=== PATIENT | female | born 1940 | race African-American/Black ===

== ENCOUNTER → 2016-06-17 | Outpatient (CLI) | payer MEDICARE ==
--- NOTE | 2016-06-17 13:09 | MM ---
Reason for exam: follow-up at short interval from prior study. Last mammogram was performed 2 months ago. History: Patient is postmenopausal, has history of breast cancer at age 56, and had previous chest radiation therapy at age 55. Malignant MG pre op needle loc LT of the left breast, May 10, 2016. Malignant MG stereo VAD BX LT of the left breast, April 20, 2016. Benign right mammotome panel of the right breast, August 20, 2008. Radiation therapy of the right breast, 1995. Excisional biopsy of the right breast. Lumpectomy of the right breast. Physical Findings: Nurse Summary: 3-4cm nodule in the left breast at 12 o'clock (nurse kp). MG 3D Diag Mammo W/Cad LT CC and MLO view(s) were taken of the left breast. Prior study comparison: April 04, 2016, left breast MG 3d work up w/cad LT. March 23, 2016, bilateral MG screening mammo w CAD. There are post surgical changes of lumpectomy in the left breast with surgical clips. Two tiny calcifications along the lateral superior anterior aspect of the resection site were present on older priors and do not seem to represent residual calcifications. These results were verbally communicated with the patient and result sheet given to the patient on 06/17/16. ASSESSMENT: Incomplete: need additional imaging evaluation, BI-RAD 0 RECOMMENDATION: Ultrasound of the left breast.
--- NOTE | 2016-06-17 13:14 | USB ---
Reason for exam: additional evaluation requested from abnormal screening. History: Patient is postmenopausal, has history of breast cancer at age 56, and had previous chest radiation therapy at age 55. Malignant MG pre op needle loc LT of the left breast, May 10, 2016. Malignant MG stereo VAD BX LT of the left breast, April 20, 2016. Benign right mammotome panel of the right breast, August 20, 2008. Radiation therapy of the right breast, 1995. Excisional biopsy of the right breast. Lumpectomy of the right breast. US Breast Limited LT Left breast ultrasound demonstrates a 4.3 x 3.9 x 3.8cm large, irregular, hypoechoic mass directly underlying the scar. This is presumed to be the recent resection site. Patient reports being told that her specimen was sent to [facility] and that "there is still something there." These results were verbally communicated with the patient and result sheet given to the patient on 06/17/16. Additional history provided after speaking with the surgeon over the phone later in the day. The posterior margin was positive. There is more than 5 cm between the most posterior surgical clip at the lumpectomy site and the patient's chest wall. ASSESSMENT: Known malignancy, BI-RAD 6 RECOMMENDATION: Surgical consultation. Manage patient on a clinical basis. (residual disease along the posterior resection margin). MTDD
== END | disposition home or self-care (01) ==
LOC: RADMAMWWP 10:10
PROVIDERS: ATTEND Surgery
DX: R92.8 Other abnormal and inconclusive findings on diagnostic imaging of breast (principal); Z85.3 Personal history of malignant neoplasm of breast
CPT/HCPCS: 76642; G0206; G0279

== ENCOUNTER 2016-06-21 11:24 | Day surgery (SDC) | payer MEDICARE ==
[2016-06-20 09:17] VITALS: BMI 35.4
[~2016-06-21 11:24] MED LIST: DEXAMETHASONE SOD PHOSPHATE 10 MG/ML 1 ML VIAL IV ONE; HYDROmorphone 1 MG/ML 1 ML SYRINGE IVP PRN; LACTATED RINGERS 1,000 ML IV SCH; ONDANSETRON 4 MG/2 ML VIAL IVP ONE
[2016-06-21] MEDS ORDERED: HEPARIN SODIUM,PORCINE 5,000 UNIT/ML 1 ML VIAL SQ ONE (12:15)
[2016-06-21] MEDS ORDERED: LIDOCAINE 1% 20 ML VIAL (10MG/ML) FOR IV START INTRADERMA ONE (12:22)
[2016-06-21 12:30] LABS: INR 1.4 (<1.1); Prothrombin Time 13.8 sec (9.0-12.0)
[2016-06-21] MEDS ORDERED: ETOMIDATE 2 MG/ML 10 ML VIAL ONE (12:40)
[2016-06-21] MEDS ORDERED: SUCCINYLCHOLINE CHLORIDE 100 MG/5 ML SYR IV ONE (12:40)
[2016-06-21] MEDS ORDERED: POTASSIUM CHLORIDE 20 MEQ in WATER FOR INJECTION 1 100ML.BAG IVPB STA (12:40)
[2016-06-21] MEDS ORDERED: POTASSIUM CHLORIDE 20 MEQ/100 ML BAG IVPB ONE (12:40)
[2016-06-21] MEDS ORDERED: LIDOCAINE 1% INJ 10MG/ML (20 ML MDV) ONE (12:40)
[2016-06-21] MEDS ORDERED: MIDAZOLAM 2 MG/2 ML VIAL ONE (12:40)
[2016-06-21] MEDS ORDERED: fentaNYL (PF) 50 MCG/ML 2 ML AMP ONE (12:40)
[2016-06-21] MEDS ORDERED: ePHEDrine 50 MG/ML 1 ML AMP ONE (12:40)
[2016-06-21] MEDS ORDERED: SODIUM CHLORIDE 0.9% 50 ML with ceFAZolin 2,000 MG IV ONE ×2 (13:09)
[2016-06-21] MEDS ORDERED: LIDOCAINE 1% INJ 10MG/ML (20 ML MDV) SQ ONE (13:15)
--- NOTE | 2016-06-21 14:11 | P.OP ---
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 Incision was made at the prior lumpectomy site and carried down to the prior biopsy cavity. Wide excision was performed of the area of the cavity. A BioSorb was present and this was removed and irrigated and then reinserted into the new biopsy cavity. Wide margins were obtained circumferentially around the biopsy cavity with particular attention to the posterior area. After assured that hemostasis was attained a BioSorb was replaced was secured using a 3-0 Vicryl suture. The breast tissue was closed over this using 3-0 Vicryl suture. The cavity was reapproximated using 3-0 Vicryl suture. The skin was then closed using 4-0 Monocryl. Prior to closure a TONY drain was placed in the tissues between the subcutaneous tissue and the area where the tissue had been closed over the BioSorb. Hemostasis was well obtained. Patient tolerated procedure in stable condition. All instrument and sponge counts were correct at the end of the case. Specimen was sent to pathology for evaluation. The specimen was painted for orientation prior to being sent.
--- NOTE | 2016-06-21 14:13 | P.DS ---
Providers Attending physician: Barbara Trotter Primary care physician: Jonathan Monreal Plan - Discharge Summary Discharge Medication List Aspirin [Adult Low Dose Aspirin EC] 81 mg PO DAILY 05/06/16 [History] Carvedilol [Coreg] 12.5 mg PO BID 05/06/16 [History] Furosemide [Lasix] 40 mg PO DAILY 05/06/16 [History] Losartan [Cozaar] 50 mg PO HS 05/06/16 [History] Potassium Chloride ER [K-Dur 10] 10 meq PO DAILY 05/06/16 [History] Spironolactone [Aldactone] 12.5 mg PO DAILY 05/06/16 [History] Warfarin [Coumadin] 2.5 mg PO MOFR 05/06/16 [History] Warfarin [Coumadin] 5 mg PO SUTUWETHSA 05/06/16 [History] amLODIPine [Norvasc] 5 mg PO QAM 05/06/16 [History] Acetaminophen Tab [Tylenol Tab] 500 mg PO Q6H PRN 06/16/16 [History] Follow up Appointment(s)/Referral(s): Barbara Trotter MD [STAFF PHYSICIAN] - 3 Days Activity/Diet/Wound Care/Special Instructions: teach patient drain care Patient is not to drive today Discharge Disposition: HOME SELF-CARE
[2016-06-21 14:35] VITALS: PULSE 60; TEMP 97.8
[2016-06-21] MEDS ORDERED: HYDROmorphone 1 MG/ML 1 ML SYRINGE IVP ONE ×2 (14:42→14:47)
[2016-06-21] MEDS ORDERED: METOCLOPRAMIDE 5 MG/ML 2 ML VIAL IVP ONE (14:59)
[2016-06-21 15:27] VITALS: RESP 18
[2016-06-21] MEDS ORDERED: ACETAMINOPHEN TAB 500 MG TAB PO ONE (15:40)
[2016-06-21 15:49] VITALS: BP 135/79
== END 2016-06-21 17:19 | disposition home or self-care (01) ==
LOC: OR 11:24
PROVIDERS: ATTEND Surgery
DX: D05.02 Lobular carcinoma in situ of left breast (principal); N62 Hypertrophy of breast; M10.9 Gout, unspecified; I10 Essential (primary) hypertension; E87.6 Hypokalemia; I50.9 Heart failure, unspecified; M19.90 Unspecified osteoarthritis, unspecified site; Z95.810 Presence of automatic (implantable) cardiac defibrillator; E55.9 Vitamin D deficiency, unspecified; Z88.5 Allergy status to narcotic agent; Z79.01 Long term (current) use of anticoagulants; Z79.82 Long term (current) use of aspirin; Z79.899 Other long term (current) drug therapy
CPT/HCPCS: 19301; 84132; 85610; 88307; J2250; J1644; J1100; J2765; J3480; J2405; J2001; J3010; J1170; J0690; J0330

== ENCOUNTER → 2017-03-27 | Outpatient (CLI) | payer MEDICARE ==
--- NOTE | 2017-03-27 11:58 | MM ---
Reason for exam: additional evaluation requested from prior study. Last mammogram was performed 9 months ago. History: Patient is postmenopausal, has history of breast cancer at age 56, and had previous chest radiation therapy at age 55. Malignant MG pre op needle loc LT of the left breast, May 10, 2016. Malignant MG stereo VAD BX LT of the left breast, April 20, 2016. Benign right mammotome panel of the right breast, August 20, 2008. Radiation therapy of the right breast, 1995. Excisional biopsy of the right breast. Lumpectomy of the right breast. Physical Findings: Nurse did not find any significant physical abnormalities on exam. MG 3D Diag Mammo W/Cad JARROD Bilateral CC and MLO view(s) were taken. XCCL view(s) were taken of the right breast. CV view(s) were taken of the left breast. Prior study comparison: June 17, 2016, left breast MG 3d diag mammo w/cad LT. April 04, 2016, left breast MG 3d work up w/cad LT. The breast tissue is extremely dense which could obscure a lesion on mammography. Stable benign calcifications. Bilateral lumpectomy changes however on the right anterior to the clips there is a new area of spiculation, ultrasound recommended. These results were verbally communicated with the patient and result sheet given to the patient on 03/27/17. ASSESSMENT: Incomplete: need additional imaging evaluation, BI-RAD 0 RECOMMENDATION: Ultrasound of the left breast.
--- NOTE | 2017-03-27 12:00 | USB ---
Reason for exam: additional evaluation requested from abnormal screening. History: Patient is postmenopausal, has history of breast cancer at age 56, and had previous chest radiation therapy at age 55. Malignant MG pre op needle loc LT of the left breast, May 10, 2016. Malignant MG stereo VAD BX LT of the left breast, April 20, 2016. Benign right mammotome panel of the right breast, August 20, 2008. Radiation therapy of the right breast, 1995. Excisional biopsy of the right breast. Lumpectomy of the right breast. US Breast Limited LT Left breast ultrasound demonstrates a 2.3 x 3.1 x 2.2cm irregular, solid, hypoechoic lesion at 12 o'clock. These results were verbally communicated with the patient and result sheet given to the patient on 03/27/17. ASSESSMENT: Suspicious, BI-RAD 4 RECOMMENDATION: Ultrasound core biopsy of the left breast. Called Dr. Forde with mammographic findings and has scheduled an appointment for the patient for 03/31/17 at 11:[address] Trotter. PRELIMINARY REPORT CALLED AND FAXED TO DR. TROTTER ON 03/27/17.
== END | disposition home or self-care (01) ==
LOC: RADMAMWWP 10:07
PROVIDERS: ATTEND Radiology Radiation Oncology
DX: D05.12 Intraductal carcinoma in situ of left breast (principal); R92.8 Other abnormal and inconclusive findings on diagnostic imaging of breast
CPT/HCPCS: 76642; G0204; G0279

== ENCOUNTER → 2017-11-29 | Outpatient (CLI) | payer MEDICARE ==
--- NOTE | 2017-11-29 13:36 | MM ---
Reason for exam: additional evaluation requested from prior study. Last mammogram was performed 8 months ago. History: Patient is postmenopausal, has history of breast cancer at age 56, and had previous chest radiation therapy at age 55. Malignant MG pre op needle loc LT of the left breast, May 10, 2016. Malignant MG stereo VAD BX LT of the left breast, April 20, 2016. Benign right mammotome panel of the right breast, August 20, 2008. Radiation therapy of the right breast, 1995. Excisional biopsy of the right breast. Lumpectomy of the right breast. Physical Findings: Nurse Summary: 3cm nodule in the left breast at 12 o'clock (nurse dw). MG 3D Diag Mammo W/Cad JARROD Bilateral CC and MLO view(s) were taken. Prior study comparison: March 27, 2017, bilateral MG 3d diag mammo w/cad JARROD. June 17, 2016, left breast MG 3d diag mammo w/cad LT. The breast tissue is heterogeneously dense. This may lower the sensitivity of mammography. Post surgical changes bilateral breasts. Benign secretory, oil cysts, and some dystrophic calcifications both sides. Biozorb clips posterior 12 o'clock left breast redemonstrated with persistent distortion just anteriorly, new as seen on 03/27/17 These results were verbally communicated with the patient and result sheet given to the patient on 11/29/17.. ASSESSMENT: Incomplete: need additional imaging evaluation, BI-RAD 0 RECOMMENDATION: Ultrasound of the left breast. (10-12 o'clock)
--- NOTE | 2017-11-29 13:40 | USB ---
Reason for exam: additional evaluation requested from abnormal screening. History: Patient is postmenopausal, has history of breast cancer at age 56, and had previous chest radiation therapy at age 55. Malignant MG pre op needle loc LT of the left breast, May 10, 2016. Malignant MG stereo VAD BX LT of the left breast, April 20, 2016. Benign right mammotome panel of the right breast, August 20, 2008. Radiation therapy of the right breast, 1995. Excisional biopsy of the right breast. Lumpectomy of the right breast. US Breast Limited LT Left limited breast ultrasound including focal area of concern, retroareolar and axilla demonstrates a 3.1 x 4.2 x 2.5cm irregular, solid, hypoechoic lesion at 12 o'clock versus 2.3 x 3.1 x 2.2cm previously. Biozorb markers are not seen and this distortion is anterior to the marker on mammogram. Biopsy recommended. It is possible that this is lumpectomy scar and the Biozorb has displaced. These results were verbally communicated with the patient and result sheet given to the patient on 11/29/17. ASSESSMENT: Suspicious, BI-RAD 4 RECOMMENDATION: Ultrasound core biopsy of the left breast. Called Dr. Forde with mammographic findings and has scheduled an appointment for the patient for 12/07/17 at 1:[address] Trotter. Patient has an appointment with Dr. Forde on 12/06/17. PRELIMINARY REPORT CALLED AND FAXED TO DR. TROTTER ON 11/29/17.
== END | disposition home or self-care (01) ==
LOC: RADMAMWWP 10:08
PROVIDERS: ATTEND Radiology Radiation Oncology
DX: R92.8 Other abnormal and inconclusive findings on diagnostic imaging of breast (principal); Z85.3 Personal history of malignant neoplasm of breast
CPT/HCPCS: 77066; 76642; G0279; 77062

== ENCOUNTER → 2018-01-05 | Outpatient (CLI) | payer MEDICARE, OTHER ==
[2018-01-05 16:22] LABS: HCT 35.7 % (34.0-46.0); HGB 11.4 gm/dL (11.4-16.0); MCH 26.9 pg (25.0-35.0); MCV 84.3 fL (80.0-100.0); Mean Platelet Volume 7.1; Platelet Count 258 k/uL (150-450); RBC 4.23 m/uL (3.80-5.40); RDW 15.4 % (11.5-15.5); WBC 5.3 k/uL (3.8-10.6)
[2018-01-05 16:32] LABS: Potassium 3.7 mmol/L (3.5-5.1)
== END | disposition home or self-care (01) ==
LOC: LABPAT 15:21
PROVIDERS: ATTEND Internal Medicine Cardiovascular Disease
DX: Z01.812 Encounter for preprocedural laboratory examination (principal); T82.111A Breakdown (mechanical) of cardiac pulse generator (battery), initial encounter
CPT/HCPCS: 36415; 80051; 82565; 84520; 85027

== ENCOUNTER 2018-01-15 11:40 | Day surgery (SDC) | payer MEDICARE, OTHER ==
[2018-01-10 09:11] VITALS: BMI 35.8
[2018-01-15] MEDS: SODIUM CHLORIDE 0.9% 1,000 ML IV SCH ×3 (12:21→17:44)
[2018-01-15 12:30] LABS: INR 1.6 (<1.2); Prothrombin Time 14.9 sec (9.0-12.0)
[2018-01-15] MEDS ORDERED: ceFAZolin IN SWFI 2 GM/20 ML SYRINGE IVP ONE (13:30)
[2018-01-15] MEDS ORDERED: SODIUM CHLORIDE 0.9% 1,000 ML IV SCH (13:30)
[2018-01-15] MEDS ORDERED: ceFAZolin 1,000 MG in SODIUM CHLORIDE 0.9% IRRIGATIO 250 ML IRRIGATION ONE (13:30)
[2018-01-15] MEDS ORDERED: LIDOCAINE 1% INJ 10MG/ML (20 ML MDV) SQ ONE ×2 (14:10→14:47)
[2018-01-15] MEDS: fentaNYL (PF) 50 MCG/ML 2 ML AMP IV ONE ×2 (14:35→14:48)
[2018-01-15] MEDS ORDERED: ACETAMINOPHEN TAB 325 MG TAB PO PRN (15:57)
[2018-01-15] MEDS ORDERED: ACETAMINOPHEN IV (For NPO) 1,000 MG in EMPTY BAG 1 BAG IVPB ONE (15:57)
[2018-01-15 17:37] VITALS: RESP 16
[2018-01-15 20:09] VITALS: BP 127/75; PULSE 60; TEMP 98
--- NOTE | 2018-01-16 15:37 | P.PCN ---
Date of Procedure: 01/15/18 Preoperative Diagnosis: Battery depletion, complete heart block and pacemaker dependency Postoperative Diagnosis: The same Procedure(s) Performed: Temporary pacemaker Description of Procedure: Temporary pacemaker insertion: : This patient is brought in for battery replacement for AICD. Patient also has history of complete AV block. She is advised to have temporary pacemaker for standby for change of battery. The right groin is infiltrated with lidocaine. The right femoral vein was entered using Seldinger technique and a sheath was left in place. A bone tapered temporary pacemaker was advanced and was placed in the right ventricle apical region. Satisfactory thresholds were obtained. The pacemaker is programmed to a rate of 40 and output of 3. No immediate complications. No Final impression: Successful implantation of temporary pacemaker.
--- NOTE | 2018-01-16 15:48 | P.PCN ---
Date of Procedure: 01/16/18 Preoperative Diagnosis: HISTORY: This is a 77-year-old female with history of cardiomyopathy and complete heart block status post dual-chamber AICD implantation. Patient has reached PHAM. Patient is brought in for battery change. Patient already had a temporary pacemaker for standby. CONSENT: I have discussed the risks and benefits as related to the above mentioned procedure and both sedation/analgesia as well as necessary blood product administration. The patient has indicated understanding and acceptance of the risks of the procedure discussed. PROCEDURE: Patient was brought to the lab in a fasting state. Patient was given IV Versed and fentanyl for sedation. The skin over the existing pulse generator was infiltrated with lidocaine. An incision was made in the skin and was deepened until the pectoral fascia was exposed. Hemostasis was obtained. The existing pulse generator was pulled out of the pocket. The leads were disconnected and were checked for thresholds. Conscious Sedation: Versed []mg Fentanyl 50 g Duration 46minutes THRESHOLDS: ATRIAL: 1 V at a pulse width of 0.5 ms area did the impedance is 437 ohms P-wave: To VENTRICULAR: The minimal patient threshold was 1 V at pulse width of 0.5 ms. The impedance is 437 ohms. R-wave : Paced. RV coil impedance is 71 and SVC is 70 THE LEADS: ATRIAL: This is manufactured by [employer]. Model number is 4473 and the serial number is [id number] VENTRICULAR:. This is manufactured by [employer]. Model number is 0185. Serial number is [id number]. THE EXPLANTED DEVICE: This is manufactured by [employer]. Model number is E110 and the serial number is [id number] THE NEW DEVICE:. This is manufactured by [employer]. Model number is [id number] and the serial number is [facility] [id number] The leads were then connected to a new pulse generator. Pacemaker seems to function normally. The pocket was irrigated with antibiotics. The pocket was closed in the usual fashion. Pectoral fascia was closed with 2-0 Prolene, the subcutaneous tissue was closed with 3-0 Prolene and the skin was closed with 4- 0 Prolene. Patient tolerated the procedure well . Patient will be monitored on the telemetry unit for 2-3 hours. If stable patient be discharged home later today. PLAN: Patient will be monitored for the next 3 hours. If stable patient will be discharged home FALLOW UP: One week in the office
== END 2018-01-15 21:05 | disposition home or self-care (01) ==
LOC: CATHEP 11:40 → 6SEL 16:14 → CATHEP 21:05
PROVIDERS: ATTEND Internal Medicine Cardiovascular Disease
DX: I25.5 Ischemic cardiomyopathy (principal); I44.2 Atrioventricular block, complete; Z45.02 Encounter for adjustment and management of automatic implantable cardiac defibrillator; I48.91 Unspecified atrial fibrillation; Z79.01 Long term (current) use of anticoagulants; I11.9 Hypertensive heart disease without heart failure; Z79.82 Long term (current) use of aspirin; Z79.899 Other long term (current) drug therapy
CPT/HCPCS: 33263; 85610; C1894; C1769; C1721; J0690 ×2; J2001; J3010

== ENCOUNTER 2019-05-08 13:47 | Emergency (ER) | payer MEDICARE, OTHER ==
[2019-05-08 14:12] VITALS: RESP 18
[2019-05-08] MEDS ORDERED: KETOROLAC 30 MG/ML 1 ML VIAL IM STA (14:25)
--- NOTE | 2019-05-08 14:36 | ED ---
General Adult HPI - General Chief complaint: Extremity Problem,Nontraumatic Stated complaint: Knee Injury Time Seen by Provider: 05/08/19 14:11 Source: patient, RN notes reviewed Mode of arrival: ambulatory Limitations: no limitations - History of Present Illness Initial comments: 79-year-old female presents for right knee pain. Patient states that when he gets cold that she gets achy ankles and knees. States that 2 days ago her knee started hurting. States she cannot bear weight on it yesterday but now 10. States it looked a little swollen yesterday. She denies any redness. Denies swelling today. Denies fevers or chills. Patient is unsure if she has a history of arthritis. Patient has no other complaints at this time including shortness of breath, chest pain, abdominal pain, nausea or vomiting, headache, or visual changes. - Related Data Home Medications Medication Instructions Recorded Confirmed Aspirin [Adult Low Dose Aspirin EC] 81 mg PO DAILY 05/06/16 01/15/18 Carvedilol [Coreg] 12.5 mg PO BID 05/06/16 01/15/18 Furosemide [Lasix] 40 mg PO DAILY 05/06/16 01/15/18 Losartan [Cozaar] 50 mg PO HS 05/06/16 01/15/18 Spironolactone [Aldactone] 25 mg PO DAILY 05/06/16 01/15/18 Warfarin [Coumadin] 2.5 mg PO MOWEFR 05/06/16 01/15/18 Warfarin [Coumadin] 5 mg PO SUTUTHSA 05/06/16 01/15/18 Allergies Allergy/AdvReac Type Severity Reaction Status Date / Time codeine AdvReac Nausea & Verified 01/10/18 08:59 [From Tylenol-Codeine #3] Vomiting Review of Systems ROS Statement: Those systems with pertinent positive or pertinent negative responses have been documented in the HPI. ROS Other: All systems not noted in ROS Statement are negative. Past Medical History Past Medical History: Atrial Fibrillation, Cancer, Heart Failure, Hypertension Additional Past Medical History / Comment(s): breast CA,hx Rt breast CA 21 yrs ago History of Any Multi-Drug Resistant Organisms: None Reported Past Surgical History: Pacemaker Additional Past Surgical History / Comment(s): right breast lumpectomy, left breast bx 04/20/16, [place] shoulder sx, [place] cataract, defibrilator placement Past Anesthesia/Blood Transfusion Reactions: No Reported Reaction Additional Past Anesthesia/Blood Transfusion Reaction / Comment(s): no hx blood transfusion Type of Cardiac Device: AICD Device Placement Date:: Dexin Interactive, last 2010 Past Psychological History: No Psychological Hx Reported Smoking Status: Never smoker - Past Family History Brother(s) Family Medical History: Cancer Additional Family Medical History / Comment(s): lung Mother Family Medical History: Congestive Heart Failure (CHF) Father History Unknown: Yes General Exam Limitations: no limitations General appearance: alert, in no apparent distress Head exam: Present: atraumatic, normocephalic, normal inspection Eye exam: Present: normal appearance, PERRL, EOMI. Absent: scleral icterus, conjunctival injection, periorbital swelling ENT exam: Present: normal exam, mucous membranes moist Neck exam: Present: normal inspection, full ROM. Absent: tenderness, meningismus, lymphadenopathy Respiratory exam: Present: normal lung sounds bilaterally. Absent: respiratory distress, wheezes, rales, rhonchi, stridor Cardiovascular Exam: Present: regular rate, normal rhythm, normal heart sounds. Absent: systolic murmur, diastolic murmur, rubs, gallop, clicks Extremities exam: Present: full ROM (full range of motion noted in the right lower extremity including the right knee.), tenderness (mild tenderness noted over the lateral aspect of the right knee.), normal capillary refill (capillary refill less than 2 seconds, DP pulse 2+.). Absent: joint swelling (no edema erythema or increased warmth noted of the right knee.), calf tenderness (no tenderness of the calf in the right lower extremity.) Neurological exam: Present: alert Psychiatric exam: Present: normal affect, normal mood Course Vital Signs 05/08/19 14:08 Temperature 97.9 F Pulse Rate 58 L Respiratory 18 Rate Blood Pressure 131/74 O2 Sat by Pulse 99 Oximetry Medical Decision Making - Medical Decision Making As ago exam is generally unremarkable. Patient is able to review. There is no edema or erythema. No evidence for septic arthritis. Full range of motion. Neurovascular status intact. X-ray shows no acute fracture or dislocation. There is mild to try compartment joint space loss with demineralization. P atient likely has arthritic pain. She was given Toradol which did help with her ankle but not her knee. She was then given [place]. However I did discuss I do not think he should write patient a [place] prescription as this can cause side effects. She will take Tylenol at home for pain. She is not supposed to take Motrin apparently according to her doctor so she was directed to listen to her doctor about this. She will follow-up with orthopedics in one to 2 days. Disposition Clinical Impression: Knee pain, right Disposition: HOME SELF-CARE Condition: Good Instructions (If sedation given, give patient instructions): Knee Pain (ED) Additional Instructions: please take Tylenol for pain. Follow-up with orthopedics in one to 2 days. Return to the emergency department if you have any worsening symptoms. Is patient prescribed a controlled substance at d/c from ED?: No Referrals: Jonathan Monreal DO [Primary Care Provider] - 1-2 days Ronnell Garnett MD [STAFF PHYSICIAN] - 1-2 days Time of Disposition: 15:47
--- NOTE | 2019-05-08 15:07 | XR ---
EXAMINATION TYPE: XR knee complete RT DATE OF EXAM: 05/08/2019 CLINICAL HISTORY: Right knee pain. TECHNIQUE: Three views of the right knee are obtained. COMPARISON: None. FINDINGS: There is no acute fracture/dislocation evident in the right knee. Mild tricompartment join t space loss without significant spurring. Demineralization is present. Overlying blanket or clothing material is present. IMPRESSION: As above.
[2019-05-08] MEDS ORDERED: HYDROcodone/APAP 5-325MG 1 EACH TAB PO STA (15:47)
[2019-05-08 16:48] VITALS: BP 136/72; PULSE 60; TEMP 98
== END 2019-05-08 16:48 | disposition home or self-care (01) ==
LOC: EC 13:47
DX: M25.561 Pain in right knee (principal); M81.0 Age-related osteoporosis without current pathological fracture; I48.91 Unspecified atrial fibrillation; I11.0 Hypertensive heart disease with heart failure; I50.9 Heart failure, unspecified; Z79.82 Long term (current) use of aspirin; Z79.01 Long term (current) use of anticoagulants; Z79.899 Other long term (current) drug therapy; Z88.5 Allergy status to narcotic agent; Z88.6 Allergy status to analgesic agent; Z85.3 Personal history of malignant neoplasm of breast; Z90.11 Acquired absence of right breast and nipple; Z95.810 Presence of automatic (implantable) cardiac defibrillator
CPT/HCPCS: 73562; 96372; 99283; J1885

== ENCOUNTER → 2019-07-01 | Outpatient (CLI) | payer MEDICARE, OTHER ==
--- NOTE | 2019-07-02 09:30 | MM ---
Reason for exam: additional evaluation requested from prior study. Last mammogram was performed 1 year and 7 months ago. History: Patient is postmenopausal, has history of breast cancer at age 56, and had previous chest radiation therapy at age 55. Radiation therapy of the left breast, 2017. Malignant MG pre op needle loc LT of the left breast, May 10, 2016. Malignant MG stereo VAD BX LT of the left breast, April 20, 2016. Benign right mammotome panel of the right breast, August 20, 2008. Radiation therapy of the right breast, 1995. Excisional biopsy of the right breast. Lumpectomy of the right breast. Physical Findings: Nurse did not find any significant physical abnormalities on exam. MG 3D Diag Mammo W/Cad JARROD Bilateral CC and MLO view(s) were taken. XCCL view(s) were taken of the left breast. Prior study comparison: November 29, 2017, bilateral MG 3d diag mammo w/cad JARROD. March 27, 2017, bilateral MG 3d diag mammo w/cad JARROD. The breast tissue is heterogeneously dense. This may lower the sensitivity of mammography. Benign appearing bilateral calcifications. Post therapy change bilaterally. Large area of left upper outer quadrant architectural distortion has increased in size, highly suspicious. Biopsy recommendation on prior exam of 2018. These results were verbally communicated with the patient and result sheet given to the patient on 07/01/19. ASSESSMENT: Incomplete: need additional imaging evaluation, BI-RAD 0 RECOMMENDATION: Ultrasound of the left breast. (upper outer quadrant to assess growth)
--- NOTE | 2019-07-02 09:34 | USB ---
Reason for exam: additional evaluation requested from abnormal screening. History: Patient is postmenopausal, has history of breast cancer at age 56, and had previous chest radiation therapy at age 55. Radiation therapy of the left breast, 2017. Malignant MG pre op needle loc LT of the left breast, May 10, 2016. Malignant MG stereo VAD BX LT of the left breast, April 20, 2016. Benign right mammotome panel of the right breast, August 20, 2008. Radiation therapy of the right breast, 1995. Excisional biopsy of the right breast. Lumpectomy of the right breast. US Breast Limited LT Left limited breast ultrasound including focal area of concern, retroareolar and axilla demonstrates a 1.0 x 0.8 x 0.5cm lymph node at 10 o'clock, a biozorb marker at 11 o'clock and a 2.6 x 4.7 x 1.4cm irregular, difficult to measure, mixed, hypoechoic lesion at 12 o'clock, prior 3.1 x 4.2 x 2.5cm lesion at 12 o'clock, biopsy recommended. Patient notes additional excision in May 2016 for margins. 12 o'clock mass could relate to scar or new carcinoma, biopsy recommended. These results were verbally communicated with the patient and result sheet given to the patient on 07/01/19. ASSESSMENT: Suspicious, BI-RAD 4 RECOMMENDATION: Ultrasound core biopsy of the left breast. Called Dr. Forde's office with mammographic findings and has scheduled an appointment for the patient for 07/24/19 at 1:[address] Trotter. Biopsy scheduled for 07/25/19 at 12:20. PRELIMINARY REPORT CALLED AND FAXED TO DR. TROTTER ON 07/02/19.
== END | disposition home or self-care (01) ==
LOC: RADMAMWWP 12:37
PROVIDERS: ATTEND Radiology Radiation Oncology
DX: D05.12 Intraductal carcinoma in situ of left breast (principal); R92.8 Other abnormal and inconclusive findings on diagnostic imaging of breast; Z17.0 Estrogen receptor positive status [ER+]
CPT/HCPCS: 77066; 76642; G0279; 77062

== ENCOUNTER → 2019-07-24 | Outpatient (CLI) | payer MEDICARE, OTHER ==
[2019-07-24 13:16] VITALS: BP 111/76; PULSE 83; RESP 20; TEMP 97.8
--- NOTE | 2019-07-24 14:11 | P.GSHP ---
History of Present Illness H&P Date: 07/24/19 Chief Complaint: ultrasound abnormal left breast Arlene is a 79 year old female with a [place] [id number] which revealed a large area of left upper outer quadrant architectural distortion which had increased in size and was considered highly suspicious. Biopsy had been recommended and prior exam of 2017. Patient subsequently had an [place] done [place] [id number] which revealed a 2.6 x 4.7 x 1.4 cm irregular difficult to measure mixed hypoechoic lesion at 12:00. This was considered suspicious BIRADS 4 and ultrasound-guided core biopsy was recommended. The patient's past history is significant for the following. The patient had a left breast needle core biopsy stereotactic in March 2016. This revealed high-grade ductal carcinoma in situ. She subsequently in April 2016 underwent a lumpectomy with sentinel node biopsy the sentinel nodes were negative for malignancy. 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 The patient therefore had repeat excision performed in May 2016. This was a left lumpectomy site reexcision breast with lobular neoplasia previous biopsy site and fibrocystic changes with focal fibroadenomatoid hyperplasia with no residual DCIS or pleomorphic LCIS. She underwent radiation therapy following the lumpectomy. She did not take any hormonal therapy. The patient also had a right breast lumpectomy and radiation about 20 years ago. She had no chemotherapy or hormonal therapy at that time. She does not feel anything of concern in her breast at this time. She still follows with radiation oncology this May and she was told to return in one year. No nipple discharge or skin changes. The patient does complain of her right breast being smaller than her left breast. It is difficult to find close the third. She experiences left shoulder discomfort secondary to the increased size of the left breast and back pain. Family History: patient: bilateral breast cancer, left DCIS, right ? type done at [facility]) Hormonal History: menarche: 12 breast fed: yes, age at first births: 19 menopause: 51 BCP: none hormones: none Surgical history: 1. Bilateral shoulders 2. Bilateral breast lumpectomies with right axillary node dissection and left sentinel node biopsy the first done right about 20 years ago, the second done 2016 with a re-excision 3. automatic defibrillator Medical History: 1. HTN 2. on Coumadin 3. ? atrial fibrillation ( DR. Martins) Social History: smoke: none alcohol: none drugs: none - Constitutional Constitutional: Reports sweats - EENT Comment: bilateral cataract surgery Eyes: denies blurred vision, denies pain Ears: deny: decreased hearing, tinnitus Ears, nose, mouth and throat: Denies headache, Denies sore throat - Breasts Breasts: bilateral: as per HPI - Cardiovascular Comment: ? atrial fibrillation Cardiovascular: Reports shortness of breath - Respiratory Respiratory: Denies cough, Denies 7 - Gastrointestinal Gastrointestinal: Denies abdominal pain, Denies diarrhea, Denies nausea, Denies vomiting - Genitourinary (Female) Genitourinary: Denies dysuria, Denies hematuria - Menstruation Menstruation: Reports postmenopausal - Musculoskeletal Comment: lower back and hip pain Musculoskeletal: Denies myalgias - Integumentary Integumentary: Denies pruritus, Denies rash - Neurological Neurological: Denies numbness, Denies weakness - Psychiatric Psychiatric: Denies anxiety, Denies depression - Endocrine Endocrine: Denies fatigue, Denies weight change - Hematologic/Lymphatic Comment: Coumadin - Allergic/Immunologic Allergic/Immunologic: Reports as per HPI Past Medical History Past Medical History: Atrial Fibrillation, Cancer, Heart Failure, Hypertension Additional Past Medical History / Comment(s): RIGHT BREAST CANCER 2007. LEFT BREAST CANCER 2017 History of Any Multi-Drug Resistant Organisms: None Reported Past Surgical History: Orthopedic Surgery, Pacemaker Additional Past Surgical History / Comment(s): right breast lumpectomy 2007. left breast LUMPECTOMY 2017. [place] shoulder sx. [place] cataract. AICD 2010 Past Anesthesia/Blood Transfusion Reactions: Postoperative Nausea & Vomiting (PONV) Additional Past Anesthesia/Blood Transfusion Reaction / Comment(s): no hx blood transfusion Type of Cardiac Device: AICD Device Placement Date:: [employer] last 2010 Past Psychological History: No Psychological Hx Reported Smoking Status: Never smoker Past Alcohol Use History: None Reported Past Drug Use History: None Reported - Past Family History Brother(s) Family Medical History: Cancer Additional Family Medical History / Comment(s): lung Mother Family Medical History: Congestive Heart Failure (CHF) Father History Unknown: Yes Medications and Allergies Home Medications Medication Instructions Recorded Confirmed Type Aspirin [Adult Low Dose Aspirin EC] 81 mg PO DAILY 05/06/16 07/24/19 History Carvedilol [Coreg] 12.5 mg PO BID 05/06/16 07/24/19 History Furosemide [Lasix] 40 mg PO DAILY 05/06/16 07/24/19 History Losartan [Cozaar] 50 mg PO HS 05/06/16 07/24/19 History Spironolactone [Aldactone] 25 mg PO DAILY 05/06/16 07/24/19 History Warfarin Sodium [Coumadin] 3.75 mg PO WEEKLY 07/12/19 07/24/19 History Warfarin [Coumadin] 2.5 mg PO WEEKLY 07/12/19 07/24/19 History amLODIPine [Norvasc] 5 mg PO DAILY 07/24/19 07/24/19 History Allergies Allergy/AdvReac Type Severity Reaction Status Date / Time codeine AdvReac Nausea & Verified 07/24/19 13:16 [From Tylenol-Codeine #3] Vomiting Surgical - Exam Vital Signs Temp Pulse Resp BP Pulse Ox 97.8 F 83 20 111/76 99 07/24/19 13:11 07/24/19 13:11 07/24/19 13:11 07/24/19 13:11 07/24/19 13:11 BMI 34 - General obese - Eyes normal ocular movement - ENT no hearing loss, no congestion - Neck no masses, trachea midline - Respiratory normal expansion, normal respiratory effort, clear to percussion, clear to auscultation - Cardiovascular Rhythm: regular Heart Sounds: normal: S1, S2 - Abdomen Abdomen: soft, non tender, no guarding, no rigid, no rebound - Integumentary normal turgor Left chest wall a defibrillator is in place and the upper aspect of the left chest wall - Neurologic no disoriented, no combative - Musculoskeletal normal gait - Psychiatric oriented to time, oriented to person, oriented to place, speech is normal, memory intact breast exam: BRA asymmetry of breast 40D, doesn't fit right side ptosis grade 3 inspection: Asymmetry of the breast with the left side being markedly larger than the right side bilateral breast scarring from prior lumpectomies palpation: Right breast: Multi-positional exam fibrocystic changes, well-healed scar from prior lumpectomy, no dominant masses or nodules of concern Right axilla: No adenopathy of concern Left breast: Multi-positional exam revealed scar from prior lumpectomy, some slight increased nodularity at that site, otherwise no other dominant masses or nodules of concern Left axilla: No adenopathy of concern Results Mammogram and ultrasound results reviewed Assessment and Plan Assessment: Impression: 1. Abnormal left breast mammogram and ultrasound 2. History of bilateral breast cancer DCIS 3. Atrial fibrillation 4. Patient on Coumadin with automatic defibrillator 5. Patient taking baby aspirin Plan: 1. stop baby aspirin and coumadin as per radiology 2. obtain pathology report form [facility] 3. consider symmetry procedure for the left breast after biopsy, CC: Dr. Monreal I have talked with Dr. Venegas's office and the patient is able to stop her aspirin and her Coumadin. Have spoken to in nurse practitioner Xiao. The patient had not stopped her aspirin and therefore we are going to reschedule the biopsy. She will stop the aspirin 5 days prior to the procedure. She will stop her Coumadin 4 days prior to the procedure and have recommended that in a PT/INR be done the day of the procedure. The patient understands and this will be rescheduled. Risks and benefits of the procedure are discussed and the patient understands. These include bleeding infection reaction to the anesthetic and possibility of not getting a fundraising sale representative sample. encounter 45 minutes: greater than 50% of time on planning and counselling Time with Patient: Greater than 30
== END ==
LOC: WWCWWP 13:00
PROVIDERS: ATTEND Surgery
DX: Z53.9 Procedure and treatment not carried out, unspecified reason (principal)

== ENCOUNTER → 2019-07-30 | Day surgery (SDC) | payer MEDICARE, OTHER ==
[2019-07-30 11:41] VITALS: RESP 16
[2019-07-30 11:53] LABS: Partial Thromboplastin Time 24.6 sec (22.0-30.0); Prothrombin Time 10.4 sec (9.0-12.0)
[2019-07-30 13:04] VITALS: BP 138/86; PULSE 65; TEMP 97.8
--- NOTE | 2019-07-30 13:44 | USB ---
EXAMINATION TYPE: US biopsy breast VAD LT, MG diagnostic mammo LT wo CAD DATE OF EXAM: 07/30/2019 CLINICAL HISTORY: R92.8, Abnormal mammogram. History of left-sided breast cancer diagnosed and treate d 2016 and 2017 with recent abnormal ultrasound. TECHNIQUE: Ultrasound guided core biopsy of left breast with clip placement and follow-up diagnostic two-view mammogram. COMPARISON: Prior mammogram and ultrasound July 01, 2019 and older studies. FINDINGS: The procedure of ultrasound guided core biopsy was explained to the patient. Benefits, alt ernatives, and risks were discussed. An informed consent was then obtained. The patient was placed in supine positioning for imaging and for the procedure. Preprocedure ultraso und redemonstrates the 12:00 position vague irregular hypoechoic lesion measuring roughly 2.1 x 1.3 x 3.4 cm without significant vascularity. The overlying skin was prepped and draped in usual sterile f ashion. Lidocaine was used as anesthetic into the skin and subcutaneous tissue. Lidocaine with epinep hrine is used as anesthetic into the deeper tissue up to area of concern in the left breast. Under ultrasound guidance, a vacuum assisted biopsy gun device was used to obtain 4 core samples at d ifferent levels in the lesion. Following this, a biopsy clip was left along the left lateral aspect of the lesion as I could not penetrate the area with device to put centrally within the lesion. The patient tolerated the procedure well without any immediate complication. The patient was kept in the radiology department for short stay after the procedure and then discharged home in stable condi tion. Post procedure mammogram shows successful deployment of clip middle depth along the lateral superior margin of the area of distortion. IMPRESSION: Successful, uncomplicated ultrasound guided core biopsy of area of concern in the left br east, full pathology results to follow. Intermediate index of suspicion noted at time of procedure. Grossly all samples obtained were white f avoring scarring over recurrent tumor.
== END ==
LOC: RADUSWWP 10:36
PROVIDERS: ATTEND Surgery
DX: N60.12 Diffuse cystic mastopathy of left breast (principal); R92.8 Other abnormal and inconclusive findings on diagnostic imaging of breast; Z85.3 Personal history of malignant neoplasm of breast
CPT/HCPCS: 88305; 85610; 85730; 77065; 19083; 36415; A4648; J2001

== ENCOUNTER → 2020-01-23 | Outpatient (CLI) | payer MEDICARE, OTHER ==
--- NOTE | 2020-01-23 11:40 | XR ---
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 Small or absent T12 ribs. Hypertrophic facet arthr opathy throughout. Trace grade 1 anterolisthesis at L3-L4. There is grade 1 retrolisthesis at L4-L5. Vertebral body heights are preserved. 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 Hypertrophic facet arthropathy with a grade 1 spon dylolisthesis at L3-L4 and L4-L5. No vertebral compression collapse.
== END | disposition home or self-care (01) ==
LOC: RADXRMAIN 09:18
PROVIDERS: ATTEND Family Medicine
DX: M43.16 Spondylolisthesis, lumbar region (principal); M47.816 Spondylosis without myelopathy or radiculopathy, lumbar region; M43.8X6 Other specified deforming dorsopathies, lumbar region
CPT/HCPCS: 72100

== ENCOUNTER 2021-11-14 22:01 | Inpatient (IN) | payer MEDICARE, OTHER ==
--- NOTE | 2021-11-14 22:15 | ED ---
Altered Mental Status HPI - General Stated Complaint: AMS/Weakness Time Seen by Provider: 11/14/21 22:05 - History of Present Illness Initial Comments: This patient is an 81-year-old woman who when I review her is complaining of right leg pain from the knee down to the ankle. She states that it had come on today. She notes it mainly which tries to move her right leg or when she was trying to walk to the bathroom. She denied having any recent injury. The patient was brought by EMS after they were called to go to the home to perform wellness check. Family had not heard from the patient in around 24 hours. EMS arrived and found the patient lying on the floor. The patient reportedly told him that she thought she was lying on the couch. Patient was without complaint other than the right leg pain previously mentioned. MD Complaint: other -: hour(s) Consistency of Symptoms: unknown Associated Symptoms: other (Right leg pain) - Related Data Home Medications Medication Instructions Recorded Confirmed Furosemide [Lasix] 40 mg PO DAILY 05/06/16 11/15/21 Losartan [Cozaar] 50 mg PO DAILY 05/06/16 11/15/21 Spironolactone [Aldactone] 12.5 mg PO DAILY 05/06/16 11/15/21 carvediloL [Coreg] 12.5 mg PO BID 05/06/16 11/15/21 Warfarin [Coumadin] 2.5 mg PO SUMOTUTHFR 07/12/19 11/15/21 Warfarin [Coumadin] 3.75 mg PO WESA 11/15/21 11/15/21 Allergies Allergy/AdvReac Type Severity Reaction Status Date / Time codeine AdvReac Nausea & Verified 11/15/21 08:16 [From Tylenol-Codeine #3] Vomiting Review of Systems ROS Statement: Those systems with pertinent positive or pertinent negative responses have been documented in the HPI. ROS Other: All systems not noted in ROS Statement are negative. Constitutional: Denies: fever Respiratory: Denies: cough, dyspnea Cardiovascular: Denies: chest pain, palpitations Gastrointestinal: Denies: abdominal pain Musculoskeletal: Reports: as per HPI, arthralgia. Denies: back pain Neurological: Denies: headache Past Medical History Past Medical History: Atrial Fibrillation, Cancer, Heart Failure, Hypertension Additional Past Medical History / Comment(s): RIGHT BREAST CANCER 2006. LEFT BREAST CANCER 2017 History of Any Multi-Drug Resistant Organisms: None Reported Past Surgical History: Orthopedic Surgery, Pacemaker Additional Past Surgical History / Comment(s): right breast lumpectomy 2006. left breast LUMPECTOMY 2016. [place] shoulder sx. [place] cataract. AICD 2010 Past Anesthesia/Blood Transfusion Reactions: Postoperative Nausea & Vomiting (PONV) Additional Past Anesthesia/Blood Transfusion Reaction / Comment(s): no hx blood transfusion Type of Cardiac Device: AICD Device Placement Date:: Predictvia, last 2010 Past Psychological History: No Psychological Hx Reported Past Alcohol Use History: None Reported Past Drug Use History: None Reported - Past Family History Brother(s) Family Medical History: Cancer Additional Family Medical History / Comment(s): lung Mother Family Medical History: Congestive Heart Failure (CHF) Father History Unknown: Yes General Exam General appearance: alert, in no apparent distress Head exam: Present: atraumatic, normocephalic Eye exam: Present: normal appearance, PERRL, EOMI. Absent: scleral icterus, conjunctival injection ENT exam: Present: mucous membranes dry Neck exam: Present: normal inspection, full ROM. Absent: tenderness Respiratory exam: Present: normal lung sounds bilaterally. Absent: respiratory distress, wheezes, rales, rhonchi, stridor, chest wall tenderness Cardiovascular Exam: Present: regular rate, normal rhythm, normal heart sounds. Absent: systolic murmur, diastolic murmur, rubs, gallop GI/Abdominal exam: Present: soft. Absent: distended, tenderness, guarding, rebound, rigid, mass Right Hip exam: Present: normal inspection. Absent: tenderness, swelling Upper Leg exam: Present: normal inspection, full ROM. Absent: tenderness, swelling Knee exam: Present: normal inspection, tenderness. Absent: full ROM, swelling, abrasion, laceration Lower Leg exam: Present: normal inspection, tenderness. Absent: swelling, abrasion Ankle exam: Present: normal inspection, tenderness. Absent: swelling Foot/Toe exam: Present: normal inspection. Absent: tenderness, swelling, abrasion, laceration Neurovascular tendon exam: Present: no vascular compromise. Absent: pulse deficit, abnormal cap refill, motor deficit, sensory deficit, tendon deficit Neurological exam: Present: alert Skin exam: Present: warm, dry, intact, normal color. Absent: rash Course Vital Signs 06/11/14/21 11/15/21 22:05 23:18 03:12 Temperature 98.2 F 98.4 F Pulse Rate 66 85 Pulse Rate [ 62 Pulse Oximetery ] Respiratory 16 16 22 Rate Blood Pressure 143/70 157/63 Blood Pressure 138/72 [Right Arm] O2 Sat by Pulse 96 95 97 Oximetry Medical Decision Making - Medical Decision Making Patient is an 81-year-old woman brought from home after presumed ground-level fall. Patient not able to describe the episode. She is having pain to right leg but x-rays did not reveal injury. Patient is found to have mild elevation of troponin and mild elevation of CK, will admit to trend the troponin's but at this point the ECG not revealing ischemia and patient not having ACS symptoms - Lab Data Result diagrams: 11/15/21 06:47 11/15/21 22:09 Lab Results 11/14/21 11/14/21 11/14/21 Range/Units 22:56 22:56 22:56 WBC 14.5 H (3.8-10.6) k/uL RBC 4.24 (3.80-5.40) m/uL Hgb 12.1 (11.4-16.0) gm/dL Hct 37.1 (34.0-46.0) % MCV 87.6 (80.0-100.0) fL MCH 28.5 (25.0-35.0) pg MCHC 32.6 (31.0-37.0) g/dL RDW 15.1 (11.5-15.5) % Plt Count 307 (150-450) k/uL MPV 8.3 Neutrophils % 84 % Lymphocytes % 9 % Monocytes % 5 % Eosinophils % 2 % Basophils % 0 % Neutrophils # 12.1 H (1.3-7.7) k/uL Lymphocytes # 1.3 (1.0-4.8) k/uL Monocytes # 0.8 (0-1.0) k/uL Eosinophils # 0.2 (0-0.7) k/uL Basophils # 0.1 (0-0.2) k/uL Hypochromasia Slight PT 17.4 H (9.0-12.0) sec INR 1.7 H (<1.2) APTT 31.9 H (22.0-30.0) sec Sodium 136 L (137-145) mmol/L Potassium 3.4 L (3.5-5.1) mmol/L Chloride 96 L (98-107) mmol/L Carbon Dioxide 29 (22-30) mmol/L Anion Gap 11 mmol/L BUN 22 H (7-17) mg/dL Creatinine 0.88 (0.52-1.04) mg/dL Est GFR (CKD-EPI)AfAm 72 (>60 ml/min/1.73 sqM) Est GFR (CKD-EPI)NonAf 63 (>60 ml/min/1.73 sqM) Glucose 137 H (74-99) mg/dL Calcium 9.3 (8.4-10.2) mg/dL Total Bilirubin 2.1 H (0.2-1.3) mg/dL AST 53 H (14-36) U/L ALT 17 (4-34) U/L Alkaline Phosphatase 60 (38-126) U/L Creatine Kinase 1310 H* (30-135) U/L CK-MB (CK-2) (0.0-2.4) ng/mL Troponin I (0.000-0.034) ng/mL Total Protein 7.5 (6.3-8.2) g/dL Albumin 4.0 (3.5-5.0) g/dL Procalcitonin (0.02-0.09) ng/mL Urine Color Urine Appearance (Clear) Urine pH (5.0-8.0) Ur Specific [place] (1.001-1.035) Urine Protein (Negative) Urine Glucose (UA) (Negative) Urine Ketones (Negative) Urine Blood (Negative) Urine Nitrite (Negative) Urine Bilirubin (Negative) Urine Urobilinogen (<2.0) mg/dL Ur Leukocyte Esterase (Negative) Urine RBC (0-5) /hpf Urine WBC (0-5) /hpf Ur Squamous Epith Cells (0-4) /hpf Urine Bacteria (None) /hpf Urine Mucus (None) /hpf Urine Opiates Screen (NotDetected) Ur Oxycodone Screen (NotDetected) Urine Methadone Screen (NotDetected) Ur Propoxyphene Screen (NotDetected) Ur Barbiturates Screen (NotDetected) U Tricyclic Antidepress (NotDetected) Ur Phencyclidine Scrn (NotDetected) Ur Amphetamines Screen (NotDetected) U Methamphetamines Scrn (NotDetected) U Benzodiazepines Scrn (NotDetected) Urine Cocaine Screen (NotDetected) U Marijuana (THC) Screen (NotDetected) Serum Alcohol <10 mg/dL 11/14/21 11/15/21 11/15/21 Range/Units 22:56 02:25 04:13 WBC (3.8-10.6) k/uL RBC (3.80-5.40) m/uL Hgb (11.4-16.0) gm/dL Hct (34.0-46.0) % MCV (80.0-100.0) fL MCH (25.0-35.0) pg MCHC (31.0-37.0) g/dL RDW (11.5-15.5) % Plt Count (150-450) k/uL MPV Neutrophils % % Lymphocytes % % Monocytes % % Eosinophils % % Basophils % % Neutrophils # (1.3-7.7) k/uL Lymphocytes # (1.0-4.8) k/uL Monocytes # (0-1.0) k/uL Eosinophils # (0-0.7) k/uL Basophils # (0-0.2) k/uL Hypochromasia PT (9.0-12.0) sec INR (<1.2) APTT (22.0-30.0) sec Sodium (137-145) mmol/L Potassium (3.5-5.1) mmol/L Chloride (98-107) mmol/L Carbon Dioxide (22-30) mmol/L Anion Gap mmol/L BUN (7-17) mg/dL Creatinine (0.52-1.04) mg/dL Est GFR (CKD-EPI)AfAm (>60 ml/min/1.73 sqM) Est GFR (CKD-EPI)NonAf (>60 ml/min/1.73 sqM) Glucose (74-99) mg/dL Calcium (8.4-10.2) mg/dL Total Bilirubin (0.2-1.3) mg/dL AST (14-36) U/L ALT (4-34) U/L Alkaline Phosphatase (38-126) U/L Creatine Kinase (30-135) U/L CK-MB (CK-2) 12.2 H (0.0-2.4) ng/mL Troponin I 0.111 H* 0.203 H* (0.000-0.034) ng/mL Total Protein (6.3-8.2) g/dL Albumin (3.5-5.0) g/dL Procalcitonin (0.02-0.09) ng/mL Urine Color Yellow Urine Appearance Cloudy H (Clear) Urine pH 6.0 (5.0-8.0) Ur Specific [place] 1.027 (1.001-1.035) Urine Protein 1+ H (Negative) Urine Glucose (UA) Negative (Negative) Urine Ketones 2+ H (Negative) Urine Blood Small H (Negative) Urine Nitrite Negative (Negative) Urine Bilirubin 1+ H (Negative) Urine Urobilinogen 2.0 (<2.0) mg/dL Ur Leukocyte Esterase Small H (Negative) Urine RBC 8 H (0-5) /hpf Urine WBC 9 H (0-5) /hpf Ur Squamous Epith Cells 5 H (0-4) /hpf Urine Bacteria Rare H (None) /hpf Urine Mucus Rare H (None) /hpf Urine Opiates Screen Not Detected (NotDetected) Ur Oxycodone Screen Not Detected (NotDetected) Urine Methadone Screen Not Detected (NotDetected) Ur Propoxyphene Screen Not Detected (NotDetected) Ur Barbiturates Screen Not Detected (NotDetected) U Tricyclic Antidepress Not Detected (NotDetected) Ur Phencyclidine Scrn Not Detected (NotDetected) Ur Amphetamines Screen Not Detected (NotDetected) U Methamphetamines Scrn Not Detected (NotDetected) U Benzodiazepines Scrn Not Detected (NotDetected) Urine Cocaine Screen Not Detected (NotDetected) U Marijuana (THC) Screen Not Detected (NotDetected) Serum Alcohol mg/dL 11/15/21 11/15/21 11/15/21 Range/Units 06:47 06:47 06:47 WBC 13.5 H (3.8-10.6) k/uL RBC 3.81 (3.80-5.40) m/uL Hgb 10.9 L (11.4-16.0) gm/dL Hct 33.8 L (34.0-46.0) % MCV 88.7 (80.0-100.0) fL MCH 28.7 (25.0-35.0) pg MCHC 32.3 (31.0-37.0) g/dL RDW 15.0 (11.5-15.5) % Plt Count 276 (150-450) k/uL MPV 8.3 Neutrophils % 78 % Lymphocytes % 12 % Monocytes % 9 % Eosinophils % 0 % Basophils % 0 % Neutrophils # 10.6 H (1.3-7.7) k/uL Lymphocytes # 1.6 (1.0-4.8) k/uL Monocytes # 1.2 H (0-1.0) k/uL Eosinophils # 0.0 (0-0.7) k/uL Basophils # 0.0 (0-0.2) k/uL Hypochromasia Slight PT (9.0-12.0) sec INR (<1.2) APTT (22.0-30.0) sec Sodium 139 (137-145) mmol/L Potassium 2.8 L (3.5-5.1) mmol/L Chloride 96 L (98-107) mmol/L Carbon Dioxide 33 H (22-30) mmol/L Anion Gap 10 mmol/L BUN 24 H (7-17) mg/dL Creatinine 1.07 H (0.52-1.04) mg/dL Est GFR (CKD-EPI)AfAm 57 (>60 ml/min/1.73 sqM) Est GFR (CKD-EPI)NonAf 49 (>60 ml/min/1.73 sqM) Glucose 114 H (74-99) mg/dL Calcium 9.1 (8.4-10.2) mg/dL Total Bilirubin (0.2-1.3) mg/dL AST (14-36) U/L ALT (4-34) U/L Alkaline Phosphatase (38-126) U/L Creatine Kinase (30-135) U/L CK-MB (CK-2) (0.0-2.4) ng/mL Troponin I 0.270 H* (0.000-0.034) ng/mL Total Protein (6.3-8.2) g/dL Albumin (3.5-5.0) g/dL Procalcitonin (0.02-0.09) ng/mL Urine Color Urine Appearance (Clear) Urine pH (5.0-8.0) Ur Specific [place] (1.001-1.035) Urine Protein (Negative) Urine Glucose (UA) (Negative) Urine Ketones (Negative) Urine Blood (Negative) Urine Nitrite (Negative) Urine Bilirubin (Negative) Urine Urobilinogen (<2.0) mg/dL Ur Leukocyte Esterase (Negative) Urine RBC (0-5) /hpf Urine WBC (0-5) /hpf Ur Squamous Epith Cells (0-4) /hpf Urine Bacteria (None) /hpf Urine Mucus (None) /hpf Urine Opiates Screen (NotDetected) Ur Oxycodone Screen (NotDetected) Urine Methadone Screen (NotDetected) Ur Propoxyphene Screen (NotDetected) Ur Barbiturates Screen (NotDetected) U Tricyclic Antidepress (NotDetected) Ur Phencyclidine Scrn (NotDetected) Ur Amphetamines Screen (NotDetected) U Methamphetamines Scrn (NotDetected) U Benzodiazepines Scrn (NotDetected) Urine Cocaine Screen (NotDetected) U Marijuana (THC) Screen (NotDetected) Serum Alcohol mg/dL 11/15/21 11/15/21 Range/Units 06:47 06:47 WBC (3.8-10.6) k/uL RBC (3.80-5.40) m/uL Hgb (11.4-16.0) gm/dL Hct (34.0-46.0) % MCV (80.0-100.0) fL MCH (25.0-35.0) pg MCHC (31.0-37.0) g/dL RDW (11.5-15.5) % Plt Count (150-450) k/uL MPV Neutrophils % % Lymphocytes % % Monocytes % % Eosinophils % % Basophils % % Neutrophils # (1.3-7.7) k/uL Lymphocytes # (1.0-4.8) k/uL Monocytes # (0-1.0) k/uL Eosinophils # (0-0.7) k/uL Basophils # (0-0.2) k/uL Hypochromasia PT 19.3 H (9.0-12.0) sec INR 1.9 H (<1.2) APTT (22.0-30.0) sec Sodium (137-145) mmol/L Potassium (3.5-5.1) mmol/L Chloride (98-107) mmol/L Carbon Dioxide (22-30) mmol/L Anion Gap mmol/L BUN (7-17) mg/dL Creatinine (0.52-1.04) mg/dL Est GFR (CKD-EPI)AfAm (>60 ml/min/1.73 sqM) Est GFR (CKD-EPI)NonAf (>60 ml/min/1.73 sqM) Glucose (74-99) mg/dL Calcium (8.4-10.2) mg/dL Total Bilirubin (0.2-1.3) mg/dL AST (14-36) U/L ALT (4-34) U/L Alkaline Phosphatase (38-126) U/L Creatine Kinase (30-135) U/L CK-MB (CK-2) (0.0-2.4) ng/mL Troponin I (0.000-0.034) ng/mL Total Protein (6.3-8.2) g/dL Albumin (3.5-5.0) g/dL Procalcitonin 1.40 H (0.02-0.09) ng/mL Urine Color Urine Appearance (Clear) Urine pH (5.0-8.0) Ur Specific [place] (1.001-1.035) Urine Protein (Negative) Urine Glucose (UA) (Negative) Urine Ketones (Negative) Urine Blood (Negative) Urine Nitrite (Negative) Urine Bilirubin (Negative) Urine Urobilinogen (<2.0) mg/dL Ur Leukocyte Esterase (Negative) Urine RBC (0-5) /hpf Urine WBC (0-5) /hpf Ur Squamous Epith Cells (0-4) /hpf Urine Bacteria (None) /hpf Urine Mucus (None) /hpf Urine Opiates Screen (NotDetected) Ur Oxycodone Screen (NotDetected) Urine Methadone Screen (NotDetected) Ur Propoxyphene Screen (NotDetected) Ur Barbiturates Screen (NotDetected) U Tricyclic Antidepress (NotDetected) Ur Phencyclidine Scrn (NotDetected) Ur Amphetamines Screen (NotDetected) U Methamphetamines Scrn (NotDetected) U Benzodiazepines Scrn (NotDetected) Urine Cocaine Screen (NotDetected) U Marijuana (THC) Screen (NotDetected) Serum Alcohol mg/dL - EKG Data -: EKG Interpreted by Me Rate: normal Interpretation: other (Paced rhythm rate 70 bpm) Disposition Clinical Impression: Fall, Altered mental status, Elevated troponin I level Disposition: HOME SELF-CARE Condition: Fair Is patient prescribed a controlled substance at d/c from ED?: No
[2021-11-14 23:10] LABS: Basophils # (A) 0.1 k/uL (0-0.2); Basophils % (A) 0 %; Eosinophils # (A) 0.2 k/uL (0-0.7); Eosinophils % (A) 2 %; HCT 37.1 % (34.0-46.0); HGB 12.1 gm/dL (11.4-16.0); Hypochromasia Slight; Lymphocytes # (A) 1.3 k/uL (1.0-4.8); Lymphocytes % (A) 9 %; MCH 28.5 pg (25.0-35.0); MCHC 32.6 g/dL (31.0-37.0); MCV 87.6 fL (80.0-100.0); Mean Platelet Volume 8.3; Monocytes # (A) 0.8 k/uL (0-1.0); Monocytes % (A) 5 %; Neutrophils # (A) 12.1 k/uL (1.3-7.7); Neutrophils % (A) 84 %; Platelet Count 307 k/uL (150-450); RBC 4.24 m/uL (3.80-5.40); RDW 15.1 % (11.5-15.5); WBC 14.5 k/uL (3.8-10.6)
--- NOTE | 2021-11-14 23:12 | XR ---
EXAMINATION TYPE: XR chest 1V portable DATE OF EXAM: 11/14/2021 COMPARISON: 04/06/2011 HISTORY: Altered mental status TECHNIQUE: Single view FINDINGS: Heart is enlarged. No heart failure. Lungs are clear of consolidation. There are no hilar m asses. There is left axillary pacemaker. IMPRESSION: No active cardiopulmonary disease. Cardiomegaly. No change.
[2021-11-14 23:20] LABS: ALT 17 U/L (4-34); African American GFR (CKD) 72 (>60 ml/min/1.73 sqM); Alcohol <10 mg/dL; Anion Gap 11 mmol/L; Blood Urea Nitrogen 22 mg/dL (7-17); Calcium 9.3 mg/dL (8.4-10.2); Carbon Dioxide 29 mmol/L (22-30); Chloride 96 mmol/L (98-107); Glucose 137 mg/dL (74-99); Non-African American GFR(CKD) 63 (>60 ml/min/1.73 sqM); Sodium 136 mmol/L (137-145); Total Bilirubin 2.1 mg/dL (0.2-1.3); Total Protein 7.5 g/dL (6.3-8.2)
--- NOTE | 2021-11-14 23:20 | CT ---
EXAMINATION TYPE: CT brain wo con DATE OF EXAM: 11/14/2021 COMPARISON: None HISTORY: Altered mental status CT DLP: mGycm Automated exposure control for dose reduction was used. There is cerebral cortical atrophy. There is no mass effect or midline shift. No sign of intracranial hemorrhage. Calvarium is intact. There is normal aeration of the mastoid sinuses. Skull base is inta ct. IMPRESSION: Cerebral atrophy. No acute intracranial abnormality.
[2021-11-14 23:22] LABS: INR 1.7 (<1.2); Partial Thromboplastin Time 31.9 sec (22.0-30.0); Prothrombin Time 17.4 sec (9.0-12.0)
--- NOTE | 2021-11-14 23:27 | XR ---
EXAMINATION TYPE: XR femur RT DATE OF EXAM: 11/14/2021 COMPARISON: NONE HISTORY: Right leg pain TECHNIQUE: 4 views FINDINGS: Right femur is intact. I see no fracture nor dislocation. There is small knee joint effusio n. Hip joint is intact. IMPRESSION: No fracture. There is right knee joint effusion.
[2021-11-14 23:31] LABS: Creatine Kinase 1310 U/L (30-135)
[2021-11-14 23:32] LABS: AST 53 U/L (14-36); Alkaline Phosphatase 60 U/L (38-126); Potassium 3.4 mmol/L (3.5-5.1)
[2021-11-14 23:35] LABS: Creatine Kinase MB 12.2 ng/mL (0.0-2.4)
[2021-11-14 23:38] LABS: Troponin I 0.111 ng/mL (0.000-0.034)
--- NOTE | 2021-11-14 23:53 | XR ---
EXAMINATION TYPE: XR tibia fibula RT DATE OF EXAM: 11/14/2021 COMPARISON: NONE HISTORY: Leg pain TECHNIQUE: 3 views FINDINGS: Tibia and fibula appear intact. I see no fracture nor dislocation. There is Achilles calcan eal spurring. Knee joint is intact. IMPRESSION: Negative right tibia and fibula exam. No fracture seen
[2021-11-15] MEDS ORDERED: NITROGLYCERIN SL TABS 0.4 MG TAB SUBLINGUAL PRN (01:52)
[2021-11-15] MEDS: SODIUM CHLORIDE 0.9% 1,000 ML IV SCH ×2 (02:27→12:20)
[2021-11-15 04:26] LABS: Appearance,Urine Cloudy (Clear); Bacteria,Urine Rare /hpf; Bilirubin,Urine 1+ (Negative); Blood,Urine Small (Negative); Color,Urine Yellow; Glucose,Urine (UA) Negative (Negative); Ketones,Urine 2+ (Negative); Leukocyte Esterase,Urine Small (Negative); Mucus,Urine Rare /hpf; Nitrite,Urine Negative (Negative); Protein,Urine 1+ (Negative); RBC,Urine 8 /hpf (0-5); Specific Gravity,Urine 1.027 (1.001-1.035); Squamous Epithelial Cell,Urine 5 /hpf (0-4); WBC,Urine 9 /hpf (0-5)
[2021-11-15 04:46] LABS: Cocaine Screen,Urine Not Detected (NotDetected); Phencyclidine Screen,Urine Not Detected (NotDetected)
[2021-11-15 04:47] LABS: Amphetamine Screen,Urine Not Detected (NotDetected); Barbiturate Screen,Urine Not Detected (NotDetected); Benzodiazepines Screen,Urine Not Detected (NotDetected); Methadone Screen, Urine Not Detected (NotDetected); Opiate Screen,Urine Not Detected (NotDetected); Oxycodone Screen, Urine Not Detected (NotDetected); Tricyclic Antidepressant,Urine Not Detected (NotDetected); Urn Cannabinoid Scrn Not Detected (NotDetected)
[2021-11-15 08:00] LABS: Basophils % (A) 0 %; Eosinophils % (A) 0 %; HCT 33.8 % (34.0-46.0); HGB 10.9 gm/dL (11.4-16.0); Hypochromasia Slight; Lymphocytes # (A) 1.6 k/uL (1.0-4.8); Lymphocytes % (A) 12 %; MCH 28.7 pg (25.0-35.0); MCHC 32.3 g/dL (31.0-37.0); MCV 88.7 fL (80.0-100.0); Mean Platelet Volume 8.3; Monocytes # (A) 1.2 k/uL (0-1.0); Monocytes % (A) 9 %; Neutrophils # (A) 10.6 k/uL (1.3-7.7); Neutrophils % (A) 78 %; Platelet Count 276 k/uL (150-450); RBC 3.81 m/uL (3.80-5.40); WBC 13.5 k/uL (3.8-10.6)
[2021-11-15 08:10] LABS: Calcium 9.1 mg/dL (8.4-10.2); Potassium 2.8 mmol/L (3.5-5.1)
[2021-11-15] MEDS ORDERED: Potassium Replacement Protocol 1 EACH MISC MISCELLANE PRN ×3 (08:51→17:30)
[2021-11-15 09:00] LABS: INR 1.9 (<1.2); Prothrombin Time 19.3 sec (9.0-12.0)
[2021-11-15] MEDS: carvediloL 12.5 MG TAB PO SCH ×2 (09:23→16:38)
[2021-11-15] MEDS: POTASSIUM CHLORIDE ER 20 MEQ TAB.ER PO SCH ×5 (09:24→18:21)
--- NOTE | 2021-11-15 11:07 | P.CRDCN ---
History of Present Illness History of present illness: HISTORY OF PRESENTING ILLNESS This is a pleasant 81-year-old female past medical history significant for paroxysmal atrial fibrillation on Coumadin, nonischemic cardiomyopathy status post dual-chamber ICD implantation in 2011, hypertension, complete heart block. She follows in the office with Dr. Venegas. We have been asked to see in consultation for elevated troponin. Patient presents emergency department via EMS after being found on the floor by her family at home. Patient does not recall any events at home. Apparently patient was not answering her phone, family went by to check on patient and she was found on the floor. EMS was called. Family did speak to patient the day prior. Per EMS report, patient was found the patient lying on her right side by the side of her bed. Possible fall unknown and unwitnessed. EMS found the patient confused and assessment and to be severely weak, unable to support her own weight, which was new per the family. Her blood sugar was 168, Vitals signs were stable. She was brought to the ER for further evaluation. Patient does not remember the incident. Denies any symptoms and no complaints. Denies chest pain, shortness of breath, ligh theadedness, dizziness, loss of consciousness, nausea, abdominal pain, headache, weakness, cough, fever, chills, orthopnea or PND. She does endorse some right leg pain. DIAGNOSTICS * EKG reveals V paced, sinus HR 70 * Telemetry tracings indicate sinus mechanism, V paced Hr 60s-70s * Chest xray no acute cardiopulmonary. * Xray tibia/fibula, femur reported as no fracture * CT brain reported with no acute intracranial abnormality. * Laboratory reviewed, WBC 13.5, hemoglobin 10.9, platelets 276, INR 1.9, sodium 139, potassium 2.8, BUN 24, serum creatinine 1.0, total bilirubin 2.1, creatine kinase 1310, troponin 0.11, 0.22, 0.27, urine toxicology negative * Cardiac catheterization 2005 revealed minimal nonobstructive coronary artery disease * Echocardiogram 07/2020 in the office revealed EF 2530 percent, mild LVH, mildly dilated left atrium, mild mitral regurgitation, mild tricuspid regurgitation * Stress test in the office, Vikasiscandrea in 2013 revealed small mid inferior scar, no reversible ischemia * Current home cardiac medications include carvedilol 12.5 mg twice a day, Coumadin 2.5 mg Monday, , Monday, 3.75 mg Monday and Monday, losartan 50 mg daily, Lasix 40 mg daily REVIEW OF SYSTEMS At the time of my exam: CONSTITUTIONAL: Denies fever or chills. CARDIOVASCULAR: Denies chest pain, shortness of breath, orthopnea, PND or palpitations. RESPIRATORY: Denies cough. GASTROINTESTINAL: Denies abdominal pain, diarrhea, constipation, nausea or vomiting. MUSCULOSKELETAL: Denies myalgias. NEUROLOGIC: Denies numbness, tingling, headacbe or weakness. ENDOCRINE: Denies fatigue, weight change, polydipsia or polyurina. GENITOURINARY: Denies burning, hematuria or urgency with micturation. HEMATOLOGIC: Denies history of anemia or bleeding. PHYSICAL EXAMINATION Blood pressure 130/59, heart rate 62, afebrile, saturations 98% on room air CONSTITUTIONAL: No apparent distress. HEENT: Head is normocephalic. Pupils are equal, round. Sclerae anicteric. Mucous membranes of the mouth are moist. No JVD. No carotid bruit. CHEST EXAMINATION: Lungs are clear to auscultation. No chest wall tenderness is noted on palpation or with deep breathing. HEART EXAMINATION: Regular rate and rhythm. S1, S2 heard. No murmurs, gallops or rub. ABDOMEN: Soft, nontender. Positive bowel sounds. EXTREMITIES: 2+ peripheral pulses, no lower extremity edema and no calf tenderness. NEUROLOGIC EXAMINATION: Patient is awake, alert and oriented x2-3. ASSESSMENT Unwitnessed fall at home, unclear if syncope Elevated troponin, not indicative of acute coronary syndrome, patient without any chest pain or shortness of breath Hypokalemia Leukocytosis Rhabdomyolysis Paroxysmal atrial fibrillation on Coumadin Nonischemic cardiomyopathy Status post dual-chamber ICD implantation in 2011 Hypertension History of complete heart block PLAN Obtain 2D echocardiogram and doppler study to assess cardiac structure and function. Interrogate patient's device Replace potassium per protocol Continue home cardiac medications Daily PT/INR Monitor renal function and electrolytes Continue on cardiac telemetry Further recommendations based on clinical course Nurse practitioner note has been reviewed by physician. Signing provider agrees with the documntented findings, assessment, and plan of care. Past Medical History Past Medical History: Atrial Fibrillation, Cancer, Heart Failure, Hypertension Additional Past Medical History / Comment(s): RIGHT BREAST CANCER 2006. LEFT BREAST CANCER 2017 History of Any Multi-Drug Resistant Organisms: None Reported Past Surgical History: Orthopedic Surgery, Pacemaker Additional Past Surgical History / Comment(s): right breast lumpectomy 2006. left breast LUMPECTOMY 2016. [place] shoulder sx. [place] cataract. AICD 2010 Past Anesthesia/Blood Transfusion Reactions: Postoperative Nausea & Vomiting (PONV) Additional Past Anesthesia/Blood Transfusion Reaction / Comment(s): no hx blood transfusion Type of Cardiac Device: AICD Device Placement Date:: [employer], last 2010 Past Psychological History: No Psychological Hx Reported Past Alcohol Use History: None Reported Past Drug Use History: None Reported - Past Family History Brother(s) Family Medical History: Cancer Additional Family Medical History / Comment(s): lung Mother Family Medical History: Congestive Heart Failure (CHF) Father History Unknown: Yes Medications and Allergies Home Medications Medication Instructions Recorded Confirmed Type Furosemide [Lasix] 40 mg PO DAILY 05/06/16 11/15/21 History Losartan [Cozaar] 50 mg PO DAILY 05/06/16 11/15/21 History Spironolactone [Aldactone] 12.5 mg PO DAILY 05/06/16 11/15/21 History carvediloL [Coreg] 12.5 mg PO BID 05/06/16 11/15/21 History Warfarin [Coumadin] 2.5 mg PO SUMOTUTHFR 07/12/19 11/15/21 History Warfarin [Coumadin] 3.75 mg PO WESA 11/15/21 11/15/21 History Allergies Allergy/AdvReac Type Severity Reaction Status Date / Time codeine AdvReac Nausea & Verified 11/15/21 08:16 [From Tylenol-Codeine #3] Vomiting Physical Exam Vitals: Vital Signs Temp Pulse Pulse Pulse Resp BP BP 11/15/21 07:51 99.3 F 62 16 130/59 11/15/21 03:12 98.4 F 62 22 138/72 11/14/21 23:18 85 16 157/63 11/14/21 22:05 98.2 F 66 16 143/70 Pulse Ox 11/15/21 07:51 98 11/15/21 03:12 97 11/14/21 23:18 95 11/14/21 22:05 96 Intake and Output 11/14/21 11/15/21 11/15/21 22:59 06:59 14:59 Output Total 60 Balance -60 Output: Urine 60 Other: Voiding Method Bedpan # Voids 0 Weight 79.379 kg 79.379 kg Results 11/15/21 06:47 11/15/21 06:47 Cardiac Enzymes 11/14/21 11/14/21 11/15/21 Range/Units 22:56 22:56 02:25 AST 53 H (14-36) U/L CK-MB (CK-2) 12.2 H (0.0-2.4) ng/mL Troponin I 0.111 H* 0.203 H* (0.000-0.034) ng/mL Coagulation 11/14/21 Range/Units 22:56 PT 17.4 H (9.0-12.0) sec APTT 31.9 H (22.0-30.0) sec CBC 11/14/21 11/15/21 Range/Units 22:56 06:47 WBC 14.5 H 13.5 H (3.8-10.6) k/uL RBC 4.24 3.81 (3.80-5.40) m/uL Hgb 12.1 10.9 L (11.4-16.0) gm/dL Hct 37.1 33.8 L (34.0-46.0) % Plt Count 307 276 (150-450) k/uL Comprehensive Metabolic Panel 11/14/21 11/15/21 Range/Units 22:56 06:47 Sodium 136 L 139 (137-145) mmol/L Potassium 3.4 L 2.8 L (3.5-5.1) mmol/L Chloride 96 L 96 L (98-107) mmol/L Carbon Dioxide 29 33 H (22-30) mmol/L BUN 22 H 24 H (7-17) mg/dL Creatinine 0.88 1.07 H (0.52-1.04) mg/dL Glucose 137 H 114 H (74-99) mg/dL Calcium 9.3 9.1 (8.4-10.2) mg/dL AST 53 H (14-36) U/L ALT 17 (4-34) U/L Alkaline Phosphatase 60 (38-126) U/L Total Protein 7.5 (6.3-8.2) g/dL Albumin 4.0 (3.5-5.0) g/dL Current Medications Generic Name Dose Route Start Last Admin Trade Name Freq PRN Reason Stop Dose Admin Carvedilol 12.5 mg 11/15/21 09:00 Carvedilol 12.5 Mg Tab PO BID [facility] Sodium Chloride 1,000 mls @ 100 mls/hr 11/15/21 02:00 11/15/21 02:27 Saline 0.9% IV 100 mls/hr .Q10H [facility] Administration Miscellaneous Information 1 each 11/15/21 08:19 Warfarin Per Pharmacy MISCELLANE DIRECTED PRN Per Protocol Protocol Nitroglycerin 0.4 mg 11/15/21 01:52 Nitroglycerin Sl Tabs 0.4 Mg Tab SUBLINGUAL Q5M PRN Chest Pain Non-Formulary Medication 3.75 mg 11/15/21 21:00 Warfarin Sodium [Coumadin] PO [facility] Warfarin Sodium 2.5 mg 11/16/21 21:00 Warfarin 2.5 Mg Tab PO [facility] Protocol Intake and Output 11/14/21 11/15/21 11/15/21 22:59 06:59 14:59 Output Total 60 Balance -60 Output: Urine 60 Other: Voiding Method Bedpan # Voids 0 Weight 79.379 kg 79.379 kg 11/15/21 06:47 11/15/21 06:47
--- NOTE | 2021-11-15 11:55 | XR ---
EXAMINATION TYPE: XR ankle complete RT DATE OF EXAM: 11/15/2021 COMPARISON: Right tibia and fibula 11/14/2021 HISTORY: Pain TECHNIQUE: 3 view right ankle FINDINGS: Achilles tendon calcaneal heel spur is present. No acute fracture or dislocation is evident. The ankle mortise appears intact. Secondary ossification center appears to be below the medial malleolus. Soft tissue swelling is over the medial malleolus. Milder soft tissue swelling may be at the lateral malleolus. Follow-up exams can be performed 7-10 days from acute trauma for continued pain. IMPRESSION: 1. No acute osseous abnormality right ankle. 2. Diffuse soft tissue swelling greater along the medial right ankle. 3. MRI can be performed if soft tissue evaluation would be of benefit.
--- NOTE | 2021-11-15 11:57 | XR ---
EXAMINATION TYPE: XR foot complete RT DATE OF EXAM: 11/15/2021 COMPARISON: None HISTORY: Pain TECHNIQUE: 3 view right foot FINDINGS: The oblique view is overpenetrated with poor visualization of the digits. Soft tissue swelling remains at the ankle. Plantar calcaneal heel spur is evident. The larger Tio s tendon calcaneal heel spurs present. No acute fractures are identified. Follow-up exam can be performed 7-10 days from acute trauma for co ntinued pain. IMPRESSION: 1. No acute osseous abnormality right foot. 2. Calcaneal heel spurs. 3. Soft tissue swelling at the ankle
--- NOTE | 2021-11-15 12:04 | CA ---
Transthoracic Echo Report Name: Arlene Bolton Age: 81 Gender: F : 1940 Exam Date: 11/15/2021 09:02 Exam Location: [facility] Ht (in): 62 Wt (lb): 175 Ordering Physician: Chioma Perez Attending/Referring Phys: [employer] Bettie Shell RDCS Procedure CPT: Indications: elevated troponin Cardiac Hx: Technical Quality: Technically difficult study Contrast 1: Lumason Total Dose (mL): 3 Contrast 2: Total Dose (mL): MEASUREMENTS (Male / Female) Normal Values FINDINGS Left Ventricle Severely reduced global left ventricular systolic function. Left ventricular ejection fraction is estimated at 10-15 %. Right Ventricle Normal right ventricular size and function. Right Atrium Right atrium not well visualized. Left Atrium Mild left atrial dilatation. Mitral Valve Mitral valve not well visualized. Aortic Valve Aortic valve not well visualized. Tricuspid Valve Tricuspid valve not well visualized. Pulmonic Valve Pulmonic valve not well visualized. Pericardium Not Visualized. Aorta Not Visualized. CONCLUSIONS Technically suboptimal and incomplete study Severe LV systolic dysfunction with an ejection fraction of around 10-15% Previewed by: Dr. Maykel Frey MD (Electronically Signed) Final Date: 15 November 2021 12:03
[2021-11-15] MEDS ORDERED: Magnesium Replacement Protocol 1 EACH MISC MISCELLANE PRN ×2 (13:18→18:32)
--- NOTE | 2021-11-15 13:19 | P.HPIM ---
History of Present Illness This is a pleasant 81 years old female with past medical history of Atrial Fibrillation, on warfarin , Heart Failure, Hypertension, right breast cancer 2006, left breast cancer 2017, she status post pacemaker, status post AICD. pt presents after being found down. family called EMS. Pt complains of left hand swelling and developed tenderness and swelling. Patient herself is alert awake and oriented to time place but she could not remember the name of the president. She has insight into her illness. She follows commands appropriately. And she has logic answers. She does not know what happened, the last thing she remembers she was in bed. Currently she looks awake and alert, mildly sleepy but is easily arousable and stay awake. She denies any chest pains or dyspnea, no burning in her urine or increased frequency. No diarrhea or vomiting. Has good appetite. She denies headache or dizziness, no weakness or numbness in extremities. She denies smoking, alcohol or illicit drugs. Vitals are stable and patient is afebrile. Labs showed leukocytosis of 14.5 and 13.5, rest of CBC is unremarkable. Sodium is 139, creatinine 1.0. Creatinine kinase elevated at 1310. Elevated troponin 0.11 and 0.20. INR is 1.7 Liver enzymes only mildly elevated. Bilirubin 2.1. Urinalysis is suspicious for infection. Urine drug screen is negative and cervical less than 10 EKG showed ventricular paced rhythm X-ray of the right tibia and fibula and right femur showing no fracture but there is right knee joint effusion CT of the brain: Cerebral atrophy, no acute process. Chest x-ray: No acute process. In the emergency room patient was started on normal saline and warfarin pharmacy to dose Review of Systems CONSTITUTIONAL: No fever, no malaise, no fatigue. HEENT: No recent visual problems or hearing problems. Denied any sore throat. CARDIOVASCULAR: No orthopnea, PND, no palpitations, no syncope. PULMONARY: No shortness of breath, no cough, no hemoptysis. GASTROINTESTINAL: No diarrhea, no nausea, no vomiting, no abdominal pain. Normoactive bowel sounds. NEUROLOGICAL: No headaches, no weakness, no numbness. HEMATOLOGICAL: Denies any bleeding or petechiae. GENITOURINARY: Denies any burning micturition, frequency, or urgency. MUSCULOSKELETAL/RHEUMATOLOGICAL: Denies any joint pain, swelling, or any muscle pain. ENDOCRINE: Denies any polyuria or polydipsia. Past Medical History Past Medical History: Atrial Fibrillation, Cancer, Heart Failure, Hypertension Additional Past Medical History / Comment(s): RIGHT BREAST CANCER 2006. LEFT BREAST CANCER 2017 History of Any Multi-Drug Resistant Organisms: None Reported Past Surgical History: Orthopedic Surgery, Pacemaker Additional Past Surgical History / Comment(s): right breast lumpectomy 2006. left breast LUMPECTOMY 2016. [place] shoulder sx. [place] cataract. AICD 2010 Past Anesthesia/Blood Transfusion Reactions: Postoperative Nausea & Vomiting (PONV) Additional Past Anesthesia/Blood Transfusion Reaction / Comment(s): no hx blood transfusion Type of Cardiac Device: AICD Device Placement Date:: [employer], last 2010 Past Psychological History: No Psychological Hx Reported Past Alcohol Use History: None Reported Past Drug Use History: None Reported - Past Family History Brother(s) Family Medical History: Cancer Additional Family Medical History / Comment(s): lung Mother Family Medical History: Congestive Heart Failure (CHF) Father History Unknown: Yes Medications and Allergies Home Medications Medication Instructions Recorded Confirmed Type Furosemide [Lasix] 40 mg PO DAILY 05/06/16 11/15/21 History Losartan [Cozaar] 50 mg PO DAILY 05/06/16 11/15/21 History Spironolactone [Aldactone] 12.5 mg PO DAILY 05/06/16 11/15/21 History carvediloL [Coreg] 12.5 mg PO BID 05/06/16 11/15/21 History Warfarin [Coumadin] 2.5 mg PO SUMOTUTHFR 07/12/19 11/15/21 History Warfarin [Coumadin] 3.75 mg PO WESA 11/15/21 11/15/21 History Allergies Allergy/AdvReac Type Severity Reaction Status Date / Time codeine AdvReac Nausea & Verified 11/15/21 08:16 [From Tylenol-Codeine #3] Vomiting Physical Exam Vitals: Vital Signs Temp Pulse Pulse Pulse Resp BP BP 11/15/21 07:51 99.3 F 62 16 130/59 11/15/21 03:12 98.4 F 62 22 138/72 11/14/21 23:18 85 16 157/63 11/14/21 22:05 98.2 F 66 16 143/70 Pulse Ox 11/15/21 07:51 98 11/15/21 03:12 97 11/14/21 23:18 95 11/14/21 22:05 96 Intake and Output 11/14/21 11/15/21 11/15/21 22:59 06:59 14:59 Output Total 60 Balance -60 Output: Urine 60 Other: Voiding Method Bedpan # Voids 0 Weight 79.379 kg 79.379 kg GENERAL: The patient is alert and oriented x3, not in any acute distress. Well developed, well nourished. HEENT: Pupils are round and equally reacting to light. EOMI. No scleral icterus. No conjunctival pallor. Normocephalic, atraumatic. No pharyngeal erythema. No thyromegaly. CARDIOVASCULAR: S1 and S2 present. No murmurs, rubs, or gallops. PULMONARY: Chest is clear to auscultation, no wheezing or crackles. ABDOMEN: Soft, nontender, nondistended, normoactive bowel sounds. No palpable organomegaly. MUSCULOSKELETAL: No joint swelling or deformity. -EXTREMITIES: No cyanosis, clubbing, or pedal edema. Left foot tenderness, bilateral mild swelling of the lower extremities NEUROLOGICAL: Gross neurological examination did not reveal any focal deficits. SKIN: No rashes. No petechiae Results CBC & Chem 7: 11/15/21 06:47 11/15/21 06:47 Labs: Abnormal Lab Results - Last 24 Hours (Table) 11/14/21 11/14/21 11/14/21 Range/Units 22:56 22:56 22:56 WBC 14.5 H (3.8-10.6) k/uL Hgb (11.4-16.0) gm/dL Hct (34.0-46.0) % Neutrophils # 12.1 H (1.3-7.7) k/uL Monocytes # (0-1.0) k/uL PT 17.4 H (9.0-12.0) sec INR 1.7 H (<1.2) APTT 31.9 H (22.0-30.0) sec Sodium 136 L (137-145) mmol/L Potassium 3.4 L (3.5-5.1) mmol/L Chloride 96 L (98-107) mmol/L Carbon Dioxide (22-30) mmol/L BUN 22 H (7-17) mg/dL Creatinine (0.52-1.04) mg/dL Glucose 137 H (74-99) mg/dL Total Bilirubin 2.1 H (0.2-1.3) mg/dL AST 53 H (14-36) U/L Creatine Kinase 1310 H* (30-135) U/L CK-MB (CK-2) (0.0-2.4) ng/mL Troponin I (0.000-0.034) ng/mL Urine Appearance (Clear) Urine Protein (Negative) Urine Ketones (Negative) Urine Blood (Negative) Urine Bilirubin (Negative) Ur Leukocyte Esterase (Negative) Urine RBC (0-5) /hpf Urine WBC (0-5) /hpf Ur Squamous Epith Cells (0-4) /hpf Urine Bacteria (None) /hpf Urine Mucus (None) /hpf 11/14/21 11/15/21 11/15/21 Range/Units 22:56 02:25 04:13 WBC (3.8-10.6) k/uL Hgb (11.4-16.0) gm/dL Hct (34.0-46.0) % Neutrophils # (1.3-7.7) k/uL Monocytes # (0-1.0) k/uL PT (9.0-12.0) sec INR (<1.2) APTT (22.0-30.0) sec Sodium (137-145) mmol/L Potassium (3.5-5.1) mmol/L Chloride (98-107) mmol/L Carbon Dioxide (22-30) mmol/L BUN (7-17) mg/dL Creatinine (0.52-1.04) mg/dL Glucose (74-99) mg/dL Total Bilirubin (0.2-1.3) mg/dL AST (14-36) U/L Creatine Kinase (30-135) U/L CK-MB (CK-2) 12.2 H (0.0-2.4) ng/mL Troponin I 0.111 H* 0.203 H* (0.000-0.034) ng/mL Urine Appearance Cloudy H (Clear) Urine Protein 1+ H (Negative) Urine Ketones 2+ H (Negative) Urine Blood Small H (Negative) Urine Bilirubin 1+ H (Negative) Ur Leukocyte Esterase Small H (Negative) Urine RBC 8 H (0-5) /hpf Urine WBC 9 H (0-5) /hpf Ur Squamous Epith Cells 5 H (0-4) /hpf Urine Bacteria Rare H (None) /hpf Urine Mucus Rare H (None) /hpf 11/15/21 11/15/21 Range/Units 06:47 06:47 WBC 13.5 H (3.8-10.6) k/uL Hgb 10.9 L (11.4-16.0) gm/dL Hct 33.8 L (34.0-46.0) % Neutrophils # 10.6 H (1.3-7.7) k/uL Monocytes # 1.2 H (0-1.0) k/uL PT (9.0-12.0) sec INR (<1.2) APTT (22.0-30.0) sec Sodium (137-145) mmol/L Potassium 2.8 L (3.5-5.1) mmol/L Chloride 96 L (98-107) mmol/L Carbon Dioxide 33 H (22-30) mmol/L BUN 24 H (7-17) mg/dL Creatinine 1.07 H (0.52-1.04) mg/dL Glucose 114 H (74-99) mg/dL Total Bilirubin (0.2-1.3) mg/dL AST (14-36) U/L Creatine Kinase (30-135) U/L CK-MB (CK-2) (0.0-2.4) ng/mL Troponin I (0.000-0.034) ng/mL Urine Appearance (Clear) Urine Protein (Negative) Urine Ketones (Negative) Urine Blood (Negative) Urine Bilirubin (Negative) Ur Leukocyte Esterase (Negative) Urine RBC (0-5) /hpf Urine WBC (0-5) /hpf Ur Squamous Epith Cells (0-4) /hpf Urine Bacteria (None) /hpf Urine Mucus (None) /hpf Thrombosis Risk Factor Assmnt - Choose All That Apply Each Risk Factor Represents 3 Points: Age 75 years or older Thrombosis Risk Factor Assessment Total Risk Factor Score: 3 Thrombosis Risk Factor Assessment Level: Moderate Risk Assessment and Plan Assessment: Period of unresponsiveness and altered mental status rhabdomyolysis Right knee effusion and left foot pain and swelling abnormal urinalysis, rule out Acute urinary tract infection Elevated troponin Chronic atrial fibrillation on warfarin Chronic heart failure Hypertension Status post pacemaker and AICD. Plan: This is a pleasant 81 years old female who was found on the floor with abnormal urine and elevated creatinine kinase and troponin. Continue with gentle hydration Insurance Administrator evaluation orthopedic evaluation is requested for right knee effusion and left knee swelling and tenderness. Neuro checks 24 hours Labs and medication were reviewed.. Continue same treatment. Continue with symptomatic treatment. Resume home medication. Monitor lytes and vitals. DVT and GI prophylaxis. Further recommendations depends on the clinical course of the patient DVT prophylaxis: On warfarin GI Prophylaxis: Pepcid PT/OT: Pending Prognosis is guarded
--- NOTE | 2021-11-15 14:58 | XR ---
EXAMINATION TYPE: XR hand limited LT DATE OF EXAM: 11/15/2021 COMPARISON: None HISTORY: Swelling TECHNIQUE: 2 view left hand FINDINGS: Mild diffuse soft tissue swelling is present. No acute fracture or dislocation is evident. Osteopenia is present. Joint space narrowing is present. There is some mild prominence of the scaphol unate space. This association is not excluded. Follow up exams can be performed 7-10 days from acute trauma for continued pain. MRI can be performed for evaluation of the soft tissues or the scaphoid if clinically indicated. IMPRESSION: 1. Mild diffuse soft tissue swelling. 2. Diffuse joint space narrowing. 3. Mild Prominence of the scapholunate space. Considerable prior ligament injury in this region.
[2021-11-15] MEDS: ACETAMINOPHEN TAB 325 MG TAB PO PRN (16:38)
--- NOTE | 2021-11-15 16:44 | XR ---
EXAMINATION TYPE: XR knee complete RT DATE OF EXAM: 11/15/2021 COMPARISON: NONE HISTORY: Pain TECHNIQUE: 3 views FINDINGS: There is knee joint effusion. There is some soft tissue swelling around the knee. I see no fracture nor dislocation. IMPRESSION: No fracture seen. There is however a moderate knee joint effusion.
[2021-11-15] MEDS ORDERED: WARFARIN 2 MG TAB PO ONE (18:00)
[2021-11-15 18:25] LABS: Appearance,Urine Clear (Clear); Bilirubin,Urine 1+ (Negative); Blood,Urine Negative (Negative); Color,Urine Yellow; Glucose,Urine (UA) Negative (Negative); Hyaline Casts,Urine 3 /lpf (0-2); Ketones,Urine 1+ (Negative); Leukocyte Esterase,Urine Negative (Negative); Mucus,Urine Rare /hpf; Nitrite,Urine Negative (Negative); Protein,Urine 1+ (Negative); RBC,Urine 1 /hpf (0-5); Specific Gravity,Urine 1.025 (1.001-1.035); Squamous Epithelial Cell,Urine <1 /hpf (0-4); Urobilinogen,Urine <2.0 mg/dL (<2.0); WBC,Urine <1 /hpf (0-5)
[2021-11-15] MEDS: LOSARTAN 50 MG TAB PO SCH (20:00)
[2021-11-15] MEDS: MAGNESIUM SULFATE-D5W PMX 1 GM in DEXTROSE/WATER 1 100ML.BAG IVPB SCH ×2 (20:00→21:19)
--- NOTE | 2021-11-15 20:54 | P.CNOR ---
History of Present Illness - HPI Consult date: 11/15/21 History of present illness: This patient is an 81- year old female with a past medical history of Atrial fibrillation on Coumadin, pacemaker, heart failure that presented to [facility] ER on 11/14/21 via EMS after she was found down at home. Most history is obtained from the chart. Patient was transported to the emergency department after being found at home on the ground. Patient was most likely down for 24 hours. She was apparently very weak and confused upon arrival of EMS. Upon presentation to the emergency department, she was also complaining of right leg pain. Patient was admitted under the care of internal medicine with consults to cardiology. Orthopedics is consulted for further evaluation of patient's right leg pain. Patient is examined bedside this afternoon. She is sleepy during my exam. She does not complain of pain when asked. No voiced complaints or concerns. Past Medical History Past Medical History: Atrial Fibrillation, Cancer, Heart Failure, Hypertension Additional Past Medical History / Comment(s): RIGHT BREAST CANCER 2006. LEFT B REAST CANCER 2016 History of Any Multi-Drug Resistant Organisms: None Reported Past Surgical History: Orthopedic Surgery, Pacemaker Additional Past Surgical History / Comment(s): right breast lumpectomy 2006. left breast LUMPECTOMY 2016. [place] shoulder sx. [place] cataract. AICD 2010 Past Anesthesia/Blood Transfusion Reactions: Postoperative Nausea & Vomiting (PONV) Additional Past Anesthesia/Blood Transfusion Reaction / Comm: no hx blood transfusion Type of Cardiac Device: AICD Device Placement Date:: MD2U, last 2010 Past Psychological History: No Psychological Hx Reported Past Alcohol Use History: None Reported Past Drug Use History: None Reported - Past Family History Brother(s) Family Medical History: Cancer Additional Family Medical History / Comment(s): lung Mother Family Medical History: Congestive Heart Failure (CHF) Father History Unknown: Yes Medications and Allergies Home Medications Medication Instructions Recorded Confirmed Type Furosemide [Lasix] 40 mg PO DAILY 05/06/16 11/15/21 History Losartan [Cozaar] 50 mg PO DAILY 05/06/16 11/15/21 History Spironolactone [Aldactone] 12.5 mg PO DAILY 05/06/16 11/15/21 History carvediloL [Coreg] 12.5 mg PO BID 05/06/16 11/15/21 History Warfarin [Coumadin] 2.5 mg PO SUMOTUTHFR 07/12/19 11/15/21 History Warfarin [Coumadin] 3.75 mg PO WESA 11/15/21 11/15/21 History Allergies Allergy/AdvReac Type Severity Reaction Status Date / Time codeine AdvReac Nausea & Verified 11/15/21 08:16 [From Tylenol-Codeine #3] Vomiting Physical Examination On examination, patient is sitting up in bed in no apparent distress. She answers questions appropriately. Her head appears normocephalic and atraumatic. Her breathing appears non-labored. On inspection of the right lower extremity, there is swelling of the right knee and right ankle/foot. No open wounds, lacerations. Diffuse pain with palpation of the right knee, right ankle, foot. No pain with PROM of the right hip, knee, ankle. Motor and sensory function intact RLE. Dorsalis pedis pulse palpable. Calf nontender. Results Right foot/ankle x-ray 11/15/21: No acute fractures. Right knee x-ray 11/15/21: No acute fractures. - Labs Labs: Abnormal Lab Results - Last 24 Hours (Table) 11/14/21 11/14/21 11/14/21 Range/Units 22:56 22:56 22:56 WBC 14.5 H (3.8-10.6) k/uL Hgb (11.4-16.0) gm/dL Hct (34.0-46.0) % Neutrophils # 12.1 H (1.3-7.7) k/uL Monocytes # (0-1.0) k/uL PT 17.4 H (9.0-12.0) sec INR 1.7 H (<1.2) APTT 31.9 H (22.0-30.0) sec Sodium 136 L (137-145) mmol/L Potassium 3.4 L (3.5-5.1) mmol/L Chloride 96 L (98-107) mmol/L Carbon Dioxide (22-30) mmol/L BUN 22 H (7-17) mg/dL Creatinine (0.52-1.04) mg/dL Glucose 137 H (74-99) mg/dL Total Bilirubin 2.1 H (0.2-1.3) mg/dL AST 53 H (14-36) U/L Creatine Kinase 1310 H* (30-135) U/L CK-MB (CK-2) (0.0-2.4) ng/mL Troponin I (0.000-0.034) ng/mL Procalcitonin (0.02-0.09) ng/mL Urine Appearance (Clear) Urine Protein (Negative) Urine Ketones (Negative) Urine Blood (Negative) Urine Bilirubin (Negative) Ur Leukocyte Esterase (Negative) Urine RBC (0-5) /hpf Urine WBC (0-5) /hpf Ur Squamous Epith Cells (0-4) /hpf Urine Bacteria (None) /hpf Urine Mucus (None) /hpf 11/14/21 11/15/21 11/15/21 Range/Units 22:56 02:25 04:13 WBC (3.8-10.6) k/uL Hgb (11.4-16.0) gm/dL Hct (34.0-46.0) % Neutrophils # (1.3-7.7) k/uL Monocytes # (0-1.0) k/uL PT (9.0-12.0) sec INR (<1.2) APTT (22.0-30.0) sec Sodium (137-145) mmol/L Potassium (3.5-5.1) mmol/L Chloride (98-107) mmol/L Carbon Dioxide (22-30) mmol/L BUN (7-17) mg/dL Creatinine (0.52-1.04) mg/dL Glucose (74-99) mg/dL Total Bilirubin (0.2-1.3) mg/dL AST (14-36) U/L Creatine Kinase (30-135) U/L CK-MB (CK-2) 12.2 H (0.0-2.4) ng/mL Troponin I 0.111 H* 0.203 H* (0.000-0.034) ng/mL Procalcitonin (0.02-0.09) ng/mL Urine Appearance Cloudy H (Clear) Urine Protein 1+ H (Negative) Urine Ketones 2+ H (Negative) Urine Blood Small H (Negative) Urine Bilirubin 1+ H (Negative) Ur Leukocyte Esterase Small H (Negative) Urine RBC 8 H (0-5) /hpf Urine WBC 9 H (0-5) /hpf Ur Squamous Epith Cells 5 H (0-4) /hpf Urine Bacteria Rare H (None) /hpf Urine Mucus Rare H (None) /hpf 11/15/21 11/15/21 11/15/21 Range/Units 06:47 06:47 06:47 WBC 13.5 H (3.8-10.6) k/uL Hgb 10.9 L (11.4-16.0) gm/dL Hct 33.8 L (34.0-46.0) % Neutrophils # 10.6 H (1.3-7.7) k/uL Monocytes # 1.2 H (0-1.0) k/uL PT (9.0-12.0) sec INR (<1.2) APTT (22.0-30.0) sec Sodium (137-145) mmol/L Potassium 2.8 L (3.5-5.1) mmol/L Chloride 96 L (98-107) mmol/L Carbon Dioxide 33 H (22-30) mmol/L BUN 24 H (7-17) mg/dL Creatinine 1.07 H (0.52-1.04) mg/dL Glucose 114 H (74-99) mg/dL Total Bilirubin (0.2-1.3) mg/dL AST (14-36) U/L Creatine Kinase (30-135) U/L CK-MB (CK-2) (0.0-2.4) ng/mL Troponin I 0.270 H* (0.000-0.034) ng/mL Procalcitonin (0.02-0.09) ng/mL Urine Appearance (Clear) Urine Protein (Negative) Urine Ketones (Negative) Urine Blood (Negative) Urine Bilirubin (Negative) Ur Leukocyte Esterase (Negative) Urine RBC (0-5) /hpf Urine WBC (0-5) /hpf Ur Squamous Epith Cells (0-4) /hpf Urine Bacteria (None) /hpf Urine Mucus (None) /hpf 11/15/21 11/15/21 11/15/21 Range/Units 06:47 06:47 16:54 WBC (3.8-10.6) k/uL Hgb (11.4-16.0) gm/dL Hct (34.0-46.0) % Neutrophils # (1.3-7.7) k/uL Monocytes # (0-1.0) k/uL PT 19.3 H (9.0-12.0) sec INR 1.9 H (<1.2) APTT (22.0-30.0) sec Sodium (137-145) mmol/L Potassium 3.3 L (3.5-5.1) mmol/L Chloride (98-107) mmol/L Carbon Dioxide (22-30) mmol/L BUN (7-17) mg/dL Creatinine (0.52-1.04) mg/dL Glucose (74-99) mg/dL Total Bilirubin (0.2-1.3) mg/dL AST (14-36) U/L Creatine Kinase (30-135) U/L CK-MB (CK-2) (0.0-2.4) ng/mL Troponin I (0.000-0.034) ng/mL Procalcitonin 1.40 H (0.02-0.09) ng/mL Urine Appearance (Clear) Urine Protein (Negative) Urine Ketones (Negative) Urine Blood (Negative) Urine Bilirubin (Negative) Ur Leukocyte Esterase (Negative) Urine RBC (0-5) /hpf Urine WBC (0-5) /hpf Ur Squamous Epith Cells (0-4) /hpf Urine Bacteria (None) /hpf Urine Mucus (None) /hpf H & H 11/14/21 11/15/21 Range/Units 22:56 06:47 Hgb 12.1 10.9 L (11.4-16.0) gm/dL Hct 37.1 33.8 L (34.0-46.0) % Coagulation 11/14/21 11/15/21 Range/Units 22:56 06:47 INR 1.7 H 1.9 H (<1.2) Result Diagrams: 11/15/21 06:47 11/15/21 16:54 Assessment and Plan Assessment: Right knee pain Right foot/ankle pain Unwitnessed fall Plan: - The clinical and imaging findings were discussed with the patient. Patient was also examined by Dr. Catherine. No fractures identified on x-rays of right knee, ankle, foot. Recommend observation at this time. She may weight bear as tolerate d on right lower extremity with a walker. Fall precautions. - Recommend evaluation by physical therapy. - May consider immobilization of right lower extremity with a tall CAM boot if patient is having pain with ambulation. - We will follow patient while she remains inpatient and may consider advanced imaging if pain fails to improve.
[2021-11-15] MEDS ORDERED: NON FORMULARY DRUG (Warfarin Sodium [Coumadin] 4 MG Tablet) PO SCH (21:00)
[2021-11-16] MEDS ORDERED: CEFEPIME 2 GM in SODIUM CHLORIDE 0.9% 100 ML IVPB STA (00:18)
[2021-11-16] MEDS: POTASSIUM CHLORIDE ER 20 MEQ TAB.ER PO SCH ×2 (00:19→03:08)
[2021-11-16] MEDS: ACETAMINOPHEN TAB 325 MG TAB PO PRN ×3 (00:24→23:39)
[2021-11-16] MEDS: carvediloL 12.5 MG TAB PO SCH ×2 (06:32→17:50)
[2021-11-16 07:04] LABS: Basophils % (A) 0 %; Eosinophils # (A) 0.2 k/uL (0-0.7); Eosinophils % (A) 1 %; HCT 35.1 % (34.0-46.0); HGB 11.1 gm/dL (11.4-16.0); Hypochromasia Slight; Lymphocytes # (A) 1.3 k/uL (1.0-4.8); Lymphocytes % (A) 9 %; MCH 28.4 pg (25.0-35.0); MCHC 31.6 g/dL (31.0-37.0); MCV 89.8 fL (80.0-100.0); Mean Platelet Volume 8.6; Monocytes # (A) 0.7 k/uL (0-1.0); Monocytes % (A) 5 %; Neutrophils # (A) 11.2 k/uL (1.3-7.7); Neutrophils % (A) 82 %; Platelet Count 291 k/uL (150-450); RBC 3.91 m/uL (3.80-5.40); RDW 14.9 % (11.5-15.5); WBC 13.6 k/uL (3.8-10.6)
[2021-11-16 07:08] LABS: INR 2.3 (<1.2)
[2021-11-16 07:27] LABS: Calcium 9.5 mg/dL (8.4-10.2)
[2021-11-16] MEDS: SPIRONOLACTONE 25 MG TAB PO SCH (08:56)
[2021-11-16] MEDS ORDERED: ASPIRIN 81 MG PO SCH (09:00)
[2021-11-16] MEDS ORDERED: FAMOTIDINE 20 MG/2 ML VIAL IV SCH (09:00)
[2021-11-16] MEDS ORDERED: ASPIRIN 325 MG TAB PO SCH (09:00)
[2021-11-16 09:02] LABS: Magnesium 2.6 mg/dL (1.6-2.3)
--- NOTE | 2021-11-16 11:04 | P.PN ---
Subjective This is a pleasant 81 years old female with past medical history of Atrial Fibrillation, on warfarin , Heart Failure, Hypertension, right breast cancer 2006, left breast cancer 2017, she status post pacemaker, status post AICD. pt presents after being found down. family called EMS. Pt complains of left hand swelling and developed tenderness and swelling. Patient herself is alert awake and oriented to time place but she could not remember the name of the president. She has insight into her illness. She follows commands appropriately. And she has logic answers. She does not know what happened, the last thing she remembers she was in bed. Currently she looks awake and alert, mildly sleepy but is easily arousable and stay awake. She denies any chest pains or dyspnea, no burning in her urine or increased frequ ency. No diarrhea or vomiting. Has good appetite. She denies headache or dizziness, no weakness or numbness in extremities. She denies smoking, alcohol or illicit drugs. Vitals are stable and patient is afebrile. Labs showed leukocytosis of 14.5 and 13.5, rest of CBC is unremarkable. Sodium is 139, creatinine 1.0. Creatinine kinase elevated at 1310. Elevated troponin 0.11 and 0.20. INR is 1.7 Liver enzymes only mildly elevated. Bilirubin 2.1. Urinalysis is suspicious for infection. Urine drug screen is negative and cervical less than 10 EKG showed ventricular paced rhythm X-ray of the right tibia and fibula and right femur showing no fracture but there is right knee joint effusion CT of the brain: Cerebral atrophy, no acute process. Chest x-ray: No acute process. In the emergency room patient was started on normal saline and warfarin pharmacy to dose Objective - Vital Signs Vital signs: Vital Signs Temp 98.3 F 11/16/21 08:00 Pulse 60 11/16/21 08:00 Resp 17 11/16/21 08:00 BP 103/72 11/16/21 08:00 Pulse Ox 97 11/16/21 08:00 FiO2 Intake & Output 11/15/21 11/16/21 11/16/21 18:59 06:59 18:59 Intake Total 300 118 Output Total 975 Balance -675 118 Weight 82.5 kg Intake: Oral 300 118 Output: Urine 975 Other: Voiding Method Bedpan Bedpan # Voids 1 0 # Bowel Movements 1 - Exam GENERAL: The patient is alert and oriented x3, not in any acute distress. Well developed, well nourished. HEENT: Pupils are round and equally reacting to light. EOMI. No scleral icterus. No conjunctival pallor. Normocephalic, atraumatic. No pharyngeal erythema. No thyromegaly. CARDIOVASCULAR: S1 and S2 present. No murmurs, rubs, or gallops. PULMONARY: Chest is clear to auscultation, no wheezing or crackles. ABDOMEN: Soft, nontender, nondistended, normoactive bowel sounds. No palpable organomegaly. MUSCULOSKELETAL: No joint swelling or deformity. -EXTREMITIES: No cyanosis, clubbing. Right ankle swelling and tenderness and warmth, bilateral mild swelling of the lower extremities NEUROLOGICAL: Gross neurological examination did not reveal any focal deficits. SKIN: No rashes. No petechiae - Labs CBC & Chem 7: 11/16/21 06:40 11/16/21 06:40 Labs: Abnormal Lab Results - Last 24 Hours (Table) 11/15/21 11/15/21 11/15/21 Range/Units 06:47 16:54 18:11 WBC (3.8-10.6) k/uL Hgb (11.4-16.0) gm/dL Neutrophils # (1.3-7.7) k/uL PT (9.0-12.0) sec INR (<1.2) Sodium (137-145) mmol/L Potassium 3.3 L (3.5-5.1) mmol/L BUN (7-17) mg/dL Glucose (74-99) mg/dL Magnesium (1.6-2.3) mg/dL Procalcitonin 1.40 H (0.02-0.09) ng/mL Urine Protein 1+ H (Negative) Urine Ketones 1+ H (Negative) Urine Bilirubin 1+ H (Negative) Hyaline Casts 3 H (0-2) /lpf Urine Mucus Rare H (None) /hpf 11/15/21 11/16/21 11/16/21 Range/Units 22:09 06:40 06:40 WBC 13.6 H (3.8-10.6) k/uL Hgb 11.1 L (11.4-16.0) gm/dL Neutrophils # 11.2 H (1.3-7.7) k/uL PT (9.0-12.0) sec INR (<1.2) Sodium (137-145) mmol/L Potassium 3.4 L (3.5-5.1) mmol/L BUN (7-17) mg/dL Glucose (74-99) mg/dL Magnesium 2.6 H (1.6-2.3) mg/dL Procalcitonin (0.02-0.09) ng/mL Urine Protein (Negative) Urine Ketones (Negative) Urine Bilirubin (Negative) Hyaline Casts (0-2) /lpf Urine Mucus (None) /hpf 11/16/21 11/16/21 Range/Units 06:40 06:40 WBC (3.8-10.6) k/uL Hgb (11.4-16.0) gm/dL Neutrophils # (1.3-7.7) k/uL PT 23.0 H (9.0-12.0) sec INR 2.3 H (<1.2) Sodium 136 L (137-145) mmol/L Potassium (3.5-5.1) mmol/L BUN 30 H (7-17) mg/dL Glucose 111 H (74-99) mg/dL Magnesium (1.6-2.3) mg/dL Procalcitonin (0.02-0.09) ng/mL Urine Protein (Negative) Urine Ketones (Negative) Urine Bilirubin (Negative) Hyaline Casts (0-2) /lpf Urine Mucus (None) /hpf Assessment and Plan Assessment: Period of unresponsiveness and altered mental status rhabdomyolysis Right ankle swelling, worse and tenderness suspicious for cellulitis Elevated troponin, with severe global ejection fraction 10-15%, patient does not look in significant acute exacerbation abnormal urinalysis, rule out Acute urinary tract infection. Repeat urine analysis is improving without antibiotic Chronic atrial fibrillation on warfarin Chronic heart failure Hypertension Status post pacemaker and AICD. Plan: This is a pleasant 81 years old female who was found on the floor with abnormal urine and elevated creatinine kinase and troponin. Start cefepime and consult infectious disease team Certified Coder evaluation orthopedic evaluation i appreciated and they recommended conservative management, weightbearing as tolerated Labs and medication were reviewed.. Continue same treatment. Continue with symptomatic treatment. Resume home medication. Monitor lytes and vitals. DVT and GI prophylaxis. Further recommendations depends on the clinical course of the patient DVT prophylaxis: On warfarin GI Prophylaxis: Pepcid PT/OT: Pending Prognosis is guarded
[2021-11-16] MEDS: CEFEPIME 2 GM in SODIUM CHLORIDE 0.9% 100 ML IVPB SCH ×2 (11:58→20:20)
--- NOTE | 2021-11-16 12:30 | P.PN ---
Subjective This is a pleasant 81-year-old female past medical history significant for paroxysmal atrial fibrillation on Coumadin, nonischemic cardiomyopathy status post dual-chamber ICD implantation in 2011, hypertension, complete heart block. She follows in the office with Dr. Venegas. We have been asked to see in consultation for elevated troponin. Patient presents emergency department via EMS after being found on the floor by her family at home. Patient does not recall any events at home. Apparently patient was not answering her phone, family went by to check on patient and she was found on the floor. EMS was called. Family did speak to patient the day prior. Per EMS report, patient was found the patient lying on her right side by the side of her bed. Possible fall unknown and unwitnessed. EMS found the patient confused and assessment and to be severely weak, unable to support her own weight, which was new per the family. Her blood sugar was 168, Vitals signs were stable. She was brought to the ER for further evaluation. Patient does not remember the incident. Denies any symptoms and no complaints. Denies chest pain, shortness of breath, lightheadedness, dizziness, loss of consciousness, nausea, abdominal pain, headache, weakness, cough, fever, chills, orthopnea or PND. 11/16/2021 Patient seen and examined at bedside, no acute distress. She is lying comfortably. Denies any complaints. She denies any shortness of breath or chest pain. Telemetry tracings indicate V paced Hr 60s-70s. Echocardiogram revealed an EF 1015%, suboptimal study. Device was interrogated with no abnormalities.. Device functioning normally. No shocks given. Patient with episodes of atrial fibrillation. No evidence of pauses, bradycardia or ventricular tachycardia noted. INR 2.3 PHYSICAL EXAMINATION Vitals reviewed CONSTITUTIONAL: No apparent distress. HEENT: Neck SUpple. No JVD. No carotid bruit. CHEST EXAMINATION: Lungs are clear to auscultation. No chest wall tenderness is noted on palpation or with deep breathing. HEART EXAMINATION: Regular rate and rhythm. S1, S2 heard. No murmurs, gallops or rub. ABDOMEN: Soft, nontender. Positive bowel sounds. EXTREMITIES: 2+ peripheral pulses, no lower extremity edema and no calf tenderness. NEUROLOGIC EXAMINATION: Patient is awake, alert and oriented x2-3. ASSESSMENT Unwitnessed fall at home, unclear if syncope Elevated troponin, not indicative of acute coronary syndrome, patient without any chest pain or shortness of breath Hypokalemia Leukocytosis Rhabdomyolysis Paroxysmal atrial fibrillation on Coumadin Nonischemic cardiomyopathy Chronic heart failure with reduced ejection fraction, clinically euvolemic Status post dual-chamber ICD implantation in 2012 Hypertension History of complete heart block PLAN Device interrogation completed with no acute findings, patient with episodes of atrial fibrillation, no VT or bradycardia noted. Continue home cardiac medications Patient stable from a cardiology perspective. Discharge per primary. Follow up outpatient in the office. Nurse practitioner note has been reviewed by physician. Signing provider agrees with the documntented findings, assessment, and plan of care. Objective - Vital Signs Vital signs: Vital Signs Temp 98.3 F 11/16/21 08:00 Pulse 60 11/16/21 08:00 Resp 17 11/16/21 08:00 BP 103/72 11/16/21 08:00 Pulse Ox 97 11/16/21 08:00 FiO2 Intake & Output 11/15/21 11/16/21 11/16/21 18:59 06:59 18:59 Intake Total 300 118 Output Total 975 Balance -675 118 Weight 82.5 kg Intake: Oral 300 118 Output: Urine 975 Other: Voiding Method Bedpan Bedpan Bedpan # Voids 1 0 # Bowel Movements 1 - Labs CBC & Chem 7: 11/16/21 06:40 11/16/21 06:40 Labs: Abnormal Lab Results - Last 24 Hours (Table) 11/15/21 11/15/21 11/15/21 Range/Units 06:47 16:54 18:11 WBC (3.8-10.6) k/uL Hgb (11.4-16.0) gm/dL Neutrophils # (1.3-7.7) k/uL PT (9.0-12.0) sec INR (<1.2) Sodium (137-145) mmol/L Potassium 3.3 L (3.5-5.1) mmol/L BUN (7-17) mg/dL Glucose (74-99) mg/dL Magnesium (1.6-2.3) mg/dL Procalcitonin 1.40 H (0.02-0.09) ng/mL Urine Protein 1+ H (Negative) Urine Ketones 1+ H (Negative) Urine Bilirubin 1+ H (Negative) Hyaline Casts 3 H (0-2) /lpf Urine Mucus Rare H (None) /hpf 11/15/21 11/16/21 11/16/21 Range/Units 22:09 06:40 06:40 WBC 13.6 H (3.8-10.6) k/uL Hgb 11.1 L (11.4-16.0) gm/dL Neutrophils # 11.2 H (1.3-7.7) k/uL PT (9.0-12.0) sec INR (<1.2) Sodium (137-145) mmol/L Potassium 3.4 L (3.5-5.1) mmol/L BUN (7-17) mg/dL Glucose (74-99) mg/dL Magnesium 2.6 H (1.6-2.3) mg/dL Procalcitonin (0.02-0.09) ng/mL Urine Protein (Negative) Urine Ketones (Negative) Urine Bilirubin (Negative) Hyaline Casts (0-2) /lpf Urine Mucus (None) /hpf 11/16/21 11/16/21 Range/Units 06:40 06:40 WBC (3.8-10.6) k/uL Hgb (11.4-16.0) gm/dL Neutrophils # (1.3-7.7) k/uL PT 23.0 H (9.0-12.0) sec INR 2.3 H (<1.2) Sodium 136 L (137-145) mmol/L Potassium (3.5-5.1) mmol/L BUN 30 H (7-17) mg/dL Glucose 111 H (74-99) mg/dL Magnesium (1.6-2.3) mg/dL Procalcitonin (0.02-0.09) ng/mL Urine Protein (Negative) Urine Ketones (Negative) Urine Bilirubin (Negative) Hyaline Casts (0-2) /lpf Urine Mucus (None) /hpf
--- NOTE | 2021-11-16 13:55 | P.PN ---
Subjective Progress Note Date: 11/16/21 This patient is an 81- year old female with a past medical history of Atrial fibrillation on Coumadin, pacemaker, heart failure that orthopedics is following for right knee, right ankle/foot pain. Patient is examined bedside this morning. She continues to complain of pain in the right knee and ankle. Per nursing, she was unable to get up with physical therapy due to the pain. She declined to even get out of the bed. When asked where her pain is, she primarily complains of right knee pain. Objective - Vital Signs Vital signs: Vital Signs Temp 98.3 F 11/16/21 08:00 Pulse 60 11/16/21 08:00 Resp 17 11/16/21 08:00 BP 103/72 11/16/21 08:00 Pulse Ox 97 11/16/21 08:00 FiO2 Intake & Output 11/15/21 11/16/21 11/16/21 18:59 06:59 18:59 Intake Total 300 118 Output Total 975 Balance -675 118 Weight 82.5 kg Intake: Oral 300 118 Output: Urine 975 Other: Voiding Method Bedpan Bedpan Bedpan # Voids 1 0 # Bowel Movements 1 - Exam On examination, patient is sitting up in bed in no apparent distress. She is alert and answers questions appropriately. Head appears normocephalic and atraumatic. Her breathing appears unlabored. On inspection of the bilateral upper extremities, there are no obvious deformities or signs of trauma. On inspection of the left lower extremity, there are no obvious deformities or signs of trauma. On his inspection of the right lower extremity, no obvious deformities. There is a moderate right knee effusion. There is moderate swelling of the right ankle. No open wounds or lacerations. There is no pain on palpation of the right hip or thigh. Thigh is soft. There is diffuse pain with palpation of the right knee, ankle, foot. There is no pain with palpation of the lower leg, calf. Calf is soft. Pain with attempts at PROM of the knee. Only minimal discomfort with PROM of the hip, ankle. Motor sensory function intact RLE. RLE warm and well perfused. - Labs CBC & Chem 7: 11/16/21 06:40 11/16/21 06:40 Labs: Abnormal Lab Results - Last 24 Hours (Table) 11/15/21 11/15/21 11/15/21 Range/Units 06:47 16:54 18:11 WBC (3.8-10.6) k/uL Hgb (11.4-16.0) gm/dL Neutrophils # (1.3-7.7) k/uL PT (9.0-12.0) sec INR (<1.2) Sodium (137-145) mmol/L Potassium 3.3 L (3.5-5.1) mmol/L BUN (7-17) mg/dL Glucose (74-99) mg/dL Magnesium (1.6-2.3) mg/dL Procalcitonin 1.40 H (0.02-0.09) ng/mL Urine Protein 1+ H (Negative) Urine Ketones 1+ H (Negative) Urine Bilirubin 1+ H (Negative) Hyaline Casts 3 H (0-2) /lpf Urine Mucus Rare H (None) /hpf 11/15/21 11/16/21 11/16/21 Range/Units 22:09 06:40 06:40 WBC 13.6 H (3.8-10.6) k/uL Hgb 11.1 L (11.4-16.0) gm/dL Neutrophils # 11.2 H (1.3-7.7) k/uL PT (9.0-12.0) sec INR (<1.2) Sodium (137-145) mmol/L Potassium 3.4 L (3.5-5.1) mmol/L BUN (7-17) mg/dL Glucose (74-99) mg/dL Magnesium 2.6 H (1.6-2.3) mg/dL Procalcitonin (0.02-0.09) ng/mL Urine Protein (Negative) Urine Ketones (Negative) Urine Bilirubin (Negative) Hyaline Casts (0-2) /lpf Urine Mucus (None) /hpf 11/16/21 11/16/21 Range/Units 06:40 06:40 WBC (3.8-10.6) k/uL Hgb (11.4-16.0) gm/dL Neutrophils # (1.3-7.7) k/uL PT 23.0 H (9.0-12.0) sec INR 2.3 H (<1.2) Sodium 136 L (137-145) mmol/L Potassium (3.5-5.1) mmol/L BUN 30 H (7-17) mg/dL Glucose 111 H (74-99) mg/dL Magnesium (1.6-2.3) mg/dL Procalcitonin (0.02-0.09) ng/mL Urine Protein (Negative) Urine Ketones (Negative) Urine Bilirubin (Negative) Hyaline Casts (0-2) /lpf Urine Mucus (None) /hpf Assessment and Plan Assessment: Right knee pain Right foot/ankle pain Unwitnessed fall Plan: - Recommend obtaining CT scans of the right knee and right ankle due to continued pain and inability to participate with physical therapy. - Pain management as needed per admitting team. - We will follow patient closely and make recommendations pending CT scan results.
--- NOTE | 2021-11-16 14:19 | XR ---
EXAMINATION TYPE: XR pelvis AP view DATE OF EXAM: 11/16/2021 Comparison: 11/14/2021 Clinical History: 81-year-old female pain. Unable to rotate right leg. Findings: Exam limited by large patient body habitus and osteopenia. No displaced hip fracture seen though the assessment of the right femoral neck is suboptimal given external rotation of the hip. Impression: Very limited exam due to patient's size and osteopenia. The right hip is also externally rotated and this obscures the femoral neck. No obvious displaced fracture. A nondisplaced femoral neck fracture c annot be excluded on these images. Correlate as to why the patient is unable to internally rotate the right hip.
[2021-11-16 15:42] LABS: Chol/HDL Ratio 2.93 Ratio; LDL Cholesterol,Calculated 64.7 mg/dL (0.0-131.0); VLDL Calculation 16.98 mg/dL (5.00-40.00)
[2021-11-16] MEDS ORDERED: WARFARIN 2.5 MG TAB PO ONE (18:00)
[2021-11-16] MEDS: LOSARTAN 50 MG TAB PO SCH (20:20)
[2021-11-16] MEDS ORDERED: WARFARIN 2.5 MG TAB PO SCH (21:00)
--- NOTE | 2021-11-16 21:33 | CT ---
CT scan of the right ankle. History pain. Comparison none. FINDINGS: Images obtained from the mid tibia to the bottom of the calcaneus with no contrast. There is plantar and Achilles calcaneal spurring. Calcaneus is intact. The talus is intact. Ankle mor tise is anatomic. The metatarsals are intact. There is some motion artifact. Distal tibia and fibula appear intact. No evidence of focal bone destr uction. IMPRESSION: No evidence of a fracture within the limitations of the exam.
--- NOTE | 2021-11-16 21:40 | CT ---
EXAMINATION TYPE: CT knee RT wo con DATE OF EXAM: 11/16/2021 COMPARISON: None HISTORY: pain in rt ankle and knee CT DLP: 1394.9 mGycm Automated exposure control for dose reduction was used. Images obtained from the distal femur to the proximal tibia with no contrast. There is a large knee joint effusion. There is osteopenia. The distal femur is intact. There is some amorphous calcification lateral to the lateral femoral condyle consistent with degenerative phenomeno n and meniscal calcification. The proximal tibia and fibula show no fracture. The distal femur is int act. No evidence of tibial plateau fracture. There is moderate calcification of the anterior and post erior horns of the lateral meniscus. IMPRESSION: Moderately large knee joint effusion but no fracture line seen. The joint effusion does not show a fl uid level and therefore I do not suspect a hemarthrosis.
--- NOTE | 2021-11-16 22:34 | P.CONS ---
History of Present Illness - Reason for Consult Consult date: 11/16/21 Possible cellulitis Requesting physician: Jimi E Sheet - Chief Complaint Pain to the right knee and leg area x few days - History of Present Illness Patient is a 81-year-old -[place] female presenting to the hospital 2 days ago complaining of right leg pain from the knee down to the ankle currently the symptoms started the day of presentation to the hospital however the patient denies any history of any fall or trauma patient mention when she tries to move her right leg when she is trying to walk to the bathroom EMS was called and was subsequently brought the patient to the hospital on arrival to the ER the patient was afebrile and no fever had been recorded subsequently patient did have a elevated white count of 14.5 with a left shift which is down to 13.6 BUN was elevated creatinine was normal CK was mildly elevated AST mildly elevated 1.40 did have a cloudy urine mildly positive urine drug screen was negative patient did have a chest x-ray no active cardiopulmonary disease patient did have x-ray of the foot and ankle area no acute abnormality soft tissue swelling at the ankle patient has been started on cefepime empirically infectious disease was consulted for further management of antibiotic therapy Review of Systems Positive point has been mentioned in the HPI rest of the systems are negative Past Medical History Past Medical History: Atrial Fibrillation, Cancer, Heart Failure, Hypertension Additional Past Medical History / Comment(s): RIGHT BREAST CANCER 2007. LEFT BREAST CANCER 2017 History of Any Multi-Drug Resistant Organisms: None Reported Past Surgical History: Orthopedic Surgery, Pacemaker Additional Past Surgical History / Comment(s): right breast lumpectomy 2006. left breast LUMPECTOMY 2017. [place] shoulder sx. [place] cataract. AICD 2010 Past Anesthesia/Blood Transfusion Reactions: Postoperative Nausea & Vomiting (PONV) Additional Past Anesthesia/Blood Transfusion Reaction / Comm: no hx blood trans fusion Type of Cardiac Device: AICD Device Placement Date:: [place], last 2010 Past Psychological History: No Psychological Hx Reported Past Alcohol Use History: None Reported Past Drug Use History: None Reported - Past Family History Brother(s) Family Medical History: Cancer Additional Family Medical History / Comment(s): lung Mother Family Medical History: Congestive Heart Failure (CHF) Father History Unknown: Yes Medications and Allergies Home Medications Medication Instructions Recorded Confirmed Type Furosemide [Lasix] 40 mg PO DAILY 05/06/16 11/15/21 History Losartan [Cozaar] 50 mg PO DAILY 05/06/16 11/15/21 History Spironolactone [Aldactone] 12.5 mg PO DAILY 05/06/16 11/15/21 History carvediloL [Coreg] 12.5 mg PO BID 05/06/16 11/15/21 History Warfarin [Coumadin] 2.5 mg PO SUMOTUTHFR 07/12/19 11/15/21 History Warfarin [Coumadin] 3.75 mg PO WESA 11/15/21 11/15/21 History Allergies Allergy/AdvReac Type Severity Reaction Status Date / Time codeine AdvReac Nausea & Verified 11/15/21 08:16 [From Tylenol-Codeine #3] Vomiting Physical Exam Vitals: Vital Signs Temp Pulse Resp BP Pulse Ox 11/16/21 08:00 98.3 F 60 17 103/72 97 11/16/21 03:02 98.1 F 61 22 108/73 97 11/16/21 00:00 98.6 F 60 20 111/67 95 11/15/21 19:40 97.6 F 60 22 109/68 97 11/15/21 15:53 99.1 F 58 L 16 129/60 100 11/15/21 12:00 99.2 F 60 16 127/61 99 Intake and Output 11/15/21 11/16/21 11/16/21 22:59 06:59 14:59 Intake Total 118 Output Total 900 Balance -900 118 Intake: Oral 118 Output: Urine 900 Other: Voiding Method Bedpan Bedpan Bedpan # Voids 0 # Bowel Movements 1 Weight 82.5 kg GENERAL DESCRIPTION: Elderly female lying in bed, no distress. No tachypnea or accessory muscle of respiration use. HEENT: Shows Pallor , no scleral icterus. Oral mucous membrane is dry. No pharyngeal erythema or thrush NECK: Trachea central, no thyromegaly. LUNGS: Unlabored breathing. Clear to auscultation anteriorly. No wheeze or crackle. HEART: S1, S2, regular rate and rhythm. No loud murmur ABDOMEN: Soft, no tenderness , guarding or rigidity, no organomegaly EXTREMITIES: Right knee and ankle area currently tender did have some swelling to the knee or no redness no point wound or any drainage SKIN: No rash, no masses palpable. NEUROLOGICAL: The patient is awake, alert, oriented x3, mood and affect normal. Results CBC & Chem 7: 11/17/21 07:33 11/17/21 07:33 Labs: Abnormal Lab Results - Last 24 Hours (Table) 11/15/21 11/15/21 11/15/21 Range/Units 06:47 16:54 18:11 WBC (3.8-10.6) k/uL Hgb (11.4-16.0) gm/dL Neutrophils # (1.3-7.7) k/uL PT (9.0-12.0) sec INR (<1.2) Sodium (137-145) mmol/L Potassium 3.3 L (3.5-5.1) mmol/L BUN (7-17) mg/dL Glucose (74-99) mg/dL Magnesium (1.6-2.3) mg/dL Procalcitonin 1.40 H (0.02-0.09) ng/mL Urine Protein 1+ H (Negative) Urine Ketones 1+ H (Negative) Urine Bilirubin 1+ H (Negative) Hyaline Casts 3 H (0-2) /lpf Urine Mucus Rare H (None) /hpf 11/15/21 11/16/21 11/16/21 Range/Units 22:09 06:40 06:40 WBC 13.6 H (3.8-10.6) k/uL Hgb 11.1 L (11.4-16.0) gm/dL Neutrophils # 11.2 H (1.3-7.7) k/uL PT (9.0-12.0) sec INR (<1.2) Sodium (137-145) mmol/L Potassium 3.4 L (3.5-5.1) mmol/L BUN (7-17) mg/dL Glucose (74-99) mg/dL Magnesium 2.6 H (1.6-2.3) mg/dL Procalcitonin (0.02-0.09) ng/mL Urine Protein (Negative) Urine Ketones (Negative) Urine Bilirubin (Negative) Hyaline Casts (0-2) /lpf Urine Mucus (None) /hpf 11/16/21 11/16/21 Range/Units 06:40 06:40 WBC (3.8-10.6) k/uL Hgb (11.4-16.0) gm/dL Neutrophils # (1.3-7.7) k/uL PT 23.0 H (9.0-12.0) sec INR 2.3 H (<1.2) Sodium 136 L (137-145) mmol/L Potassium (3.5-5.1) mmol/L BUN 30 H (7-17) mg/dL Glucose 111 H (74-99) mg/dL Magnesium (1.6-2.3) mg/dL Procalcitonin (0.02-0.09) ng/mL Urine Protein (Negative) Urine Ketones (Negative) Urine Bilirubin (Negative) Hyaline Casts (0-2) /lpf Urine Mucus (None) /hpf Assessment and Plan (1) Knee pain Current Visit: Yes Status: Acute Code(s): M25.569 - PAIN IN UNSPECIFIED KNEE SNOMED Code(s): 0762129076 Plan: 1patient presented to hospital with pain mostly to the right leg below the knee to the ankle area this patient currently do not have any fever and did have mild elevated white count however no significant redness but she is tender to touch as far as the knee and the ankle is concerned x-rays were negative for acute abnormality clinically behaving as a cellulitis underlying septic arthritis less likely not entirely excluded. 2we are waiting for the CT of the ankle and knee to be completed being ordered by orthopedics and to see if there is any need for joint aspiration. We will follow on clinical condition and cultures to further adjust medication if needed Thank you for this consultation will follow this patient along with you Time with Patient: Greater than 30
[2021-11-17] MEDS: carvediloL 12.5 MG TAB PO SCH ×2 (06:33→18:24)
--- NOTE | 2021-11-17 09:07 | P.PN ---
Subjective Progress Note Date: 11/17/21 Continues to have pain and difficulty ambulating Objective - Vital Signs Vital signs: Vital Signs Temp 97.6 F 11/17/21 04:12 Pulse 60 11/17/21 04:12 Resp 20 11/17/21 04:12 BP 105/69 11/17/21 04:12 Pulse Ox 99 11/17/21 04:12 FiO2 Intake & Output 11/16/21 11/17/21 11/17/21 18:59 06:59 18:59 Intake Total 118 Output Total 300 640 Balance -182 -640 Intake: Oral 118 Output: Urine 300 640 Straight 320 Other: Voiding Method Bedpan Bedpan Diaper # Voids 1 - Exam Diffuse tenderness over knee. Large knee and ankle effusion. Pain with an attempts at ROM. 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 Given her history a CT scan was ordered to rule out occult fracture, which was negative. She had a large knee effusion which was aspirated and appeared consistent with crystalline arthopathy. This was sent for crystal analysis, cultures, and cell count. If it comes back positive for gout, we can perform a steroid injection, but would defer medical management to primary team. We will continue to follow. Procedure: Verbal consent was obtained. Using sterile technique the right knee was aspirated. 30 mL of cloudy yellow fluid was aspirated and then placed in tubes. The needle was withdrawn and sent to the lab. The patient tolerated this well.
[2021-11-17] MEDS: CEFEPIME 2 GM in SODIUM CHLORIDE 0.9% 100 ML IVPB SCH (09:09)
[2021-11-17 09:10] LABS: Basophils % (A) 0 %; Eosinophils % (A) 0 %; HCT 33.2 % (34.0-46.0); HGB 10.3 gm/dL (11.4-16.0); Hypochromasia Slight; Lymphocytes # (A) 1.1 k/uL (1.0-4.8); Lymphocytes % (A) 10 %; MCV 90.2 fL (80.0-100.0); Mean Platelet Volume 9.2; Monocytes # (A) 0.8 k/uL (0-1.0); Monocytes % (A) 7 %; Neutrophils # (A) 9.3 k/uL (1.3-7.7); Neutrophils % (A) 82 %; Platelet Count 291 k/uL (150-450); RBC 3.68 m/uL (3.80-5.40); RDW 14.8 % (11.5-15.5); WBC 11.4 k/uL (3.8-10.6)
[2021-11-17] MEDS: SPIRONOLACTONE 25 MG TAB PO SCH (09:10)
[2021-11-17] MEDS: FUROSEMIDE 40 MG TAB PO SCH (09:10)
[2021-11-17] MEDS: FAMOTIDINE 20 MG TAB PO SCH (09:10)
[2021-11-17 09:26] LABS: Prothrombin Time 30.3 sec (9.0-12.0)
[2021-11-17 09:33] LABS: Calcium 9.4 mg/dL (8.4-10.2); Magnesium 2.6 mg/dL (1.6-2.3); Potassium 4.2 mmol/L (3.5-5.1)
--- NOTE | 2021-11-17 11:53 | P.PN ---
Subjective This is a pleasant 81-year-old female past medical history significant for paroxysmal atrial fibrillation on Coumadin, nonischemic cardiomyopathy status post dual-chamber ICD implantation in 2011, hypertension, complete heart block. She follows in the office with Dr. Venegas. We have been asked to see in consultation for elevated troponin. Patient presents emergency department via EMS after being found on the floor by her family at home. Patient does not recall any events at home. Apparently patient was not answering her phone, family went by to check on patient and she was found on the floor. EMS was called. Family did speak to patient the day prior. Per EMS report, patient was found the patient lying on her right side by the side of her bed. Possible fall unknown and unwitnessed. EMS found the patient confused and assessment and to be severely weak, unable to support her own weight, which was new per the family. Her blood sugar was 168, Vitals signs were stable. She was brought to the ER for further evaluation. Patient does not remember the incident. Denies any symptoms and no complaints. Denies chest pain, shortness of breath, lightheadedness, dizziness, loss of consciousness, nausea, abdominal pain, headache, weakness, cough, fever, chills, orthopnea or PND. 11/17/2021 Patient seen and examined at bedside, no acute distress. She is endorsing pain in her right leg. She is lying comfortably. She denies any shortness of breath or chest pain. No lightheadedness or dizziness. Telemetry tracings indicate V paced Hr 60s Echocardiogram revealed an EF 1015%, suboptimal study. Device was interrogated with no abnormalities.. Device functioning normally. No shocks given. Patient with episodes of atrial fibrillation. No evidence of pauses, bradycardia or ventricular tachycardia noted. INR 2.3 PHYSICAL EXAMINATION Vitals reviewed CONSTITUTIONAL: No apparent distress. HEENT: Neck SUpple. No JVD. No carotid bruit. CHEST EXAMINATION: Lungs are clear to auscultation. No chest wall tenderness is noted on palpation or with deep breathing. HEART EXAMINATION: Regular rate and rhythm. S1, S2 heard. No murmurs, gallops or rub. ABDOMEN: Soft, nontender. Positive bowel sounds. EXTREMITIES: 2+ peripheral pulses, no lower extremity edema and no calf tenderness. NEUROLOGIC EXAMINATION: Patient is awake, alert and oriented x2-3. ASSESSMENT Unwitnessed fall at home, unclear if syncope Elevated troponin, not indicative of acute coronary syndrome, patient without any chest pain or shortness of breath Hypokalemia Leukocytosis Rhabdomyolysis Paroxysmal atrial fibrillation on Coumadin Nonischemic cardiomyopathy Chronic heart failure with reduced ejection fraction, clinically euvolemic Status post dual-chamber ICD implantation in 2011 Hypertension History of complete heart block PLAN Device interrogation completed with no acute findings, patient with episodes of atrial fibrillation, no VT or bradycardia noted. Continue home cardiac medications Patient stable from a cardiology perspective. Discharge per primary. Follow up outpatient in the office. We will follow the patient as needed. Please reconsult if needed. Nurse practitioner note has been reviewed by physician. Signing provider agrees with the documntented findings, assessment, and plan of care. Objective - Vital Signs Vital signs: Vital Signs Temp 98.3 F 11/17/21 08:00 Pulse 60 11/17/21 08:00 Resp 16 11/17/21 08:00 BP 107/74 11/17/21 08:00 Pulse Ox 99 11/17/21 08:00 FiO2 Intake & Output 11/16/21 11/17/21 11/17/21 18:59 06:59 18:59 Intake Total 118 Output Total 300 640 Balance -182 -640 Intake: Oral 118 Output: Urine 300 640 Straight 320 Other: Voiding Method Bedpan Bedpan Bedpan Diaper Diaper # Voids 1 - Labs CBC & Chem 7: 11/17/21 07:33 11/17/21 07:33 Labs: Abnormal Lab Results - Last 24 Hours (Table) 11/17/21 11/17/21 11/17/21 Range/Units 07:33 07:33 07:33 WBC 11.4 H (3.8-10.6) k/uL RBC 3.68 L (3.80-5.40) m/uL Hgb 10.3 L (11.4-16.0) gm/dL Hct 33.2 L (34.0-46.0) % Neutrophils # 9.3 H (1.3-7.7) k/uL PT 30.3 H (9.0-12.0) sec INR 3.0 H (<1.2) Sodium 133 L (137-145) mmol/L BUN 38 H (7-17) mg/dL Uric Acid (3.7-7.4) mg/dL Magnesium 2.6 H (1.6-2.3) mg/dL Creatine Kinase 781 H (30-135) U/L 11/17/21 Range/Units 07:33 WBC (3.8-10.6) k/uL RBC (3.80-5.40) m/uL Hgb (11.4-16.0) gm/dL Hct (34.0-46.0) % Neutrophils # (1.3-7.7) k/uL PT (9.0-12.0) sec INR (<1.2) Sodium (137-145) mmol/L BUN (7-17) mg/dL Uric Acid 8.1 H (3.7-7.4) mg/dL Magnesium (1.6-2.3) mg/dL Creatine Kinase (30-135) U/L
[2021-11-17 15:18] LABS: Appearance,BF Cloudy; RBC, Body Fluid 940 /uL
[2021-11-17 15:19] LABS: Nucleated Cells, Body Fluid 9250 /uL
[2021-11-17 15:21] LABS: Mononuclear WBC,Body Fluid 10 %; Polynuclear WBC,Body Fluid 90 %; Total Cells Counted,Body Fluid 100
[2021-11-17] MEDS ORDERED: WARFARIN 1 MG TAB PO ONE (18:00)
--- NOTE | 2021-11-17 18:26 | P.PN ---
Subjective Progress Note Date: 11/17/21 Principal diagnosis: Right knee pain and question of cellulitis Patient is 81-year-old -Citizen Of [place] female presented to hospital with the pain to the right knee and leg area with no history of any trauma patient did have a CT of the right thing that was negative for fracture did shows large right knee effusion and is status post aspiration this morning 11/17/2021. On today's evaluation that is 11/17/2021, the patient denies having any fever or any chills, the patient pain to the right knee has slightly decreased in intensity denies any chest pain or shortness of breath or cough no abdominal pain recently Objective - Vital Signs Vital signs: Vital Signs Temp 98.3 F 11/17/21 08:00 Pulse 62 11/17/21 12:00 Resp 16 11/17/21 12:00 BP 111/59 11/17/21 12:00 Pulse Ox 97 11/17/21 12:00 FiO2 Intake & Output 11/16/21 11/17/21 11/17/21 18:59 06:59 18:59 Intake Total 118 Output Total 300 640 Balance -182 -640 Intake: Oral 118 Output: Urine 300 640 Straight 320 Other: Voiding Method Bedpan Bedpan Bedpan Diaper Diaper # Voids 1 - Exam GENERAL DESCRIPTION: An elderly female lying in bed in no distress RESPIRATORY SYSTEM: Unlabored breathing , decreased breath sounds at bases HEART: S1 S2 regular rate and rhythm , ABDOMEN: Soft , no tenderness EXTREMITIES: No edema feet - Labs CBC & Chem 7: 11/17/21 07:33 11/17/21 07:33 Labs: Abnormal Lab Results - Last 24 Hours (Table) 11/17/21 11/17/21 11/17/21 Range/Units 07:33 07:33 07:33 WBC 11.4 H (3.8-10.6) k/uL RBC 3.68 L (3.80-5.40) m/uL Hgb 10.3 L (11.4-16.0) gm/dL Hct 33.2 L (34.0-46.0) % Neutrophils # 9.3 H (1.3-7.7) k/uL PT 30.3 H (9.0-12.0) sec INR 3.0 H (<1.2) Sodium 133 L (137-145) mmol/L BUN 38 H (7-17) mg/dL Uric Acid (3.7-7.4) mg/dL Magnesium 2.6 H (1.6-2.3) mg/dL Creatine Kinase 781 H (30-135) U/L 11/17/ Range/Units 07:33 WBC (3.8-10.6) k/uL RBC (3.80-5.40) m/uL Hgb (11.4-16.0) gm/dL Hct (34.0-46.0) % Neutrophils # (1.3-7.7) k/uL PT (9.0-12.0) sec INR (<1.2) Sodium (137-145) mmol/L BUN (7-17) mg/dL Uric Acid 8.1 H (3.7-7.4) mg/dL Magnesium (1.6-2.3) mg/dL Creatine Kinase (30-135) U/L Assessment and Plan (1) Knee pain Current Visit: Yes Status: Acute Code(s): M25.569 - PAIN IN UNSPECIFIED KNEE SNOMED Code(s): 6592597212 Plan: 1patient presented to hospital with pain mostly to the right leg below the knee to the ankle area this patient currently do not have any fever and did have mild elevated white count however no significant redness but she is tender to touch as far as the knee and the ankle is concerned x-rays were negative for acute abnormality clinically behaving as a cellulitis underlying septic arthritis less likely not entirely excluded. 2patient is status post CT of the right knee and ankle area with evidence of significant effusion to the right knee status post aspirate white count is not significantly elevated and a question of possible gouty arthritis waiting for crystal studies is positive we'll recommend discontinuation of antibiotics Time with Patient: Less than 30
--- NOTE | 2021-11-17 19:47 | P.PN ---
Subjective This is a pleasant 81 years old female with past medical history of Atrial Fibrillation, on warfarin , Heart Failure, Hypertension, right breast cancer 2006, left breast cancer 2017, she status post pacemaker, status post AICD. pt presents after being found down. family called EMS. Pt complains of left hand swelling and developed tenderness and swelling. Patient herself is alert awake and oriented to time place but she could not remember the name of the president. She has insight into her illness. She follows commands appropriately. And she has logic answers. She does not know what happened, the last thing she remembers she was in bed. Currently she looks awake and alert, mildly sleepy but is easily arousable and stay awake. She denies any chest pains or dyspnea, no burning in her urine or increased frequ ency. No diarrhea or vomiting. Has good appetite. She denies headache or dizziness, no weakness or numbness in extremities. She denies smoking, alcohol or illicit drugs. Vitals are stable and patient is afebrile. Labs showed leukocytosis of 14.5 and 13.5, rest of CBC is unremarkable. Sodium is 139, creatinine 1.0. Creatinine kinase elevated at 1310. Elevated troponin 0.11 and 0.20. INR is 1.7 Liver enzymes only mildly elevated. Bilirubin 2.1. Urinalysis is suspicious for infection. Urine drug screen is negative and cervical less than 10 EKG showed ventricular paced rhythm X-ray of the right tibia and fibula and right femur showing no fracture but there is right knee joint effusion CT of the brain: Cerebral atrophy, no acute process. Chest x-ray: No acute process. In the emergency room patient was started on normal saline and warfarin pharmacy to dose 11/17/2021 Patient with inflamed right knee and right ankle although it's slits warm compared to yesterday. 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 We started the patient on a prednisone 40 mg daily. Also care professionals cleared the patient for discharge today. INR is 3.0 Objective - Vital Signs Vital signs: Vital Signs Temp 98.3 F 11/17/21 08:00 Pulse 60 11/17/21 08:00 Resp 16 11/17/21 08:00 BP 107/74 11/17/21 08:00 Pulse Ox 99 11/17/21 08:00 FiO2 Intake & Output 11/16/21 11/17/21 11/17/21 18:59 06:59 18:59 Intake Total 118 Output Total 300 640 Balance -182 -640 Intake: Oral 118 Output: Urine 300 640 Straight 320 Other: Voiding Method Bedpan Bedpan Bedpan Diaper Diaper # Voids 1 - Exam GENERAL: The patient is alert and oriented x3, not in any acute distress. Well developed, well nourished. HEENT: Pupils are round and equally reacting to light. EOMI. No scleral icterus. No conjunctival pallor. Normocephalic, atraumatic. No pharyngeal erythema. No thyromegaly. CARDIOVASCULAR: S1 and S2 present. No murmurs, rubs, or gallops. PULMONARY: Chest is clear to auscultation, no wheezing or crackles. ABDOMEN: Soft, nontender, nondistended, normoactive bowel sounds. No palpable organomegaly. MUSCULOSKELETAL: No joint swelling or deformity. -EXTREMITIES: No cyanosis, clubbing. Right ankle swelling and tenderness and warmth, bilateral mild swelling of the lower extremities NEUROLOGICAL: Gross neurological examination did not reveal any focal deficits. SKIN: No rashes. No petechiae - Labs CBC & Chem 7: 11/17/21 07:33 11/17/21 07:33 Labs: Abnormal Lab Results - Last 24 Hours (Table) 11/17/21 11/17/21 11/17/21 Range/Units 07:33 07:33 07:33 WBC 11.4 H (3.8-10.6) k/uL RBC 3.68 L (3.80-5.40) m/uL Hgb 10.3 L (11.4-16.0) gm/dL Hct 33.2 L (34.0-46.0) % Neutrophils # 9.3 H (1.3-7.7) k/uL PT 30.3 H (9.0-12.0) sec INR 3.0 H (<1.2) Sodium 133 L (137-145) mmol/L BUN 38 H (7-17) mg/dL Uric Acid (3.7-7.4) mg/dL Magnesium 2.6 H (1.6-2.3) mg/dL Creatine Kinase 781 H (30-135) U/L 11/17/21 Range/Units 07:33 WBC (3.8-10.6) k/uL RBC (3.80-5.40) m/uL Hgb (11.4-16.0) gm/dL Hct (34.0-46.0) % Neutrophils # (1.3-7.7) k/uL PT (9.0-12.0) sec INR (<1.2) Sodium (137-145) mmol/L BUN (7-17) mg/dL Uric Acid 8.1 H (3.7-7.4) mg/dL Magnesium (1.6-2.3) mg/dL Creatine Kinase (30-135) U/L Assessment and Plan Assessment: Most likely Acute gout of the right knee and right ankle Period of unresponsiveness and altered mental status, evaluated by care professionals active for discharge, patient is back to baseline rhabdomyolysis Right ankle swelling, worse and tenderness suspicious for cellulitis Elevated troponin, with severe global ejection fraction 10-15%, patient does not look in significant acute exacerbation abnormal urinalysis, rule out Acute urinary tract infection. Repeat urine analysis is improving without antibiotic Chronic atrial fibrillation on warfarin Chronic heart failure Hypertension Status post pacemaker and AICD. Plan: This is a pleasant 81 years old female who was found on the floor with abnormal urine and elevated creatinine kinase and troponin. Discontinue antibiotics cefepime, start prednisone 40 Start cefepime and consult infectious disease team [employer] evaluation cleared the patient for discharge orthopedic evaluation i appreciated and they recommended conservative management, weightbearing as tolerated Labs and medication were reviewed.. Continue same treatment. Continue with symptomatic treatment. Resume home medication. Monitor lytes and vitals. DVT and GI prophylaxis. Further recommendations depends on the clinical course of the patient DVT prophylaxis: On warfarin GI Prophylaxis: Pepcid PT/OT: Pending Prognosis is guarded
[2021-11-17] MEDS: INSULIN ASPART (NovoLOG) 100 UNIT/ML VIAL SQ SCH (19:48)
[2021-11-17 19:49] LABS: Glucose,Whole Blood 114 mg/dL (70-110)
[2021-11-17] MEDS: LOSARTAN 50 MG TAB PO SCH (19:52)
[2021-11-17] MEDS: predniSONE 20 MG TAB PO SCH (19:52)
[2021-11-18 00:27] LABS: Synovial Fld Crystals Seen (None Seen)
[2021-11-18 06:07] LABS: Glucose,Whole Blood 125 mg/dL (70-110)
[2021-11-18] MEDS: INSULIN ASPART (NovoLOG) 100 UNIT/ML VIAL SQ SCH ×4 (06:16→20:33)
[2021-11-18] MEDS: carvediloL 12.5 MG TAB PO SCH ×2 (06:29→16:17)
[2021-11-18] MEDS: ACETAMINOPHEN TAB 325 MG TAB PO PRN (08:23)
[2021-11-18] MEDS: SPIRONOLACTONE 25 MG TAB PO SCH (08:24)
[2021-11-18] MEDS: FUROSEMIDE 40 MG TAB PO SCH (08:24)
[2021-11-18] MEDS: predniSONE 20 MG TAB PO SCH (08:24)
[2021-11-18] MEDS: FAMOTIDINE 20 MG TAB PO SCH (08:24)
[2021-11-18 08:43] LABS: Prothrombin Time 30.2 sec (9.0-12.0)
--- NOTE | 2021-11-18 10:33 | P.PN ---
Subjective Progress Note Date: 11/18/21 This patient is an 81- year old female with a past medical history of Atrial fibrillation on Coumadin, pacemaker, heart failure that orthopedics is following for right knee, right ankle/foot pain. Patient is examined bedside this morning. Right knee was aspirated yesterday bedside and synovial fluid analysis is positive for uric acid crystals. Prednisone has been started per internal medicine. Patient has no new complaints today. Objective - Vital Signs Vital signs: Vital Signs Temp 97.8 F 11/18/21 03:15 Pulse 61 11/18/21 08:00 Resp 16 11/18/21 08:00 BP 127/68 11/18/21 08:00 Pulse Ox 97 11/18/21 08:00 FiO2 21 11/17/21 16:03 Intake & Output 11/17/21 11/18/21 11/18/21 18:59 06:59 18:59 Intake Total 100 118 Output Total 150 350 Balance -50 -350 118 Intake: Intake, IV Titration 100 Amount Cefepime 2 gm In Sodium 100 Chloride 0.9% 100 ml @ 25 mls/hr IVPB Q12HR [facility] Rx #:[id number] Oral 118 Output: Urine 150 350 Other: Voiding Method Bedpan Diaper Diaper Diaper # Voids 1 - Exam On examination, patient is sitting up in bed in no apparent distress. She is alert and answers questions appropriately. On inspection of the right knee, there is a mild right knee effusion. There is moderate swelling of the right ankle. No open wounds or lacerations. There is no pain on palpation of the right hip or thigh. Thigh is soft. There is diffuse pain with palpation of the right knee, ankle, foot. There is no pain with palpation of the lower leg, calf. Calf is soft. Pain with attempts at PROM of the knee. Only minimal discomfort with PROM of the hip, ankle. Motor sensory function intact RLE. RLE warm and well perfused. - Labs CBC & Chem 7: 11/17/21 07:33 11/17/21 07:33 Labs: Abnormal Lab Results - Last 24 Hours (Table) 11/17/21 11/17/21 11/18/21 Range/Units 09:00 19:46 06:05 PT (9.0-12.0) sec INR (<1.2) POC Glucose (mg/dL) 114 H 125 H (70-110) mg/dL Synovial Crystals Seen A (None Seen) 11/18/21 Range/Units 08:05 PT 30.2 H (9.0-12.0) sec INR 3.0 H (<1.2) POC Glucose (mg/dL) (70-110) mg/dL Synovial Crystals (None Seen) Microbiology - Last 24 Hours (Table) 11/17/21 09:00 Gram Stain - Preliminary Knee - Right Body Fluid Culture - Preliminary Assessment and Plan Assessment: Right knee pain Right foot/ankle pain Acute gout flare, right knee Plan: - We discussed patient's current right knee pain is likely secondary to her acute gout flare. Prednisone 40mg daily per internal medicine. We could also consider a cortisone injection into the right knee if her pain fails to improve on oral medication, which was discussed with nursing. - Will defer gout management to internal medicine.
[2021-11-18 12:10] LABS: Glucose,Whole Blood 157 mg/dL (70-110)
[2021-11-18 16:31] LABS: Glucose,Whole Blood 159 mg/dL (70-110)
[2021-11-18] MEDS ORDERED: WARFARIN 2 MG TAB PO ONE (18:00)
--- NOTE | 2021-11-18 18:54 | P.PN ---
Subjective This is a pleasant 81 years old female with past medical history of Atrial Fibrillation, on warfarin , Heart Failure, Hypertension, right breast cancer 2006, left breast cancer 2017, she status post pacemaker, status post AICD. pt presents after being found down. family called EMS. Pt complains of left hand swelling and developed tenderness and swelling. Patient herself is alert awake and oriented to time place but she could not remember the name of the president. She has insight into her illness. She follows commands appropriately. And she has logic answers. She does not know what happened, the last thing she remembers she was in bed. Currently she looks awake and alert, mildly sleepy but is easily arousable and stay awake. She denies any chest pains or dyspnea, no burning in her urine or increased frequ ency. No diarrhea or vomiting. Has good appetite. She denies headache or dizziness, no weakness or numbness in extremities. She denies smoking, alcohol or illicit drugs. Vitals are stable and patient is afebrile. Labs showed leukocytosis of 14.5 and 13.5, rest of CBC is unremarkable. Sodium is 139, creatinine 1.0. Creatinine kinase elevated at 1310. Elevated troponin 0.11 and 0.20. INR is 1.7 Liver enzymes only mildly elevated. Bilirubin 2.1. Urinalysis is suspicious for infection. Urine drug screen is negative and cervical less than 10 EKG showed ventricular paced rhythm X-ray of the right tibia and fibula and right femur showing no fracture but there is right knee joint effusion CT of the brain: Cerebral atrophy, no acute process. Chest x-ray: No acute process. In the emergency room patient was started on normal saline and warfarin pharmacy to dose 11/17/2021 Patient with inflamed right knee and right ankle although it's slits warm compared to yesterday. 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 We started the patient on a prednisone 40 mg daily. Also publication director cleared the patient for discharge today. INR is 3.0 11/18/2021 Patient still complaining from pain and swelling and arthritis of her right ankle secondary to acute gouty arthritis Patient was started on a prednisone 40 mg Pending response so she can participate in physical therapy evaluation. Also she remains on warfarin for her paroxysmal atrial fibrillation and currently her INR is 3.0. Objective - Vital Signs Vital signs: Vital Signs Temp 97.8 F 11/18/21 03:15 Pulse 62 11/18/21 12:00 Resp 16 11/18/21 08:00 BP 116/63 11/18/21 12:00 Pulse Ox 98 11/18/21 12:00 FiO2 21 11/17/21 16:03 Intake & Output 11/17/21 11/18/21 11/18/21 18:59 06:59 18:59 Intake Total 100 118 Output Total 150 350 Balance -50 -350 118 Intake: Intake, IV Titration 100 Amount Cefepime 2 gm In Sodium 100 Chloride 0.9% 100 ml @ 25 mls/hr IVPB Q12HR [facility] Rx #:[id number] Oral 118 Output: Urine 150 350 Other: Voiding Method Bedpan Diaper Diaper Diaper # Voids 1 - Exam GENERAL: The patient is alert and oriented x3, not in any acute distress. Well developed, well nourished. HEENT: Pupils are round and equally reacting to light. EOMI. No scleral icterus. No conjunctival pallor. Normocephalic, atraumatic. No pharyngeal erythema. No thyromegaly. CARDIOVASCULAR: S1 and S2 present. No murmurs, rubs, or gallops. PULMONARY: Chest is clear to auscultation, no wheezing or crackles. ABDOMEN: Soft, nontender, nondistended, normoactive bowel sounds. No palpable organomegaly. MUSCULOSKELETAL: No joint swelling or deformity. -EXTREMITIES: No cyanosis, clubbing. Right ankle swelling and tenderness and warmth, bilateral mild swelling of the lower extremities NEUROLOGICAL: Gross neurological examination did not reveal any focal deficits. SKIN: No rashes. No petechiae - Labs CBC & Chem 7: 11/17/21 07:33 11/17/21 07:33 Labs: Abnormal Lab Results - Last 24 Hours (Table) 11/17/21 11/17/21 11/18/21 Range/Units 09:00 19:46 06:05 PT (9.0-12.0) sec INR (<1.2) POC Glucose (mg/dL) 114 H 125 H (70-110) mg/dL Procalcitonin (0.02-0.09) ng/mL Synovial Crystals Seen A (None Seen) 11/18/21 11/18/21 11/18/21 Range/Units 08:05 08:05 12:08 PT 30.2 H (9.0-12.0) sec INR 3.0 H (<1.2) POC Glucose (mg/dL) 157 H (70-110) mg/dL Procalcitonin 1.02 H (0.02-0.09) ng/mL Synovial Crystals (None Seen) Microbiology - Last 24 Hours (Table) 11/17/21 09:00 Gram Stain - Preliminary Knee - Right Body Fluid Culture - Preliminary Assessment and Plan Assessment: Most likely Acute gout of the right knee and right ankle Period of unresponsiveness and altered mental status, evaluated by publication director active for discharge, patient is back to baseline rhabdomyolysis Right ankle swelling, worse and tenderness suspicious for cellulitis Elevated troponin, with severe global ejection fraction 10-15%, patient does not look in significant acute exacerbation abnormal urinalysis, rule out Acute urinary tract infection. Repeat urine analysis is improving without antibiotic Chronic atrial fibrillation on warfarin Chronic heart failure Hypertension Status post pacemaker and AICD. Plan: This is a pleasant 81 years old female who was found on the floor with abnormal urine and elevated creatinine kinase and troponin. Continue with prednisone 40 mg daily infectious disease team input is appreciated. Peach [employer]er evaluation cleared the patient for discharge orthopedic evaluation i appreciated and they recommended conservative lawrence gement, weightbearing as tolerated Labs and medication were reviewed.. Continue same treatment. Continue with symptomatic treatment. Resume home medication. Monitor lytes and vitals. DVT and GI prophylaxis. Further recommendations depends on the clinical course of the patient DVT prophylaxis: On warfarin GI Prophylaxis: Pepcid PT/OT: Pending Prognosis is guarded
[2021-11-18 20:29] LABS: Glucose,Whole Blood 161 mg/dL (70-110)
[2021-11-18] MEDS: LOSARTAN 50 MG TAB PO SCH (20:33)
[2021-11-18] MEDS ORDERED: HYDROcodone/APAP 5-325MG 1 EACH TAB PO PRN (23:17)
[2021-11-19 06:15] LABS: Glucose,Whole Blood 151 mg/dL (70-110)
[2021-11-19] MEDS: carvediloL 12.5 MG TAB PO SCH ×2 (06:31→16:21)
[2021-11-19] MEDS: INSULIN ASPART (NovoLOG) 100 UNIT/ML VIAL SQ SCH ×4 (06:31→20:46)
[2021-11-19] MEDS: SPIRONOLACTONE 25 MG TAB PO SCH (08:16)
[2021-11-19] MEDS: FAMOTIDINE 20 MG TAB PO SCH (08:16)
[2021-11-19] MEDS: FUROSEMIDE 40 MG TAB PO SCH (08:16)
[2021-11-19] MEDS: predniSONE 20 MG TAB PO SCH (08:16)
[2021-11-19 08:47] LABS: Magnesium 2.5 mg/dL (1.6-2.3); Potassium 4.5 mmol/L (3.5-5.1)
[2021-11-19 09:00] LABS: Prothrombin Time 29.5 sec (9.0-12.0)
[2021-11-19 11:45] LABS: Glucose,Whole Blood 127 mg/dL (70-110)
[2021-11-19 12:42] VITALS: BMI 33.3
--- NOTE | 2021-11-19 16:50 | P.PN ---
Subjective Progress Note Date: 11/18/21 Principal diagnosis: Right knee pain and question of cellulitis Patient is 81-year-old -[place] female presented to hospital with the pain to the right knee and leg area with no history of any trauma patient did have a CT of the right thing that was negative for fracture did shows large right knee effusion and is status post aspiration 11/17/2021. On today's evaluation that is 11/18/2021, the patient remains to be afebrile, the patient pain to the right knee has slightly decreased in intensity , the patient denies any chest pain or shortness of breath or cough no abdominal pain and no diarrhea Objective - Vital Signs Vital signs: Vital Signs Temp 97.8 F 11/18/21 03:15 Pulse 62 11/18/21 12:00 Resp 16 11/18/21 08:00 BP 116/63 11/18/21 12:00 Pulse Ox 98 11/18/21 12:00 FiO2 21 11/17/21 16:03 Intake & Output 11/17/21 11/18/21 11/18/21 18:59 06:59 18:59 Intake Total 100 118 Output Total 150 350 Balance -50 -350 118 Intake: Intake, IV Titration 100 Amount Cefepime 2 gm In Sodium 100 Chloride 0.9% 100 ml @ 25 mls/hr IVPB Q12HR [facility] Rx #:[id number] Oral 118 Output: Urine 150 350 Other: Voiding Method Bedpan Diaper Diaper Diaper # Voids 1 - Exam GENERAL DESCRIPTION: An elderly female lying in bed in no distress RESPIRATORY SYSTEM: Unlabored breathing , decreased breath sounds at bases HEART: S1 S2 regular rate and rhythm , ABDOMEN: Soft , no tenderness EXTREMITIES: No edema feet - Labs CBC & Chem 7: 11/17/21 07:33 11/19/21 07:38 Labs: Abnormal Lab Results - Last 24 Hours (Table) 11/17/21 11/17/21 11/18/21 Range/Units 09:00 19:46 06:05 PT (9.0-12.0) sec INR (<1.2) POC Glucose (mg/dL) 114 H 125 H (70-110) mg/dL Procalcitonin (0.02-0.09) ng/mL Synovial Crystals Seen A (None Seen) 11/18/21 11/18/21 11/18/21 Range/Units 08:05 08:05 12:08 PT 30.2 H (9.0-12.0) sec INR 3.0 H (<1.2) POC Glucose (mg/dL) 157 H (70-110) mg/dL Procalcitonin 1.02 H (0.02-0.09) ng/mL Synovial Crystals (None Seen) Microbiology - Last 24 Hours (Table) 11/17/21 09:00 Gram Stain - Preliminary Knee - Right Body Fluid Culture - Preliminary Assessment and Plan (1) Knee pain Current Visit: Yes Status: Acute Code(s): M25.569 - PAIN IN UNSPECIFIED KNEE SNOMED Code(s): 3270141885 Plan: 11patient presented to hospital with pain mostly to the right leg below the knee to the ankle area this patient currently do not have any fever and did have mild elevated white count however no significant redness but she is tender to touch as far as the knee and the ankle is concerned x-rays were negative for acute abnormality clinically behaving as a cellulitis underlying septic arthritis less likely not entirely excluded. 2patient is status post CT of the right knee and ankle area with evidence of significant effusion to the right knee status post aspirate white count is not significantly elevated and culture came back positive suggestive of gouty arthritis has been started on steroids we will discontinue cefepime and monitor patient closely off antibiotic Time with Patient: Less than 30
[2021-11-19 17:04] LABS: Glucose,Whole Blood 146 mg/dL (70-110)
[2021-11-19] MEDS ORDERED: WARFARIN 2 MG TAB PO ONE (18:00)
[2021-11-19] MEDS ORDERED: ACETAMINOPHEN TAB 325 MG TAB PO PRN (18:04)
[2021-11-19] MEDS ORDERED: HYDROcodone/APAP 5-325MG 1 EACH TAB PO PRN (18:04)
[2021-11-19] MEDS ORDERED: HYDROcodone/APAP 5-325MG 1 EACH TAB PO STA (18:04)
--- NOTE | 2021-11-19 18:09 | P.PN ---
Subjective This is a pleasant 81 years old female with past medical history of Atrial Fibrillation, on warfarin , Heart Failure, Hypertension, right breast cancer 2006, left breast cancer 2017, she status post pacemaker, status post AICD. pt presents after being found down. family called EMS. Pt complains of left hand swelling and developed tenderness and swelling. Patient herself is alert awake and oriented to time place but she could not remember the name of the president. She has insight into her illness. She follows commands appropriately. And she has logic answers. She does not know what happened, the last thing she remembers she was in bed. Currently she looks awake and alert, mildly sleepy but is easily arousable and stay awake. She denies any chest pains or dyspnea, no burning in her urine or increased frequ ency. No diarrhea or vomiting. Has good appetite. She denies headache or dizziness, no weakness or numbness in extremities. She denies smoking, alcohol or illicit drugs. Vitals are stable and patient is afebrile. Labs showed leukocytosis of 14.5 and 13.5, rest of CBC is unremarkable. Sodium is 139, creatinine 1.0. Creatinine kinase elevated at 1310. Elevated troponin 0.11 and 0.20. INR is 1.7 Liver enzymes only mildly elevated. Bilirubin 2.1. Urinalysis is suspicious for infection. Urine drug screen is negative and cervical less than 10 EKG showed ventricular paced rhythm X-ray of the right tibia and fibula and right femur showing no fracture but there is right knee joint effusion CT of the brain: Cerebral atrophy, no acute process. Chest x-ray: No acute process. In the emergency room patient was started on normal saline and warfarin pharmacy to dose 11/17/2021 Patient with inflamed right knee and right ankle although it's slits warm compared to yesterday. 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 We started the patient on a prednisone 40 mg daily. Also tennis net maker cleared the patient for discharge today. INR is 3.0 11/18/2021 Patient still complaining from pain and swelling and arthritis of her right ankle secondary to acute gouty arthritis Patient was started on a prednisone 40 mg Pending response so she can participate in physical therapy evaluation. Also she remains on warfarin for her paroxysmal atrial fibrillation and currently her INR is 3.0. 11/19/2021 patient still complaining from pain in her right ankle and right knee although right ankle looks to me less swollen and less warm, while right knee is not swollen and not warm but she states her pain in the knee is more than in the ankle. We started her on [place] because Tylenol is not effective enough, she is ALLERGIC to codeine causing nausea vomiting, we will keep monitoring. And discussed with the staff and bedside nurse. Also discussed with manager social work because of her significant gouty arthritis she cannot participate in rehab now so she cannot been assessed by physical therapy I agree with discontinuing antibiotics and patient Currently on a prednisone 40 mg She remains on warfarin for her A. fib and INR 3.0 Objective - Vital Signs Vital signs: Vital Signs Temp 97.8 F 11/19/21 04:00 Pulse 61 11/19/21 08:00 Resp 16 11/19/21 08:00 BP 90/55 11/19/21 08:00 Pulse Ox 94 L 11/19/21 04:00 FiO2 21 11/18/21 19:11 Intake & Output 11/18/21 11/19/21 11/19/21 18:59 06:59 18:59 Intake Total 236 118 Output Total 500 600 Balance -264 -600 118 Weight 82.5 kg Intake: Oral 236 118 Output: Urine 500 600 Other: Voiding Method Diaper Indwelling Catheter Indwelling Catheter - Exam GENERAL: The patient is alert and oriented x3, not in any acute distress. Well developed, well nourished. HEENT: Pupils are round and equally reacting to light. EOMI. No scleral icterus. No conjunctival pallor. Normocephalic, atraumatic. No pharyngeal erythema. No thyromegaly. CARDIOVASCULAR: S1 and S2 present. No murmurs, rubs, or gallops. PULMONARY: Chest is clear to auscultation, no wheezing or crackles. ABDOMEN: Soft, nontender, nondistended, normoactive bowel sounds. No palpable organomegaly. MUSCULOSKELETAL: No joint swelling or deformity. -EXTREMITIES: No cyanosis, clubbing. Right ankle swelling and tenderness and warmth, bilateral mild swelling of the lower extremities NEUROLOGICAL: Gross neurological examination did not reveal any focal deficits. SKIN: No rashes. No petechiae - Labs CBC & Chem 7: 11/17/21 07:33 11/19/21 07:38 Labs: Abnormal Lab Results - Last 24 Hours (Table) 11/18/21 11/18/21 11/18/21 Range/Units 12:08 16:22 20:28 PT (9.0-12.0) sec INR (<1.2) BUN (7-17) mg/dL Creatinine (0.52-1.04) mg/dL Glucose (74-99) mg/dL POC Glucose (mg/dL) 157 H 159 H 161 H (70-110) mg/dL Magnesium (1.6-2.3) mg/dL 11/19/21 11/19/21 11/19/21 Range/Units 06:13 07:38 07:38 PT 29.5 H (9.0-12.0) sec INR 3.0 H (<1.2) BUN 52 H (7-17) mg/dL Creatinine 1.16 H (0.52-1.04) mg/dL Glucose 108 H (74-99) mg/dL POC Glucose (mg/dL) 151 H (70-110) mg/dL Magnesium 2.5 H (1.6-2.3) mg/dL 11/19/21 Range/Units 11:40 PT (9.0-12.0) sec INR (<1.2) BUN (7-17) mg/dL Creatinine (0.52-1.04) mg/dL Glucose (74-99) mg/dL POC Glucose (mg/dL) 127 H (70-110) mg/dL Magnesium (1.6-2.3) mg/dL Microbiology - Last 24 Hours (Table) 11/17/21 09:00 Gram Stain - Preliminary Knee - Right Body Fluid Culture - Preliminary Assessment and Plan Assessment: Acute gout of the right knee and right ankle Period of unresponsiveness and altered mental status, evaluated by tennis net maker active for discharge, patient is back to baseline rhabdomyolysis improving Right ankle swelling, worse and tenderness suspicious for cellulitis Elevated troponin, with severe global ejection fraction 10-15%, patient does not look in significant acute exacerbation abnormal urinalysis, rule out Acute urinary tract infection. Repeat urine analysis is improving without antibiotic Chronic atrial fibrillation on warfarin Chronic heart failure Hypertension Status post pacemaker and AICD. Plan: This is a pleasant 81 years old female who was found on the floor with abnormal urine and elevated creatinine kinase and troponin. Continue with prednisone 40 mg daily infectious disease team input is appreciated. Public Health Specialist evaluation cleared the patient for discharge orthopedic evaluation i appreciated and they recommended conservative management, weightbearing as tolerated Labs and medication were reviewed.. Continue same treatment. Continue with symptomatic treatment. Resume home medication. Monitor lytes and vitals. DVT and GI prophylaxis. Further recommendations depends on the clinical course of the patient DVT prophylaxis: On warfarin GI Prophylaxis: Pepcid PT/OT: Pending Prognosis is guarded
[2021-11-19 20:15] LABS: Glucose,Whole Blood 192 mg/dL (70-110)
[2021-11-19] MEDS: LOSARTAN 50 MG TAB PO SCH (20:46)
[2021-11-20 06:08] LABS: Glucose,Whole Blood 142 mg/dL (70-110)
[2021-11-20] MEDS: carvediloL 12.5 MG TAB PO SCH ×2 (06:25→16:17)
[2021-11-20] MEDS: INSULIN ASPART (NovoLOG) 100 UNIT/ML VIAL SQ SCH ×4 (06:25→21:16)
[2021-11-20] MEDS: FAMOTIDINE 20 MG TAB PO SCH (08:50)
[2021-11-20] MEDS: predniSONE 20 MG TAB PO SCH (08:51)
[2021-11-20] MEDS: SPIRONOLACTONE 25 MG TAB PO SCH (08:51)
[2021-11-20] MEDS: FUROSEMIDE 40 MG TAB PO SCH (08:51)
[2021-11-20 08:53] LABS: INR 3.1 (<1.2); Prothrombin Time 30.6 sec (9.0-12.0)
[2021-11-20 11:37] LABS: Glucose,Whole Blood 150 mg/dL (70-110)
--- NOTE | 2021-11-20 16:35 | P.PN ---
Subjective This is a pleasant 81 years old female with past medical history of Atrial Fibrillation, on warfarin , Heart Failure, Hypertension, right breast cancer 2006, left breast cancer 2017, she status post pacemaker, status post AICD. pt presents after being found down. family called EMS. Pt complains of left hand swelling and developed tenderness and swelling. Patient herself is alert awake and oriented to time place but she could not remember the name of the president. She has insight into her illness. She follows commands appropriately. And she has logic answers. She does not know what happened, the last thing she remembers she was in bed. Currently she looks awake and alert, mildly sleepy but is easily arousable and stay awake. She denies any chest pains or dyspnea, no burning in her urine or increased frequ ency. No diarrhea or vomiting. Has good appetite. She denies headache or dizziness, no weakness or numbness in extremities. She denies smoking, alcohol or illicit drugs. Vitals are stable and patient is afebrile. Labs showed leukocytosis of 14.5 and 13.5, rest of CBC is unremarkable. Sodium is 139, creatinine 1.0. Creatinine kinase elevated at 1310. Elevated troponin 0.11 and 0.20. INR is 1.7 Liver enzymes only mildly elevated. Bilirubin 2.1. Urinalysis is suspicious for infection. Urine drug screen is negative and cervical less than 10 EKG showed ventricular paced rhythm X-ray of the right tibia and fibula and right femur showing no fracture but there is right knee joint effusion CT of the brain: Cerebral atrophy, no acute process. Chest x-ray: No acute process. In the emergency room patient was started on normal saline and warfarin pharmacy to dose 11/17/2021 Patient with inflamed right knee and right ankle although it's slits warm compared to yesterday. 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 We started the patient on a prednisone 40 mg daily. Also music coordinator cleared the patient for discharge today. INR is 3.0 11/18/2021 Patient still complaining from pain and swelling and arthritis of her right ankle secondary to acute gouty arthritis Patient was started on a prednisone 40 mg Pending response so she can participate in physical therapy evaluation. Also she remains on warfarin for her paroxysmal atrial fibrillation and currently her INR is 3.0. 11/19/2021 patient still complaining from pain in her right ankle and right knee although right ankle looks to me less swollen and less warm, while right knee is not swollen and not warm but she states her pain in the knee is more than in the ankle. We started her on [place] because Tylenol is not effective enough, she is ALLERGIC to codeine causing nausea vomiting, we will keep monitoring. And discussed with the staff and bedside nurse. Also discussed with child welfare social worker because of her significant gouty arthritis she cannot participate in rehab now so she cannot been assessed by physical therapy I agree with discontinuing antibiotics and patient Currently on a prednisone 40 mg She remains on warfarin for her A. fib and INR 3.0 11/20/2021 her left ankle gouty arthritis is improving by examination this swelling and warmth but patient still complaining from pain in the area stating that [place] 5 mg did not help her much so increased the dose to 7.5 mg and patient was instructed about pain medication Her INR 3.1 and she is going to receive 1 mg of Coumadin tonight. Objective - Vital Signs Vital signs: Vital Signs Temp 97.3 F L 11/20/21 04:00 Pulse 60 11/20/21 08:00 Resp 16 11/20/21 08:00 BP 91/55 11/20/21 08:00 Pulse Ox 97 11/20/21 08:00 FiO2 21 11/18/21 19:11 Intake & Output 11/19/21 11/20/21 11/20/21 18:59 06:59 18:59 Intake Total 236 Output Total 550 305 Balance -314 -305 Weight 82.5 kg Intake: Oral 236 Output: Urine 550 305 Other: Voiding Method Indwelling Catheter Indwelling Catheter Indwelling Catheter - Exam GENERAL: The patient is alert and oriented x3, not in any acute distress. Well developed, well nourished. HEENT: Pupils are round and equally reacting to light. EOMI. No scleral icterus. No conjunctival pallor. Normocephalic, atraumatic. No pharyngeal erythema. No thyromegaly. CARDIOVASCULAR: S1 and S2 present. No murmurs, rubs, or gallops. PULMONARY: Chest is clear to auscultation, no wheezing or crackles. ABDOMEN: Soft, nontender, nondistended, normoactive bowel sounds. No palpable organomegaly. MUSCULOSKELETAL: No joint swelling or deformity. -EXTREMITIES: No cyanosis, clubbing. Right ankle swelling and tenderness and warmth, bilateral mild swelling of the lower extremities NEUROLOGICAL: Gross neurological examination did not reveal any focal deficits. SKIN: No rashes. No petechiae - Labs CBC & Chem 7: 11/17/21 07:33 11/19/21 07:38 Labs: Abnormal Lab Results - Last 24 Hours (Table) 11/19/21 11/19/21 11/20/21 Range/Units 17:01 20:14 06:06 PT (9.0-12.0) sec INR (<1.2) POC Glucose (mg/dL) 146 H 192 H 142 H (70-110) mg/dL 11/20/21 11/20/21 Range/Units 08:06 11:36 PT 30.6 H (9.0-12.0) sec INR 3.1 H (<1.2) POC Glucose (mg/dL) 150 H (70-110) mg/dL Microbiology - Last 24 Hours (Table) 11/17/21 09:00 Gram Stain - Preliminary Knee - Right Body Fluid Culture - Preliminary Assessment and Plan Assessment: Acute gout of the right knee and right ankle Period of unresponsiveness and altered mental status, evaluated by music coordinator active for discharge, patient is back to baseline rhabdomyolysis improving Right ankle swelling, worse and tenderness suspicious for cellulitis Elevated troponin, with severe global ejection fraction 10-15%, patient does not look in significant acute exacerbation abnormal urinalysis, rule out Acute urinary tract infection. Repeat urine analysis is improving without antibiotic Chronic atrial fibrillation on warfarin Chronic heart failure Hypertension Status post pacemaker and AICD. Plan: This is a pleasant 81 years old female who was found on the floor with abnormal urine and elevated creatinine kinase and troponin. Continue with prednisone 40 mg daily infectious disease team input is appreciated. Contour Grinder evaluation cleared the patient for discharge orthopedic evaluation i appreciated and they recommended conservative management, weightbearing as tolerated Labs and medication were reviewed.. Continue same treatment. Continue with symptomatic treatment. Resume home medication. Monitor lytes and vitals. DVT and GI prophylaxis. Further recommendations depends on the clinical course of the patient DVT prophylaxis: On warfarin GI Prophylaxis: Pepcid PT/OT: Pending Prognosis is guarded
[2021-11-20 17:03] LABS: Glucose,Whole Blood 163 mg/dL (70-110)
[2021-11-20] MEDS ORDERED: WARFARIN 1 MG TAB PO ONE (18:00)
[2021-11-20 20:34] LABS: Glucose,Whole Blood 204 mg/dL (70-110)
[2021-11-20] MEDS: LOSARTAN 50 MG TAB PO SCH (21:17)
[2021-11-20] MEDS: HYDROcodone/APAP 7.5-325MG 1 EACH TAB PO PRN (21:45)
[2021-11-21] MEDS: HYDROcodone/APAP 7.5-325MG 1 EACH TAB PO PRN (03:57)
[2021-11-21 07:18] LABS: Glucose,Whole Blood 139 mg/dL (70-110)
[2021-11-21] MEDS: INSULIN ASPART (NovoLOG) 100 UNIT/ML VIAL SQ SCH ×4 (07:28→20:14)
[2021-11-21] MEDS: FAMOTIDINE 20 MG TAB PO SCH (07:29)
[2021-11-21] MEDS: carvediloL 12.5 MG TAB PO SCH ×2 (07:29→16:51)
[2021-11-21] MEDS: FUROSEMIDE 40 MG TAB PO SCH (07:29)
[2021-11-21] MEDS: SPIRONOLACTONE 25 MG TAB PO SCH (07:29)
[2021-11-21] MEDS: predniSONE 20 MG TAB PO SCH (07:29)
[2021-11-21 07:49] LABS: INR 2.3 (<1.2); Prothrombin Time 22.7 sec (9.0-12.0)
[2021-11-21] MEDS: HYDROcodone/APAP 10-325MG 1 EACH TAB PO PRN ×2 (10:00→22:23)
[2021-11-21 11:52] LABS: Glucose,Whole Blood 139 mg/dL (70-110)
[2021-11-21 11:57] LABS: Basophils # (A) 0.02 X 10*3/uL (0.00-0.10); Basophils % (A) 0.2 %; Eosinophils # (A) 0 X 10*3/uL (0.04-0.35); Eosinophils % (A) 0 %; HCT 32.5 % (37.2-46.3); HGB 10.4 g/dL (12.0-15.0); Immature Grans, Automated 1.6 %; Lymphocytes # (A) 1.51 X 10*3/uL (0.90-5.00); Lymphocytes % (A) 12.8 %; MCV 84.4 fL (80.0-97.0); Mean Platelet Volume 10.3 fL (9.5-12.2); Monocytes # (A) 1.22 X 10*3/uL (0.20-1.00); Monocytes % (A) 10.3 %; NRBC Per 100 WBC 0 /100 WBCS (0.0-0.0); Neutrophils # (A) 8.89 X 10*3/uL (1.80-7.70); Neutrophils % (A) 75.1 %; Platelet Count 555 X 10*3/uL (140-440); RBC 3.85 X 10*6/uL (4.10-5.20); WBC 11.83 X 10*3/uL (4.50-10.00)
[2021-11-21 12:07] LABS: African American GFR (CKD) 58.8 (60.0-200.0); Anion Gap 7.8 mmol/L (10.00-18.00); BUN/Creat Ratio 50.87 Ratio (12.00-20.00); Blood Urea Nitrogen 52.9 mg/dL (9.0-27.0); Carbon Dioxide 26.3 mmol/L (20.0-27.5); Magnesium 2.4 mg/dL (1.5-2.4); Non-African American GFR(CKD) 50.7 (60.0-200.0); Potassium 5.2 mmol/L (3.5-5.5)
[2021-11-21 16:31] LABS: Glucose,Whole Blood 156 mg/dL (70-110)
[2021-11-21] MEDS ORDERED: WARFARIN 2 MG TAB PO ONE (18:00)
[2021-11-21 20:14] LABS: Glucose,Whole Blood 136 mg/dL (70-110)
[2021-11-21] MEDS: LOSARTAN 50 MG TAB PO SCH (20:15)
[2021-11-21] MEDS ORDERED: predniSONE 20 MG TAB PO STA (20:42)
--- NOTE | 2021-11-21 22:38 | P.PN ---
Subjective This is a pleasant 81 years old female with past medical history of Atrial Fibrillation, on warfarin , Heart Failure, Hypertension, right breast cancer 2006, left breast cancer 2017, she status post pacemaker, status post AICD. pt presents after being found down. family called EMS. Pt complains of left hand swelling and developed tenderness and swelling. Patient herself is alert awake and oriented to time place but she could not remember the name of the president. She has insight into her illness. She follows commands appropriately. And she has logic answers. She does not know what happened, the last thing she remembers she was in bed. Currently she looks awake and alert, mildly sleepy but is easily arousable and stay awake. She denies any chest pains or dyspnea, no burning in her urine or increased frequ ency. No diarrhea or vomiting. Has good appetite. She denies headache or dizziness, no weakness or numbness in extremities. She denies smoking, alcohol or illicit drugs. Vitals are stable and patient is afebrile. Labs showed leukocytosis of 14.5 and 13.5, rest of CBC is unremarkable. Sodium is 139, creatinine 1.0. Creatinine kinase elevated at 1310. Elevated troponin 0.11 and 0.20. INR is 1.7 Liver enzymes only mildly elevated. Bilirubin 2.1. Urinalysis is suspicious for infection. Urine drug screen is negative and cervical less than 10 EKG showed ventricular paced rhythm X-ray of the right tibia and fibula and right femur showing no fracture but there is right knee joint effusion CT of the brain: Cerebral atrophy, no acute process. Chest x-ray: No acute process. In the emergency room patient was started on normal saline and warfarin pharmacy to dose 11/17/2021 Patient with inflamed right knee and right ankle although it's slits warm compared to yesterday. 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 We started the patient on a prednisone 40 mg daily. Also pulley maintainer cleared the patient for discharge today. INR is 3.0 11/18/2021 Patient still complaining from pain and swelling and arthritis of her right ankle secondary to acute gouty arthritis Patient was started on a prednisone 40 mg Pending response so she can participate in physical therapy evaluation. Also she remains on warfarin for her paroxysmal atrial fibrillation and currently her INR is 3.0. 11/19/2021 patient still complaining from pain in her right ankle and right knee although right ankle looks to me less swollen and less warm, while right knee is not swollen and not warm but she states her pain in the knee is more than in the ankle. We started her on [place] because Tylenol is not effective enough, she is ALLERGIC to codeine causing nausea vomiting, we will keep monitoring. And discussed with the staff and bedside nurse. Also discussed with psychiatric social worker because of her significant gouty arthritis she cannot participate in rehab now so she cannot been assessed by physical therapy I agree with discontinuing antibiotics and patient Currently on a prednisone 40 mg She remains on warfarin for her A. fib and INR 3.0 11/20/2021 her left ankle gouty arthritis is improving by examination this swelling and warmth but patient still complaining from pain in the area stating that [place] 5 mg did not help her much so increased the dose to 7.5 mg and patient was instructed about pain medication Her INR 3.1 and she is going to receive 1 mg of Coumadin tonight. 11/21/2021 Patient is still slowly to improve with right ankle and knee gouty arthritis although on a prednisone 40 mg for more than 72 hours. Because of this week she's the dose of prednisone 40 mg to 60 mg starting from today. Also we don't discontinue oral Lasix 40 mg as it might contribute to gout exacerbation Also increased [place] dose up to 10-325 mg, and the patient and she agrees and risks and benefits explained. Objective - Vital Signs Vital signs: Vital Signs Temp 97.5 F L 11/21/21 07:46 Pulse 56 L 11/21/21 07:46 Resp 18 11/21/21 07:46 BP 110/73 11/21/21 07:46 Pulse Ox 94 L 11/21/21 07:46 FiO2 21 11/18/21 19:11 Intake & Output 11/20/21 11/21/21 11/21/21 18:59 06:59 18:59 Output Total 700 Balance -700 Output: Urine 700 Other: Voiding Method Indwelling Catheter Indwelling Catheter Indwelling Catheter - Exam GENERAL: The patient is alert and oriented x3, not in any acute distress. Well developed, well nourished. HEENT: Pupils are round and equally reacting to light. EOMI. No scleral icterus. No conjunctival pallor. Normocephalic, atraumatic. No pharyngeal erythema. No thyromegaly. CARDIOVASCULAR: S1 and S2 present. No murmurs, rubs, or gallops. PULMONARY: Chest is clear to auscultation, no wheezing or crackles. ABDOMEN: Soft, nontender, nondistended, normoactive bowel sounds. No palpable organomegaly. MUSCULOSKELETAL: No joint swelling or deformity. -EXTREMITIES: No cyanosis, clubbing. Right ankle swelling and tenderness and warmth, bilateral mild swelling of the lower extremities NEUROLOGICAL: Gross neurological examination did not reveal any focal deficits. SKIN: No rashes. No petechiae - Labs CBC & Chem 7: 11/21/21 07:11 11/21/21 07:11 Labs: Abnormal Lab Results - Last 24 Hours (Table) 11/20/21 11/20/21 11/20/21 Range/Units 11:36 17:01 20:33 PT (9.0-12.0) sec INR (<1.2) POC Glucose (mg/dL) 150 H 163 H 204 H (70-110) mg/dL 11/21/21 11/21/21 Range/Units 07:01 07:16 PT 22.7 H (9.0-12.0) sec INR 2.3 H (<1.2) POC Glucose (mg/dL) 139 H (70-110) mg/dL Microbiology - Last 24 Hours (Table) 11/17/21 09:00 Gram Stain - Preliminary Knee - Right Body Fluid Culture - Preliminary Assessment and Plan Assessment: Acute gout of the right knee and right ankle Period of unresponsiveness and altered mental status, evaluated by pulley maintainer active for discharge, patient is back to baseline rhabdomyolysis improving Right ankle swelling, worse and tenderness suspicious for cellulitis Elevated troponin, with severe global ejection fraction 10-15%, patient does not look in significant acute exacerbation abnormal urinalysis, rule out Acute urinary tract infection. Repeat urine analysis is improving without antibiotic Chronic atrial fibrillation on warfarin Chronic heart failure Hypertension Status post pacemaker and AICD. Plan: This is a pleasant 81 years old female who was found on the floor with abnormal urine and elevated creatinine kinase and troponin. Increase prednisone 60 mg daily Discontinue Lasix infectious disease team input is appreciated. Cob Sawyer evaluation cleared the patient for discharge orthopedic evaluation i appreciated and they recommended conservative management, weightbearing as tolerated Labs and medication were reviewed.. Continue same treatment. Continue with symptomatic treatment. Resume home medication. Monitor lytes and vitals. DVT and GI prophylaxis. Further recommendations depends on the clinical course of the patient DVT prophylaxis: On warfarin GI Prophylaxis: Pepcid PT/OT: Pending Prognosis is guarded
[2021-11-22 06:51] LABS: Glucose,Whole Blood 129 mg/dL (70-110)
[2021-11-22] MEDS: SPIRONOLACTONE 25 MG TAB PO SCH (07:36)
[2021-11-22] MEDS: carvediloL 12.5 MG TAB PO SCH ×2 (07:36→17:21)
[2021-11-22] MEDS: predniSONE 20 MG TAB PO SCH (07:36)
[2021-11-22] MEDS: FAMOTIDINE 20 MG TAB PO SCH (07:36)
[2021-11-22] MEDS: INSULIN ASPART (NovoLOG) 100 UNIT/ML VIAL SQ SCH ×4 (07:38→20:29)
[2021-11-22 08:08] LABS: INR 1.6 (<1.2); Prothrombin Time 16.7 sec (9.0-12.0)
[2021-11-22 11:31] LABS: Glucose,Whole Blood 177 mg/dL (70-110)
[2021-11-22] MEDS: HYDROcodone/APAP 10-325MG 1 EACH TAB PO PRN ×2 (14:09→23:57)
[2021-11-22] MEDS ORDERED: SODIUM CHLORIDE 0.45% 1,000 ML IV SCH (17:00)
--- NOTE | 2021-11-22 17:03 | P.PN ---
Subjective This is a pleasant 81 years old female with past medical history of Atrial Fibrillation, on warfarin , Heart Failure, Hypertension, right breast cancer 2006, left breast cancer 2017, she status post pacemaker, status post AICD. pt presents after being found down. family called EMS. Pt complains of left hand swelling and developed tenderness and swelling. Patient herself is alert awake and oriented to time place but she could not remember the name of the president. She has insight into her illness. She follows commands appropriately. And she has logic answers. She does not know what happened, the last thing she remembers she was in bed. Currently she looks awake and alert, mildly sleepy but is easily arousable and stay awake. She denies any chest pains or dyspnea, no burning in her urine or increased frequ ency. No diarrhea or vomiting. Has good appetite. She denies headache or dizziness, no weakness or numbness in extremities. She denies smoking, alcohol or illicit drugs. Vitals are stable and patient is afebrile. Labs showed leukocytosis of 14.5 and 13.5, rest of CBC is unremarkable. Sodium is 139, creatinine 1.0. Creatinine kinase elevated at 1310. Elevated troponin 0.11 and 0.20. INR is 1.7 Liver enzymes only mildly elevated. Bilirubin 2.1. Urinalysis is suspicious for infection. Urine drug screen is negative and cervical less than 10 EKG showed ventricular paced rhythm X-ray of the right tibia and fibula and right femur showing no fracture but there is right knee joint effusion CT of the brain: Cerebral atrophy, no acute process. Chest x-ray: No acute process. In the emergency room patient was started on normal saline and warfarin pharmacy to dose 11/17/2021 Patient with inflamed right knee and right ankle although it's slits warm compared to yesterday. 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 We started the patient on a prednisone 40 mg daily. Also snow removal supervisor cleared the patient for discharge today. INR is 3.0 11/18/2021 Patient still complaining from pain and swelling and arthritis of her right ankle secondary to acute gouty arthritis Patient was started on a prednisone 40 mg Pending response so she can participate in physical therapy evaluation. Also she remains on warfarin for her paroxysmal atrial fibrillation and currently her INR is 3.0. 11/19/2021 patient still complaining from pain in her right ankle and right knee although right ankle looks to me less swollen and less warm, while right knee is not swollen and not warm but she states her pain in the knee is more than in the ankle. We started her on [place] because Tylenol is not effective enough, she is ALLERGIC to codeine causing nausea vomiting, we will keep monitoring. And discussed with the staff and bedside nurse. Also discussed with social worker health services because of her significant gouty arthritis she cannot participate in rehab now so she cannot been assessed by physical therapy I agree with discontinuing antibiotics and patient Currently on a prednisone 40 mg She remains on warfarin for her A. fib and INR 3.0 11/20/2021 her left ankle gouty arthritis is improving by examination this swelling and warmth but patient still complaining from pain in the area stating that [place] 5 mg did not help her much so increased the dose to 7.5 mg and patient was instructed about pain medication Her INR 3.1 and she is going to receive 1 mg of Coumadin tonight. 11/21/2021 Patient is still slowly to improve with right ankle and knee gouty arthritis although on a prednisone 40 mg for more than 72 hours. Because of this week she's the dose of prednisone 40 mg to 60 mg starting from today. Also we don't discontinue oral Lasix 40 mg as it might contribute to gout exacerbation Also increased [place] dose up to 10-325 mg, and the patient and she agrees and risks and benefits explained. 11/22/21 patient type knee and ankle gouty arthritis improving slowly and gradually MORE painful for her on the right knee but more swollen and tender and warmth on the right ankle. We increased her dose of prednisone 40 up to 60 mg today. We stopped her Lasix today and will give her small dose of half-normal saline test x 10 hours, as her uric acid still elevated which may be constricted sample Continue with warfarin 2.5 mg as her INR today 1.6 per cardiology team Objective - Vital Signs Vital signs: Vital Signs Temp 97.9 F 11/22/21 08:00 Pulse 62 11/22/21 08:00 Resp 18 11/22/21 02:10 BP 114/73 11/22/21 08:00 Pulse Ox 99 07/04/22 08:00 FiO2 21 11/18/21 19:11 Intake & Output 11/21/21 11/22/21 11/22/21 18:59 06:59 18:59 Output Total 600 400 Balance -600 -400 Output: Urine 600 400 Other: Voiding Method Indwelling Catheter Indwelling Catheter Indwelling Catheter - Exam GENERAL: The patient is alert and oriented x3, not in any acute distress. Well developed, well nourished. HEENT: Pupils are round and equally reacting to light. EOMI. No scleral icterus. No conjunctival pallor. Normocephalic, atraumatic. No pharyngeal erythema. No thyromegaly. CARDIOVASCULAR: S1 and S2 present. No murmurs, rubs, or gallops. PULMONARY: Chest is clear to auscultation, no wheezing or crackles. ABDOMEN: Soft, nontender, nondistended, normoactive bowel sounds. No palpable organomegaly. MUSCULOSKELETAL: No joint swelling or deformity. -EXTREMITIES: No cyanosis, clubbing. Right ankle swelling and tenderness and warmth, bilateral mild swelling of the lower extremities NEUROLOGICAL: Gross neurological examination did not reveal any focal deficits. SKIN: No rashes. No petechiae - Labs CBC & Chem 7: 11/21/21 07:11 11/21/21 07:11 Labs: Abnormal Lab Results - Last 24 Hours (Table) 11/21/21 11/21/21 11/21/21 Range/Units 07:11 07:11 11:50 WBC 11.83 H (4.50-10.00) X 10*3/uL RBC 3.85 L (4.10-5.20) X 10*6/uL Hgb 10.4 L (12.0-15.0) g/dL Hct 32.5 L (37.2-46.3) % RDW 15.0 H (11.5-14.5) % Plt Count 555 H (140-440) X 10*3/uL Immature Gran # 0.19 H (0.00-0.04) X 10*3/uL Neutrophils # 8.89 H (1.80-7.70) X 10*3/uL Monocytes # 1.22 H (0.20-1.00) X 10*3/uL Eosinophils # 0 L (0.04-0.35) X 10*3/uL PT (9.0-12.0) sec INR (<1.2) Anion Gap 7.80 L (10.00-18.00) mmol/L BUN 52.9 H (9.0-27.0) mg/dL Est GFR (CKD-EPI)AfAm 58.8 L (60.0-200.0) Est GFR (CKD-EPI)NonAf 50.7 L (60.0-200.0) BUN/Creatinine Ratio 50.87 H (12.00-20.00) Ratio Glucose 139 H (70-110) mg/dL POC Glucose (mg/dL) 139 H (70-110) mg/dL Uric Acid (2.9-7.7) mg/dL 11/21/21 11/21/21 11/22/21 Range/Units 16:30 20:12 04:09 WBC (4.50-10.00) X 10*3/uL RBC (4.10-5.20) X 10*6/uL Hgb (12.0-15.0) g/dL Hct (37.2-46.3) % RDW (11.5-14.5) % Plt Count (140-440) X 10*3/uL Immature Gran # (0.00-0.04) X 10*3/uL Neutrophils # (1.80-7.70) X 10*3/uL Monocytes # (0.20-1.00) X 10*3/uL Eosinophils # (0.04-0.35) X 10*3/uL PT (9.0-12.0) sec INR (<1.2) Anion Gap (10.00-18.00) mmol/L BUN (9.0-27.0) mg/dL Est GFR (CKD-EPI)AfAm (60.0-200.0) Est GFR (CKD-EPI)NonAf (60.0-200.0) BUN/Creatinine Ratio (12.00-20.00) Ratio Glucose (70-110) mg/dL POC Glucose (mg/dL) 156 H 136 H (70-110) mg/dL Uric Acid 8.1 H (2.9-7.7) mg/dL 11/22/21 11/22/21 Range/Units 06:49 07:42 WBC (4.50-10.00) X 10*3/uL RBC (4.10-5.20) X 10*6/uL Hgb (12.0-15.0) g/dL Hct (37.2-46.3) % RDW (11.5-14.5) % Plt Count (140-440) X 10*3/uL Immature Gran # (0.00-0.04) X 10*3/uL Neutrophils # (1.80-7.70) X 10*3/uL Monocytes # (0.20-1.00) X 10*3/uL Eosinophils # (0.04-0.35) X 10*3/uL PT 16.7 H (9.0-12.0) sec INR 1.6 H (<1.2) Anion Gap (10.00-18.00) mmol/L BUN (9.0-27.0) mg/dL Est GFR (CKD-EPI)AfAm (60.0-200.0) Est GFR (CKD-EPI)NonAf (60.0-200.0) BUN/Creatinine Ratio (12.00-20.00) Ratio Glucose (70-110) mg/dL POC Glucose (mg/dL) 129 H (70-110) mg/dL Uric Acid (2.9-7.7) mg/dL Microbiology - Last 24 Hours (Table) 11/17/21 09:00 Gram Stain - Preliminary Knee - Right Body Fluid Culture - Preliminary Assessment and Plan Assessment: Acute gout of the right knee and right ankle Period of unresponsiveness and altered mental status, evaluated by snow removal supervisor active for discharge, patient is back to baseline rhabdomyolysis improving Right ankle swelling, worse and tenderness suspicious for cellulitis Elevated troponin, with severe global ejection fraction 10-15%, patient does not look in significant acute exacerbation abnormal urinalysis, rule out Acute urinary tract infection. Repeat urine analysis is improving without antibiotic Chronic atrial fibrillation on warfarin Chronic heart failure Hypertension Status post pacemaker and AICD. Plan: This is a pleasant 81 years old female who was found on the floor with abnormal urine and elevated creatinine kinase and troponin. Increase prednisone 60 mg daily Discontinue Lasix infectious disease team input is appreciated. Welt Wheeler evaluation cleared the patient for discharge orthopedic evaluation i appreciated and they recommended conservative management, weightbearing as tolerated Labs and medication were reviewed.. Continue same treatment. Continue with symptomatic treatment. Resume home medication. Monitor lytes and vitals. DVT and GI prophylaxis. Further recommendations depends on the clinical course of the patient DVT prophylaxis: On warfarin GI Prophylaxis: Pepcid PT/OT: Pending Prognosis is guarded
[2021-11-22 17:10] LABS: Glucose,Whole Blood 182 mg/dL (70-110)
[2021-11-22] MEDS ORDERED: WARFARIN 2.5 MG TAB PO ONE (18:00)
[2021-11-22 20:08] LABS: Glucose,Whole Blood 144 mg/dL (70-110)
[2021-11-22] MEDS: LOSARTAN 50 MG TAB PO SCH (20:29)
[2021-11-23 06:08] LABS: INR 1.6 (<1.2)
[2021-11-23 06:51] LABS: Glucose,Whole Blood 128 mg/dL (70-110)
[2021-11-23] MEDS: INSULIN ASPART (NovoLOG) 100 UNIT/ML VIAL SQ SCH ×4 (07:36→20:57)
[2021-11-23] MEDS: predniSONE 20 MG TAB PO SCH (07:38)
[2021-11-23] MEDS: SPIRONOLACTONE 25 MG TAB PO SCH (07:39)
[2021-11-23] MEDS: carvediloL 12.5 MG TAB PO SCH ×2 (07:39→17:12)
[2021-11-23] MEDS: FAMOTIDINE 20 MG TAB PO SCH (07:39)
[2021-11-23] MEDS: HYDROcodone/APAP 10-325MG 1 EACH TAB PO PRN ×3 (07:44→22:36)
[2021-11-23 09:41] LABS: Uric Acid 7.6 mg/dL (2.9-7.7)
[2021-11-23 10:10] LABS: African American GFR (CKD) 61.6 (60.0-200.0); Anion Gap 9.6 mmol/L (10.00-18.00); BUN/Creat Ratio 57.3 Ratio (12.00-20.00); Blood Urea Nitrogen 57.3 mg/dL (9.0-27.0); Calcium 10.6 mg/dL (8.7-10.3); Carbon Dioxide 28.4 mmol/L (20.0-27.5); Non-African American GFR(CKD) 53.2 (60.0-200.0)
[2021-11-23] MEDS ORDERED: SODIUM ZIRCONIUM CYCLOSILICATE 10 GM PACKET PO ONE (10:12)
[2021-11-23 11:33] LABS: Glucose,Whole Blood 150 mg/dL (70-110)
[2021-11-23 12:00] LABS: Potassium 6.2 mmol/L (3.5-5.5)
[2021-11-23 16:23] LABS: Glucose,Whole Blood 130 mg/dL (70-110)
[2021-11-23] MEDS ORDERED: WARFARIN 3 MG TAB PO ONE (18:00)
--- NOTE | 2021-11-23 18:56 | P.PN ---
Subjective This is a pleasant 81 years old female with past medical history of Atrial Fibrillation, on warfarin , Heart Failure, Hypertension, right breast cancer 2006, left breast cancer 2017, she status post pacemaker, status post AICD. pt presents after being found down. family called EMS. Pt complains of left hand swelling and developed tenderness and swelling. Patient herself is alert awake and oriented to time place but she could not remember the name of the president. She has insight into her illness. She follows commands appropriately. And she has logic answers. She does not know what happened, the last thing she remembers she was in bed. Currently she looks awake and alert, mildly sleepy but is easily arousable and stay awake. She denies any chest pains or dyspnea, no burning in her urine or increased frequ ency. No diarrhea or vomiting. Has good appetite. She denies headache or dizziness, no weakness or numbness in extremities. She denies smoking, alcohol or illicit drugs. Vitals are stable and patient is afebrile. Labs showed leukocytosis of 14.5 and 13.5, rest of CBC is unremarkable. Sodium is 139, creatinine 1.0. Creatinine kinase elevated at 1310. Elevated troponin 0.11 and 0.20. INR is 1.7 Liver enzymes only mildly elevated. Bilirubin 2.1. Urinalysis is suspicious for infection. Urine drug screen is negative and cervical less than 10 EKG showed ventricular paced rhythm X-ray of the right tibia and fibula and right femur showing no fracture but there is right knee joint effusion CT of the brain: Cerebral atrophy, no acute process. Chest x-ray: No acute process. In the emergency room patient was started on normal saline and warfarin pharmacy to dose 11/17/2021 Patient with inflamed right knee and right ankle although it's slits warm compared to yesterday. 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 We started the patient on a prednisone 40 mg daily. Also digital cartographic technician cleared the patient for discharge today. INR is 3.0 11/18/2021 Patient still complaining from pain and swelling and arthritis of her right ankle secondary to acute gouty arthritis Patient was started on a prednisone 40 mg Pending response so she can participate in physical therapy evaluation. Also she remains on warfarin for her paroxysmal atrial fibrillation and currently her INR is 3.0. 11/19/2021 patient still complaining from pain in her right ankle and right knee although right ankle looks to me less swollen and less warm, while right knee is not swollen and not warm but she states her pain in the knee is more than in the ankle. We started her on [place] because Tylenol is not effective enough, she is ALLERGIC to codeine causing nausea vomiting, we will keep monitoring. And discussed with the staff and bedside nurse. Also discussed with social sciences instructor because of her significant gouty arthritis she cannot participate in rehab now so she cannot been assessed by physical therapy I agree with discontinuing antibiotics and patient Currently on a prednisone 40 mg She remains on warfarin for her A. fib and INR 3.0 11/20/2021 her left ankle gouty arthritis is improving by examination this swelling and warmth but patient still complaining from pain in the area stating that [place] 5 mg did not help her much so increased the dose to 7.5 mg and patient was instructed about pain medication Her INR 3.1 and she is going to receive 1 mg of Coumadin tonight. 11/21/2021 Patient is still slowly to improve with right ankle and knee gouty arthritis although on a prednisone 40 mg for more than 72 hours. Because of this week she's the dose of prednisone 40 mg to 60 mg starting from today. Also we don't discontinue oral Lasix 40 mg as it might contribute to gout exacerbation Also increased [place] dose up to 10-325 mg, and the patient and she agrees and risks and benefits explained. 11/22/21 patient type knee and ankle gouty arthritis improving slowly and gradually MORE painful for her on the right knee but more swollen and tender and warmth on the right ankle. We increased her dose of prednisone 40 up to 60 mg today. We stopped her Lasix today and will give her small dose of half-normal saline test x 10 hours, as her uric acid still elevated which may be constricted sample Continue with warfarin 2.5 mg as her INR today 1.6 per cardiology team [id number] 11/23/2021 Patient right ankle swelling and warmth looks less compared to yesterday however still has pain tenderness with limitation of movement and right knee still hurts the patient although there is no significant swelling. Pain is better controlled with [place] but not completely revealed. We will add topical cream capsacin to the right knee. Yesterday her Lasix was stopped which might help controlling the inflammation, however if no improvement in arthritis in 24-48 hours we will consider consult evaluation is available. Potassium slightly elevated at 6.1, we'll give lokelma and lower the dose of l osartan and we will going to monitor potassium level up closely. Patient remains on prednisone 60 mg and warfarin dose per Assembler Brazer Objective - Vital Signs Vital signs: Vital Signs Temp 98.4 F 11/23/21 14:00 Pulse 77 11/23/21 14:00 Resp 18 11/23/21 14:00 BP 98/62 11/23/21 14:00 Pulse Ox 98 11/23/21 14:00 FiO2 21 11/18/21 19:11 Intake & Output 11/22/21 11/23/21 11/23/21 18:59 06:59 18:59 Intake Total 200 296 Output Total 425 Balance 200 -425 296 Weight 82.5 kg Intake: Oral 200 296 Output: Urine 425 Other: Voiding Method Indwelling Catheter Indwelling Catheter Indwelling Catheter # Voids 1 - Exam GENERAL: The patient is alert and oriented x3, not in any acute distress. Well developed, well nourished. HEENT: Pupils are round and equally reacting to light. EOMI. No scleral icterus. No conjunctival pallor. Normocephalic, atraumatic. No pharyngeal erythema. No thyromegaly. CARDIOVASCULAR: S1 and S2 present. No murmurs, rubs, or gallops. PULMONARY: Chest is clear to auscultation, no wheezing or crackles. ABDOMEN: Soft, nontender, nondistended, normoactive bowel sounds. No palpable organomegaly. MUSCULOSKELETAL: No joint swelling or deformity. -EXTREMITIES: No cyanosis, clubbing. Right ankle swelling and tenderness and warmth, bilateral mild swelling of the lower extremities NEUROLOGICAL: Gross neurological examination did not reveal any focal deficits. SKIN: No rashes. No petechiae - Labs CBC & Chem 7: 11/21/21 07:11 11/23/21 04:25 Labs: Abnormal Lab Results - Last 24 Hours (Table) 11/22/21 11/23/21 11/23/21 Range/Units 20:07 04:25 04:25 PT 16.0 H (9.0-12.0) sec INR 1.6 H (<1.2) Potassium 6.2 H* (3.5-5.5) mmol/L Carbon Dioxide 28.4 H (20.0-27.5) mmol/L Anion Gap 9.60 L (10.00-18.00) mmol/L BUN 57.3 H (9.0-27.0) mg/dL Est GFR (CKD-EPI)NonAf 53.2 L (60.0-200.0) BUN/Creatinine Ratio 57.30 H (12.00-20.00) Ratio Glucose 142 H (70-110) mg/dL POC Glucose (mg/dL) 144 H (70-110) mg/dL Calcium 10.6 H (8.7-10.3) mg/dL 11/23/21 11/23/21 11/23/21 Range/Units 06:50 11:32 16:22 PT (9.0-12.0) sec INR (<1.2) Potassium (3.5-5.5) mmol/L Carbon Dioxide (20.0-27.5) mmol/L Anion Gap (10.00-18.00) mmol/L BUN (9.0-27.0) mg/dL Est GFR (CKD-EPI)NonAf (60.0-200.0) BUN/Creatinine Ratio (12.00-20.00) Ratio Glucose (70-110) mg/dL POC Glucose (mg/dL) 128 H 150 H 130 H (70-110) mg/dL Calcium (8.7-10.3) mg/dL Assessment and Plan Assessment: Acute gout of the right knee and right ankle Period of unresponsiveness and altered mental status, evaluated by digital cartographic technician active for discharge, patient is back to baseline rhabdomyolysis improving Right ankle swelling, worse and tenderness suspicious for cellulitis Elevated troponin, with severe global ejection fraction 10-15%, patient does not look in significant acute exacerbation abnormal urinalysis, rule out Acute urinary tract infection. Repeat urine analysis is improving without antibiotic Chronic atrial fibrillation on warfarin Chronic heart failure Hypertension Status post pacemaker and AICD. Plan: This is a pleasant 81 years old female who was found on the floor with abnormal urine and elevated creatinine kinase and troponin. Continue with prednisone 60 mg daily Monitor potassium level Low-dose of losartan Discontinue Lasix infectious disease team input is appreciated. Assembler Brazer evaluation cleared the patient for discharge orthopedic evaluation i appreciated and they recommended conservative manag ement, weightbearing as tolerated Labs and medication were reviewed.. Continue same treatment. Continue with symptomatic treatment. Resume home medication. Monitor lytes and vitals. DVT and GI prophylaxis. Further recommendations depends on the clinical course of the patient DVT prophylaxis: On warfarin GI Prophylaxis: Pepcid PT/OT: Pending Prognosis is guarded
[2021-11-23] MEDS: CAPSAICIN 0.025% CREAM 60 GM TUBE TOPICAL SCH ×2 (19:00→21:20)
[2021-11-23 19:28] LABS: African American GFR (CKD) 58 (>60 ml/min/1.73 sqM); Anion Gap 3 mmol/L; Blood Urea Nitrogen 69 mg/dL (7-17); Calcium 10.2 mg/dL (8.4-10.2); Carbon Dioxide 32 mmol/L (22-30); Chloride 98 mmol/L (98-107); Glucose 138 mg/dL (74-99); Non-African American GFR(CKD) 50 (>60 ml/min/1.73 sqM); Potassium 5.9 mmol/L (3.5-5.1); Sodium 133 mmol/L (137-145)
[2021-11-23] MEDS: LOSARTAN 25 MG TAB PO SCH (20:55)
[2021-11-23 20:56] LABS: Glucose,Whole Blood 202 mg/dL (70-110)
[2021-11-24 06:55] LABS: Glucose,Whole Blood 114 mg/dL (70-110)
[2021-11-24] MEDS: INSULIN ASPART (NovoLOG) 100 UNIT/ML VIAL SQ SCH ×4 (07:42→21:36)
[2021-11-24] MEDS: CAPSAICIN 0.025% CREAM 60 GM TUBE TOPICAL SCH ×3 (08:37→21:37)
[2021-11-24] MEDS: carvediloL 12.5 MG TAB PO SCH ×2 (08:38→17:37)
[2021-11-24] MEDS: FAMOTIDINE 20 MG TAB PO SCH (08:38)
[2021-11-24] MEDS: predniSONE 20 MG TAB PO SCH (08:38)
[2021-11-24] MEDS: SPIRONOLACTONE 25 MG TAB PO SCH (08:49)
[2021-11-24] MEDS: HYDROcodone/APAP 10-325MG 1 EACH TAB PO PRN ×2 (08:49→21:36)
[2021-11-24 10:30] LABS: HCT 38.2 % (37.2-46.3); MCH 26.5 pg (27.0-32.0); MCHC 31.4 g/dL (32.0-37.0); MCV 84.5 fL (80.0-97.0); Mean Platelet Volume 9.9 fL (9.5-12.2); NRBC Per 100 WBC 0 /100 WBCS (0.0-0.0); Platelet Count 696 X 10*3/uL (140-440); RBC 4.52 X 10*6/uL (4.10-5.20); RDW 15.5 % (11.5-14.5); WBC 19.19 X 10*3/uL (4.50-10.00)
[2021-11-24 10:48] LABS: Magnesium 2.7 mg/dL (1.5-2.4)
[2021-11-24 10:53] LABS: African American GFR (CKD) 44.9 (60.0-200.0); BUN/Creat Ratio 51.77 Ratio (12.00-20.00); Blood Urea Nitrogen 67.3 mg/dL (9.0-27.0); Calcium 10.5 mg/dL (8.7-10.3); INR 1.39 (0.90-1.11); Non-African American GFR(CKD) 38.7 (60.0-200.0); Prothrombin Time 15.1 sec (9.9-11.9)
[2021-11-24] MEDS ORDERED: INSULIN REGULAR 100 UNIT/ML VIAL (IV) IV ONE (11:01)
[2021-11-24] MEDS ORDERED: DEXTROSE 50% SYRINGE 50 ML IVP STA (11:05)
[2021-11-24] MEDS ORDERED: CALCIUM GLUCONATE IN NACL 1 GM in SALINE 1 100ML.BAG IVPB ONE (11:06)
[2021-11-24] MEDS ORDERED: SODIUM ZIRCONIUM CYCLOSILICATE 10 GM PACKET PO ONE (11:08)
[2021-11-24 11:13] LABS: Basophils # (A) 0.04 X 10*3/uL (0.00-0.10); Basophils % (A) 0.2 %; Eosinophils # (A) 0 X 10*3/uL (0.04-0.35); Eosinophils % (A) 0 %; Immature Grans, Automated 3.1 %; Lymphocytes # (A) 1.36 X 10*3/uL (0.90-5.00); Lymphocytes % (A) 7.1 %; Monocytes # (A) 2.06 X 10*3/uL (0.20-1.00); Monocytes % (A) 10.7 %; Neutrophils # (A) 15.13 X 10*3/uL (1.80-7.70); Neutrophils % (A) 78.9 %
[2021-11-24 11:15] LABS: Potassium 6.4 mmol/L (3.5-5.5)
[2021-11-24 11:27] LABS: Glucose,Whole Blood 169 mg/dL (70-110)
--- NOTE | 2021-11-24 11:39 | P.PN ---
Subjective This is a pleasant 81 years old female with past medical history of Atrial Fibrillation, on warfarin , Heart Failure, Hypertension, right breast cancer 2006, left breast cancer 2017, she status post pacemaker, status post AICD. pt presents after being found down. family called EMS. Pt complains of left hand swelling and developed tenderness and swelling. Patient herself is alert awake and oriented to time place but she could not remember the name of the president. She has insight into her illness. She follows commands appropriately. And she has logic answers. She does not know what happened, the last thing she remembers she was in bed. Currently she looks awake and alert, mildly sleepy but is easily arousable and stay awake. She denies any chest pains or dyspnea, no burning in her urine or increased frequ ency. No diarrhea or vomiting. Has good appetite. She denies headache or dizziness, no weakness or numbness in extremities. She denies smoking, alcohol or illicit drugs. Vitals are stable and patient is afebrile. Labs showed leukocytosis of 14.5 and 13.5, rest of CBC is unremarkable. Sodium is 139, creatinine 1.0. Creatinine kinase elevated at 1310. Elevated troponin 0.11 and 0.20. INR is 1.7 Liver enzymes only mildly elevated. Bilirubin 2.1. Urinalysis is suspicious for infection. Urine drug screen is negative and cervical less than 10 EKG showed ventricular paced rhythm X-ray of the right tibia and fibula and right femur showing no fracture but there is right knee joint effusion CT of the brain: Cerebral atrophy, no acute process. Chest x-ray: No acute process. In the emergency room patient was started on normal saline and warfarin pharmacy to dose 11/17/2021 Patient with inflamed right knee and right ankle although it's slits warm compared to yesterday. 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 We started the patient on a prednisone 40 mg daily. Also clinical pathologist cleared the patient for discharge today. INR is 3.0 11/18/2021 Patient still complaining from pain and swelling and arthritis of her right ankle secondary to acute gouty arthritis Patient was started on a prednisone 40 mg Pending response so she can participate in physical therapy evaluation. Also she remains on warfarin for her paroxysmal atrial fibrillation and currently her INR is 3.0. 11/19/2021 patient still complaining from pain in her right ankle and right knee although right ankle looks to me less swollen and less warm, while right knee is not swollen and not warm but she states her pain in the knee is more than in the ankle. We started her on [place] because Tylenol is not effective enough, she is ALLERGIC to codeine causing nausea vomiting, we will keep monitoring. And discussed with the staff and bedside nurse. Also discussed with addiction social worker because of her significant gouty arthritis she cannot participate in rehab now so she cannot been assessed by physical therapy I agree with discontinuing antibiotics and patient Currently on a prednisone 40 mg She remains on warfarin for her A. fib and INR 3.0 11/20/2021 her left ankle gouty arthritis is improving by examination this swelling and warmth but patient still complaining from pain in the area stating that [place] 5 mg did not help her much so increased the dose to 7.5 mg and patient was instructed about pain medication Her INR 3.1 and she is going to receive 1 mg of Coumadin tonight. 11/21/2021 Patient is still slowly to improve with right ankle and knee gouty arthritis although on a prednisone 40 mg for more than 72 hours. Because of this week she's the dose of prednisone 40 mg to 60 mg starting from today. Also we don't discontinue oral Lasix 40 mg as it might contribute to gout exacerbation Also increased [place] dose up to 10-325 mg, and the patient and she agrees and risks and benefits explained. 11/22/21 patient type knee and ankle gouty arthritis improving slowly and gradually MORE painful for her on the right knee but more swollen and tender and warmth on the right ankle. We increased her dose of prednisone 40 up to 60 mg today. We stopped her Lasix today and will give her small dose of half-normal saline test x 10 hours, as her uric acid still elevated which may be constricted sample Continue with warfarin 2.5 mg as her INR today 1.6 per cardiology team 11/23/2021 Patient right ankle swelling and warmth looks less compared to yesterday however still has pain tenderness with limitation of movement and right knee still hurts the patient although there is no significant swelling. Pain is better controlled with [place] but not completely revealed. We will add topical cream capsacin to the right knee. Yesterday her Lasix was stopped which might help controlling the inflammation, however if no improvement in arthritis in 24-48 hours we will consider consult evaluation is available. Potassium slightly elevated at 6.1, we'll give lokelma and lower the dose of losartan and we will going to monitor potassium level up closely. Patient remains on prednisone 60 mg and warfarin dose per Drug Safety Physician 11/24/2021 Patient with ongoing right ankle and knee arthritis, partially and slowly improvement although we increased the dose of prednisone to 60 mg and we stopped Lasix. However patient still looks dehydrated and she looks thirsty. Her labs today showing hyperkalemia and concentrated sample. WBC went up to 19.1 due to steroid effect as well as dehydration. INR is 1.3. Sodium 134. Blood pressure is more stable 126/73. We gave the patient 5 mg of warfarin today and check INR tomorrow. Also saw the patient on some gentle hydration with D5 third normal saline at 50 mL per hour We give her some cocktail for hyperkalemia including insulin/dextrose, calcium gluconate, lokelma, and the dose of losartan was lowered and place the patient on low potassium diet, we'll going to check potassium later on and monitored closely. Discussed with the bedside nurse Objective - Vital Signs Vital signs: Vital Signs Temp 97.9 F 11/24/21 07:41 Pulse 89 11/24/21 07:41 Resp 18 11/24/21 07:41 BP 126/73 11/24/21 07:41 Pulse Ox 95 11/24/21 07:41 FiO2 21 11/18/21 19:11 Intake & Output 11/23/21 11/24/21 11/24/21 18:59 06:59 18:59 Intake Total 296 296 Output Total 1100 Balance 296 -1100 296 Weight 82.5 kg Intake: Oral 296 296 Output: Urine 1100 Other: Voiding Method Indwelling Catheter Indwelling Catheter Indwelling Catheter # Voids 1 - Exam GENERAL: The patient is alert and oriented x3, not in any acute distress. Well developed, well nourished. HEENT: Pupils are round and equally reacting to light. EOMI. No scleral icterus. No conjunctival pallor. Normocephalic, atraumatic. No pharyngeal erythema. No thyromegaly. CARDIOVASCULAR: S1 and S2 present. No murmurs, rubs, or gallops. PULMONARY: Chest is clear to auscultation, no wheezing or crackles. ABDOMEN: Soft, nontender, nondistended, normoactive bowel sounds. No palpable organomegaly. MUSCULOSKELETAL: No joint swelling or deformity. -EXTREMITIES: No cyanosis, clubbing. Right ankle swelling and tenderness and warmth, bilateral mild swelling of the lower extremities NEUROLOGICAL: Gross neurological examination did not reveal any focal deficits. SKIN: No rashes. No petechiae - Labs CBC & Chem 7: 11/24/21 06:07 11/24/21 06:07 Labs: Abnormal Lab Results - Last 24 Hours (Table) 11/23/21 11/23/21 11/23/21 Range/Units 04:25 11:32 16:22 Sodium (137-145) mmol/L Potassium 6.2 H* (3.5-5.5) mmol/L Carbon Dioxide 28.4 H (20.0-27.5) mmol/L Anion Gap 9.60 L (10.00-18.00) mmol/L BUN 57.3 H (9.0-27.0) mg/dL Creatinine (0.52-1.04) mg/dL Est GFR (CKD-EPI)NonAf 53.2 L (60.0-200.0) BUN/Creatinine Ratio 57.30 H (12.00-20.00) Ratio Glucose 142 H (70-110) mg/dL POC Glucose (mg/dL) 150 H 130 H (70-110) mg/dL Calcium 10.6 H (8.7-10.3) mg/dL 11/23/21 11/23/21 11/24/21 Range/Units 19:00 20:53 06:54 Sodium 133 L (137-145) mmol/L Potassium 5.9 H (3.5-5.5) mmol/L Carbon Dioxide 32 H (20.0-27.5) mmol/L Anion Gap (10.00-18.00) mmol/L BUN 69 H (9.0-27.0) mg/dL Creatinine 1.05 H (0.52-1.04) mg/dL Est GFR (CKD-EPI)NonAf (60.0-200.0) BUN/Creatinine Ratio (12.00-20.00) Ratio Glucose 138 H (70-110) mg/dL POC Glucose (mg/dL) 202 H 114 H (70-110) mg/dL Calcium (8.7-10.3) mg/dL Microbiology - Last 24 Hours (Table) 11/17/21 09:00 Gram Stain - Preliminary Knee - Right Body Fluid Culture - Preliminary Assessment and Plan Assessment: Acute gout of the right knee and right ankle Period of unresponsiveness and altered mental status, evaluated by clinical pathologist active for discharge, patient is back to baseline rhabdomyolysis improving Right ankle swelling, worse and tenderness suspicious for cellulitis Elevated troponin, with severe global ejection fraction 10-15%, patient does not look in significant acute exacerbation abnormal urinalysis, rule out Acute urinary tract infection. Repeat urine analysis is improving without antibiotic Chronic atrial fibrillation on warfarin Chronic heart failure Hypertension Status post pacemaker and AICD. Plan: This is a pleasant 81 years old female who was found on the floor with abnormal urine and elevated creatinine kinase and troponin. Continue with prednisone 60 mg daily Give lokelma , insulin/glucose and calcium Monitor potassium level Low-dose of losartan Discontinue Lasix Consults rheumatology service infectious disease team input is appreciated. Drug Safety Physician evaluation cleared the patient for discharge orthopedic evaluation i appreciated and they recommended conservative management, weightbearing as tolerated Labs and medication were reviewed.. Continue same treatment. Continue with symptomatic treatment. Resume home medication. Monitor lytes and vitals. DVT and GI prophylaxis. Further recommendations depends on the clinical course of the patient DVT prophylaxis: On warfarin GI Prophylaxis: Pepcid PT/OT: Pending Prognosis is guarded
--- NOTE | 2021-11-24 12:42 | CDI ---
Documentation Clarification Form Date: 11/24/2021 12:30:28 PM From: Arlene AugustMYRNA, CCDS Admit Date: 11/15/2021 12:32:00 PM Patient Name: Arlene Bolton Visit Number: [id number] Discharge Date: ATTENTION: The Clinical Documentation Specialists (CDI) and [facility] Coding Staff appreciate your assistance in clarifying documentation. Please respond to the clarification below the line at the bottom and electronically sign. The CDI & [facility] Coding staff will review the response and follow-up if needed. Please note: Queries are made part of the Legal Health Record. If you have any questions, please contact the author of this message via ITS. Dr. Krause E. Sheet: The following is documented in the 11/24 Attending Progress Note: Period of unresponsiveness and altered mental status..... patient is back to baseline. Additional clarification regarding the documented altered mental status is requested. History/Risk Factors per the 11/15 H/P: Atrial Fibrillation on Warfarin, CHF, Hypertension, Right Breast Cancer '07 status post Lumpectomy, Left Breast Cancer '17 status post Lumpectomy, Pacemaker & AICD. Clinical Indicators: Presented to the ED on 11/14 via EMS with Altered Mental Status, Right Leg & Knee pain down to the Ankle, acute onset, no recent injury. Patient was found in her home lying on the floor for an unknown time. Possible ground level fall. Admit with Fall, Altered mental status and Elevated troponin. 11/14 VS: T 98.2, P 66, R 16, BP 143/70, PO 96 RA 11/14 LAB: WBC 14.5, neutrophils 12.1; PT 17.4, INR 1.7, APTT 31.9; Na 136, K 3.4, Chl 96, BUN 22, Creatinine 0.88, glucose 137, Total Bilirubin 2.1, AST 53, Cr kinase 1310, CKMB 12.2, Troponin 0.111. 11/15 Troponin: 0.203, 0.270. 11/14 CXR: No active cardiopulmonary disease. Cardiomegaly. No change. 11/14 CT Brain: Cerebral atrophy, No acute intracranial abnormality. Treatment 11/14: Blood glucose monitoring. 11/15: Nitro 0.4 mg sl q5M, po Coreg 12.5 mg BID, po KDur 20 noam q1H/adrian, po Tylenol 650 mg q6H/prn, IV Mag Sulfate/Dextrose 1 gm 100 mls @ 100 mls/hr q1H. Consults: Neurology is not consulted. Please clarify the following: [ ] Metabolic Encephalopathy [ ] Traumatic Encephalopathy [ ] Other encephalopathy, please specify: [ ] Other, please specify: [ ] Unable to determine (Template Last Revised: July 2020) Metabolic Encephalopathy, resolved MTDD
--- NOTE | 2021-11-24 12:54 | CDI ---
Documentation Clarification Form Date: 11/24/2021 12:44:00 PM From: Arlene MontoyaAugustMYRNA, CCDS Admit Date: 11/15/2021 12:32:00 PM Patient Name: Arlene Bolton Visit Number: [id number] Discharge Date: ATTENTION: The Clinical Documentation Specialists (CDI) and [facility] Coding Staff appreciate your assistance in clarifying documentation. Please respond to the clarification below the line at the bottom and electronically sign. The CDI & [facility] Coding staff will review the response and follow-up if needed. Please note: Queries are made part of the Legal Health Record. If you have any questions, please contact the author of this message via ITS. Dr. Krause Sheet: The following is documented in the Attending Physician Progress Notes beginning on 11/16 through 11/24: Elevated troponin, with severe global ejection fraction 10- 15%, patient does not look (to be) in significant acute exacerbation........ Additional information regarding the Type & Acuity of CHF is requested. History/Risk Factors per the 11/15 H/P: Atrial Fibrillation on Warfarin, CHF, Hypertension, Right Breast Cancer '07 status post Lumpectomy, Left Breast Cancer '17 status post Lumpectomy, Pacemaker & AICD. Clinical Indicators: Presented to the ED on 11/14 via EMS with Altered Mental Status, Right Leg & Knee pain down to the Ankle, acute onset, no recent injury. Patient was found in her home lying on the floor for an unknown time. Possible ground level fall. Admit with Fall, Altered mental status and Elevated troponin. 11/14 VS: T 98.2, P 66, R 16, BP 143/70, PO 96 RA 11/14 LAB: WBC 14.5, neutrophils 12.1; PT 17.4, INR 1.7, APTT 31.9; Na 136, K 3.4, Chl 96, BUN 22, Creatinine 0.88, glucose 137, Total Bilirubin 2.1, AST 53, Cr kinase 1310, CKMB 12.2, Troponin 0.111. 11/15 Troponin: 0.203, 0.270. 11/14 CXR: No active cardiopulmonary disease. Cardiomegaly. No change. 11/14 CT Brain: Cerebral atrophy, No acute intracranial abnormality. 11/15 ECHO: Severely reduced global left ventricular systolic function. Left ventricular EF estimated at 10-15%, Mild left atrial dilatation. Treatment 11/14: Blood glucose monitoring. 11/15: Nitro 0.4 mg sl q5M, po Coreg 12.5 mg BID, po KDur 20 noam q1H/adrian, po Tylenol 650 mg q6H/prn, IV Mag Sulfate/Dextrose 1 gm 100 mls @ 100 mls/hr q1H. Cardiology Consult 11/15: Consulted for elevated troponins. Elevated troponin, not indicative of ACS, patient without any chest pain or SOB. Nonischemic Cardiomyopathy. In your professional opinion, can you please clarify the Acuity & Type of CHF if known? [ ] Chronic Systolic Heart Failure [ ] Acute on Chronic Systolic Heart Failure [ ] Other, please specify: [ ] Unable to determine (Template Last Revised: June 2020) Chronic Systolic Heart Failure MTDD
--- NOTE | 2021-11-24 13:12 | P.CONS ---
History of Present Illness - Reason for Consult Consult date: 11/24/21 Right ankle pain and swelling Requesting physician: Jimi E Sheet - History of Present Illness This is a inpatient hospital consult on a 81-year-old female originally seen in the emergency room on 11/13/21 for presumable fall from ground-level and right leg pain. Her family called EMS for a welfare check as they had not heard from patient in 24 hours. She also complained of left hand swelling and mentioned a possible fall. Labs in the emergency room revealed a slightly elevated troponin and possible bladder infection. X-ray right leg showed no fracture and right knee effusion. Patient is currently on warfarin for history of atrial fibrillation. Orthopedics was consulted due to right knee effusion and left knee swelling and tenderness. Hospitalist also consulted cardiology for elev ated troponins. Dr. Catherine from orthopedics evaluated the patient and recommended immobilization of right lower extremity with a tall boot and advanced imaging if pain fails to improve. Pelvis x-ray 11/16/21: Osteopenia, nondisplaced femoral neck fracture cannot be excluded due to body habitus and correlate as to why the patient is unable to internally rotate the right hip. CT right ankle 11/16/21: Normal CT right knee 11/16/21: Large knee joint effusion with osteopenia degenerative phenomenon and meniscal calcification. Progress note Dr. Catherine 11/17/21: Scans were evaluated and a large knee effusion was aspirated and is consistent with Thu Babar arthropathy. If it comes back positive for gout, we can perform a steroid injection and defer medical management to primary care team. Progress note Dr. Catherine 11/18/21: Right knee fluid aspiration positive for uric acid crystals. Prednisone 40 mg daily has been started per internal medicine. We will defer treatment to internal medicine & off. Hospitalist Dr. Quach progress note 11/23/21: Patient continues to have pain so her prednisone was increased to 60 mg daily and [place] [address] mg was started. There is some suspicion of cellulitis due to right ankle swelling and tenderness so infectious disease is on consult. PERTINENT LABS: Elevated WBC count 19.19, high platelets 696, high absolute neutrophils 15.13, high BUN 67.3, low GFR 44.9. Chief complaint: Patient is a poor historian. She admits to a history of osteoarthritis. Patient complains of right ankle pain that is aggravated by bearing weight and use and improved with rest. She denies any further complaints at this time. Exam: Dusky nose, significant dependent edema bilateral ankles worse on right, tender right lateral ankle without evidence of redness or warmth, no obvious synovitis I will order a basic connective tissue disease panel including uric acid and inflammatory markers to rule out inflammatory arthritis versus gouty arthropathy. Although, I do feel if she was in a acute exacerbation of gout or inflammatory arthritis that her pain would be adequately controlled with use of current dosage of prednisone. I am concerned that her pain is related to significant generalized edema and history of underlying osteoarthritis. It is also reasonable to consider cellulitis based on elevated WBC count. Past Medical History Past Medical History: Atrial Fibrillation, Cancer, Heart Failure, Hypertension Additional Past Medical History / Comment(s): RIGHT BREAST CANCER 2006. LEFT BREAST CANCER 2017 History of Any Multi-Drug Resistant Organisms: None Reported Past Surgical History: Orthopedic Surgery, Pacemaker Additional Past Surgical History / Comment(s): right breast lumpectomy 2006. left breast LUMPECTOMY 2016. [place] shoulder sx. [place] cataract. AICD 2010 Past Anesthesia/Blood Transfusion Reactions: Postoperative Nausea & Vomiting (PONV) Additional Past Anesthesia/Blood Transfusion Reaction / Comm: no hx blood transfusion Type of Cardiac Device: AICD Device Placement Date:: Timehop, last 2010 Past Psychological History: No Psychological Hx Reported Past Alcohol Use History: None Reported Past Drug Use History: None Reported - Past Family History Brother(s) Family Medical History: Cancer Additional Family Medical History / Comment(s): lung Mother Family Medical History: Congestive Heart Failure (CHF) Father History Unknown: Yes Medications and Allergies Home Medications Medication Instructions Recorded Confirmed Type Furosemide [Lasix] 40 mg PO DAILY 05/06/16 11/15/21 History Losartan [Cozaar] 50 mg PO DAILY 05/06/16 11/15/21 History Spironolactone [Aldactone] 12.5 mg PO DAILY 05/06/16 11/15/21 History carvediloL [Coreg] 12.5 mg PO BID 05/06/16 11/15/21 History Warfarin [Coumadin] 2.5 mg PO SUMOTUTHFR 07/12/19 11/15/21 History Warfarin [Coumadin] 3.75 mg PO WESA 11/15/21 11/15/21 History Allergies Allergy/AdvReac Type Severity Reaction Status Date / Time codeine AdvReac Nausea & Verified 11/15/21 08:16 [From Tylenol-Codeine #3] Vomiting Physical Exam Vitals: Vital Signs Temp Pulse Resp BP Pulse Ox 11/24/21 07:41 97.9 F 89 18 126/73 95 11/24/21 02:00 97.6 F 62 16 118/67 98 11/23/21 20:00 60 16 11/23/21 19:41 97.6 F 60 16 112/70 100 11/23/21 14:00 98.4 F 77 18 98/62 98 Intake and Output 11/23/21 11/24/21 11/24/21 22:59 06:59 14:59 Intake Total 296 Output Total 300 800 Balance -300 -800 296 Intake: Oral 296 Output: Urine 300 800 Other: Voiding Method Indwelling Catheter Indwelling Catheter Weight 82.5 kg Results CBC & Chem 7: 11/24/21 06:07 11/24/21 06:07 Labs: Abnormal Lab Results - Last 24 Hours (Table) 11/23/21 11/23/21 11/23/21 Range/Units 16:22 19:00 20:53 WBC (4.50-10.00) X 10*3/uL MCH (27.0-32.0) pg MCHC (32.0-37.0) g/dL RDW (11.5-14.5) % Plt Count (140-440) X 10*3/uL Plt Count Comment Immature Gran # (0.00-0.04) X 10*3/uL Neutrophils # (1.80-7.70) X 10*3/uL Monocytes # (0.20-1.00) X 10*3/uL Eosinophils # (0.04-0.35) X 10*3/uL PT (9.9-11.9) sec INR (0.90-1.11) Sodium 133 L (137-145) mmol/L Potassium 5.9 H (3.5-5.1) mmol/L Carbon Dioxide 32 H (22-30) mmol/L BUN 69 H (7-17) mg/dL Creatinine 1.05 H (0.52-1.04) mg/dL Est GFR (CKD-EPI)AfAm (60.0-200.0) Est GFR (CKD-EPI)NonAf (60.0-200.0) BUN/Creatinine Ratio (12.00-20.00) Ratio Glucose 138 H (74-99) mg/dL POC Glucose (mg/dL) 130 H 202 H (70-110) mg/dL Calcium (8.7-10.3) mg/dL Magnesium (1.5-2.4) mg/dL 11/24/21 11/24/21 11/24/21 Range/Units 06:07 06:07 06:07 WBC 19.19 H (4.50-10.00) X 10*3/uL MCH 26.5 L (27.0-32.0) pg MCHC 31.4 L (32.0-37.0) g/dL RDW 15.5 H (11.5-14.5) % Plt Count 696 H (140-440) X 10*3/uL Plt Count Comment INCREASED A Immature Gran # 0.60 H (0.00-0.04) X 10*3/uL Neutrophils # 15.13 H (1.80-7.70) X 10*3/uL Monocytes # 2.06 H (0.20-1.00) X 10*3/uL Eosinophils # 0 L (0.04-0.35) X 10*3/uL PT 15.1 H (9.9-11.9) sec INR 1.39 H (0.90-1.11) Sodium 134 L (137-145) mmol/L Potassium 6.4 H* (3.5-5.1) mmol/L Carbon Dioxide (22-30) mmol/L BUN 67.3 H (7-17) mg/dL Creatinine (0.52-1.04) mg/dL Est GFR (CKD-EPI)AfAm 44.9 L (60.0-200.0) Est GFR (CKD-EPI)NonAf 38.7 L (60.0-200.0) BUN/Creatinine Ratio 51.77 H (12.00-20.00) Ratio Glucose (74-99) mg/dL POC Glucose (mg/dL) (70-110) mg/dL Calcium 10.5 H (8.7-10.3) mg/dL Magnesium 2.7 H (1.5-2.4) mg/dL 11/24/21 11/24/21 Range/Units 06:54 11:27 WBC (4.50-10.00) X 10*3/uL MCH (27.0-32.0) pg MCHC (32.0-37.0) g/dL RDW (11.5-14.5) % Plt Count (140-440) X 10*3/uL Plt Count Comment Immature Gran # (0.00-0.04) X 10*3/uL Neutrophils # (1.80-7.70) X 10*3/uL Monocytes # (0.20-1.00) X 10*3/uL Eosinophils # (0.04-0.35) X 10*3/uL PT (9.9-11.9) sec INR (0.90-1.11) Sodium (137-145) mmol/L Potassium (3.5-5.1) mmol/L Carbon Dioxide (22-30) mmol/L BUN (7-17) mg/dL Creatinine (0.52-1.04) mg/dL Est GFR (CKD-EPI)AfAm (60.0-200.0) Est GFR (CKD-EPI)NonAf (60.0-200.0) BUN/Creatinine Ratio (12.00-20.00) Ratio Glucose (74-99) mg/dL POC Glucose (mg/dL) 114 H 169 H (70-110) mg/dL Calcium (8.7-10.3) mg/dL Magnesium (1.5-2.4) mg/dL Microbiology - Last 24 Hours (Table) 11/17/21 09:00 Gram Stain - Preliminary Knee - Right Body Fluid Culture - Preliminary
[2021-11-24 13:15] LABS: Glucose,Whole Blood 131 mg/dL (70-110)
[2021-11-24] MEDS: WATER IV SCH (13:18)
[2021-11-24] MEDS: DEXTROSE IV SCH (13:18)
[2021-11-24] MEDS: SODIUM CHLORIDE IV SCH (13:18)
[2021-11-24 16:27] LABS: Glucose,Whole Blood 213 mg/dL (70-110)
[2021-11-24 17:05] LABS: C Reactive Protein 2.1 mg/dL (<1.0); Uric Acid 7.2 mg/dL (3.7-7.4)
[2021-11-24] MEDS ORDERED: WARFARIN 5 MG TAB PO ONE (18:00)
[2021-11-24 21:03] LABS: Glucose,Whole Blood 160 mg/dL (70-110)
[2021-11-24] MEDS: LOSARTAN 25 MG TAB PO SCH (21:36)
[2021-11-25 05:04] LABS: Rheumatoid Factor, Qnt <10 IU/mL (0-15)
[2021-11-25 06:45] LABS: Basophils # (A) 0.1 k/uL (0-0.2); Basophils % (A) 0 %; Eosinophils % (A) 0 %; HCT 37.7 % (34.0-46.0); HGB 11.9 gm/dL (11.4-16.0); Hypochromasia Slight; Lymphocytes # (A) 1.3 k/uL (1.0-4.8); Lymphocytes % (A) 7 %; MCHC 31.6 g/dL (31.0-37.0); MCV 88.8 fL (80.0-100.0); Mean Platelet Volume 7.5; Monocytes % (A) 5 %; Neutrophils # (A) 16.4 k/uL (1.3-7.7); Neutrophils % (A) 87 %; RBC 4.25 m/uL (3.80-5.40); RDW 14.7 % (11.5-15.5); WBC 18.9 k/uL (3.8-10.6)
[2021-11-25 06:53] LABS: Platelet Count 629 k/uL (150-450)
[2021-11-25 07:16] LABS: Glucose,Whole Blood 144 mg/dL (70-110)
[2021-11-25 07:41] LABS: Erythrocyte Sedimentation Rate 49 mm/hr (0-20)
[2021-11-25] MEDS: INSULIN ASPART (NovoLOG) 100 UNIT/ML VIAL SQ SCH ×4 (08:07→20:34)
[2021-11-25] MEDS: SODIUM CHLORIDE IV SCH (08:11)
[2021-11-25] MEDS: DEXTROSE IV SCH (08:11)
[2021-11-25] MEDS: WATER IV SCH (08:11)
[2021-11-25] MEDS: predniSONE 20 MG TAB PO SCH (08:12)
[2021-11-25] MEDS: SPIRONOLACTONE 25 MG TAB PO SCH (08:12)
[2021-11-25] MEDS: FAMOTIDINE 20 MG TAB PO SCH (08:13)
[2021-11-25] MEDS: carvediloL 12.5 MG TAB PO SCH ×2 (08:13→17:01)
[2021-11-25] MEDS: allopurinoL 100 MG TAB PO SCH (08:13)
[2021-11-25] MEDS: CAPSAICIN 0.025% CREAM 60 GM TUBE TOPICAL SCH ×3 (08:14→20:35)
--- NOTE | 2021-11-25 09:05 | P.PN ---
Progress Note - Text Progress Note Date: 11/25/21 This is a progress report on a inpatient 81-year-old female at [facility]. She was originally consult for fluid pathology positive for uric acid crystals from a knee aspiration performed by Dr. Catherine. Rheumatology was consulted as patient had persistent pain even after prednisone 60 mg daily and [place] 10-325 mg with persistent right ankle swelling as well. Patient was evaluated yesterday and I ordered a basic connective tissue disease panel. We will review those labs today and make recommendations. Labs 11/24/21: CBC showed elevated WBC 18.9, high platelets 629, HIGH ESR 49, HIGH C-RP 2.1, negative rheumatoid factor, HIGH URIC ACID 7.2, other labs still pending. Exam: significant right ankle swelling with mild and improved tenderness but no warmth or redness, lungs CTA, no obvious synovitis Patient states that today she is feeling better. She still finds bearing weight on right ankle to be quite painful but improving. I do feel that cellulitis should remain in differential diagnosis which can also be present during a acute gout attack, and in the presence of elevated uric acid and positive synovial fluid for gouty arthropathy, I find it reasonable to start patient on allopurinol 100 mg daily. Her most recent creatinine was normal and GFR was slightly low at 44 so her allopurinol should be well tolerated. Her prednisone can also be decreased today and I would discharge her on allopurinol 100 mg daily and prednisone 20 mg daily until she can be evaluated as outpatient with adjustments to allopurinol to keep uric acid below 6. I welcome recommendations from infectious disease for possible cellulitis based on elevated WBC count and significant right ankle swelling.
[2021-11-25 09:41] LABS: INR 1.37 (0.90-1.11); Prothrombin Time 14.8 sec (9.9-11.9)
[2021-11-25 10:33] LABS: Creatine Kinase 55 U/L (26-186); Magnesium 2.7 mg/dL (1.5-2.4); Uric Acid 6.7 mg/dL (2.9-7.7)
[2021-11-25 11:08] LABS: Procalcitonin 0.09 ng/mL (0.02-0.09)
[2021-11-25 11:28] LABS: Glucose,Whole Blood 145 mg/dL (70-110)
[2021-11-25 11:31] LABS: ALT 56 U/L (8-44); AST 28 U/L (13-35); African American GFR (CKD) 56.1 (60.0-200.0); Albumin 3.1 g/dL (3.8-4.9); Albumin/Globulin Ratio 1.12 (1.60-3.17); Alkaline Phosphatase 72 U/L (41-126); BUN/Creat Ratio 54.63 Ratio (12.00-20.00); Bilirubin, Conjugated <0.20 mg/dL (0.20-0.40); Calcium 10.5 mg/dL (8.7-10.3); Carbon Dioxide 28.6 mmol/L (20.0-27.5); Chloride 96 mmol/L (96-109); Globulin 2.8 g/dL (1.6-3.3); Glucose 122 mg/dL (70-110); Non-African American GFR(CKD) 48.4 (60.0-200.0); Sodium 134 mmol/L (135-145); Total Protein 5.8 g/dL (6.2-8.2)
[2021-11-25] MEDS ORDERED: INSULIN REGULAR 100 UNIT/ML VIAL (IV) IV ONE (11:34)
[2021-11-25] MEDS ORDERED: DEXTROSE 50% SYRINGE 50 ML IVP STA (11:34)
[2021-11-25] MEDS ORDERED: CALCIUM GLUCONATE IN NACL 1 GM in SALINE 1 100ML.BAG IVPB ONE (11:34)
[2021-11-25] MEDS ORDERED: SODIUM ZIRCONIUM CYCLOSILICATE 10 GM PACKET PO ONE (11:35)
[2021-11-25 11:40] LABS: Potassium 6.1 mmol/L (3.5-5.5)
[2021-11-25 13:44] LABS: Cyclic Citrull Pep IgG Unit 0.6 U/mL; Cyclic Citrullinated Pep IgG NEGATIVE (NEGATIVE)
[2021-11-25] MEDS: HYDROcodone/APAP 10-325MG 1 EACH TAB PO PRN (14:48)
[2021-11-25 17:13] LABS: Glucose,Whole Blood 173 mg/dL (70-110)
[2021-11-25] MEDS ORDERED: WARFARIN 5 MG TAB PO ONE (18:00)
[2021-11-25] MEDS ORDERED: WARFARIN 2 MG TAB PO ONE (19:30)
--- NOTE | 2021-11-25 19:38 | P.PN ---
Subjective This is a pleasant 81 years old female with past medical history of Atrial Fibrillation, on warfarin , Heart Failure, Hypertension, right breast cancer 2006, left breast cancer 2017, she status post pacemaker, status post AICD. pt presents after being found down. family called EMS. Pt complains of left hand swelling and developed tenderness and swelling. Patient herself is alert awake and oriented to time place but she could not remember the name of the president. She has insight into her illness. She follows commands appropriately. And she has logic answers. She does not know what happened, the last thing she remembers she was in bed. Currently she looks awake and alert, mildly sleepy but is easily arousable and stay awake. She denies any chest pains or dyspnea, no burning in her urine or increased frequ ency. No diarrhea or vomiting. Has good appetite. She denies headache or dizziness, no weakness or numbness in extremities. She denies smoking, alcohol or illicit drugs. Vitals are stable and patient is afebrile. Labs showed leukocytosis of 14.5 and 13.5, rest of CBC is unremarkable. Sodium is 139, creatinine 1.0. Creatinine kinase elevated at 1310. Elevated troponin 0.11 and 0.20. INR is 1.7 Liver enzymes only mildly elevated. Bilirubin 2.1. Urinalysis is suspicious for infection. Urine drug screen is negative and cervical less than 10 EKG showed ventricular paced rhythm X-ray of the right tibia and fibula and right femur showing no fracture but there is right knee joint effusion CT of the brain: Cerebral atrophy, no acute process. Chest x-ray: No acute process. In the emergency room patient was started on normal saline and warfarin pharmacy to dose 11/17/2021 Patient with inflamed right knee and right ankle although it's slits warm compared to yesterday. 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 We started the patient on a prednisone 40 mg daily. Also manual lathe operator cleared the patient for discharge today. INR is 3.0 11/18/2021 Patient still complaining from pain and swelling and arthritis of her right ankle secondary to acute gouty arthritis Patient was started on a prednisone 40 mg Pending response so she can participate in physical therapy evaluation. Also she remains on warfarin for her paroxysmal atrial fibrillation and currently her INR is 3.0. 11/19/2021 patient still complaining from pain in her right ankle and right knee although right ankle looks to me less swollen and less warm, while right knee is not swollen and not warm but she states her pain in the knee is more than in the ankle. We started her on Sallis because Tylenol is not effective enough, she is ALLERGIC to codeine causing nausea vomiting, we will keep monitoring. And discussed with the staff and bedside nurse. Also discussed with school social worker because of her significant gouty arthritis she cannot participate in rehab now so she cannot been assessed by physical therapy I agree with discontinuing antibiotics and patient Currently on a prednisone 40 mg She remains on warfarin for her A. fib and INR 3.0 11/20/2021 her left ankle gouty arthritis is improving by examination this swelling and warmth but patient still complaining from pain in the area stating that Sallis 5 mg did not help her much so increased the dose to 7.5 mg and patient was instructed about pain medication Her INR 3.1 and she is going to receive 1 mg of Coumadin tonight. 11/21/2021 Patient is still slowly to improve with right ankle and knee gouty arthritis although on a prednisone 40 mg for more than 72 hours. Because of this week she's the dose of prednisone 40 mg to 60 mg starting from today. Also we don't discontinue oral Lasix 40 mg as it might contribute to gout exacerbation Also increased Sallis dose up to 10-325 mg, and the patient and she agrees and risks and benefits explained. 11/22/21 patient type knee and ankle gouty arthritis improving slowly and gradually MORE painful for her on the right knee but more swollen and tender and warmth on the right ankle. We increased her dose of prednisone 40 up to 60 mg today. We stopped her Lasix today and will give her small dose of half-normal saline test x 10 hours, as her uric acid still elevated which may be constricted sample Continue with warfarin 2.5 mg as her INR today 1.6 per cardiology team 11/23/2021 Patient right ankle swelling and warmth looks less compared to yesterday however still has pain tenderness with limitation of movement and right knee still hurts the patient although there is no significant swelling. Pain is better controlled with Sallis but not completely revealed. We will add topical cream capsacin to the right knee. Yesterday her Lasix was stopped which might help controlling the inflammation, however if no improvement in arthritis in 24-48 hours we will consider consult evaluation is available. Potassium slightly elevated at 6.1, we'll give lokelma and lower the dose of losartan and we will going to monitor potassium level up closely. Patient remains on prednisone 60 mg and warfarin dose per Wastewater Project Manager 11/24/2021 Patient with ongoing right ankle and knee arthritis, partially and slowly improvement although we increased the dose of prednisone to 60 mg and we stopped Lasix. However patient still looks dehydrated and she looks thirsty. Her labs today showing hyperkalemia and concentrated sample. WBC went up to 19.1 due to steroid effect as well as dehydration. INR is 1.3. Sodium 134. Blood pressure is more stable 126/73. We gave the patient 5 mg of warfarin today and check INR tomorrow. Also saw the patient on some gentle hydration with D5 third normal saline at 50 mL per hour We give her some cocktail for hyperkalemia including insulin/dextrose, calcium gluconate, lokelma, and the dose of losartan was lowered and place the patient on low potassium diet, we'll going to check potassium later on and monitored closely. Discussed with the bedside nurse 11/25/2021 I think patient right ankle and right knee arthritis is improving, it is less swollen, less tender and erythematous, and Less warm than the last few days. Patient is still persistent he complains from pain in her right ankle and right knee , I think patient has underlying severe osteoarthritis which contributes to her pain. With improvement I agree with a sound engineering technician recommendation to lower dose of prednisone to 40 mg Most likely patient has inflammatory arthritis that responded to treatment to steroid therapy. procalcitonin is back to normal. Patient has no fever. Uric acid is trending down to 6.7 today. Patient has leukocytosis 18.90 due to steroid effect. Hemoglobin 11.9. INR is 1.3 and recommended to give her 7 mg of Coumadin today as she received 5 mg once a yesterday with the same INR. Blood pressure is stable Patient today was able to sit up in chair. Also patient takes Sallis because sleepy therefore we're going to lower the dose 10 mg-325 down to 7.5 mg Objective - Vital Signs Vital signs: Vital Signs Temp 97.9 F 11/25/21 08:00 Pulse 71 11/25/21 08:00 Resp 18 11/25/21 08:00 BP 104/82 11/25/21 08:00 Pulse Ox 95 11/25/21 08:00 FiO2 21 11/18/21 19:11 Intake & Output 11/24/21 11/25/21 11/25/21 18:59 06:59 18:59 Intake Total 592 Output Total 500 1000 Balance 92 -1000 Intake: Oral 592 Output: Urine 500 1000 Other: Voiding Method Indwelling Catheter Indwelling Catheter - Exam GENERAL: The patient is alert and oriented x3, not in any acute distress. Well developed, well nourished. HEENT: Pupils are round and equally reacting to light. EOMI. No scleral icterus. No conjunctival pallor. Normocephalic, atraumatic. No pharyngeal erythema. No thyromegaly. CARDIOVASCULAR: S1 and S2 present. No murmurs, rubs, or gallops. PULMONARY: Chest is clear to auscultation, no wheezing or crackles. ABDOMEN: Soft, nontender, nondistended, normoactive bowel sounds. No palpable organomegaly. MUSCULOSKELETAL: No joint swelling or deformity. -EXTREMITIES: No cyanosis, clubbing. Right ankle swelling and tenderness and warmth, bilateral mild swelling of the lower extremities, improving NEUROLOGICAL: Gross neurological examination did not reveal any focal deficits. SKIN: No rashes. No petechiae - Labs CBC & Chem 7: 11/25/21 05:37 11/25/21 18:27 Labs: Abnormal Lab Results - Last 24 Hours (Table) 11/24/21 11/24/21 11/24/21 Range/Units 06:07 06:07 06:07 WBC 19.19 H (4.50-10.00) X 10*3/uL MCH 26.5 L (27.0-32.0) pg MCHC 31.4 L (32.0-37.0) g/dL RDW 15.5 H (11.5-14.5) % Plt Count 696 H (140-440) X 10*3/uL Plt Count Comment INCREASED A Immature Gran # 0.60 H (0.00-0.04) X 10*3/uL Neutrophils # 15.13 H (1.80-7.70) X 10*3/uL Monocytes # 2.06 H (0.20-1.00) X 10*3/uL Eosinophils # 0 L (0.04-0.35) X 10*3/uL ESR (0-20) mm/hr PT 15.1 H (9.9-11.9) sec INR 1.39 H (0.90-1.11) Sodium 134 L (135-145) mmol/L Potassium 6.4 H* (3.5-5.5) mmol/L BUN 67.3 H (9.0-27.0) mg/dL Est GFR (CKD-EPI)AfAm 44.9 L (60.0-200.0) Est GFR (CKD-EPI)NonAf 38.7 L (60.0-200.0) BUN/Creatinine Ratio 51.77 H (12.00-20.00) Ratio POC Glucose (mg/dL) (70-110) mg/dL Calcium 10.5 H (8.7-10.3) mg/dL Magnesium 2.7 H (1.5-2.4) mg/dL C-Reactive Protein (<1.0) mg/dL 11/24/21 11/24/21 11/24/21 Range/Units 11:27 13:14 16:07 WBC (4.50-10.00) X 10*3/uL MCH (27.0-32.0) pg MCHC (32.0-37.0) g/dL RDW (11.5-14.5) % Plt Count (140-440) X 10*3/uL Plt Count Comment Immature Gran # (0.00-0.04) X 10*3/uL Neutrophils # (1.80-7.70) X 10*3/uL Monocytes # (0.20-1.00) X 10*3/uL Eosinophils # (0.04-0.35) X 10*3/uL ESR (0-20) mm/hr PT (9.9-11.9) sec INR (0.90-1.11) Sodium (135-145) mmol/L Potassium 5.6 H (3.5-5.5) mmol/L BUN (9.0-27.0) mg/dL Est GFR (CKD-EPI)AfAm (60.0-200.0) Est GFR (CKD-EPI)NonAf (60.0-200.0) BUN/Creatinine Ratio (12.00-20.00) Ratio POC Glucose (mg/dL) 169 H 131 H (70-110) mg/dL Calcium (8.7-10.3) mg/dL Magnesium (1.5-2.4) mg/dL C-Reactive Protein (<1.0) mg/dL 11/24/21 11/24/21 11/24/21 Range/Units 16:07 16:26 20:51 WBC (4.50-10.00) X 10*3/uL MCH (27.0-32.0) pg MCHC (32.0-37.0) g/dL RDW (11.5-14.5) % Plt Count (140-440) X 10*3/uL Plt Count Comment Immature Gran # (0.00-0.04) X 10*3/uL Neutrophils # (1.80-7.70) X 10*3/uL Monocytes # (0.20-1.00) X 10*3/uL Eosinophils # (0.04-0.35) X 10*3/uL ESR (0-20) mm/hr PT (9.9-11.9) sec INR (0.90-1.11) Sodium (135-145) mmol/L Potassium (3.5-5.5) mmol/L BUN (9.0-27.0) mg/dL Est GFR (CKD-EPI)AfAm (60.0-200.0) Est GFR (CKD-EPI)NonAf (60.0-200.0) BUN/Creatinine Ratio (12.00-20.00) Ratio POC Glucose (mg/dL) 213 H 160 H (70-110) mg/dL Calcium (8.7-10.3) mg/dL Magnesium (1.5-2.4) mg/dL C-Reactive Protein 2.1 H (<1.0) mg/dL 11/25/21 11/25/21 11/25/21 Range/Units 05:37 05:37 07:14 WBC 18.9 H (4.50-10.00) X 10*3/uL MCH (27.0-32.0) pg MCHC (32.0-37.0) g/dL RDW (11.5-14.5) % Plt Count 629 H D (140-440) X 10*3/uL Plt Count Comment Immature Gran # (0.00-0.04) X 10*3/uL Neutrophils # 16.4 H (1.80-7.70) X 10*3/uL Monocytes # (0.20-1.00) X 10*3/uL Eosinophils # (0.04-0.35) X 10*3/uL ESR 49 H (0-20) mm/hr PT 14.8 H (9.9-11.9) sec INR 1.37 H (0.90-1.11) Sodium (135-145) mmol/L Potassium (3.5-5.5) mmol/L BUN (9.0-27.0) mg/dL Est GFR (CKD-EPI)AfAm (60.0-200.0) Est GFR (CKD-EPI)NonAf (60.0-200.0) BUN/Creatinine Ratio (12.00-20.00) Ratio POC Glucose (mg/dL) 144 H (70-110) mg/dL Calcium (8.7-10.3) mg/dL Magnesium (1.5-2.4) mg/dL C-Reactive Protein (<1.0) mg/dL Microbiology - Last 24 Hours (Table) 11/24/21 06:00 Urine Culture - Preliminary Urine,Catheterized 11/17/21 09:00 Gram Stain - Preliminary Knee - Right Body Fluid Culture - Preliminary Assessment and Plan Assessment: Acute gout of the right knee and right ankle, the suspicion of infection is very low as patient is responding to treatment with steroids Period of unresponsiveness and altered mental status, evaluated by manual lathe operator active for discharge, patient is back to baseline rhabdomyolysis improving Right ankle swelling, worse and tenderness suspicious for cellulitis Elevated troponin, with severe global ejection fraction 10-15%, patient does not look in significant acute exacerbation abnormal urinalysis, rule out Acute urinary tract infection. Repeat urine analysis is improving without antibiotic Chronic atrial fibrillation on warfarin Chronic heart failure Hypertension Status post pacemaker and AICD. Plan: This is a pleasant 81 years old female who was found on the floor with abnormal urine and elevated creatinine kinase and troponin. Continue with prednisone but lower the dose to 40 mg daily Give lokelma , insulin/glucose and calcium. Hold losartan 50 mg first lowered to 25 mg but now we are going to discontinue it Monitor potassium level Discontinue Lasix Continue with IV fluids until tomorrow morning Follow-up with rheumatology service infectious disease team input is appreciated. Wastewater Project Manager evaluation cleared the patient for discharge orthopedic evaluation i appreciated and they recommended conservative management, weightbearing as tolerated Labs and medication were reviewed.. Continue same treatment. Continue with symptomatic treatment. Resume home medication. Monitor lytes and vitals. DVT and GI prophylaxis. Further recommendations depends on the clinical course of the patient DVT prophylaxis: On warfarin GI Prophylaxis: Pepcid PT/OT: Subacute rehab Prognosis is guarded
[2021-11-25 20:17] LABS: Glucose,Whole Blood 207 mg/dL (70-110)
[2021-11-25] MEDS ORDERED: HEPARIN SOD,PORK IN 0.45% NACL 25,000 UNIT in 0.45% NACL 1 250ML.BAG IV SCH (23:00)
[2021-11-25] MEDS: HYDROcodone/APAP 7.5-325MG 1 EACH TAB PO PRN (23:53)
[2021-11-26 07:09] LABS: Glucose,Whole Blood 143 mg/dL (70-110)
[2021-11-26] MEDS: predniSONE 20 MG TAB PO SCH (07:25)
[2021-11-26] MEDS: SPIRONOLACTONE 25 MG TAB PO SCH (07:25)
[2021-11-26] MEDS: carvediloL 12.5 MG TAB PO SCH ×2 (07:25→16:59)
[2021-11-26] MEDS: allopurinoL 100 MG TAB PO SCH (07:25)
[2021-11-26] MEDS: FAMOTIDINE 20 MG TAB PO SCH (07:25)
[2021-11-26] MEDS: INSULIN ASPART (NovoLOG) 100 UNIT/ML VIAL SQ SCH ×4 (07:26→21:42)
[2021-11-26] MEDS: CAPSAICIN 0.025% CREAM 60 GM TUBE TOPICAL SCH ×4 (07:26→21:43)
--- NOTE | 2021-11-26 07:50 | P.PN ---
Subjective Progress Note Date: 11/25/21 Principal diagnosis: Leukocytosis and question of cellulitis Patient is 81-year-old -[place] female presented to hospital with the pain to the right knee and leg area with no history of any trauma patient did have a CT of the right thing that was negative for fracture did shows large right knee effusion and is status post aspiration 11/17/2021, cultures has been negative uric acid crystals positive and the patient has been treated for gouty arthritis, for the patient had been on steroids was evaluated by rheumatology and has requested infectious disease reevaluation concerning for possible cellulitis to the ankle area On today's evaluation that is 11/25/2021, the patient continues to be afebrile, the patient denies worsening pain to the right knee and ankle area, the patient denies any chest pain or shortness of breath or cough no abdominal pain and no diarrhea, the patient did have some swelling to the right ankle and foot area but there is no redness Objective - Vital Signs Vital signs: Vital Signs Temp 98.0 F 11/25/21 14:00 Pulse 87 11/25/21 14:00 Resp 17 11/25/21 14:00 BP 120/67 11/25/21 14:00 Pulse Ox 93 L 11/25/21 14:00 FiO2 21 11/18/21 19:11 Intake & Output 11/24/21 11/25/21 11/25/21 18:59 06:59 18:59 Intake Total 592 500 Output Total 500 1000 Balance 92 -1000 500 Intake: Intake, IV Titration 500 Amount Calcium Gluconate in NaCl 100 1 gm In Saline 1 100ml. bag @ 100 mls/hr IVPB ONCE ONE Rx#:[id number] Dextrose 5% in Water 1, 400 000 ml @ 50 mls/hr IV . [id number] KEVYN with Sodium Chloride 4Meq/ml Vial 51. 3 meq Rx#:[id number] Oral 592 Output: Urine 500 1000 Other: Voiding Method Indwelling Catheter Indwelling Catheter Indwelling Catheter - Exam GENERAL DESCRIPTION: An elderly female lying in bed in no distress RESPIRATORY SYSTEM: Unlabored breathing , decreased breath sounds at bases HEART: S1 S2 regular rate and rhythm , ABDOMEN: Soft , no tenderness EXTREMITIES: Right ankle did have swelling no redness mild warmth to touch and no blisters or any drainage - Labs CBC & Chem 7: 11/25/21 05:37 11/25/21 18:27 Labs: Abnormal Lab Results - Last 24 Hours (Table) 11/24/21 11/24/21 11/24/21 Range/Units 16:07 16:07 16:26 WBC (3.8-10.6) k/uL Plt Count (150-450) k/uL Neutrophils # (1.3-7.7) k/uL ESR (0-20) mm/hr PT (9.9-11.9) sec INR (0.90-1.11) Sodium (135-145) mmol/L Potassium 5.6 H (3.5-5.1) mmol/L Carbon Dioxide (20.0-27.5) mmol/L Anion Gap (10.00-18.00) mmol/L BUN (9.0-27.0) mg/dL Est GFR (CKD-EPI)AfAm (60.0-200.0) Est GFR (CKD-EPI)NonAf (60.0-200.0) BUN/Creatinine Ratio (12.00-20.00) Ratio Glucose (70-110) mg/dL POC Glucose (mg/dL) 213 H (70-110) mg/dL Calcium (8.7-10.3) mg/dL Magnesium (1.5-2.4) mg/dL Conjugated Bilirubin (0.20-0.40) mg/dL ALT (8-44) U/L C-Reactive Protein 2.1 H (<1.0) mg/dL Total Protein (6.2-8.2) g/dL Albumin (3.8-4.9) g/dL Albumin/Globulin Ratio (1.60-3.17) g/dL 11/24/21 11/25/21 11/25/21 Range/Units 20:51 05:37 05:37 WBC 18.9 H (3.8-10.6) k/uL Plt Count 629 H D (150-450) k/uL Neutrophils # 16.4 H (1.3-7.7) k/uL ESR 49 H (0-20) mm/hr PT (9.9-11.9) sec INR (0.90-1.11) Sodium 134 L (135-145) mmol/L Potassium 6.1 H* (3.5-5.1) mmol/L Carbon Dioxide 28.6 H (20.0-27.5) mmol/L Anion Gap 9.30 L (10.00-18.00) mmol/L BUN 59.0 H (9.0-27.0) mg/dL Est GFR (CKD-EPI)AfAm 56.1 L (60.0-200.0) Est GFR (CKD-EPI)NonAf 48.4 L (60.0-200.0) BUN/Creatinine Ratio 54.63 H (12.00-20.00) Ratio Glucose 122 H (70-110) mg/dL POC Glucose (mg/dL) 160 H (70-110) mg/dL Calcium 10.5 H (8.7-10.3) mg/dL Magnesium 2.7 H (1.5-2.4) mg/dL Conjugated Bilirubin <0.20 L (0.20-0.40) mg/dL ALT 56 H (8-44) U/L C-Reactive Protein (<1.0) mg/dL Total Protein 5.8 L (6.2-8.2) g/dL Albumin 3.1 L (3.8-4.9) g/dL Albumin/Globulin Ratio 1.12 L (1.60-3.17) g/dL 11/25/21 11/25/21 11/25/21 Range/Units 05:37 07:14 11:25 WBC (3.8-10.6) k/uL Plt Count (150-450) k/uL Neutrophils # (1.3-7.7) k/uL ESR (0-20) mm/hr PT 14.8 H (9.9-11.9) sec INR 1.37 H (0.90-1.11) Sodium (135-145) mmol/L Potassium (3.5-5.1) mmol/L Carbon Dioxide (20.0-27.5) mmol/L Anion Gap (10.00-18.00) mmol/L BUN (9.0-27.0) mg/dL Est GFR (CKD-EPI)AfAm (60.0-200.0) Est GFR (CKD-EPI)NonAf (60.0-200.0) BUN/Creatinine Ratio (12.00-20.00) Ratio Glucose (70-110) mg/dL POC Glucose (mg/dL) 144 H 145 H (70-110) mg/dL Calcium (8.7-10.3) mg/dL Magnesium (1.5-2.4) mg/dL Conjugated Bilirubin (0.20-0.40) mg/dL ALT (8-44) U/L C-Reactive Protein (<1.0) mg/dL Total Protein (6.2-8.2) g/dL Albumin (3.8-4.9) g/dL Albumin/Globulin Ratio (1.60-3.17) g/dL Microbiology - Last 24 Hours (Table) 11/24/21 06:00 Urine Culture - Final Urine,Catheterized Assessment and Plan (1) Knee pain Current Visit: Yes Status: Acute Code(s): M25.569 - PAIN IN UNSPECIFIED KNEE SNOMED Code(s): 0815593240 Plan: 11patient presented to hospital with pain mostly to the right leg below the knee to the ankle area this patient currently do not have any fever and did have mild elevated white count however no significant redness but she is tender to touch as far as the knee and the ankle is concerned x-rays were negative for acute abnormality clinically behaving as a cellulitis septic arthritis was ruled out with a negative culture and the patient to have a uric acid crystals seen concerning for coronary arthritis 2patient leukocytosis is more likely related to steroids there is no evidence of any cellulitis clinically has recommended no antibiotics Time with Patient: Less than 30
[2021-11-26] MEDS ORDERED: HEPARIN SODIUM 1,000 UN/ML (10ML VL) IV ONE (08:27)
[2021-11-26] MEDS ORDERED: HEPARIN SODIUM 1,000 UN/ML (10ML VL) IV PRN (08:27)
[2021-11-26] MEDS ORDERED: HEPARIN SOD,PORK IN 0.45% NACL 25,000 UNIT in 0.45% NACL 1 250ML.BAG IV SCH (08:30)
[2021-11-26 08:56] LABS: Angiotensin-1 Converting Enz. 22 U/L (8-52)
[2021-11-26 10:43] LABS: Basophils # (A) 0.04 X 10*3/uL (0.00-0.10); Basophils % (A) 0.2 %; Eosinophils # (A) 0 X 10*3/uL (0.04-0.35); Eosinophils % (A) 0 %; HCT 38.1 % (37.2-46.3); HGB 11.9 g/dL (12.0-15.0); Immature Grans, Automated 2.1 %; Lymphocytes # (A) 1.36 X 10*3/uL (0.90-5.00); Lymphocytes % (A) 7.9 %; MCH 26.2 pg (27.0-32.0); MCHC 31.2 g/dL (32.0-37.0); MCV 83.9 fL (80.0-97.0); Mean Platelet Volume 9.9 fL (9.5-12.2); Monocytes # (A) 1.03 X 10*3/uL (0.20-1.00); NRBC Per 100 WBC 0 /100 WBCS (0.0-0.0); Neutrophils % (A) 83.8 %; Platelet Count 599 X 10*3/uL (140-440); RBC 4.54 X 10*6/uL (4.10-5.20); RDW 15.5 % (11.5-14.5)
[2021-11-26 11:11] LABS: African American GFR (CKD) 58.1 (60.0-200.0); Anion Gap 7.6 mmol/L (10.00-18.00); BUN/Creat Ratio 45.62 Ratio (12.00-20.00); Blood Urea Nitrogen 47.9 mg/dL (9.0-27.0); Calcium 10.3 mg/dL (8.7-10.3); Carbon Dioxide 29.3 mmol/L (20.0-27.5); Magnesium 2.6 mg/dL (1.5-2.4); Non-African American GFR(CKD) 50.1 (60.0-200.0); Potassium 5.7 mmol/L (3.5-5.5)
[2021-11-26 11:20] LABS: Glucose,Whole Blood 131 mg/dL (70-110)
[2021-11-26 11:25] LABS: INR 1.56 (0.90-1.11); Prothrombin Time 16.8 sec (9.9-11.9)
[2021-11-26] MEDS: SODIUM CHLORIDE IV SCH (12:07)
[2021-11-26] MEDS: DEXTROSE IV SCH (12:07)
[2021-11-26] MEDS: WATER IV SCH (12:07)
[2021-11-26] MEDS: HYDROcodone/APAP 7.5-325MG 1 EACH TAB PO PRN (12:32)
[2021-11-26] MEDS: ENOXAPARIN 40 MG/0.4 ML SYRINGE SQ SCH (14:10)
--- NOTE | 2021-11-26 15:23 | P.GSCN ---
History of Present Illness Consult date: 11/26/21 History of present illness: .Patient is an 81-year-old female with a past medical history including atrial fibrillation, on anticoagulation, not currently therapeutic, heart failure, hypertension, breast cancer, status post AICD pacemaker, who was found down and brought into the hospital for these issues. She was then worked up and found to have swelling and warmth to her right lower extremity, concerning for gout flare. She has been improving overall with steroids. I was consulted regarding possible cold left lower extremity. The patient states she has 0 pain in her left lower extremity. She states her trays overall are feeling better. She is able to move her left lower extremity without any concern or issue. She is more concerned with the pain in her right lower extremity that is still uncomfortable. Past Medical History Past Medical History: Atrial Fibrillation, Cancer, Heart Failure, Hypertension Additional Past Medical History / Comment(s): RIGHT BREAST CANCER 2006. LEFT BREAST CANCER 2017 History of Any Multi-Drug Resistant Organisms: None Reported Past Surgical History: Orthopedic Surgery, Pacemaker Additional Past Surgical History / Comment(s): right breast lumpectomy 2006. left breast LUMPECTOMY 2016. [place] shoulder sx. [place] cataract. AICD 2010 Past Anesthesia/Blood Transfusion Reactions: Postoperative Nausea & Vomiting (PONV) Additional Past Anesthesia/Blood Transfusion Reaction / Comm: no hx blood transfusion Type of Cardiac Device: AICD Device Placement Date:: Metail, last 2010 Past Psychological History: No Psychological Hx Reported Past Alcohol Use History: None Reported Past Drug Use History: None Reported - Past Family History Brother(s) Family Medical History: Cancer Additional Family Medical History / Comment(s): lung Mother Family Medical History: Congestive Heart Failure (CHF) Father History Unknown: Yes Medications and Allergies Home Medications Medication Instructions Recorded Confirmed Type Furosemide [Lasix] 40 mg PO DAILY 05/06/16 11/15/21 History Losartan [Cozaar] 50 mg PO DAILY 05/06/16 11/15/21 History Spironolactone [Aldactone] 12.5 mg PO DAILY 05/06/16 11/15/21 History carvediloL [Coreg] 12.5 mg PO BID 05/06/16 11/15/21 History Warfarin [Coumadin] 2.5 mg PO SUMOTUTHFR 07/12/19 11/15/21 History Warfarin [Coumadin] 3.75 mg PO WESA 11/15/21 11/15/21 History Allergies Allergy/AdvReac Type Severity Reaction Status Date / Time codeine AdvReac Nausea & Verified 11/15/21 08:16 [From Tylenol-Codeine #3] Vomiting Surgical - Exam Vital Signs Temp Pulse Resp BP Pulse Ox 98.2 F 66 16 143/70 96 11/14/21 22:05 11/14/21 22:05 11/14/21 22:05 11/14/21 22:05 11/14/21 22:05 General is a pleasant and cooperative female in no acute distress. HEENT is normocephalic, atraumatic, extraocular motion intact. poor dentitionNeck is supple. Trachea is midline. Heart is irregular in rate and rhythm. Lungs are clear bilaterallydiminished. Abdomen is obese, soft, nontender and nondistended. No palpable lymph nodes in the neck, axilla or groin. Extremities show no clubbing, cyanosis.she is a motor sensory intact [place] aterally. Right foot is slightly warmer than the left fluent. Right foot is wrapped in an Faheem bandage. Normal range of motion. She has palpable radial, femoral pulses bilaterally, biphasic DP PT on the left. Biphasic DP on the right.. Skin is supple. No rashes. Normal mood and affect. Cranial nerves II through XII grossly intact. Results - Labs 11/26/21 06:36 11/26/21 06:36 Abnormal Lab Results - Last 24 Hours (Table) 11/25/21 11/25/21 11/25/21 Range/Units 17:11 18:27 20:16 WBC (4.50-10.00) X 10*3/uL Hgb (12.0-15.0) g/dL MCH (27.0-32.0) pg MCHC (32.0-37.0) g/dL RDW (11.5-14.5) % Plt Count (140-440) X 10*3/uL Immature Gran # (0.00-0.04) X 10*3/uL Neutrophils # (1.80-7.70) X 10*3/uL Monocytes # (0.20-1.00) X 10*3/uL Eosinophils # (0.04-0.35) X 10*3/uL PT (9.9-11.9) sec INR (0.90-1.11) Sodium (135-145) mmol/L Potassium 5.4 H (3.5-5.1) mmol/L Carbon Dioxide (20.0-27.5) mmol/L Anion Gap (10.00-18.00) mmol/L BUN (9.0-27.0) mg/dL Est GFR (CKD-EPI)AfAm (60.0-200.0) Est GFR (CKD-EPI)NonAf (60.0-200.0) BUN/Creatinine Ratio (12.00-20.00) Ratio Glucose (70-110) mg/dL POC Glucose (mg/dL) 173 H 207 H (70-110) mg/dL Magnesium (1.5-2.4) mg/dL 11/26/21 11/26/21 11/26/21 Range/Units 06:36 06:36 06:36 WBC 17.30 H (4.50-10.00) X 10*3/uL Hgb 11.9 L (12.0-15.0) g/dL MCH 26.2 L (27.0-32.0) pg MCHC 31.2 L (32.0-37.0) g/dL RDW 15.5 H (11.5-14.5) % Plt Count 599 H (140-440) X 10*3/uL Immature Gran # 0.37 H (0.00-0.04) X 10*3/uL Neutrophils # 14.50 H (1.80-7.70) X 10*3/uL Monocytes # 1.03 H (0.20-1.00) X 10*3/uL Eosinophils # 0 L (0.04-0.35) X 10*3/uL PT 16.8 H (9.9-11.9) sec INR 1.56 H (0.90-1.11) Sodium 133 L (135-145) mmol/L Potassium 5.7 H (3.5-5.1) mmol/L Carbon Dioxide 29.3 H (20.0-27.5) mmol/L Anion Gap 7.60 L (10.00-18.00) mmol/L BUN 47.9 H (9.0-27.0) mg/dL Est GFR (CKD-EPI)AfAm 58.1 L (60.0-200.0) Est GFR (CKD-EPI)NonAf 50.1 L (60.0-200.0) BUN/Creatinine Ratio 45.62 H (12.00-20.00) Ratio Glucose 161 H (70-110) mg/dL POC Glucose (mg/dL) (70-110) mg/dL Magnesium 2.6 H (1.5-2.4) mg/dL 11/26/21 11/26/21 Range/Units 07:07 11:19 WBC (4.50-10.00) X 10*3/uL Hgb (12.0-15.0) g/dL MCH (27.0-32.0) pg MCHC (32.0-37.0) g/dL RDW (11.5-14.5) % Plt Count (140-440) X 10*3/uL Immature Gran # (0.00-0.04) X 10*3/uL Neutrophils # (1.80-7.70) X 10*3/uL Monocytes # (0.20-1.00) X 10*3/uL Eosinophils # (0.04-0.35) X 10*3/uL PT (9.9-11.9) sec INR (0.90-1.11) Sodium (135-145) mmol/L Potassium (3.5-5.1) mmol/L Carbon Dioxide (20.0-27.5) mmol/L Anion Gap (10.00-18.00) mmol/L BUN (9.0-27.0) mg/dL Est GFR (CKD-EPI)AfAm (60.0-200.0) Est GFR (CKD-EPI)NonAf (60.0-200.0) BUN/Creatinine Ratio (12.00-20.00) Ratio Glucose (70-110) mg/dL POC Glucose (mg/dL) 143 H 131 H (70-110) mg/dL Magnesium (1.5-2.4) mg/dL Microbiology - Last 24 Hours (Table) 11/24/21 06:00 Urine Culture - Final Urine,Catheterized Diabetes panel 11/25/21 11/26/21 Range/Units 18:27 06:36 Sodium 133 L (135-145) mmol/L Potassium 5.4 H 5.7 H (3.5-5.1) mmol/L Chloride 96 (96-109) mmol/L Carbon Dioxide 29.3 H (20.0-27.5) mmol/L BUN 47.9 H (9.0-27.0) mg/dL Creatinine 1.1 (0.6-1.5) mg/dL Glucose 161 H (70-110) mg/dL Calcium 10.3 (8.7-10.3) mg/dL Calcium panel 11/26/21 Range/Units 06:36 Calcium 10.3 (8.7-10.3) mg/dL Pituitary panel 11/25/21 11/26/21 Range/Units 18:27 06:36 Sodium 133 L (135-145) mmol/L Potassium 5.4 H 5.7 H (3.5-5.1) mmol/L Chloride 96 (96-109) mmol/L Carbon Dioxide 29.3 H (20.0-27.5) mmol/L BUN 47.9 H (9.0-27.0) mg/dL Creatinine 1.1 (0.6-1.5) mg/dL Glucose 161 H (70-110) mg/dL Calcium 10.3 (8.7-10.3) mg/dL Adrenal panel 11/25/21 11/26/21 Range/Units 18:27 06:36 Sodium 133 L (135-145) mmol/L Potassium 5.4 H 5.7 H (3.5-5.1) mmol/L Chloride 96 (96-109) mmol/L Carbon Dioxide 29.3 H (20.0-27.5) mmol/L BUN 47.9 H (9.0-27.0) mg/dL Creatinine 1.1 (0.6-1.5) mg/dL Glucose 161 H (70-110) mg/dL Calcium 10.3 (8.7-10.3) mg/dL Assessment and Plan Assessment: cooler extremity, right lower extremity gout flare Plan: at this time low suspicion for an acute arterial occlusion, 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 She does have some degree of swelling which may be occurring from this. Will obtain ABIs for complete evaluation. Given she can continues to be motor sensory intact again low suspicion for acute arterial insufficiency. She is currently refusing blood draws for appropriate heparin drip. Continue oral anticoagulation and attempts at heparinizationper primary team.
[2021-11-26 16:50] LABS: Glucose,Whole Blood 154 mg/dL (70-110)
[2021-11-26] MEDS ORDERED: WARFARIN 3 MG TAB PO ONE (18:00)
--- NOTE | 2021-11-26 19:37 | P.PN ---
Subjective Progress Note Date: 11/26/21 81 years old female with past medical history of Atrial Fibrillation, on warfarin , Heart Failure, Hypertension, right breast cancer 2006, left breast cancer 2017, she status post pacemaker, status post AICD. pt presents after being found down. family called EMS. Pt complains of left hand swelling and developed tenderness and swelling. Patient herself is alert awake and oriented to time place but she could not remember the name of the president. She has insight into her illness. She follows commands appropriately. And she has logic answers. She does not know what happened, the last thing she remembers she was in bed. Currently she looks awake and alert, mildly sleepy but is easily arousable and stay awake. She denies any chest pains or dyspnea, no burning in her urine or increased frequency. No diarrhea or vomiting. Has good appetite. She denies headache or dizziness, no weakness or numbness in extremities. She denies smoking, alcohol or illicit drugs. Vitals are stable and patient is afebrile. Labs showed leukocytosis of 14.5 and 13.5, rest of CBC is unremarkable. Sodium is 139, creatinine 1.0. Creatinine kinase elevated at 1310. Elevated troponin 0.11 and 0.20. INR is 1.7 Liver enzymes only mildly elevated. Bilirubin 2.1. Urinalysis is suspicious for infection. Urine drug screen is negative and cervical less than 10 EKG showed ventricular paced rhythm X-ray of the right tibia and fibula and right femur showing no fracture but there is right knee joint effusion CT of the brain: Cerebral atrophy, no acute process. Chest x-ray: No acute process. In the emergency room patient was started on normal saline and warfarin pharmacy to dose Objective - Vital Signs Vital signs: Vital Signs Temp 98 F 11/26/21 14:00 Pulse 58 L 11/26/21 14:00 Resp 16 11/26/21 14:00 BP 96/60 11/26/21 14:00 Pulse Ox 98 11/26/21 14:00 FiO2 21 11/18/21 19:11 Intake & Output 11/25/21 11/26/21 11/26/21 18:59 06:59 18:59 Intake Total 500 Output Total 1200 1100 Balance -700 -1100 Weight 82.5 kg Intake: Intake, IV Titration 500 Amount Calcium Gluconate in NaCl 100 1 gm In Saline 1 100ml. bag @ 100 mls/hr IVPB ONCE ONE Rx#:[id number] Dextrose 5% in Water 1, 400 000 ml @ 50 mls/hr IV . [id number] KEVYN with Sodium Chloride 4Meq/ml Vial 51. 3 meq Rx#:[id number] Output: Urine 1200 1100 Other: Voiding Method Indwelling Catheter Indwelling Catheter - Exam GENERAL: The patient is alert and oriented x3, not in any acute distress. Well developed, well nourished. HEENT: Pupils are round and equally reacting to light. EOMI. No scleral icterus. No conjunctival pallor. Normocephalic, atraumatic. No pharyngeal erythema. No thyromegaly. CARDIOVASCULAR: S1 and S2 present. No murmurs, rubs, or gallops. PULMONARY: Chest is clear to auscultation, no wheezing or crackles. ABDOMEN: Soft, nontender, nondistended, normoactive bowel sounds. No palpable organomegaly. MUSCULOSKELETAL: No joint swelling or deformity. -EXTREMITIES: No cyanosis, clubbing. Right ankle swelling and tenderness and warmth, bilateral mild swelling of the lower extremities NEUROLOGICAL: Gross neurological examination did not reveal any focal deficits. SKIN: No rashes. No petechiae - Labs CBC & Chem 7: 11/26/21 06:36 11/26/21 06:36 Labs: Abnormal Lab Results - Last 24 Hours (Table) 11/25/21 11/25/21 11/25/21 Range/Units 17:11 18:27 20:16 WBC (4.50-10.00) X 10*3/uL Hgb (12.0-15.0) g/dL MCH (27.0-32.0) pg MCHC (32.0-37.0) g/dL RDW (11.5-14.5) % Plt Count (140-440) X 10*3/uL Immature Gran # (0.00-0.04) X 10*3/uL Neutrophils # (1.80-7.70) X 10*3/uL Monocytes # (0.20-1.00) X 10*3/uL Eosinophils # (0.04-0.35) X 10*3/uL PT (9.9-11.9) sec INR (0.90-1.11) Sodium (135-145) mmol/L Potassium 5.4 H (3.5-5.1) mmol/L Carbon Dioxide (20.0-27.5) mmol/L Anion Gap (10.00-18.00) mmol/L BUN (9.0-27.0) mg/dL Est GFR (CKD-EPI)AfAm (60.0-200.0) Est GFR (CKD-EPI)NonAf (60.0-200.0) BUN/Creatinine Ratio (12.00-20.00) Ratio Glucose (70-110) mg/dL POC Glucose (mg/dL) 173 H 207 H (70-110) mg/dL Magnesium (1.5-2.4) mg/dL 11/26/21 11/26/21 11/26/21 Range/Units 06:36 06:36 06:36 WBC 17.30 H (4.50-10.00) X 10*3/uL Hgb 11.9 L (12.0-15.0) g/dL MCH 26.2 L (27.0-32.0) pg MCHC 31.2 L (32.0-37.0) g/dL RDW 15.5 H (11.5-14.5) % Plt Count 599 H (140-440) X 10*3/uL Immature Gran # 0.37 H (0.00-0.04) X 10*3/uL Neutrophils # 14.50 H (1.80-7.70) X 10*3/uL Monocytes # 1.03 H (0.20-1.00) X 10*3/uL Eosinophils # 0 L (0.04-0.35) X 10*3/uL PT 16.8 H (9.9-11.9) sec INR 1.56 H (0.90-1.11) Sodium 133 L (135-145) mmol/L Potassium 5.7 H (3.5-5.1) mmol/L Carbon Dioxide 29.3 H (20.0-27.5) mmol/L Anion Gap 7.60 L (10.00-18.00) mmol/L BUN 47.9 H (9.0-27.0) mg/dL Est GFR (CKD-EPI)AfAm 58.1 L (60.0-200.0) Est GFR (CKD-EPI)NonAf 50.1 L (60.0-200.0) BUN/Creatinine Ratio 45.62 H (12.00-20.00) Ratio Glucose 161 H (70-110) mg/dL POC Glucose (mg/dL) (70-110) mg/dL Magnesium 2.6 H (1.5-2.4) mg/dL 11/26/21 11/26/21 Range/Units 07:07 11:19 WBC (4.50-10.00) X 10*3/uL Hgb (12.0-15.0) g/dL MCH (27.0-32.0) pg MCHC (32.0-37.0) g/dL RDW (11.5-14.5) % Plt Count (140-440) X 10*3/uL Immature Gran # (0.00-0.04) X 10*3/uL Neutrophils # (1.80-7.70) X 10*3/uL Monocytes # (0.20-1.00) X 10*3/uL Eosinophils # (0.04-0.35) X 10*3/uL PT (9.9-11.9) sec INR (0.90-1.11) Sodium (135-145) mmol/L Potassium (3.5-5.1) mmol/L Carbon Dioxide (20.0-27.5) mmol/L Anion Gap (10.00-18.00) mmol/L BUN (9.0-27.0) mg/dL Est GFR (CKD-EPI)AfAm (60.0-200.0) Est GFR (CKD-EPI)NonAf (60.0-200.0) BUN/Creatinine Ratio (12.00-20.00) Ratio Glucose (70-110) mg/dL POC Glucose (mg/dL) 143 H 131 H (70-110) mg/dL Magnesium (1.5-2.4) mg/dL Assessment and Plan Assessment: Acute gout of the right knee and right ankle Period of unresponsiveness and altered mental status, evaluated by venetian blind mechanic active for discharge, patient is back to baseline rhabdomyolysis improving Right ankle swelling, worse and tenderness suspicious for cellulitis Elevated troponin, with severe global ejection fraction 10-15%, patient does not look in significant acute exacerbation abnormal urinalysis, rule out Acute urinary tract infection. Repeat urine analysis is improving without antibiotic Chronic atrial fibrillation on warfarin Chronic heart failure Hypertension Status post pacemaker and AICD. -----Continue with prednisone 60 mg daily Give lokelma , insulin/glucose and calcium Monitor potassium level Low-dose of losartan Discontinue Lasix Consults rheumatology service infectious disease team input is appreciated. Child Welfare Consultant evaluation cleared the patient for discharge orthopedic evaluation i appreciated and they recommended conservative management, weightbearing as tolerated Labs and medication were reviewed.. Continue same treatment. Continue with symptomatic treatment. Resume home medication. Monitor lytes and vitals. DVT and GI prophylaxis. Further recommendations depends on the clinical course of the patient DVT prophylaxis: On warfarin GI Prophylaxis: Pepcid PT/OT: Pending Prognosis is guarded
[2021-11-26 20:56] LABS: Glucose,Whole Blood 197 mg/dL (70-110)
[2021-11-27] MEDS: HYDROcodone/APAP 7.5-325MG 1 EACH TAB PO PRN ×2 (04:27→17:12)
[2021-11-27 07:00] LABS: Basophils % (A) 0 %; Eosinophils % (A) 0 %; HCT 35.3 % (34.0-46.0); HGB 11.5 gm/dL (11.4-16.0); Hypochromasia Slight; Lymphocytes # (A) 1.3 k/uL (1.0-4.8); Lymphocytes % (A) 9 %; MCH 28.6 pg (25.0-35.0); MCHC 32.6 g/dL (31.0-37.0); MCV 87.9 fL (80.0-100.0); Mean Platelet Volume 7.6; Monocytes % (A) 7 %; Neutrophils # (A) 12.6 k/uL (1.3-7.7); Neutrophils % (A) 83 %; Platelet Count 444 k/uL (150-450); RBC 4.02 m/uL (3.80-5.40); RDW 15.2 % (11.5-15.5); WBC 15.2 k/uL (3.8-10.6)
[2021-11-27 07:06] LABS: INR 2.3 (<1.2); Prothrombin Time 23.3 sec (9.0-12.0)
[2021-11-27 07:10] LABS: Glucose,Whole Blood 122 mg/dL (70-110)
[2021-11-27 07:17] LABS: African American GFR (CKD) 74 (>60 ml/min/1.73 sqM); Anion Gap 7 mmol/L; Blood Urea Nitrogen 50 mg/dL (7-17); Calcium 9.5 mg/dL (8.4-10.2); Carbon Dioxide 26 mmol/L (22-30); Chloride 100 mmol/L (98-107); Glucose 119 mg/dL (74-99); Non-African American GFR(CKD) 65 (>60 ml/min/1.73 sqM); Sodium 133 mmol/L (137-145)
[2021-11-27] MEDS: INSULIN ASPART (NovoLOG) 100 UNIT/ML VIAL SQ SCH ×4 (07:24→22:53)
[2021-11-27] MEDS: carvediloL 12.5 MG TAB PO SCH ×2 (08:06→16:54)
[2021-11-27] MEDS: predniSONE 20 MG TAB PO SCH (08:17)
[2021-11-27] MEDS: FAMOTIDINE 20 MG TAB PO SCH (08:17)
[2021-11-27] MEDS: ENOXAPARIN 40 MG/0.4 ML SYRINGE SQ SCH (08:17)
[2021-11-27] MEDS: CAPSAICIN 0.025% CREAM 60 GM TUBE TOPICAL SCH ×4 (08:18→22:53)
[2021-11-27] MEDS: allopurinoL 100 MG TAB PO SCH (08:18)
[2021-11-27] MEDS: SPIRONOLACTONE 25 MG TAB PO SCH (08:18)
[2021-11-27 11:20] LABS: Glucose,Whole Blood 145 mg/dL (70-110)
--- NOTE | 2021-11-27 11:21 | P.PN ---
Subjective Progress Note Date: 11/27/21 Patient seen and examined. No complaints. States her pain is feeling better. The wrap was taken off her right lower extremity. She states she can move her toes better on both sides. Objective - Vital Signs Vital signs: Vital Signs Temp 97.4 F L 11/27/21 08:00 Pulse 59 L 11/27/21 08:20 Resp 18 11/27/21 08:20 BP 104/66 11/27/21 08:00 Pulse Ox 99 11/27/21 08:00 FiO2 21 11/18/21 19:11 Intake & Output 11/26/21 11/27/21 11/27/21 18:59 06:59 18:59 Output Total 300 1200 Balance -300 -1200 Weight 82.5 kg Output: Urine 300 1200 Other: Voiding Method Indwelling Catheter Indwelling Catheter - Exam Gen. a pleasant cooperative elderly female in no acute distress. HEENT is normocephalic, atraumatic, poor dentition. Heart is regular. Lungs are clear. Abdomen is soft obese nontender. Extremities show no clubbing or cyanosis. There is mild bilateral lower extremity edema. Bilateral feet feel warm. Motor sensory intact bilaterally - Labs CBC & Chem 7: 11/27/21 06:27 11/27/21 06:27 Labs: Abnormal Lab Results - Last 24 Hours (Table) 11/26/21 11/26/21 11/26/21 Range/Units 06:36 11:19 16:49 WBC (3.8-10.6) k/uL Neutrophils # (1.3-7.7) k/uL PT 16.8 H (9.9-11.9) sec INR 1.56 H (0.90-1.11) Sodium (137-145) mmol/L BUN (7-17) mg/dL Glucose (74-99) mg/dL POC Glucose (mg/dL) 131 H 154 H (70-110) mg/dL 11/26/21 11/27/21 11/27/21 Range/Units 20:51 06:27 06:27 WBC 15.2 H (3.8-10.6) k/uL Neutrophils # 12.6 H (1.3-7.7) k/uL PT 23.3 H (9.9-11.9) sec INR 2.3 H (0.90-1.11) Sodium (137-145) mmol/L BUN (7-17) mg/dL Glucose (74-99) mg/dL POC Glucose (mg/dL) 197 H (70-110) mg/dL 11/27/21 11/27/21 Range/Units 06:27 07:08 WBC (3.8-10.6) k/uL Neutrophils # (1.3-7.7) k/uL PT (9.9-11.9) sec INR (0.90-1.11) Sodium 133 L (137-145) mmol/L BUN 50 H (7-17) mg/dL Glucose 119 H (74-99) mg/dL POC Glucose (mg/dL) 122 H (70-110) mg/dL Assessment and Plan Assessment: cooler extremity- improved right lower extremity gout flare Bilateral lower extremity swelling Plan: Arterial images have been reviewed. There is a multiphasic flow throughout the bilateral tibial vessels. There is some possible digital microvascular disease versus spasm in the left toes. No discernible arterial insufficiency. At this time we will order lower extremity venous duplex to rule out a clot. Otherwise continue medical management.
--- NOTE | 2021-11-27 12:16 | US ---
EXAMINATION TYPE: US venous doppler duplex LE DATE OF EXAM: 11/27/2021 11:21 AM COMPARISON: NONE CLINICAL HISTORY: Bilateral lower extremity swelling. SIDE PERFORMED: Bilateral TECHNIQUE: The lower extremity deep venous system is examined utilizing real time linear array sonog maru with graded compression, doppler sonography and color-flow sonography. VESSELS IMAGED: Common Femoral Vein Deep Femoral Vein Greater Saphenous Vein * Femoral Vein Popliteal Vein Small Saphenous Vein * Proximal Calf Veins (* superficial vessels) Right Leg: Negative for DVT Left Leg: Negative for DVT Grayscale, color doppler, spectral doppler imaging performed of the deep veins of the bilateral lower extremities. There is normal flow, compressibility, vascular waveforms. IMPRESSION: No ultrasound evidence for acute DVT in the bilateral lower extremities.
[2021-11-27 16:49] LABS: Glucose,Whole Blood 221 mg/dL (70-110)
--- NOTE | 2021-11-27 17:52 | P.PN ---
Subjective Progress Note Date: 11/27/21 81 years old female with past medical history of Atrial Fibrillation, on warfarin , Heart Failure, Hypertension, right breast cancer 2006, left breast cancer 2017, she status post pacemaker, status post AICD. pt presents after being found down. family called EMS. Pt complains of left hand swelling and developed tenderness and swelling. Patient herself is alert awake and oriented to time place but she could not remember the name of the president. She has insight into her illness. She follows commands appropriately. And she has logic answers. She does not know what happened, the last thing she remembers she was in bed. Currently she looks awake and alert, mildly sleepy but is easily arousable and stay awake. She denies any chest pains or dyspnea, no burning in her urine or increased frequency. No diarrhea or vomiting. Has good appetite. She denies headache or dizziness, no weakness or numbness in extremities. She denies smoking, alcohol or illicit drugs. Vitals are stable and patient is afebrile. Labs showed leukocytosis of 14.5 and 13.5, rest of CBC is unremarkable. Sodium is 139, creatinine 1.0. Creatinine kinase elevated at 1310. Elevated troponin 0.11 and 0.20. INR is 1.7 Liver enzymes only mildly elevated. Bilirubin 2.1. Urinalysis is suspicious for infection. Urine drug screen is negative and cervical less than 10 EKG showed ventricular paced rhythm X-ray of the right tibia and fibula and right femur showing no fracture but there is right knee joint effusion CT of the brain: Cerebral atrophy, no acute process. Chest x-ray: No acute process. In the emergency room patient was started on normal saline and warfarin pharmacy to dose 11/27/2021 Patient seen and evaluated in room at bedside; continues to both lower extremities Vital signs are reviewed temperature 97.4, pulse of 90, respiration 18 and blood pressure 104/66 with O2 saturation of 99% Labs revealed WBC 15.2, hemoglobin 11.5 and platelet count of 444, sodium 133, potassium 4.0, B UN/creatinine of 50/0.86 and blood glucose of 119 Vascular surgery on board and arterial Doppler has been reviewed with concerns for some digital microvascular disease versus spasm and left toes; no discernible repeated insufficiency; lower extremity venous Doppler is recommended - Patient is currently on Coumadin and INR is therapeutic Objective - Vital Signs Vital signs: Vital Signs Temp 97.9 F 11/27/21 14:00 Pulse 61 11/27/21 14:00 Resp 18 11/27/21 08:20 BP 131/72 11/27/21 14:00 Pulse Ox 99 11/27/21 14:00 FiO2 21 11/18/21 19:11 Intake & Output 11/26/21 11/27/21 11/27/21 18:59 06:59 18:59 Output Total 300 1200 Balance -300 -1200 Weight 82.5 kg Output: Urine 300 1200 Other: Voiding Method Indwelling Catheter Indwelling Catheter - Exam GENERAL: The patient is alert and oriented x3, not in any acute distress. Well developed, well nourished. HEENT: Pupils are round and equally reacting to light. EOMI. No scleral icterus. No conjunctival pallor. Normocephalic, atraumatic. No pharyngeal erythema. No thyromegaly. CARDIOVASCULAR: S1 and S2 present. No murmurs, rubs, or gallops. PULMONARY: Chest is clear to auscultation, no wheezing or crackles. ABDOMEN: Soft, nontender, nondistended, normoactive bowel sounds. No palpable organomegaly. MUSCULOSKELETAL: No joint swelling or deformity. -EXTREMITIES: No cyanosis, clubbing. Right ankle swelling and tenderness and warmth, bilateral mild swelling of the lower extremities NEUROLOGICAL: Gross neurological examination did not reveal any focal deficits. SKIN: No rashes. No petechiae - Labs CBC & Chem 7: 11/27/21 06:27 11/27/21 06:27 Labs: Abnormal Lab Results - Last 24 Hours (Table) 11/26/21 11/27/21 11/27/21 Range/Units 20:51 06:27 06:27 WBC 15.2 H (3.8-10.6) k/uL Neutrophils # 12.6 H (1.3-7.7) k/uL PT 23.3 H (9.0-12.0) sec INR 2.3 H (<1.2) Sodium (137-145) mmol/L BUN (7-17) mg/dL Glucose (74-99) mg/dL POC Glucose (mg/dL) 197 H (70-110) mg/dL 11/27/21 11/27/21 11/27/21 Range/Units 06:27 07:08 11:18 WBC (3.8-10.6) k/uL Neutrophils # (1.3-7.7) k/uL PT (9.0-12.0) sec INR (<1.2) Sodium 133 L (137-145) mmol/L BUN 50 H (7-17) mg/dL Glucose 119 H (74-99) mg/dL POC Glucose (mg/dL) 122 H 145 H (70-110) mg/dL 11/27/21 Range/Units 16:48 WBC (3.8-10.6) k/uL Neutrophils # (1.3-7.7) k/uL PT (9.0-12.0) sec INR (<1.2) Sodium (137-145) mmol/L BUN (7-17) mg/dL Glucose (74-99) mg/dL POC Glucose (mg/dL) 221 H (70-110) mg/dL Microbiology - Last 24 Hours (Table) 11/17/21 09:00 Gram Stain - Preliminary Knee - Right Body Fluid Culture - Preliminary Assessment and Plan Assessment: Acute gout of the right knee and right ankle Period of unresponsiveness and altered mental status, evaluated by auto tire recapper active for discharge, patient is back to baseline rhabdomyolysis improving Right ankle swelling, worse and tenderness suspicious for cellulitis Elevated troponin, with severe global ejection fraction 10-15%, patient does not look in significant acute exacerbation abnormal urinalysis, rule out Acute urinary tract infection. Repeat urine analysis is improving without antibiotic Chronic atrial fibrillation on warfarin Chronic heart failure Hypertension Status post pacemaker and AICD. -----Continue with prednisone 60 mg daily Give lokelma , insulin/glucose and calcium Monitor potassium level Low-dose of losartan Discontinue Lasix Consults rheumatology service infectious disease team input is appreciated. Locksmith Apprentice evaluation cleared the patient for discharge orthopedic evaluation i appreciated and they recommended conservative management, weightbearing as tolerated Labs and medication were reviewed.. Continue same treatment. Continue with symptomatic treatment. Resume home medication. Monitor lytes and vitals. DVT and GI prophylaxis. Further recommendations depends on the clinical course of the patient DVT prophylaxis: On warfarin GI Prophylaxis: Pepcid PT/OT: Pending Prognosis is guarded
[2021-11-27] MEDS ORDERED: WARFARIN 3 MG TAB PO ONE (18:00)
[2021-11-27 20:53] LABS: Glucose,Whole Blood 172 mg/dL (70-110)
--- NOTE | 2021-11-27 22:00 | P.PN ---
Subjective Progress Note Date: 11/26/21 Principal diagnosis: Leukocytosis and question of cellulitis Patient is 81-year-old -Maldivian female presented to hospital with the pain to the right knee and leg area with no history of any trauma patient did have a CT of the right thing that was negative for fracture did shows large right knee effusion and is status post aspiration 11/17/2021, cultures has been negative uric acid crystals positive and the patient has been treated for gouty arthritis, for the patient had been on steroids was evaluated by rheumatology and has requested infectious disease reevaluation concerning for possible cellulitis to the ankle area On today's evaluation that is 11/26, the patient continues to be afebrile, the patient still complaining of pain to the right knee and ankle area and unable to tolerate capsicum cream, the patient denies any chest pain or shortness of breath or cough no abdominal pain and no diarrhea, Objective - Vital Signs Vital signs: Vital Signs Temp 97.6 F 11/26/21 06:24 Pulse 60 11/26/21 06:24 Resp 16 11/26/21 06:24 BP 112/78 11/26/21 06:24 Pulse Ox 98 11/26/21 06:24 FiO2 21 11/18/21 19:11 Intake & Output 11/25/21 11/26/21 11/26/21 18:59 06:59 18:59 Intake Total 500 Output Total 1200 1100 Balance -700 -1100 Intake: Intake, IV Titration 500 Amount Calcium Gluconate in NaCl 100 1 gm In Saline 1 100ml. bag @ 100 mls/hr IVPB ONCE ONE Rx#:[id number] Dextrose 5% in Water 1, 400 000 ml @ 50 mls/hr IV . [id number] KEVYN with Sodium Chloride 4Meq/ml Vial 51. 3 meq Rx#:[id number] Output: Urine 1200 1100 Other: Voiding Method Indwelling Catheter Indwelling Catheter - Exam GENERAL DESCRIPTION: An elderly female lying in bed in no distress RESPIRATORY SYSTEM: Unlabored breathing , decreased breath sounds at bases HEART: S1 S2 regular rate and rhythm , ABDOMEN: Soft , no tenderness EXTREMITIES: Right ankle did have swelling no redness mild warmth to touch and no blisters or any drainage - Labs CBC & Chem 7: 11/27/21 06:27 11/27/21 06:27 Labs: Abnormal Lab Results - Last 24 Hours (Table) 07/07/22 07/07/22 07/07/22 Range/Units 17:11 18:27 20:16 WBC (4.50-10.00) X 10*3/uL Hgb (12.0-15.0) g/dL MCH (27.0-32.0) pg MCHC (32.0-37.0) g/dL RDW (11.5-14.5) % Plt Count (140-440) X 10*3/uL Immature Gran # (0.00-0.04) X 10*3/uL Neutrophils # (1.80-7.70) X 10*3/uL Monocytes # (0.20-1.00) X 10*3/uL Eosinophils # (0.04-0.35) X 10*3/uL PT (9.9-11.9) sec INR (0.90-1.11) Sodium (135-145) mmol/L Potassium 5.4 H (3.5-5.1) mmol/L Carbon Dioxide (20.0-27.5) mmol/L Anion Gap (10.00-18.00) mmol/L BUN (9.0-27.0) mg/dL Est GFR (CKD-EPI)AfAm (60.0-200.0) Est GFR (CKD-EPI)NonAf (60.0-200.0) BUN/Creatinine Ratio (12.00-20.00) Ratio Glucose (70-110) mg/dL POC Glucose (mg/dL) 173 H 207 H (70-110) mg/dL Magnesium (1.5-2.4) mg/dL 11/26/21 11/26/21 11/26/21 Range/Units 06:36 06:36 06:36 WBC 17.30 H (4.50-10.00) X 10*3/uL Hgb 11.9 L (12.0-15.0) g/dL MCH 26.2 L (27.0-32.0) pg MCHC 31.2 L (32.0-37.0) g/dL RDW 15.5 H (11.5-14.5) % Plt Count 599 H (140-440) X 10*3/uL Immature Gran # 0.37 H (0.00-0.04) X 10*3/uL Neutrophils # 14.50 H (1.80-7.70) X 10*3/uL Monocytes # 1.03 H (0.20-1.00) X 10*3/uL Eosinophils # 0 L (0.04-0.35) X 10*3/uL PT 16.8 H (9.9-11.9) sec INR 1.56 H (0.90-1.11) Sodium 133 L (135-145) mmol/L Potassium 5.7 H (3.5-5.1) mmol/L Carbon Dioxide 29.3 H (20.0-27.5) mmol/L Anion Gap 7.60 L (10.00-18.00) mmol/L BUN 47.9 H (9.0-27.0) mg/dL Est GFR (CKD-EPI)AfAm 58.1 L (60.0-200.0) Est GFR (CKD-EPI)NonAf 50.1 L (60.0-200.0) BUN/Creatinine Ratio 45.62 H (12.00-20.00) Ratio Glucose 161 H (70-110) mg/dL POC Glucose (mg/dL) (70-110) mg/dL Magnesium 2.6 H (1.5-2.4) mg/dL 11/26/21 11/26/21 Range/Units 07:07 11:19 WBC (4.50-10.00) X 10*3/uL Hgb (12.0-15.0) g/dL MCH (27.0-32.0) pg MCHC (32.0-37.0) g/dL RDW (11.5-14.5) % Plt Count (140-440) X 10*3/uL Immature Gran # (0.00-0.04) X 10*3/uL Neutrophils # (1.80-7.70) X 10*3/uL Monocytes # (0.20-1.00) X 10*3/uL Eosinophils # (0.04-0.35) X 10*3/uL PT (9.9-11.9) sec INR (0.90-1.11) Sodium (135-145) mmol/L Potassium (3.5-5.1) mmol/L Carbon Dioxide (20.0-27.5) mmol/L Anion Gap (10.00-18.00) mmol/L BUN (9.0-27.0) mg/dL Est GFR (CKD-EPI)AfAm (60.0-200.0) Est GFR (CKD-EPI)NonAf (60.0-200.0) BUN/Creatinine Ratio (12.00-20.00) Ratio Glucose (70-110) mg/dL POC Glucose (mg/dL) 143 H 131 H (70-110) mg/dL Magnesium (1.5-2.4) mg/dL Microbiology - Last 24 Hours (Table) 11/24/21 06:00 Urine Culture - Final Urine,Catheterized Assessment and Plan (1) Knee pain Current Visit: Yes Status: Acute Code(s): M25.569 - PAIN IN UNSPECIFIED KNEE SNOMED Code(s): 6863213822 Plan: 11patient presented to hospital with pain mostly to the right leg below the knee to the ankle area this patient currently do not have any fever and did have mild elevated white count however no significant redness but she is tender to touch as far as the knee and the ankle is concerned x-rays were negative for acute abnormality clinically behaving as a cellulitis septic arthritis was ruled out with a negative culture and the patient to have a uric acid crystals seen concerning for coronary arthritis 2patient leukocytosis is more likely related to steroids clinically doubt cellulitis and will monitor the patient close off antibiotic Time with Patient: Less than 30
--- NOTE | 2021-11-27 22:02 | P.PN ---
Subjective Progress Note Date: 11/27/21 Principal diagnosis: Leukocytosis and question of cellulitis Patient is 81-year-old -[place]ic female presented to hospital with the pain to the right knee and leg area with no history of any trauma patient did have a CT of the right thing that was negative for fracture did shows large right knee effusion and is status post aspiration 11/17/2021, cultures has been negative uric acid crystals positive and the patient has been treated for gouty arthritis, for the patient had been on steroids was evaluated by rheumatology and has requested infectious disease reevaluation concerning for possible cellulitis to the ankle area On today's evaluation that is 11/27/2021, the patient denies any fever or chills, the patient continues to be complaining of pain to the right knee and ankle area and unable to tolerate Faheem wrap which was discontinued, the patient denies any chest pain or shortness of breath or cough no abdominal pain and no diarrhea, Objective - Vital Signs Vital signs: Vital Signs Temp 97.4 F L 11/27/21 08:00 Pulse 59 L 11/27/21 08:20 Resp 18 11/27/21 08:20 BP 104/66 11/27/21 08:00 Pulse Ox 99 11/27/21 08:00 FiO2 21 11/18/21 19:11 Intake & Output 11/26/21 11/27/21 11/27/21 18:59 06:59 18:59 Output Total 300 1200 Balance -300 -1200 Weight 82.5 kg Output: Urine 300 1200 Other: Voiding Method Indwelling Catheter Indwelling Catheter - Exam GENERAL DESCRIPTION: An elderly female lying in bed in no distress RESPIRATORY SYSTEM: Unlabored breathing , decreased breath sounds at bases HEART: S1 S2 regular rate and rhythm , ABDOMEN: Soft , no tenderness EXTREMITIES: Right ankle did have swelling no redness mild warmth to touch and no blisters or any drainage - Labs CBC & Chem 7: 11/27/21 06:27 11/27/21 06:27 Labs: Abnormal Lab Results - Last 24 Hours (Table) 11/26/21 11/26/21 11/26/21 Range/Units 06:36 11:19 16:49 WBC (3.8-10.6) k/uL Neutrophils # (1.3-7.7) k/uL PT 16.8 H (9.9-11.9) sec INR 1.56 H (0.90-1.11) Sodium (137-145) mmol/L BUN (7-17) mg/dL Glucose (74-99) mg/dL POC Glucose (mg/dL) 131 H 154 H (70-110) mg/dL 11/26/21 11/27/21 11/27/21 Range/Units 20:51 06:27 06:27 WBC 15.2 H (3.8-10.6) k/uL Neutrophils # 12.6 H (1.3-7.7) k/uL PT 23.3 H (9.9-11.9) sec INR 2.3 H (0.90-1.11) Sodium (137-145) mmol/L BUN (7-17) mg/dL Glucose (74-99) mg/dL POC Glucose (mg/dL) 197 H (70-110) mg/dL 11/27/21 11/27/21 Range/Units 06:27 07:08 WBC (3.8-10.6) k/uL Neutrophils # (1.3-7.7) k/uL PT (9.9-11.9) sec INR (0.90-1.11) Sodium 133 L (137-145) mmol/L BUN 50 H (7-17) mg/dL Glucose 119 H (74-99) mg/dL POC Glucose (mg/dL) 122 H (70-110) mg/dL Assessment and Plan (1) Knee pain Current Visit: Yes Status: Acute Code(s): M25.569 - PAIN IN UNSPECIFIED KNEE SNOMED Code(s): 2796279135 Plan: 11patient presented to hospital with pain mostly to the right leg below the knee to the ankle area this patient currently do not have any fever and did have mild elevated white count however no significant redness but she is tender to touch as far as the knee and the ankle is concerned x-rays were negative for acute abnormality clinically behaving as a cellulitis septic arthritis was ruled out with a negative culture and the patient to have a uric acid crystals seen concerning for coronary arthritis 2patient leukocytosis is more likely related to steroids and is trending down down to 15,000 today clinically doubt cellulitis and will monitor the patient close off antibiotic, vascular surgery is following for possible vascular etiology for her pain Time with Patient: Less than 30
[2021-11-28] MEDS: HYDROcodone/APAP 7.5-325MG 1 EACH TAB PO PRN ×3 (00:15→21:23)
[2021-11-28 06:57] LABS: Glucose,Whole Blood 131 mg/dL (70-110)
[2021-11-28] MEDS: CAPSAICIN 0.025% CREAM 60 GM TUBE TOPICAL SCH ×4 (07:26→21:20)
[2021-11-28] MEDS: allopurinoL 100 MG TAB PO SCH (07:29)
[2021-11-28] MEDS: ENOXAPARIN 40 MG/0.4 ML SYRINGE SQ SCH (07:29)
[2021-11-28] MEDS: carvediloL 12.5 MG TAB PO SCH ×2 (07:29→16:53)
[2021-11-28] MEDS: INSULIN ASPART (NovoLOG) 100 UNIT/ML VIAL SQ SCH ×4 (07:29→21:00)
[2021-11-28] MEDS: FAMOTIDINE 20 MG TAB PO SCH (07:29)
[2021-11-28] MEDS: predniSONE 20 MG TAB PO SCH (07:29)
[2021-11-28] MEDS: SPIRONOLACTONE 25 MG TAB PO SCH (07:32)
[2021-11-28 07:52] LABS: INR 2.7 (<1.2); Prothrombin Time 26.8 sec (9.0-12.0)
[2021-11-28 08:06] LABS: Basophils # (A) 0.1 k/uL (0-0.2); Basophils % (A) 1 %; Eosinophils # (A) 0.1 k/uL (0-0.7); Eosinophils % (A) 0 %; HCT 35.7 % (34.0-46.0); HGB 11.5 gm/dL (11.4-16.0); Lymphocytes # (A) 1.3 k/uL (1.0-4.8); Lymphocytes % (A) 7 %; MCH 28.1 pg (25.0-35.0); MCHC 32.3 g/dL (31.0-37.0); Mean Platelet Volume 8.9; Monocytes # (A) 1.2 k/uL (0-1.0); Monocytes % (A) 7 %; Neutrophils # (A) 15.9 k/uL (1.3-7.7); Neutrophils % (A) 85 %; Platelet Count 555 k/uL (150-450); RBC 4.11 m/uL (3.80-5.40); RDW 15.1 % (11.5-15.5); WBC 18.6 k/uL (3.8-10.6)
--- NOTE | 2021-11-28 08:23 | US ---
EXAMINATION TYPE: US arterial LE single level DATE OF EXAM: 11/26/2021 5:49 PM CLINICAL HISTORY: absent pulses. Unable to do blood pressure in left arm per patient RN. Patient refused to have cuff put on right leg or right toe. History of hypertension. Doppler Waveforms: Right: Multiphasic to monophasic Left: Multiphasic to biphasic Pulse Volume Recording: Flattened on the left. Pressure Gradients: Ankle-Brachial Indices: Right: Left: 1.07 Toe Brachial Indices: Right: Left: 0.67 IMPRESSION: Normal left-sided JOSE ALEJANDRO and TBI values.
[2021-11-28 08:36] LABS: African American GFR (CKD) 69 (>60 ml/min/1.73 sqM); Anion Gap 4 mmol/L; Blood Urea Nitrogen 44 mg/dL (7-17); Calcium 9.6 mg/dL (8.4-10.2); Carbon Dioxide 29 mmol/L (22-30); Chloride 100 mmol/L (98-107); Glucose 102 mg/dL (74-99); Non-African American GFR(CKD) 60 (>60 ml/min/1.73 sqM); Potassium 5.4 mmol/L (3.5-5.1); Sodium 133 mmol/L (137-145)
[2021-11-28 11:09] LABS: Glucose,Whole Blood 138 mg/dL (70-110)
[2021-11-28 16:31] LABS: Glucose,Whole Blood 177 mg/dL (70-110)
--- NOTE | 2021-11-28 16:57 | P.PN ---
Subjective Progress Note Date: 11/28/21 Principal diagnosis: Acute gout of the right knee and right ankle Rhabdomyolysis Elevated troponin, with severe global ejection fraction 10-15% 81 years old female with past medical history of Atrial Fibrillation, on warfarin , Heart Failure, Hypertension, right breast cancer 2006, left breast cancer 2016, she status post pacemaker, status post AICD. pt presents after being found down. family called EMS. Pt complains of left hand swelling and developed tenderness and swelling. Patient herself is alert awake and oriented to time place but she could not remember the name of the president. She has insight into her illness. She follows commands appropriately. And she has logic answers. She does not know what happened, the last thing she remembers she was in bed. Currently she looks awake and alert, mildly sleepy but is easily arousable and stay awake. She denies any chest pains or dyspnea, no burning in her urine or increased frequency. No diarrhea or vomiting. Has good appetite. She denies headache or dizziness, no weakness or numbness in extremities. She denies smoking, alcohol or illicit drugs. Vitals are stable and patient is afebrile. Labs showed leukocytosis of 14.5 and 13.5, rest of CBC is unremarkable. Sodium is 139, creatinine 1.0. Creatinine kinase elevated at 1310. Elevated troponin 0.11 and 0.20. INR is 1.7 Liver enzymes only mildly elevated. Bilirubin 2.1. Urinalysis is suspicious for infection. Urine drug screen is negative and cervical less than 10 EKG showed ventricular paced rhythm X-ray of the right tibia and fibula and right femur showing no fracture but there is right knee joint effusion CT of the brain: Cerebral atrophy, no acute process. Chest x-ray: No acute process. In the emergency room patient was started on normal saline and warfarin pharmacy to dose 11/27/2021 Patient seen and evaluated in room at bedside; continues to both lower ext remities Vital signs are reviewed temperature 97.4, pulse of 90, respiration 18 and blood pressure 104/66 with O2 saturation of 99% Labs revealed WBC 15.2, hemoglobin 11.5 and platelet count of 444, sodium 133, potassium 4.0, B UN/creatinine of 50/0.86 and blood glucose of 119 Vascular surgery on board and arterial Doppler has been reviewed with concerns for some digital microvascular disease versus spasm and left toes; no discernible repeated insufficiency; lower extremity venous Doppler is rec ommended - Patient is currently on Coumadin and INR is therapeutic 11/28/2021 Patient is seen and evaluated resting comfortably in bed; report some improvement in ankle pain but continues to have persistent swelling Vital signs are reviewed and remained stable Lab review shows an elevated potassium level of 5.4; patient's Lasix has been placed on hold and patient resumes Aldactone; we will start patient on Lasix 40 mg IV twice a day and recommend de-escalation down to home dose of 40 mg daily in next 24-48 hours; patient will resume Aldactone at 12.5 mg daily from danielle orrow WBC is trending up and is 18.6 this morning; patient remains on oral steroids for gout exacerbation; we will start the taper Objective - Vital Signs Vital signs: Vital Signs Temp 97.9 F 11/28/21 08:00 Pulse 59 L 11/28/21 08:00 Resp 17 11/28/21 07:32 BP 122/74 11/28/21 08:00 Pulse Ox 99 11/28/21 08:00 FiO2 21 11/18/21 19:11 Intake & Output 11/27/21 11/28/21 11/28/21 18:59 06:59 18:59 Intake Total 236 Output Total 1600 Balance 236 -1600 Intake: Oral 236 Output: Urine 1600 Other: Voiding Method Indwelling Catheter Indwelling Catheter Indwelling Catheter - Exam GENERAL: The patient is alert and oriented x3, not in any acute distress. Well developed, well nourished. HEENT: Pupils are round and equally reacting to light. EOMI. No scleral icterus. No conjunctival pallor. Normocephalic, atraumatic. No pharyngeal erythema. No thyromegaly. CARDIOVASCULAR: S1 and S2 present. No murmurs, rubs, or gallops. PULMONARY: Chest is clear to auscultation, no wheezing or crackles. ABDOMEN: Soft, nontender, nondistended, normoactive bowel sounds. No palpable organomegaly. MUSCULOSKELETAL: No joint swelling or deformity. -EXTREMITIES: No cyanosis, clubbing. Right ankle swelling and tenderness and warmth, bilateral mild swelling of the lower extremities NEUROLOGICAL: Gross neurological examination did not reveal any focal deficits. SKIN: No rashes. No petechiae - Labs CBC & Chem 7: 11/28/21 07:18 11/28/21 07:18 Labs: Abnormal Lab Results - Last 24 Hours (Table) 11/27/21 11/27/21 11/27/21 Range/Units 11:18 16:48 20:50 WBC (3.8-10.6) k/uL Plt Count (150-450) k/uL Neutrophils # (1.3-7.7) k/uL Monocytes # (0-1.0) k/uL PT (9.0-12.0) sec INR (<1.2) Sodium (137-145) mmol/L Potassium (3.5-5.1) mmol/L BUN (7-17) mg/dL Glucose (74-99) mg/dL POC Glucose (mg/dL) 145 H 221 H 172 H (70-110) mg/dL 11/28/21 11/28/21 11/28/21 Range/Units 06:56 07:18 07:18 WBC 18.6 H (3.8-10.6) k/uL Plt Count 555 H (150-450) k/uL Neutrophils # 15.9 H (1.3-7.7) k/uL Monocytes # 1.2 H (0-1.0) k/uL PT 26.8 H (9.0-12.0) sec INR 2.7 H (<1.2) Sodium (137-145) mmol/L Potassium (3.5-5.1) mmol/L BUN (7-17) mg/dL Glucose (74-99) mg/dL POC Glucose (mg/dL) 131 H (70-110) mg/dL 11/28/21 Range/Units 07:18 WBC (3.8-10.6) k/uL Plt Count (150-450) k/uL Neutrophils # (1.3-7.7) k/uL Monocytes # (0-1.0) k/uL PT (9.0-12.0) sec INR (<1.2) Sodium 133 L (137-145) mmol/L Potassium 5.4 H (3.5-5.1) mmol/L BUN 44 H (7-17) mg/dL Glucose 102 H (74-99) mg/dL POC Glucose (mg/dL) (70-110) mg/dL Microbiology - Last 24 Hours (Table) 11/17/21 09:00 Gram Stain - Preliminary Knee - Right Body Fluid Culture - Preliminary Assessment and Plan Assessment: Acute gout of the right knee and right ankle Period of unresponsiveness and altered mental status, evaluated by picture copyist active for discharge, patient is back to baseline rhabdomyolysis improving Right ankle swelling, worse and tenderness suspicious for cellulitis Elevated troponin, with severe global ejection fraction 10-15%, patient does not look in significant acute exacerbation abnormal urinalysis, rule out Acute urinary tract infection. Repeat urine analysis is improving without antibiotic Chronic atrial fibrillation on warfarin Chronic heart failure Hypertension Status post pacemaker and AICD. -----Continue with prednisone 60 mg daily Give lokelma , insulin/glucose and calcium Monitor potassium level Low-dose of losartan Discontinue Lasix Consults rheumatology service infectious disease team input is appreciated. Pain Management Specialist evaluation cleared the patient for discharge orthopedic evaluation i appreciated and they recommended conservative management, weightbearing as tolerated Labs and medication were reviewed.. Continue same treatment. Continue with symptomatic treatment. Resume home medication. Monitor lytes and vitals. DVT and GI prophylaxis. Further recommendations depends on the clinical course of the patient DVT prophylaxis: On warfarin GI Prophylaxis: Pepcid PT/OT: Pending Prognosis is guarded
[2021-11-28] MEDS ORDERED: WARFARIN 2 MG TAB PO ONE (18:00)
[2021-11-28 20:57] LABS: Glucose,Whole Blood 114 mg/dL (70-110)
[2021-11-28] MEDS: FUROSEMIDE 10 MG/ML 4 ML VIAL IV SCH (21:19)
[2021-11-29] MEDS: HYDROcodone/APAP 7.5-325MG 1 EACH TAB PO PRN ×2 (06:04→12:31)
[2021-11-29 06:58] LABS: Glucose,Whole Blood 111 mg/dL (70-110)
[2021-11-29] MEDS: INSULIN ASPART (NovoLOG) 100 UNIT/ML VIAL SQ SCH ×3 (07:19→17:09)
[2021-11-29] MEDS: CAPSAICIN 0.025% CREAM 60 GM TUBE TOPICAL SCH ×3 (08:57→17:09)
[2021-11-29] MEDS ORDERED: predniSONE 20 MG TAB PO SCH (09:00)
[2021-11-29] MEDS ORDERED: SPIRONOLACTONE 25 MG TAB PO SCH (09:00)
[2021-11-29] MEDS: allopurinoL 100 MG TAB PO SCH (09:31)
[2021-11-29] MEDS: FAMOTIDINE 20 MG TAB PO SCH (09:31)
[2021-11-29] MEDS: carvediloL 12.5 MG TAB PO SCH ×2 (09:31→17:24)
[2021-11-29] MEDS: FUROSEMIDE 10 MG/ML 4 ML VIAL IV SCH (09:31)
[2021-11-29 10:13] LABS: INR 2.16 (0.90-1.11); Prothrombin Time 23.5 sec (9.9-11.9)
[2021-11-29 11:17] LABS: Glucose,Whole Blood 108 mg/dL (70-110)
--- NOTE | 2021-11-29 11:46 | P.PN ---
Subjective Progress Note Date: 11/29/21 Principal diagnosis: Patient seen and examined this a follow-up for right lower extremity pain. She had a arterial duplex study that showed multiphasic flow. Venous duplex comple jeff without any evidence of DVT bilaterally. Patient states she has some pain in the right lower extremity which is improved with heat pack. No other acute changes. Objective - Vital Signs Vital signs: Vital Signs Temp 98.1 F 11/29/21 02:00 Pulse 60 11/29/21 02:00 Resp 16 11/29/21 02:00 BP 119/75 11/29/21 02:00 Pulse Ox 100 11/29/21 02:00 FiO2 21 11/18/21 19:11 Intake & Output 11/28/21 11/29/21 11/29/21 18:59 06:59 18:59 Intake Total 500 Output Total 4100 Balance 500 -4100 Intake: Oral 500 Output: Urine 4100 Other: Voiding Method Indwelling Catheter Indwelling Catheter - Exam General appearance: The patient is alert, oriented, appears in no acute distress. HET: Head is normocephalic and atraumatic. Pupils are equal and reactive. Neck: Supple without lymphadenopathy. Trachea midline. No audible carotid bruit. Extremities: Normal skin color and turgor. Right lower extremity edema. Palpable bilateral dorsalis pedis pulses. Neurological: No focal deficits. Strength and sensation are grossly intact. - Labs CBC & Chem 7: 11/28/21 07:18 11/28/21 07:18 Labs: Abnormal Lab Results - Last 24 Hours (Table) 11/28/21 11/28/21 11/28/21 Range/Units 11:08 16:30 20:51 POC Glucose (mg/dL) 138 H 177 H 114 H (70-110) mg/dL 11/29/21 Range/Units 06:57 POC Glucose (mg/dL) 111 H (70-110) mg/dL Assessment and Plan Assessment: 1. Cooler extremity- improved 2. Right lower extremity gout flare 3. Bilateral lower extremity swelling Plan: There is no further workup or indication for any vascular surgical intervention. Continue medical management. Thank you for this consultation, we will sign off at this time. The impression and plan of care has been dictated as directed. I performed a history and examination of this patient, discussed the same with the dictator. I agree with the dictator's note ,documented as a scribe. Any additional findings or plans will be noted.
--- NOTE | 2021-11-29 12:20 | P.PN ---
Subjective Progress Note Date: 11/29/21 Principal diagnosis: Patient was evaluated at bedside today. She continues to experience right outer ankle pain and right inner knee painwith associated swelling. She denies any morning stiffness. She said pain is aggravated by bearing weight and improved with rest and elevation. She has no further complaints. Exam: Generalized swelling right ankle with tenderness to touch and tender with range of motion of motion, no obvious synovitis Patient's most recent uric acid was 6.0 which is now within a normal range so my recommendation is to continue current dose of allopurinol 100 mg daily and also continue tapering off prednisone. I would like her to be seen by Dr. Rodrigez once discharged and we can consider a intra-articular steroid injection at that time in the right medial knee and right lateral ankle. Objective - Vital Signs Vital signs: Vital Signs Temp 98.1 F 11/29/21 08:00 Pulse 95 11/29/21 08:00 Resp 18 11/29/21 08:00 BP 115/71 11/29/21 08:00 Pulse Ox 97 11/29/21 08:00 FiO2 21 11/18/21 19:11 Intake & Output 11/28/21 11/29/21 11/29/21 18:59 06:59 18:59 Intake Total 500 Output Total 4100 Balance 500 -4100 Intake: Oral 500 Output: Urine 4100 Other: Voiding Method Indwelling Catheter Indwelling Catheter Indwelling Catheter - Labs CBC & Chem 7: 11/28/21 07:18 11/28/21 07:18 Labs: Abnormal Lab Results - Last 24 Hours (Table) 11/28/21 11/28/21 11/29/21 Range/Units 16:30 20:51 05:30 PT 23.5 H (9.9-11.9) sec INR 2.16 H (0.90-1.11) POC Glucose (mg/dL) 177 H 114 H (70-110) mg/dL 11/29/21 Range/Units 06:57 PT (9.9-11.9) sec INR (0.90-1.11) POC Glucose (mg/dL) 111 H (70-110) mg/dL
--- NOTE | 2021-11-29 13:46 | P.DS ---
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 Downey request Do you want consulting provider notified?: Yes 11/26/21 08:34 Consult Physician Urgent Consulting Provider: Janet Toney Consult Reason/Comments: left leg cold Do you want consulting provider notified?: Yes Primary care physician: Jonathan Monreal Hospital Course: Final diagnosis Acute gout of the right knee and right ankle Period of unresponsiveness and altered mental status, improved rhabdomyolysis, improving Right ankle swelling and pain possibly secondary to gout flareup Elevated troponin, with severe global hypokinesis, ejection fraction 10-15%, patient does not look in significant acute exacerbation abnormal urinalysis, ruled out Acute urinary tract infection. Present on admission Chronic atrial fibrillation on warfarin Chronic heart failure Hypertension Status post pacemaker and AICD. Discharge disposition Patient is being discharged in a stable condition with guarded prognosis to [facility]. Patient will follow-up with Dr. Monreal in the outpatient setting upon discharge. Patient also needs close follow-up with rheumatology Dr. Rodrigez this week and orthopedics along with vascular surgery. Patient is continued on Coumadin and current INR is 2.1 and recommend repeat labs of CBC, BMP, PT/INR in the next 1-2 days. Total time taken is greater than 35 minutes. Hospital course This is an 81-year-old female who was recently admitted with fall and weakness with altered mental status with rhabdomyolysis, elevated troponins, acute gout and was being closely monitored. Patient does have history of severe global hypokinesis with an ejection fraction of 10-15% and follows with cardiology in the outpatient setting. Recommending maximizing medical management and patient was on losartan along with Aldactone and those are on hold and potassiums have been elevated recommend renal diet with low potassium, low salt, low phosphorus. Patient is being started on Imdur and also being followed in rheumatology on a steroid taper and is currently maintained on steroids and recommended close outpatient follow-up with Dr. Rodrigez this week as she was evaluated in the hospital recommending follow-up on discharge. Recommend repeat labs in the next 1-2 days to monitor CBC, BMP, PT/INR. Patient was evaluated by vascular surgery recommending outpatient follow-up in the outpatient setting. Patient with some lower extremity weakness recommending rehab and patient is agreeable and will be going today. Recommend close outpatient follow-up with primary care provider along with other consultations as discussed. Currently no reports of chest pain, shortness of breath, or palpitations. Patient is afebrile. No reports of nausea or vomiting and patient is tolerating diet. Patient will be going to [facility] today. Guarded prognosis. Physical exam: Gen: This is a 81-year-old female awake, alert and oriented 3, well-developed, well-nourished HEENT: Head is atraumatic, normocephalic. Pupils equal, round. Sclerae is anicteric. NECK: Supple. No JVD. No lymphadenopathy. No thyromegaly. LUNGS: Clear to auscultation. No wheezes or rhonchi. No intercostal retractions. HEART: Regular rate and rhythm. No murmur. ABDOMEN: Soft. Bowel sounds are present. No masses. No tenderness. EXTREMITIES: No pedal edema. No calf tenderness. Bilateral lower extremity pain with sensation and light palpation NEUROLOGICAL: Patient is awake, alert and oriented x3. Cranial nerves 2 through 12 are grossly intact. Diffuse weakness Please refer to medication reconciliation sheet for a list of medications. The impression and plan of care has been dictated by Sharyn Hernandez, Nurse Practitioner as directed. Dr. Andrea MD I have performed a history and examination and MDM of this patient, discussed the same with the dictator, and agree with the dictator's assessment and plan as written ,documented as a scribe. Based on total visit time, I have performed more than 50% of the visit. Patient Condition at Discharge: Fair Plan - Discharge Summary Discharge Rx Participant: No New Discharge Prescriptions: New Nitroglycerin Sl Tabs [Nitrostat] 0.4 mg SUBLINGUAL Q5M PRN tab PRN Reason: Chest Pain HYDROcodone/APAP 7.5-325MG [[place] 7.5-325] 1 each PO Q6HR PRN #6 tab PRN Reason: Pain INSULIN ASPART (NovoLOG) [NovoLOG (formulary)] 0 unit SQ ACHS each allopurinoL [Zyloprim] 100 mg PO DAILY tab Isosorbide Mononitrate ER [Imdur] 30 mg PO DAILY 30 Days #30 tab predniSONE [Deltasone] 20 mg PO DAILY tab Famotidine [Pepcid] 20 mg PO DAILY tab Capsaicin Cream [Trixaicin Cream] 1 applic TOPICAL QID each Acetaminophen Tab [Tylenol] 325 mg PO Q6HR PRN tab PRN Reason: Fever and/ or MILD Pain Continue Furosemide [Lasix] 40 mg PO DAILY carvediloL [Coreg] 12.5 mg PO BID Warfarin [Coumadin] 2.5 mg PO SUMOTUTHFR Warfarin [Coumadin] 3.75 mg PO WESA Discontinued Losartan [Cozaar] 50 mg PO DAILY Spironolactone [Aldactone] 12.5 mg PO DAILY Discharge Medication List Furosemide [Lasix] 40 mg PO DAILY 05/06/16 [History] carvediloL [Coreg] 12.5 mg PO BID 05/06/16 [History] Warfarin [Coumadin] 2.5 mg PO SUMOTUTHFR 07/12/19 [History] Warfarin [Coumadin] 3.75 mg PO WESA 11/15/21 [History] Acetaminophen Tab [Tylenol] 325 mg PO Q6HR PRN tab 11/29/21 [Rx] Capsaicin Cream [Trixaicin Cream] 1 applic TOPICAL QID each 11/29/21 [Rx] Famotidine [Pepcid] 20 mg PO DAILY tab 11/29/21 [Rx] HYDROcodone/APAP 7.5-325MG [[place] 7.5-325] 1 each PO Q6HR PRN #6 tab 11/29/21 [Rx] INSULIN ASPART (NovoLOG) [NovoLOG (formulary)] 0 unit SQ ACHS each 11/29/21 [Rx] Isosorbide Mononitrate ER [Imdur] 30 mg PO DAILY 30 Days #30 tab 11/29/21 [Rx] Nitroglycerin Sl Tabs [Nitrostat] 0.4 mg SUBLINGUAL Q5M PRN tab 11/29/21 [Rx] allopurinoL [Zyloprim] 100 mg PO DAILY tab 11/29/21 [Rx] predniSONE [Deltasone] 20 mg PO DAILY tab 11/29/21 [Rx] Follow up Appointment(s)/Referral(s): Janet Toney DO [STAFF PHYSICIAN] - 12/22/21 9:30 am Jonathan Monreal DO [Primary Care Provider] - 1-2 days Sofya Rodrigez MD [STAFF PHYSICIAN] - 12/13/21 1:30 pm (MUST BE THERE AT 1:30PM to fill out paper work) Marlon Catherine MD [Medical Doctor] - As Needed Ambulatory/Diagnostic Orders: Complete Blood Count w/diff [LAB.AMB] Time Frame: 2 Days, Location: None Selected Activity/Diet/Wound Care/Special Instructions: Patient is going to [facility] Activity as tolerated Continue taking medications as prescribed Continue with Coumadin and current INR is 2.16 recommend repeat labs of CBC, BMP, PT/INR in 1-2 days Continue holding Aldactone for now and losartan has been discontinued Patient needs follow-up with rheumatology Patient needs vascular surgery follow-up Follow-up with primary care provider on discharge Continue with Lasix 40 mg daily Patient is to continue a renal diet with low potassium, low phosphorus, low sodium and consistent carbohydrate diet Recommend monitoring blood sugars with Accu-Cheks before meals and at bedtime and use sliding scale as needed Patient needs follow-up with rheumatology Dr. Rodrigez this week and is continued on a prednisone taper Discharge Disposition: TRANSFER TO SNF/ECF
[2021-11-29 14:32] VITALS: BP 117/74; PULSE 58; RESP 16; TEMP 97.8
[2021-11-29 17:05] LABS: Glucose,Whole Blood 130 mg/dL (70-110)
[2021-11-29] MEDS ORDERED: WARFARIN 3 MG TAB PO ONE (18:00)
== END 2021-11-29 19:15 | DRG 553 ==
LOC: EC 22:01 → 3SCARD 11-15 01:52 → OBSVTOIN 11-15 12:32 → 4SSUR 11-20 17:58
PROVIDERS: ADMIT Internal Medicine; ATTEND Internal Medicine
PROC: 4B02XTZ Measurement of Cardiac Defibrillator, External Approach (ICD-10-PCS; principal; 2021-11-15)
PROC: 0S9D3ZX Drainage of Left Knee Joint, Percutaneous Approach, Diagnostic (ICD-10-PCS; 2021-11-17)
DX: M10.9 Gout, unspecified (principal); G93.41 Metabolic encephalopathy; I44.2 Atrioventricular block, complete; I42.8 Other cardiomyopathies; M62.82 Rhabdomyolysis; I50.22 Chronic systolic (congestive) heart failure; I48.0 Paroxysmal atrial fibrillation; E86.0 Dehydration; I11.0 Hypertensive heart disease with heart failure; M06.4 Inflammatory polyarthropathy; G31.9 Degenerative disease of nervous system, unspecified; D72.829 Elevated white blood cell count, unspecified; E87.6 Hypokalemia; E87.5 Hyperkalemia; M11.9 Crystal arthropathy, unspecified; M17.11 Unilateral primary osteoarthritis, right knee; M19.071 Primary osteoarthritis, right ankle and foot; T38.0X5A Adverse effect of glucocorticoids and synthetic analogues, initial encounter; M85.89 Other specified disorders of bone density and structure, multiple sites; R77.8 Other specified abnormalities of plasma proteins; R82.90 Unspecified abnormal findings in urine; Z79.01 Long term (current) use of anticoagulants; Z79.899 Other long term (current) drug therapy; Z85.3 Personal history of malignant neoplasm of breast; Z95.810 Presence of automatic (implantable) cardiac defibrillator; Z88.5 Allergy status to narcotic agent; W18.30XA Fall on same level, unspecified, initial encounter; Y92.009 Unspecified place in unspecified non-institutional (private) residence as the place of occurrence of the external cause
CPT/HCPCS: 36415; 70450; 71045; 72170; 80048; 80053; 80061; 80076; 80306; 80320; 81001; 82164; 82550; 82553; 83520; 83735; 84132; 84145; 84484; 84550; 85025; 85610; 85652; 85730; 86038; 86140; 86200; 86431; 87070; 87086; 87205; 89050; 89060; 93005; 93306; 93922; 93970; 94760; 99285

== ENCOUNTER 2021-12-10 02:33 | Inpatient (IN) | payer MEDICARE, OTHER ==
--- NOTE | 2021-12-10 02:42 | ED ---
Altered Mental Status HPI - General Stated Complaint: displaced pacemaker Time Seen by Provider: 12/10/21 02:35 Source: EMS Mode of arrival: EMS Limitations: altered mental status - History of Present Illness Initial Comments: This patient is an 81-year-old woman sent from long-term to have evaluation reportedly due to mental status change. When I interview the patient, she is not able to give much history. When I ask if she is having pain and she states no. Patient not able to give any additional history. MD Complaint: altered mental status -: unknown Consistency of Symptoms: unknown Context: history of similar presentation - Related Data Home Medications Medication Instructions Recorded Confirmed Furosemide [Lasix] 40 mg PO DAILY 05/06/16 12/10/21 carvediloL [Coreg] 12.5 mg PO BID 05/06/16 12/10/21 Warfarin [Coumadin] 2.5 mg PO SUMOTUTHFR 07/12/19 12/10/21 Warfarin [Coumadin] 3.75 mg PO WESA 11/15/21 12/10/21 Capsaicin Cream [Trixaicin Cream] 1 applic TOPICAL QID 12/10/21 12/10/21 HYDROcodone/APAP 7.5-325MG [[place] 1 tab PO QID@05,11,17,12/10/21 12/10/21 7.5-325] Healthshake 1 dose PO TID@1000,1400,199912/10/21 12/10/21 INSULIN ASPART (NovoLOG) [NovoLOG See Protocol SQ ACHS 12/10/21 12/10/21 (formulary)] Miconazole Nitrate [Lotrimin AF 1 applic TOPICAL BID 12/10/21 12/10/21 Powder] Zinc Oxide 40% Ointment 1 applic TOPICAL BID 12/10/21 12/10/21 Previous Rx's Medication Instructions Recorded Acetaminophen Tab [Tylenol] 325 mg PO Q6HR PRN tab 11/29/21 Famotidine [Pepcid] 20 mg PO DAILY tab 11/29/21 Isosorbide Mononitrate ER [Imdur] 30 mg PO DAILY 30 Days #30 tab 11/29/21 Nitroglycerin Sl Tabs [Nitrostat] 0.4 mg SUBLINGUAL Q5M PRN tab 11/29/21 allopurinoL [Zyloprim] 100 mg PO DAILY tab 11/29/21 predniSONE [Deltasone] 20 mg PO DAILY tab 11/29/21 Allergies Allergy/AdvReac Type Severity Reaction Status Date / Time codeine AdvReac Nausea & Verified 12/10/21 06:43 [From Tylenol-Codeine #3] Vomiting Review of Systems ROS Statement: Those systems with pertinent positive or pertinent negative responses have been documented in the HPI. ROS Other: All systems not noted in ROS Statement are negative. Limitations: ROS unobtainable due to patients medical condition Past Medical History Past Medical History: Atrial Fibrillation, Cancer, Heart Failure, Hypertension Additional Past Medical History / Comment(s): RIGHT BREAST CANCER 2007. LEFT BREAST CANCER 2017 History of Any Multi-Drug Resistant Organisms: None Reported Past Surgical History: Orthopedic Surgery, Pacemaker Additional Past Surgical History / Comment(s): right breast lumpectomy 2006. left breast LUMPECTOMY 2016. [place] shoulder sx. [place] cataract. AICD 2010 Past Anesthesia/Blood Transfusion Reactions: Postoperative Nausea & Vomiting (PONV) Additional Past Anesthesia/Blood Transfusion Reaction / Comment(s): no hx blood transfusion Type of Cardiac Device: AICD Device Placement Date:: [place], last 2010 Past Psychological History: No Psychological Hx Reported Past Alcohol Use History: None Reported Past Drug Use History: None Reported - Past Family History Brother(s) Family Medical History: Cancer Additional Family Medical History / Comment(s): lung Mother Family Medical History: Congestive Heart Failure (CHF) Father History Unknown: Yes General Exam General appearance: alert Head exam: Present: atraumatic, normocephalic Eye exam: Present: normal appearance Respiratory exam: Present: normal lung sounds bilaterally. Absent: respiratory distress, wheezes, rales, rhonchi, stridor Cardiovascular Exam: Present: regular rate, normal rhythm, normal heart sounds. Absent: systolic murmur, diastolic murmur, rubs, gallop GI/Abdominal exam: Present: soft. Absent: distended, tenderness, guarding, rebound Neurological exam: Absent: oriented X3 Skin exam: Present: warm, dry, intact, normal color. Absent: rash Course Vital Signs 12/10/21 12/10/21 12/10/21 02:39 03:15 05:44 Temperature 97.9 F Pulse Rate 68 60 60 Respiratory 20 22 17 Rate Blood Pressure 80/33 69/50 77/46 O2 Sat by Pulse 96 95 96 Oximetry 12/10/21 12/10/21 07:08 07:15 Temperature 97.6 F Pulse Rate 60 60 Respiratory 18 18 Rate Blood Pressure 95/51 82/64 O2 Sat by Pulse 94 L 99 Oximetry Medical Decision Making - Medical Decision Making This patient is an 81-year-old woman sent from long-term for change in me ntation. On arrival patient is hypotensive. She is given IV fluid bolus and remains still less than normotensive. I discussed CODE STATUS with the patient's nephew who is listed as one the patient contacts and he states that the family does have consensus that patient has full code and would want central line and pressors. In light of this I did place a right femoral triple-lumen central venous catheter. No complications, see the procedure note. Case also discussed with Dr. Ellis in covering intensive care. The workup does reveal again the acute kidney injury. The troponin is elevated but patient has always had elevated troponin in our lab testing. Today's value less than the previous values. I suspect urinary tract infection, but the patient had not produced urine yet. - Lab Data Result diagrams: 12/10/21 02:45 12/10/21 03:14 Lab Results 12/10/21 12/10/21 12/10/21 Range/Units 02:45 03:14 03:14 WBC 10.6 (3.8-10.6) k/uL RBC 4.33 (3.80-5.40) m/uL Hgb 11.9 (11.4-16.0) gm/dL Hct 38.1 (34.0-46.0) % MCV 87.9 (80.0-100.0) fL MCH 27.6 (25.0-35.0) pg MCHC 31.4 (31.0-37.0) g/dL RDW 16.3 H (11.5-15.5) % Plt Count 166 D (150-450) k/uL MPV 7.7 Neutrophils % 87 % Lymphocytes % 7 % Monocytes % 4 % Eosinophils % 1 % Basophils % 0 % Neutrophils # 9.2 H (1.3-7.7) k/uL Lymphocytes # 0.7 L (1.0-4.8) k/uL Monocytes # 0.4 (0-1.0) k/uL Eosinophils # 0.1 (0-0.7) k/uL Basophils # 0.0 (0-0.2) k/uL Hypochromasia Slight Anisocytosis Slight Sodium 128 L (137-145) mmol/L Potassium 4.7 (3.5-5.1) mmol/L Chloride 88 L (98-107) mmol/L Carbon Dioxide 27 (22-30) mmol/L Anion Gap 13 mmol/L BUN 68 H (7-17) mg/dL Creatinine 1.98 H (0.52-1.04) mg/dL Est GFR (CKD-EPI)AfAm 27 (>60 ml/min/1.73 sqM) Est GFR (CKD-EPI)NonAf 23 (>60 ml/min/1.73 sqM) Glucose 115 H (74-99) mg/dL Plasma Lactic Acid Lukasz (0.7-2.0) mmol/L Calcium 9.3 (8.4-10.2) mg/dL Total Bilirubin 2.0 H (0.2-1.3) mg/dL AST 67 H (14-36) U/L ALT 27 (4-34) U/L Alkaline Phosphatase 96 (38-126) U/L Troponin I 0.124 H* (0.000-0.034) ng/mL Total Protein 6.0 L (6.3-8.2) g/dL Albumin 3.0 L (3.5-5.0) g/dL 12/10/21 Range/Units 04:10 WBC (3.8-10.6) k/uL RBC (3.80-5.40) m/uL Hgb (11.4-16.0) gm/dL Hct (34.0-46.0) % MCV (80.0-100.0) fL MCH (25.0-35.0) pg MCHC (31.0-37.0) g/dL RDW (11.5-15.5) % Plt Count (150-450) k/uL MPV Neutrophils % % Lymphocytes % % Monocytes % % Eosinophils % % Basophils % % Neutrophils # (1.3-7.7) k/uL Lymphocytes # (1.0-4.8) k/uL Monocytes # (0-1.0) k/uL Eosinophils # (0-0.7) k/uL Basophils # (0-0.2) k/uL Hypochromasia Anisocytosis Sodium (137-145) mmol/L Potassium (3.5-5.1) mmol/L Chloride (98-107) mmol/L Carbon Dioxide (22-30) mmol/L Anion Gap mmol/L BUN (7-17) mg/dL Creatinine (0.52-1.04) mg/dL Est GFR (CKD-EPI)AfAm (>60 ml/min/1.73 sqM) Est GFR (CKD-EPI)NonAf (>60 ml/min/1.73 sqM) Glucose (74-99) mg/dL Plasma Lactic Acid Lukasz 1.7 (0.7-2.0) mmol/L Calcium (8.4-10.2) mg/dL Total Bilirubin (0.2-1.3) mg/dL AST (14-36) U/L ALT (4-34) U/L Alkaline Phosphatase (38-126) U/L Troponin I (0.000-0.034) ng/mL Total Protein (6.3-8.2) g/dL Albumin (3.5-5.0) g/dL - EKG Data -: EKG Interpreted by Me Interpretation: other (There is a paced rhythm rate 79 beats per minutes.) Disposition Clinical Impression: Altered mental status, Acute kidney injury, Hypotension Disposition: ADMITTED IP TO THIS HOSP Condition: Serious Is patient prescribed a controlled substance at d/c from ED?: No
[2021-12-10] MEDS ORDERED: SODIUM CHLORIDE 0.9% 1,000 ML IV ONE ×2 (02:43→12:44)
[2021-12-10 03:30] LABS: Anisocytosis Slight; Basophils % (A) 0 %; Eosinophils # (A) 0.1 k/uL (0-0.7); Eosinophils % (A) 1 %; HCT 38.1 % (34.0-46.0); HGB 11.9 gm/dL (11.4-16.0); Hypochromasia Slight; Lymphocytes # (A) 0.7 k/uL (1.0-4.8); Lymphocytes % (A) 7 %; MCH 27.6 pg (25.0-35.0); MCHC 31.4 g/dL (31.0-37.0); MCV 87.9 fL (80.0-100.0); Mean Platelet Volume 7.7; Monocytes # (A) 0.4 k/uL (0-1.0); Monocytes % (A) 4 %; Neutrophils # (A) 9.2 k/uL (1.3-7.7); Neutrophils % (A) 87 %; RBC 4.33 m/uL (3.80-5.40); RDW 16.3 % (11.5-15.5); WBC 10.6 k/uL (3.8-10.6)
--- NOTE | 2021-12-10 03:38 | CT ---
EXAMINATION TYPE: CT brain wo con DATE OF EXAM: 12/10/2021 COMPARISON: 11/14/2021 HISTORY: ams CT DLP: 1060.4 mGycm Automated exposure control for dose reduction was used. Images of the brain obtained with no contrast. There is mild cerebral atrophy. There is no mass effect or midline shift. No sign of intracranial hem orrhage. The calvarium is intact. No evidence of cerebral edema. IMPRESSION: Mild atrophy. No acute intracranial abnormality. No change.
--- NOTE | 2021-12-10 03:40 | XR ---
EXAMINATION TYPE: XR chest 1V portable DATE OF EXAM: 12/10/2021 COMPARISON: 11/14/2021 HISTORY: Weakness. Altered mental status TECHNIQUE: FINDINGS: Heart is enlarged. No obvious heart failure. There is left axillary pacemaker. No pleural e ffusion. There are chest leads. There are multiple surgical clips over the right axilla. IMPRESSION: Cardiomegaly. No active cardiopulmonary disease. No change.
[2021-12-10 03:41] LABS: Calcium 9.3 mg/dL (8.4-10.2); Potassium 4.7 mmol/L (3.5-5.1)
[2021-12-10 03:48] LABS: Platelet Count 166 k/uL (150-450)
[2021-12-10] MEDS ORDERED: NALOXONE 0.4 MG/ML 1 ML VIAL IV PRN (04:37)
[2021-12-10] MEDS: SODIUM CHLORIDE 0.9% 1,000 ML IV SCH ×2 (08:24→21:24)
[2021-12-10] MEDS: HEPARIN SODIUM,PORCINE/PF 5,000 UNIT/0.5 ML SYRINGE SQ SCH ×2 (09:23→21:23)
[2021-12-10] MEDS ORDERED: NOREPINEPHRINE 32 MG in SODIUM CHLORIDE 0.9% 218 ML IV ONE (10:23)
[2021-12-10 11:55] LABS: Glucose,Whole Blood 128 mg/dL (70-110)
[2021-12-10 13:14] LABS: Appearance,Urine Cloudy (Clear); Bacteria,Urine Rare /hpf; Bilirubin,Urine Negative (Negative); Blood,Urine Moderate (Negative); Color,Urine Yellow; Glucose,Urine (UA) Negative (Negative); Hyaline Casts,Urine 11 /lpf (0-2); Ketones,Urine Negative (Negative); Leukocyte Esterase,Urine Moderate (Negative); Mucus,Urine Rare /hpf; Nitrite,Urine Negative (Negative); Protein,Urine Negative (Negative); RBC,Urine 33 /hpf (0-5); Specific Gravity,Urine 1.011 (1.001-1.035); Squamous Epithelial Cell,Urine 1 /hpf (0-4); WBC,Urine 15 /hpf (0-5)
--- NOTE | 2021-12-10 13:32 | P.CNPUL ---
History of Present Illness Consult date: 12/10/21 Chief complaint: Hypotension History of present illness: I was asked to transfer this patient to the intensive care unit. She is a longterm resident with advanced dementia and medical debility and the patient is unable to provide any history. She was sent over from the longterm because of increased lethargy and altered mentation. The patient was also found to be hypotensive. Sepsis was suspected. The patient was given a triple- lumen catheter in the emergency department and she was started on norepinephrine infusion which is currently running at 0.08 mcg/kg per minute. She was also given a liter of normal saline bolus. She was given IV Rocephin and she was admitted to the hospital. Chest x-ray showing cardiomegaly and the patient is a pacemaker/defibrillator in place. There is no evidence of any acute pulmonary infiltrate. No evidence of any aspiration pneumonia. No evidence of any surgical wounds or ulceration. Urinalysis has not been done yet and this needs to be done to rule out the possibility of underlying UTI/sepsis. The patient's blood work shows a white cell count of 10.6 with a hemoglobin of 11.9 and a platelet count of 166. The patient's sodium level of 128 with a potassium level of 4.7, BUN is at 68 with a creatinine of 1.98. The troponin is at 0.124. The liver function tests are essentially within normal limits. Note that the patient was recently discharged from the hospital. She was released from the hospital on 11/29/2021. She was treated for acute pain in lower extremities measuring the right knee and ankle and she was given diagnosis of gout. She will also was found to have a component of rhabdomyolysis which improved. She did have some right ankle swelling secondary to gout. Note that the patient has severe cardiomyopathy and the patient is an ejection fraction of around 10-15%. The patient also has chronic atrial fibrillation and the patient has been maintained on warfarin. She has hypertension and the patient has a pacemaker/AICD in place. She does have underlying dementia. During her last admission, no septic event or infection was identified. The patient was discharged to longterm. She went to medical [place] [facility] [place]. Review of Systems ROS unobtainable: due to mental status Past Medical History Past Medical History: Atrial Fibrillation, Cancer, Heart Failure, Hypertension Additional Past Medical History / Comment(s): RIGHT BREAST CANCER 2006. LEFT BREAST CANCER 2017 History of Any Multi-Drug Resistant Organisms: None Reported Past Surgical History: Orthopedic Surgery, Pacemaker Additional Past Surgical History / Comment(s): right breast lumpectomy 2006. left breast LUMPECTOMY 2016. [place] shoulder sx. [place] cataract. AICD 2010 Past Anesthesia/Blood Transfusion Reactions: Postoperative Nausea & Vomiting (PONV) Additional Past Anesthesia/Blood Transfusion Reaction / Comment(s): no hx blood transfusion Type of Cardiac Device: AICD Device Placement Date:: Sunglass, last 2010 Past Psychological History: No Psychological Hx Reported Past Alcohol Use History: None Reported Past Drug Use History: None Reported - Past Family History Brother(s) Family Medical History: Cancer Additional Family Medical History / Comment(s): lung Mother Family Medical History: Congestive Heart Failure (CHF) Father History Unknown: Yes Medications and Allergies Home Medications Medication Instructions Recorded Confirmed Type Furosemide [Lasix] 40 mg PO DAILY 05/06/16 12/10/21 History carvediloL [Coreg] 12.5 mg PO BID 05/06/16 12/10/21 History Warfarin [Coumadin] 2.5 mg PO SUMOTUTHFR 07/12/19 12/10/21 History Warfarin [Coumadin] 3.75 mg PO WESA 11/15/21 12/10/21 History Acetaminophen Tab [Tylenol] 325 mg PO Q6HR PRN tab 11/29/21 12/10/21 Rx Famotidine [Pepcid] 20 mg PO DAILY tab 11/29/21 12/10/21 Rx Isosorbide Mononitrate ER [Imdur] 30 mg PO DAILY 30 Days #30 tab 11/29/21 12/10/21 Rx Nitroglycerin Sl Tabs [Nitrostat] 0.4 mg SUBLINGUAL Q5M PRN tab 11/29/21 12/10/21 Rx allopurinoL [Zyloprim] 100 mg PO DAILY tab 11/29/21 12/10/21 Rx predniSONE [Deltasone] 20 mg PO DAILY tab 11/29/21 12/10/21 Rx Capsaicin Cream [Trixaicin Cream] 1 applic TOPICAL QID 12/10/21 12/10/21 History HYDROcodone/APAP 7.5-325MG [[place] 1 tab PO QID@05,11,17,23 12/10/21 12/10/21 H istory 7.5-325] Healthshake 1 dose PO TID@1000,1400,2000 12/10/21 12/10/21 History INSULIN ASPART (NovoLOG) [NovoLOG See Protocol SQ ACHS 12/10/21 12/10/21 History (formulary)] Miconazole Nitrate [Lotrimin AF 1 applic TOPICAL BID 12/10/21 12/10/21 History Powder] Zinc Oxide 40% Ointment 1 applic TOPICAL BID 12/10/21 12/10/21 History Allergies Allergy/AdvReac Type Severity Reaction Status Date / Time codeine AdvReac Nausea & Verified 12/10/21 06:43 [From Tylenol-Codeine #3] Vomiting Physical Exam Vitals: Vital Signs Temp Pulse Resp BP Pulse Ox 12/10/21 11:28 97.8 F 60 16 91/72 99 12/10/21 10:00 60 18 71/52 100 12/10/21 09:45 78 18 88/54 100 12/10/21 09:30 61 18 78/47 100 12/10/21 09:15 60 18 82/44 99 12/10/21 09:00 60 18 74/42 98 12/10/21 08:45 60 19 76/44 98 12/10/21 08:30 60 14 77/50 98 12/10/21 08:15 60 18 85/49 98 12/10/21 08:00 67 18 78/53 98 12/10/21 07:15 97.6 F 60 18 82/64 99 12/10/21 07:08 60 18 95/51 94 L 12/10/21 05:44 60 17 77/46 96 12/10/21 03:15 60 22 69/50 95 12/10/21 02:39 97.9 F 68 20 80/33 96 Intake and Output 12/09/21 12/10/21 12/10/21 22:59 06:59 14:59 Intake Total 1079.797 Output Total 60 Balance 1019.797 Intake: Intake, IV Titration 1079.797 Amount Norepinephrine 32 mg In 4.797 Sodium Chloride 0.9% 218 ml @ 0.05 MCG/KG/MIN 1. 914 mls/hr IV .Q24H ONE Rx#:[id number] Sodium Chloride 0.9% 1, 75 000 ml @ 75 mls/hr IV . [id number] [facility] Rx#:[id number] Sodium Chloride 0.9% 1, 1000 000 ml @ 999 mls/hr IV . Q1H1M ONE Rx#:[id number] Output: Urine 60 Other: Weight 81.647 kg 81.647 kg Gen. appearance the patient is calm and comfortable, not in acute respiratory d istress and the patient is currently on room air oxygen The patient's breathing is nonlabored Head exam was generally normal. There was no scleral icterus or corneal arcus. Mucous membranes were moist. Neck was supple and without jugular venous distension, thyromegaly, or carotid bruits. Carotids were easily palpable bilaterally. There was no adenopathy. Lungs were clear to auscultation and percussion, and with normal diaphragmatic excursion. No wheezes or rales were noted. Cardiac exam revealed the PMI to be normally situated and sized. The rhythm was regular and no extrasystoles were noted during several minutes of auscultation. The first and second heart sounds were normal and physiologic splitting of the second heart sound was noted. There were no murmurs, rubs, clicks, or gallops. Abdominal exam revealed normal bowel sounds. The abdomen was soft, non-tender, and without masses, organomegaly, or appreciable enlargement of the abdominal aorta. Extremities revealed some limited range of motion due to pain associated ankles bilaterally there are also swollen. The patient has no edema. No cyanosis or clubbing. No open wounds or ulcers or evidence of a cellulitis. Neurologic exam is nonfocal and the patient is no patient asymmetry. No focal neurological deficits. Results - Laboratory Findings CBC and BMP: 12/10/21 02:45 12/10/21 03:14 Abnormal lab findings: Abnormal Labs 12/10/21 12/10/21 12/10/21 02:45 03:14 03:14 RDW 16.3 H Neutrophils # 9.2 H Lymphocytes # 0.7 L Sodium 128 L Chloride 88 L BUN 68 H Creatinine 1.98 H Glucose 115 H POC Glucose (mg/dL) Total Bilirubin 2.0 H AST 67 H Troponin I 0.124 H* Total Protein 6.0 L Albumin 3.0 L Urine Appearance Urine Blood Ur Leukocyte Esterase Urine RBC Urine WBC Urine Bacteria Hyaline Casts Urine Mucus 12/10/21 12/10/21 11:54 12:45 RDW Neutrophils # Lymphocytes # Sodium Chloride BUN Creatinine Glucose POC Glucose (mg/dL) 128 H Total Bilirubin AST Troponin I Total Protein Albumin Urine Appearance Cloudy H Urine Blood Moderate H Ur Leukocyte Esterase Moderate H Urine RBC 33 H Urine WBC 15 H Urine Bacteria Rare H Hyaline Casts 11 H Urine Mucus Rare H - Diagnostic Findings Chest x-ray: image reviewed Assessment and Plan Plan: Hypotension, likely secondary to intravascular volume depletion. The patient is also known to have severe cardiomyopathy with an ejection fraction of 10-15%. No clear indication of an underlying infection or sepsis. The patient was given a liter of fluid in the emergency and she was started on pressors. This is probably a hypovolemic hypotension. Severe systolic heart failure, with an ejection fraction of around 10-15% Hyponatremia secondary to above, sodium level is at 128 and the patient has hypochloremic hyponatremia Acute kidney injury likely secondary to intravascular volume depletion. Rule out underlying cardiorenal factors. Creatinine is up to 1.98 Nonspecific troponin leak at 0.124 Altered mentation acute on chronic with a baseline dementia, likely secondary to hypotension Chronic atrial fibrillation maintained on long-term and to coagulation with warfarin. History of pacemaker/AICD History of bilateral breast cancer with previous lumpectomies History of gout History of knee pain History of rhabdomyolysis Plan Give the patient another liter of normal saline and put on a maintenance of 35 mL an hour normal saline Check the patient's pro-calcitonin level Check urinalysis Continued IV Rocephin as an empiric antibiotic coverage Monitor the sodium level and the renal function Check CPK Wean off norepinephrine infusion to maintain a saturation above 90% Monitor troponins Establish a CODE STATUS. She is a longterm resident with advanced comorbidities. We'll continue to follow the patient in the intensive care unit. The patient's triple lumen catheter in the right femoral vein.
[2021-12-10 14:53] LABS: Prothrombin Time 126.7 sec (9.0-12.0)
[2021-12-10 14:56] LABS: INR >10.0 (<1.2)
[2021-12-10] MEDS ORDERED: PHYTONADIONE 10 MG in SODIUM CHLORIDE 0.9% 50 ML IVPB STA (15:05)
--- NOTE | 2021-12-10 18:33 | P.HPIM ---
History of Present Illness H&P Date: 12/10/21 Chief Complaint: Altered mental status 81-year-old woman sent from prison to have evaluation reportedly due to mental status change. When I interview the patient, she is not able to give much history. When I ask if she is having pain and she states no. Patient not able to give any additional history. In the ED patient was found to be hypotensive and was placed on IV Levaquin along with 1 L of normal saline bolus; She was given IV Rocephin and she was admitted to the hospital. Chest x-ray showing cardiomegaly and the patient is a pacemaker/defibrillator in place. There is no evidence of any acute pulmonary infiltrate. No evidence of any aspiration pneumonia. No evidence of any surgical wounds or ulceration. Urinalysis has not been done yet and this needs to be done to rule out the possibility of underlying UTI/sepsis. The patient's blood work shows a white cell count of 10.6 with a hemoglobin of 11.9 and a platelet count of 166. The patient's sodium level of 128 with a potassium level of 4.7, BUN is at 68 with a creatinine of 1.98. The troponin is at 0.124. The liver function tests are essentially within normal limits. Note that the patie nt was recently discharged from the hospital. She was released from the hospital on 11/29/2021. She was treated for acute pain in lower extremities measuring the right knee and ankle and she was given diagnosis of gout. She will also was found to have a component of rhabdomyolysis which improved. She did have some right ankle swelling secondary to gout. Note that the patient has severe cardiomyopathy and the patient is an ejection fraction of around 10-15%. The patient also has chronic atrial fibrillation and the patient has been maintained on warfarin. At the time of my evaluation patient does open eyes to verbal stimulation but not following any verbal commands Review of Systems ROS unobtainable: due to mental status Past Medical History Past Medical History: Atrial Fibrillation, Cancer, Heart Failure, Hypertension Additional Past Medical History / Comment(s): RIGHT BREAST CANCER 2006. LEFT BREAST CANCER 2017 History of Any Multi-Drug Resistant Organisms: None Reported Past Surgical History: Orthopedic Surgery, Pacemaker Additional Past Surgical History / Comment(s): right breast lumpectomy 2006. left breast LUMPECTOMY 2016. [place] shoulder sx. [place] cataract. AICD 2010 Past Anesthesia/Blood Transfusion Reactions: Postoperative Nausea & Vomiting (PONV) Additional Past Anesthesia/Blood Transfusion Reaction / Comment(s): no hx blood transfusion Type of Cardiac Device: AICD Device Placement Date:: Mytrus, last 2010 Past Psychological History: No Psychological Hx Reported Past Alcohol Use History: None Reported Past Drug Use History: None Reported - Past Family History Brother(s) Family Medical History: Cancer Additional Family Medical History / Comment(s): lung Mother Family Medical History: Congestive Heart Failure (CHF) Father History Unknown: Yes Medications and Allergies Home Medications Medication Instructions Recorded Confirmed Type Furosemide [Lasix] 40 mg PO DAILY 05/06/16 12/10/21 History carvediloL [Coreg] 12.5 mg PO BID 05/06/16 12/10/21 History Warfarin [Coumadin] 2.5 mg PO SUMOTUTHFR 07/12/19 12/10/21 History Warfarin [Coumadin] 3.75 mg PO WESA 11/15/21 12/10/21 History Acetaminophen Tab [Tylenol] 325 mg PO Q6HR PRN tab 11/29/21 12/10/21 Rx Famotidine [Pepcid] 20 mg PO DAILY tab 11/29/21 12/10/21 Rx Isosorbide Mononitrate ER [Imdur] 30 mg PO DAILY 30 Days #30 tab 11/29/21 12/10/21 Rx Nitroglycerin Sl Tabs [Nitrostat] 0.4 mg SUBLINGUAL Q5M PRN tab 11/29/21 Rx allopurinoL [Zyloprim] 100 mg PO DAILY tab 11/29/21 12/10/21 Rx predniSONE [Deltasone] 20 mg PO DAILY tab 11/29/21 12/10/21 Rx Capsaicin Cream [Trixaicin Cream] 1 applic TOPICAL QID 12/10/21 12/10/21 History HYDROcodone/APAP 7.5-325MG [[place] 1 tab PO QID@05,11,,12/10/21 12/10/21 History 7.5-325] Healthshake 1 dose PO TID@1000,1400,2000 12/10/21 12/10/21 History INSULIN ASPART (NovoLOG) [NovoLOG See Protocol SQ ACHS 12/10/21 12/10/21 History (formulary)] Miconazole Nitrate [Lotrimin AF 1 applic TOPICAL BID 12/10/21 12/10/21 History Powder] Zinc Oxide 40% Ointment 1 applic TOPICAL BID 12/10/21 12/10/21 History Allergies Allergy/AdvReac Type Severity Reaction Status Date / Time codeine AdvReac Nausea & Verified 12/10/21 06:43 [From Tylenol-Codeine #3] Vomiting Physical Exam Vitals: Vital Signs Temp Pulse Resp BP Pulse Ox 12/10/21 10:00 60 18 71/52 100 12/10/21 09:45 78 18 88/54 100 12/10/21 09:30 61 18 78/47 100 12/10/21 09:15 60 18 82/44 99 12/10/21 09:00 60 18 74/42 98 12/10/21 08:45 60 19 76/44 98 12/10/21 08:30 60 14 77/50 98 12/10/21 08:15 60 18 85/49 98 12/10/21 08:00 67 18 78/53 98 12/10/21 07:15 97.6 F 60 18 82/64 99 12/10/21 07:08 60 18 95/51 94 L 12/10/21 05:44 60 17 77/46 96 12/10/21 03:15 60 22 69/50 95 12/10/21 02:39 97.9 F 68 20 80/33 96 Intake and Output 12/09/21 12/10/21 12/10/21 22:59 06:59 14:59 Intake Total 1.18 Balance 1.18 Intake: Intake, IV Titration 1.18 Amount Norepinephrine 32 mg In 1.18 Sodium Chloride 0.9% 218 ml @ 0.05 MCG/KG/MIN 1. 914 mls/hr IV .Q24H ONE Rx#:[id number] Other: Weight 81.647 kg Gen. appearance the patient is calm and comfortable, not in acute respiratory distress and the patient is currently on room air oxygen The patient's breathing is nonlabored Head exam was generally normal. There was no scleral icterus or corneal arcus. Mucous membranes were moist. Neck was supple and without jugular venous distension, thyromegaly, or carotid bruits. Carotids were easily palpable bilaterally. There was no adenopathy. Lungs were clear to auscultation and percussion, and with normal diaphragmatic excursion. No wheezes or rales were noted. Cardiac exam revealed the PMI to be normally situated and sized. The rhythm was regular and no extrasystoles were noted during several minutes of auscultation. The first and second heart sounds were normal and physiologic splitting of the second heart sound was noted. There were no murmurs, rubs, clicks, or gallops. Abdominal exam revealed normal bowel sounds. The abdomen was soft, non-tender, and without masses, organomegaly, or appreciable enlargement of the abdominal aorta. Extremities revealed some limited range of motion due to pain associated ankles bilaterally there are also swollen. The patient has no edema. No cyanosis or clubbing. No open wounds or ulcers or evidence of a cellulitis. Neurologic exam is nonfocal and the patient is no patient asymmetry. No focal neurological deficits. Results CBC & Chem 7: 12/10/21 02:45 12/10/21 03:14 Labs: Abnormal Lab Results - Last 24 Hours (Table) 12/10/21 12/10/21 12/10/21 Range/Units 02:45 03:14 03:14 RDW 16.3 H (11.5-15.5) % Neutrophils # 9.2 H (1.3-7.7) k/uL Lymphocytes # 0.7 L (1.0-4.8) k/uL Sodium 128 L (137-145) mmol/L Chloride 88 L (98-107) mmol/L BUN 68 H (7-17) mg/dL Creatinine 1.98 H (0.52-1.04) mg/dL Glucose 115 H (74-99) mg/dL Total Bilirubin 2.0 H (0.2-1.3) mg/dL AST 67 H (14-36) U/L Troponin I 0.124 H* (0.000-0.034) ng/mL Total Protein 6.0 L (6.3-8.2) g/dL Albumin 3.0 L (3.5-5.0) g/dL Assessment and Plan Assessment: 1. Hypotension; likely severe dehydration - Patient received 1 L of IV normal saline in ED; has been placed on IV Levophed for persistent hypotension; patient will receive 1 more liter of IV normal saline 2. Severe cardiomyopathy/severe systolic CHF; last echocardiogram reveals severe cardiomyopathy with an ejection fraction of 10-15%; patient is status post pacemaker/AICD 3. Hyponatremia; sodium level at 128; patient received IV fluids in form of normal saline, 1 L in ED; intensive care team recommended to continue with 1 more liter and monitor electrolytes closely 4. Elevated troponin; likely nonspecific related to hypotension and hypovolemia; patient does have severe cardiomyopathy 5. Acute renal injury; likely related to intravascular volume depletion; patient receiving and inability to IV normal saline 6. Altered mental status; Patient has underlying dementia with likely acute exacerbation related to hypotension 7. Chronic atrial fibrillation; remains rate controlled; remains on long-term anticoagulation with warfarin DVT prophylaxis; systemic anticoagulation CODE STATUS; remains full code
[2021-12-10] MEDS ORDERED: VANCOMYCIN IV PER PHARMACY 1 EACH MISC MISCELLANE SCH (22:15)
[2021-12-10] MEDS ORDERED: VANCOMYCIN 1,500 MG in SODIUM CHLORIDE 0.9% 250 ML IVPB ONE (23:00)
[2021-12-11] MEDS: SODIUM CHLORIDE 0.9% 1,000 ML IV SCH (06:14)
[2021-12-11 06:20] LABS: Anisocytosis Slight; HGB 10.7 gm/dL (11.4-16.0); Hypochromasia Slight; MCH 28.4 pg (25.0-35.0); MCHC 31.6 g/dL (31.0-37.0); MCV 89.9 fL (80.0-100.0); Mean Platelet Volume 8.2; Platelet Count 114 k/uL (150-450); RBC 3.78 m/uL (3.80-5.40); RDW 16.5 % (11.5-15.5)
[2021-12-11 06:27] LABS: INR 1.2 (<1.2); Prothrombin Time 12.5 sec (9.0-12.0)
[2021-12-11 06:53] LABS: Albumin 2.6 g/dL (3.5-5.0); Calcium 8.3 mg/dL (8.4-10.2); Potassium 3.6 mmol/L (3.5-5.1); Total Bilirubin 1.4 mg/dL (0.2-1.3); Total Protein 5.2 g/dL (6.3-8.2)
[2021-12-11] MEDS ORDERED: ACETAMINOPHEN TAB 325 MG TAB PO PRN (08:38)
[2021-12-11] MEDS: carvediloL 12.5 MG TAB PO SCH ×2 (09:19→18:46)
[2021-12-11] MEDS: HEPARIN SODIUM,PORCINE/PF 5,000 UNIT/0.5 ML SYRINGE SQ SCH (09:51)
[2021-12-11] MEDS: allopurinoL 100 MG TAB PO SCH (09:51)
[2021-12-11] MEDS ORDERED: POTASSIUM CHLORIDE ER 20 MEQ TAB.ER PO SCH (10:00)
[2021-12-11] MEDS: HYDROcodone/APAP 7.5-325MG 1 EACH TAB PO SCH ×2 (10:22→18:46)
--- NOTE | 2021-12-11 11:05 | P.PN ---
Subjective Progress Note Date: 12/11/21 I was asked to transfer this patient to the intensive care unit. She is a shelter resident with advanced dementia and medical debility and the patient is unable to provide any history. She was sent over from the shelter because of increased lethargy and altered mentation. The patient was also found to be hypotensive. Sepsis was suspected. The patient was given a triple- lumen catheter in the emergency department and she was started on norepinephrine infusion which is currently running at 0.08 mcg/kg per minute. She was also given a liter of normal saline bolus. She was given IV Rocephin and she was admitted to the hospital. Chest x-ray showing cardiomegaly and the patient is a pacemaker/defibrillator in place. There is no evidence of any acute pulmonary infiltrate. No evidence of any aspiration pneumonia. No evidence of any surgical wounds or ulceration. Urinalysis has not been done yet and this needs to be done to rule out the possibility of underlying UTI/sepsis. The patient's blood work shows a white cell count of 10.6 with a hemoglobin of 11.9 and a platelet count of 166. The patient's sodium level of 128 with a potassium level of 4.7, BUN is at 68 with a creatinine of 1.98. The troponin is at 0.124. The liver function tests are essentially within normal limits. Note that the patient was recently discharged from the hospital. She was released from the hospital on 11/29/2021. She was treated for acute pain in lower extremities measuring the right knee and ankle and she was given diagnosis of gout. She will also was found to have a component of rhabdomyolysis which improved. She did have some right ankle swelling secondary to gout. Note that the patient has severe cardiomyopathy and the patient is an ejection fraction of around 10-15%. The patient also has chronic atrial fibrillation and the patient has been maintained on warfarin. She has hypertension and the patient has a pacemaker/AICD in place. She does have underlying dementia. During her last admission, no septic event or infection was identified. The patient was discharged to shelter. She went to [facility]. 12/11/2021, the patient is being seen for a follow-up. She has dementia. No agitation. She is a very poor historian as mentioned. Note that the patient was given IV fluids as I thought that the patient was intravascularly depleted. She was given a liter bolus and she was maintained on 75 mL an hour and earlier this morning the norepinephrine was discontinued. Furthermore, the blood work from today shows a BUN of 47 and a creatinine of 1.3 and the creatinine is improved. The patient had troponins of 0.14 and 0.13 respectively. The patient meanwhile responded nicely to IV fluids. The patient is currently off pressors. We'll for significant been negative. The patient has a white cell count of 9 with a hemoglobin of 10.7. Platelet count is at 114. The INR was toxic at the time of admission and the patient received a total of 10 mg of vitamin K and 2 units of fresh frozen plasma and INR from this morning is down to 1.2. Respiratory electrodes are all stable. Serum bicarbs of 80 with a sodium level of 136. Liver function test shows a bilirubin of 1.7, AST of 71, ALT of 26, alkaline phosphatase of 23. The patient remains on empiric antibiotic coverage with IV Zosyn. Cultures are negative for now. Objective - Vital Signs Vital signs: Vital Signs Temp 98.8 F 12/11/21 04:00 Pulse 60 12/11/21 07:00 Resp 17 12/11/21 07:00 BP 137/68 12/11/21 07:00 Pulse Ox 95 12/11/21 07:00 FiO2 Intake & Output 12/10/21 12/11/21 12/11/21 18:59 06:59 18:59 Intake Total 7973.805 8828.009 4.651 Output Total 495 1120 Balance 1110.828 577.009 4.651 Weight 81.647 kg Intake: IV 1150 Sodium Chloride 0.9% 1, 900 000 ml @ 75 mls/hr IV . [id number] [facility] Rx#:[id number] Vancomycin 1,500 mg In 250 Sodium Chloride 0.9% 250 ml @ 125 mls/hr IVPB ONCE ONE Rx#:[id number] Intake, IV Titration 1388.828 115.009 4.651 Amount Norepinephrine 32 mg In 13.828 40.009 4.651 Sodium Chloride 0.9% 218 ml @ 0.05 MCG/KG/MIN 1. 914 mls/hr IV .Q24H ONE Rx#:[id number] Sodium Chloride 0.9% 1, 375 75 000 ml @ 75 mls/hr IV . [id number] [facility] Rx#:[id number] Sodium Chloride 0.9% 1, 1000 000 ml @ 999 mls/hr IV . Q1H1M ONE Rx#:[id number] Blood Product 217 432 Ffp 24 Pher Acda Cnt2 217 Unit [id number] Ffp 24 Pher Acda Cnt2 0 216 Unit [id number] Output: Urine 495 1120 Other: Voiding Method Indwelling Catheter Indwelling Catheter # Bowel Movements 1 - Exam Gen. appearance the patient is calm and comfortable, not in acute respiratory distress and the patient is currently on room air oxygen The patient's breathing is nonlabored Head exam was generally normal. There was no scleral icterus or corneal arcus. Mucous membranes were moist. Neck was supple and without jugular venous distension, thyromegaly, or carotid bruits. Carotids were easily palpable bilaterally. There was no adenopathy. Lungs were clear to auscultation and percussion, and with normal diaphragmatic excursion. No wheezes or rales were noted. Cardiac exam revealed the PMI to be normally situated and sized. The rhythm was regular and no extrasystoles were noted during several minutes of auscultation. The first and second heart sounds were normal and physiologic splitting of the second heart sound was noted. There were no murmurs, rubs, clicks, or gallops. Abdominal exam revealed normal bowel sounds. The abdomen was soft, non-tender, and without masses, organomegaly, or appreciable enlargement of the abdominal aorta. Extremities revealed some limited range of motion due to pain associated ankles bilaterally there are also swollen. The patient has no edema. No cyanosis or clubbing. No open wounds or ulcers or evidence of a cellulitis. Neurologic exam is nonfocal and the patient is no patient asymmetry. No focal neurological deficits. - Labs CBC & Chem 7: 12/11/21 05:53 12/11/21 05:53 Labs: Abnormal Lab Results - Last 24 Hours (Table) 12/10/21 12/10/21 12/10/21 Range/Units 03:14 11:54 12:45 RBC (3.80-5.40) m/uL Hgb (11.4-16.0) gm/dL RDW (11.5-15.5) % Plt Count (150-450) k/uL PT (9.0-12.0) sec INR (<1.2) Sodium (137-145) mmol/L Carbon Dioxide (22-30) mmol/L BUN (7-17) mg/dL Creatinine (0.52-1.04) mg/dL POC Glucose (mg/dL) 128 H (70-110) mg/dL Calcium (8.4-10.2) mg/dL Total Bilirubin (0.2-1.3) mg/dL AST (14-36) U/L Troponin I (0.000-0.034) ng/mL Total Protein (6.3-8.2) g/dL Albumin (3.5-5.0) g/dL Procalcitonin 0.88 H (0.02-0.09) ng/mL Urine Appearance Cloudy H (Clear) Urine Blood Moderate H (Negative) Ur Leukocyte Esterase Moderate H (Negative) Urine RBC 33 H (0-5) /hpf Urine WBC 15 H (0-5) /hpf Urine Bacteria Rare H (None) /hpf Hyaline Casts 11 H (0-2) /lpf Urine Mucus Rare H (None) /hpf 12/10/21 12/10/21 12/11/21 Range/Units 14:18 14:50 05:53 RBC 3.78 L (3.80-5.40) m/uL Hgb 10.7 L (11.4-16.0) gm/dL RDW 16.5 H (11.5-15.5) % Plt Count 114 L (150-450) k/uL PT 126.7 H (9.0-12.0) sec INR >10.0 H* (<1.2) Sodium (137-145) mmol/L Carbon Dioxide (22-30) mmol/L BUN (7-17) mg/dL Creatinine (0.52-1.04) mg/dL POC Glucose (mg/dL) (70-110) mg/dL Calcium (8.4-10.2) mg/dL Total Bilirubin (0.2-1.3) mg/dL AST (14-36) U/L Troponin I 0.145 H* (0.000-0.034) ng/mL Total Protein (6.3-8.2) g/dL Albumin (3.5-5.0) g/dL Procalcitonin (0.02-0.09) ng/mL Urine Appearance (Clear) Urine Blood (Negative) Ur Leukocyte Esterase (Negative) Urine RBC (0-5) /hpf Urine WBC (0-5) /hpf Urine Bacteria (None) /hpf Hyaline Casts (0-2) /lpf Urine Mucus (None) /hpf 12/11/21 12/11/21 12/11/21 Range/Units 05:53 05:53 05:53 RBC (3.80-5.40) m/uL Hgb (11.4-16.0) gm/dL RDW (11.5-15.5) % Plt Count (150-450) k/uL PT 12.5 H (9.0-12.0) sec INR 1.2 H (<1.2) Sodium 136 L (137-145) mmol/L Carbon Dioxide 18 L (22-30) mmol/L BUN 47 H (7-17) mg/dL Creatinine 1.31 H (0.52-1.04) mg/dL POC Glucose (mg/dL) (70-110) mg/dL Calcium 8.3 L (8.4-10.2) mg/dL Total Bilirubin 1.4 H (0.2-1.3) mg/dL AST 71 H (14-36) U/L Troponin I 0.131 H* (0.000-0.034) ng/mL Total Protein 5.2 L (6.3-8.2) g/dL Albumin 2.6 L (3.5-5.0) g/dL Procalcitonin (0.02-0.09) ng/mL Urine Appearance (Clear) Urine Blood (Negative) Ur Leukocyte Esterase (Negative) Urine RBC (0-5) /hpf Urine WBC (0-5) /hpf Urine Bacteria (None) /hpf Hyaline Casts (0-2) /lpf Urine Mucus (None) /hpf Microbiology - Last 24 Hours (Table) 12/10/21 10:16 Urine Culture - Preliminary Urine,Catheterized Yeast species 12/10/21 03:56 Blood Culture Gram Stain - Preliminary Blood Blood Culture - Preliminary Staphylococcus epidermidis 12/10/21 03:11 Blood Culture - Final Blood Assessment and Plan Plan: Hypotension, likely secondary to intravascular volume depletion. The patient is also known to have severe cardiomyopathy with an ejection fraction of 10-15%. No clear indication of an underlying infection or sepsis. The patient was given a liter of fluid in the emergency and she was started on pressors. The patient was given IV fluids and the patient responded nicely. This morning, the patient was taken off pressors. This is most likely hypovolemic from a septic event. The patient was covered empirically with IV Rocephin. Severe systolic heart failure, with an ejection fraction of around 10-15% Hyponatremia secondary to above, sodium level is at 128 and the patient has hypochloremic hyponatremia, sodium level is currently at 136 Acute kidney injury likely secondary to intravascular volume depletion, impro ving Nonspecific troponin leak at 0.124 Altered mentation acute on chronic with a baseline dementia, likely secondary to hypotension, improved and the patient's mental status is impaired at baseline Chronic atrial fibrillation maintained on long-term and to coagulation with warfarin. History of pacemaker/AICD History of bilateral breast cancer with previous lumpectomies History of gout History of knee pain History of rhabdomyolysis Plan The patient is currently off pressors THE IV FLUIDS TO 20 ML AN HOUR RESTART COREG AND MONITOR THE BLOOD PRESSURE VERY CLOSELY Check the patient's pro-calcitonin level AND THE LEVEL CAME BACK AT 0.88. AWAITING CULTURES THE MEANWHILE THE PATIENT REMAINS ON IV ROCEPHIN Continued IV Rocephin as an empiric antibiotic coverage Restart allopurinol Restart [place] for pain control. Restart anticoagulation with warfarin the patient will be given 2.5 mg today and we'll do a daily PT/INR monitoring Establish a CODE STATUS. She is a shelter resident with advanced comorbidities. We'll continue to follow the patient in the intensive care unit. =
[2021-12-11] MEDS ORDERED: WARFARIN 2.5 MG TAB PO ONE (18:00)
--- NOTE | 2021-12-11 18:28 | P.PN ---
Subjective Progress Note Date: 12/11/21 Principal diagnosis: Hypotension, related to intravascular volume depletion Severe cardiomyopathy/severe systolic heart failure Hyponatremia Acute renal injury Coagulopathy secondary to Coumadin 81-year-old woman sent from detention to have evaluation reportedly due to mental status change. When I interview the patient, she is not able to give muc h history. When I ask if she is having pain and she states no. Patient not able to give any additional history. In the ED patient was found to be hypotensive and was placed on IV Levaquin along with 1 L of normal saline bolus; She was given IV Rocephin and she was admitted to the hospital. Chest x-ray showing cardiomegaly and the patient is a pacemaker/defibrillator in place. There is no evidence of any acute pulmonary infiltrate. No evidence of any aspiration pneumonia. No evidence of any surgical wounds or ulceration. Urinalysis has not been done yet and this needs to be done to rule out the possibility of underlying UTI/sepsis. The patient's blood work shows a white cell count of 10.6 with a hemoglobin of 11.9 and a platelet count of 166. The patient's sodium level of 128 with a potassium level of 4.7, BUN is at 68 with a creatinine of 1.98. The troponin is at 0.124. The liver function tests are essentially within normal limits. Note that the patient was recently discharged from the hospital. She was released from the hospital on 11/29/2021. She was treated for acute pain in lower extremities measuring the right knee and ankle and she was given diagnosis of gout. She will also was found to have a component of rhabdomyolysis which improved. She did have some right ankle swelling secondary to gout. Note that the patient has severe cardiomyopathy and the patient is an ejection fraction of around 10-15%. The patient also has chronic atrial fibrillation and the patient has been maintained on warfarin. At the time of my evaluation patient does open eyes to verbal stimulation but not following any verbal commands Objective - Vital Signs Vital signs: Vital Signs Temp 98.8 F 12/11/21 04:00 Pulse 60 12/11/21 07:00 Resp 17 12/11/21 07:00 BP 137/68 12/11/21 07:00 Pulse Ox 95 12/11/21 07:00 FiO2 Intake & Output 12/10/21 12/11/21 12/11/21 18:59 06:59 18:59 Intake Total 3156.850 8580.009 4.651 Output Total 495 1120 Balance 1110.828 577.009 4.651 Weight 81.647 kg Intake: IV 1150 Sodium Chloride 0.9% 1, 900 000 ml @ 75 mls/hr IV . [id number] [facility] Rx#:[id number] Vancomycin 1,500 mg In 250 Sodium Chloride 0.9% 250 ml @ 125 mls/hr IVPB ONCE ONE Rx#:[id number] Intake, IV Titration 1388.828 115.009 4.651 Amount Norepinephrine 32 mg In 13.828 40.009 4.651 Sodium Chloride 0.9% 218 ml @ 0.05 MCG/KG/MIN 1. 914 mls/hr IV .Q24H ONE Rx#:[id number] Sodium Chloride 0.9% 1, 375 75 000 ml @ 75 mls/hr IV . [id number] [facility] Rx#:[id number] Sodium Chloride 0.9% 1, 1000 000 ml @ 999 mls/hr IV . Q1H1M ONE Rx#:[id number] Blood Product 217 432 Ffp 24 Pher Acda Cnt2 217 Unit [id number] Ffp 24 Pher Acda Cnt2 0 216 Unit [id number] Output: Urine 495 1120 Other: Voiding Method Indwelling Catheter Indwelling Catheter # Bowel Movements 1 - Exam Gen. appearance the patient is calm and comfortable, not in acute respiratory distress and the patient is currently on room air oxygen The patient's breathing is nonlabored Head exam was generally normal. There was no scleral icterus or corneal arcus. Mucous membranes were moist. Neck was supple and without jugular venous distension, thyromegaly, or carotid bruits. Carotids were easily palpable bilaterally. There was no adenopathy. Lungs were clear to auscultation and percussion, and with normal diaphragmatic excursion. No wheezes or rales were noted. Cardiac exam revealed the PMI to be normally situated and sized. The rhythm was regular and no extrasystoles were noted during several minutes of auscultation. The first and second heart sounds were normal and physiologic splitting of the second heart sound was noted. There were no murmurs, rubs, clicks, or gallops. Abdominal exam revealed normal bowel sounds. The abdomen was soft, non-tender, and without masses, organomegaly, or appreciable enlargement of the abdominal aorta. Extremities revealed some limited range of motion due to pain associated ankles bilaterally there are also swollen. The patient has no edema. No cyanosis or clubbing. No open wounds or ulcers or evidence of a cellulitis. Neurologic exam is nonfocal and the patient is no patient asymmetry. No focal neurological deficits. - Labs CBC & Chem 7: 12/11/21 05:53 12/11/21 05:53 Labs: Abnormal Lab Results - Last 24 Hours (Table) 12/10/21 12/10/21 12/10/21 Range/Units 03:14 12:45 14:18 RBC (3.80-5.40) m/uL Hgb (11.4-16.0) gm/dL RDW (11.5-15.5) % Plt Count (150-450) k/uL PT 126.7 H (9.0-12.0) sec INR >10.0 H* (<1.2) Sodium (137-145) mmol/L Carbon Dioxide (22-30) mmol/L BUN (7-17) mg/dL Creatinine (0.52-1.04) mg/dL Calcium (8.4-10.2) mg/dL Total Bilirubin (0.2-1.3) mg/dL AST (14-36) U/L Troponin I (0.000-0.034) ng/mL Total Protein (6.3-8.2) g/dL Albumin (3.5-5.0) g/dL Procalcitonin 0.88 H (0.02-0.09) ng/mL Urine Appearance Cloudy H (Clear) Urine Blood Moderate H (Negative) Ur Leukocyte Esterase Moderate H (Negative) Urine RBC 33 H (0-5) /hpf Urine WBC 15 H (0-5) /hpf Urine Bacteria Rare H (None) /hpf Hyaline Casts 11 H (0-2) /lpf Urine Mucus Rare H (None) /hpf 12/10/21 12/11/21 12/11/21 Range/Units 14:50 05:53 05:53 RBC 3.78 L (3.80-5.40) m/uL Hgb 10.7 L (11.4-16.0) gm/dL RDW 16.5 H (11.5-15.5) % Plt Count 114 L (150-450) k/uL PT 12.5 H (9.0-12.0) sec INR 1.2 H (<1.2) Sodium (137-145) mmol/L Carbon Dioxide (22-30) mmol/L BUN (7-17) mg/dL Creatinine (0.52-1.04) mg/dL Calcium (8.4-10.2) mg/dL Total Bilirubin (0.2-1.3) mg/dL AST (14-36) U/L Troponin I 0.145 H* (0.000-0.034) ng/mL Total Protein (6.3-8.2) g/dL Albumin (3.5-5.0) g/dL Procalcitonin (0.02-0.09) ng/mL Urine Appearance (Clear) Urine Blood (Negative) Ur Leukocyte Esterase (Negative) Urine RBC (0-5) /hpf Urine WBC (0-5) /hpf Urine Bacteria (None) /hpf Hyaline Casts (0-2) /lpf Urine Mucus (None) /hpf 12/11/21 12/11/21 Range/Units 05:53 05:53 RBC (3.80-5.40) m/uL Hgb (11.4-16.0) gm/dL RDW (11.5-15.5) % Plt Count (150-450) k/uL PT (9.0-12.0) sec INR (<1.2) Sodium 136 L (137-145) mmol/L Carbon Dioxide 18 L (22-30) mmol/L BUN 47 H (7-17) mg/dL Creatinine 1.31 H (0.52-1.04) mg/dL Calcium 8.3 L (8.4-10.2) mg/dL Total Bilirubin 1.4 H (0.2-1.3) mg/dL AST 71 H (14-36) U/L Troponin I 0.131 H* (0.000-0.034) ng/mL Total Protein 5.2 L (6.3-8.2) g/dL Albumin 2.6 L (3.5-5.0) g/dL Procalcitonin (0.02-0.09) ng/mL Urine Appearance (Clear) Urine Blood (Negative) Ur Leukocyte Esterase (Negative) Urine RBC (0-5) /hpf Urine WBC (0-5) /hpf Urine Bacteria (None) /hpf Hyaline Casts (0-2) /lpf Urine Mucus (None) /hpf Microbiology - Last 24 Hours (Table) 12/10/21 10:16 Urine Culture - Preliminary Urine,Catheterized Yeast species 12/10/21 03:56 Blood Culture Gram Stain - Preliminary Blood Blood Culture - Preliminary Staphylococcus epidermidis 12/10/21 03:11 Blood Culture - Final Blood Assessment and Plan Assessment: 1. Hypotension; likely severe dehydration - Patient received 1 L of IV normal saline in ED; has been placed on IV Levophed for persistent hypotension; patient will receive 1 more liter of IV normal sa line 2. Severe cardiomyopathy/severe systolic CHF; last echocardiogram reveals severe cardiomyopathy with an ejection fraction of 10-15%; patient is status post pacemaker/AICD 3. Hyponatremia; sodium level at 128; patient received IV fluids in form of normal saline, 1 L in ED; intensive care team recommended to continue with 1 more liter and monitor electrolytes closely 4. Elevated troponin; likely nonspecific related to hypotension and hypovolemia; patient does have severe cardiomyopathy 5. Acute renal injury; likely related to intravascular volume depletion; patient receiving and inability to IV normal saline 6. Altered mental status; Patient has underlying dementia with likely acute exacerbation related to hypotension 7. Chronic atrial fibrillation; remains rate controlled; remains on long-term anticoagulation with warfarin DVT prophylaxis; systemic anticoagulation CODE STATUS; remains full code
--- NOTE | 2021-12-11 19:06 | CONS ---
CONSULTATION CHIEF COMPLAINT: Elevated troponin. Arlene is an 81-year-old lady who is currently in a skilled nursing and brought in because of altered mental status. Patient was recently in the hospital and was discharged home not too long ago. In the emergency room she was hypotensive and received antibiotics. Patient has history of a pacer defibrillator, heart failure, atrial fibrillation. I am not able to obtain any meaningful information from the patient. Elevated troponin is probably related to renal failure with elevated creatinine of 2. PAST MEDICAL HISTORY: Significant for pacemaker placement, atrial fibrillation, heart failure, hypertension and breast cancer. Family history and review of systems I am not able to obtain from the patient. SOCIAL HISTORY: Not able to obtain. MEDICATIONS: Medications at home included Coumadin, Imdur, Lasix, Pepcid, Coreg, [place]. ALLERGIES: CODEINE. PHYSICAL EXAMINATION: Comfortable at rest. Heart rate is 60 beats per minute. Blood pressure is 137/60, respiratory rate 18. Chest exam reveals diminished air entry at the bases. Heart exam reveals first and second heart sounds, systolic murmur at the left lower sternal border. Abdomen is soft. Examination of extremities reveals mild edema. Her INR was 10 on her initial presentation. It is down to 1.2 this morning. ASSESSMENT: 1. Coagulopathy. 2. Elevated troponin. 3. History of atrial fibrillation. 4. Confusional state. She is probably not a candidate for anticoagulation, given the confusion and the recent admission with coagulopathy. No other workup at this time. We will follow the patient with you. TRISTON / LUIS ALBERTO: [id number] /
[2021-12-11] MEDS ORDERED: NOREPINEPHRINE 32 MG in SODIUM CHLORIDE 0.9% 218 ML IV SCH (19:15)
[2021-12-12 06:18] LABS: Anisocytosis Slight; HCT 33.4 % (34.0-46.0); HGB 10.3 gm/dL (11.4-16.0); Hypochromasia Moderate; MCH 27.9 pg (25.0-35.0); MCHC 30.9 g/dL (31.0-37.0); MCV 90.4 fL (80.0-100.0); Mean Platelet Volume 8.6; RBC 3.69 m/uL (3.80-5.40); RDW 16.1 % (11.5-15.5); WBC 6.3 k/uL (3.8-10.6)
[2021-12-12 06:28] LABS: Calcium 8.8 mg/dL (8.4-10.2); Potassium 3.2 mmol/L (3.5-5.1)
[2021-12-12 06:32] LABS: INR 1.1 (<1.2); Prothrombin Time 11.9 sec (9.0-12.0)
[2021-12-12] MEDS: HYDROcodone/APAP 7.5-325MG 1 EACH TAB PO SCH ×5 (06:33→23:12)
[2021-12-12] MEDS: allopurinoL 100 MG TAB PO SCH (08:50)
[2021-12-12] MEDS: POTASSIUM CHLORIDE 20 MEQ in WATER FOR INJECTION 1 100ML.BAG IVPB SCH ×2 (08:51→14:16)
[2021-12-12] MEDS: carvediloL 12.5 MG TAB PO SCH ×2 (09:28→16:45)
[2021-12-12 09:42] LABS: Platelet Count 86 k/uL (150-450)
--- NOTE | 2021-12-12 11:23 | P.PN ---
Subjective Progress Note Date: 12/12/21 I was asked to transfer this patient to the intensive care unit. She is a assisted resident with advanced dementia and medical debility and the patient is unable to provide any history. She was sent over from the assisted because of increased lethargy and altered mentation. The patient was also found to be hypotensive. Sepsis was suspected. The patient was given a triple- lumen catheter in the emergency department and she was started on norepinephrine infusion which is currently running at 0.08 mcg/kg per minute. She was also given a liter of normal saline bolus. She was given IV Rocephin and she was admitted to the hospital. Chest x-ray showing cardiomegaly and the patient is a pacemaker/defibrillator in place. There is no evidence of any acute pulmonary infiltrate. No evidence of any aspiration pneumonia. No evidence of any surgical wounds or ulceration. Urinalysis has not been done yet and this needs to be done to rule out the possibility of underlying UTI/sepsis. The patient's blood work shows a white cell count of 10.6 with a hemoglobin of 11.9 and a platelet count of 166. The patient's sodium level of 128 with a potassium level of 4.7, BUN is at 68 with a creatinine of 1.98. The troponin is at 0.124. The liver function tests are essentially within normal limits. Note that the patient was recently discharged from the hospital. She was released from the hospital on 11/29/2021. She was treated for acute pain in lower extremities measuring the right knee and ankle and she was given diagnosis of gout. She will also was found to have a component of rhabdomyolysis which improved. She did have some right ankle swelling secondary to gout. Note that the patient has severe cardiomyopathy and the patient is an ejection fraction of around 10-15%. The patient also has chronic atrial fibrillation and the patient has been maintained on warfarin. She has hypertension and the patient has a pacemaker/AICD in place. She does have underlying dementia. During her last admission, no septic event or infection was identified. The patient was discharged to assisted. She went to [facility]. 12/11/2021, the patient is being seen for a follow-up. She has dementia. No agitation. She is a very poor historian as mentioned. Note that the patient was given IV fluids as I thought that the patient was intravascularly depleted. She was given a liter bolus and she was maintained on 75 mL an hour and earlier this morning the norepinephrine was discontinued. Furthermore, the blood work from today shows a BUN of 47 and a creatinine of 1.3 and the creatinine is improved. The patient had troponins of 0.14 and 0.13 respectively. The patient meanwhile responded nicely to IV fluids. The patient is currently off pressors. We'll for significant been negative. The patient has a white cell count of 9 with a hemoglobin of 10.7. Platelet count is at 114. The INR was toxic at the time of admission and the patient received a total of 10 mg of vitamin K and 2 units of fresh frozen plasma and INR from this morning is down to 1.2. Respiratory electrodes are all stable. Serum bicarbs of 80 with a sodium level of 136. Liver function test shows a bilirubin of 1.7, AST of 71, ALT of 26, alkaline phosphatase of 23. The patient remains on empiric antibiotic coverage with IV Zosyn. Cultures are negative for now. 12/12/2021, the patient is doing well. The patient is currently off pressors. IV fluids are currently at KVO. The patient was restarted back on warfarin and INR is subtherapeutic at 1.1 and the patient is receiving 2.5 mg of warfarin daily basis. The patient is currently on room air oxygen. Sodium level is 134. Potassium level is at 3.2 with a BUN of 36 and a creatinine of 0.88. The white cell count 6.3 with hemoglobin of 10.3. She has dementia. No agitation. No swallowing difficulties. No other complaints otherwise for now. Coreg was restarted. Objective - Vital Signs Vital signs: Vital Signs Temp 97.8 F 12/12/21 09:00 Pulse 60 12/12/21 09:00 Resp 18 12/12/21 09:15 BP 71/52 12/12/21 09:00 Pulse Ox 98 12/12/21 09:15 FiO2 Intake & Output 12/11/21 12/12/21 12/12/21 18:59 06:59 18:59 Intake Total 837.203 392.903 490 Output Total 890 370 100 Balance -52.797 22.903 390 Intake: IV 325 240 140 Sodium Chloride 0.9% 1, 275 240 40 000 ml @ 20 mls/hr IV . Q24H [facility] Rx#:[id number] cefTRIAXone 1 gm In 50 100 Sodium Chloride 0.9% 50 ml @ 100 mls/hr IVPB Q24HR [facility] Rx#:[id number] Intake, IV Titration 12. 2.903 Amount Norepinephrine 32 mg In 12. 2.903 Sodium Chloride 0.9% 218 ml @ 0.05 MCG/KG/MIN 1. 914 mls/hr IV .Q24H [facility] Rx#:[id number] Oral 500 150 350 Output: Urine 890 370 100 Other: Voiding Method Indwelling Catheter Indwelling Catheter Indwelling Catheter - Exam Gen. appearance the patient is calm and comfortable, not in acute respiratory distress and the patient is currently on room air oxygen The patient's breathing is nonlabored Head exam was generally normal. There was no scleral icterus or corneal arcus. Mucous membranes were moist. Neck was supple and without jugular venous distension, thyromegaly, or carotid bruits. Carotids were easily palpable bilaterally. There was no adenopathy. Lungs were clear to auscultation and percussion, and with normal diaphragmatic excursion. No wheezes or rales were noted. Cardiac exam revealed the PMI to be normally situated and sized. The rhythm was regular and no extrasystoles were noted during several minutes of auscultation. The first and second heart sounds were normal and physiologic splitting of the second heart sound was noted. There were no murmurs, rubs, clicks, or gallops. Abdominal exam revealed normal bowel sounds. The abdomen was soft, non-tender, and without masses, organomegaly, or appreciable enlargement of the abdominal aorta. Extremities revealed some limited range of motion due to pain associated ankles bilaterally there are also swollen. The patient has no edema. No cyanosis or clubbing. No open wounds or ulcers or evidence of a cellulitis. Neurologic exam is nonfocal and the patient is no patient asymmetry. No focal neurological deficits. - Labs CBC & Chem 7: 12/12/21 05:52 12/12/21 05:52 Labs: Abnormal Lab Results - Last 24 Hours (Table) 12/11/21 12/12/21 12/12/21 Range/Units 05:53 05:52 05:52 RBC 3.69 L (3.80-5.40) m/uL Hgb 10.3 L (11.4-16.0) gm/dL Hct 33.4 L (34.0-46.0) % MCHC 30.9 L (31.0-37.0) g/dL RDW 16.1 H (11.5-15.5) % Plt Count 86 L (150-450) k/uL Sodium 134 L (137-145) mmol/L Potassium 3.2 L (3.5-5.1) mmol/L BUN 36 H (7-17) mg/dL Creatine Kinase 625 H (30-135) U/L Microbiology - Last 24 Hours (Table) 12/10/21 03:56 Blood Culture Gram Stain - Preliminary Blood Blood Culture - Preliminary Staphylococcus epidermidis Coagulase Negative Staph 12/10/21 10:16 Urine Culture - Preliminary Urine,Catheterized Yeast species Assessment and Plan Plan: Hypotension, likely secondary to intravascular volume depletion. The patient is also known to have severe cardiomyopathy with an ejection fraction of 10-15%. No clear indication of an underlying infection or sepsis. The patient was given a liter of fluid in the emergency and she was started on pressors. The patient was given IV fluids and the patient responded nicely. This is most likely hypovolemic from a septic event. The patient was covered empirically with IV Rocephin. The patient is currently normotensive and the patient is on no pressors. IV fluids are currently at O Severe systolic heart failure, with an ejection fraction of around 10-15% Hyponatremia secondary to above, sodium level is at 128 and the patient has hypochloremic hyponatremia, sodium level is currently normal Acute kidney injury likely secondary to intravascular volume depletion, improving Nonspecific troponin leak at 0.124 Altered mentation acute on chronic with a baseline dementia, likely secondary to hypotension, improved and the patient's mental status is impaired at baseline Chronic atrial fibrillation maintained on long-term and to coagulation with warfarin. History of pacemaker/AICD History of bilateral breast cancer with previous lumpectomies History of gout History of knee pain History of rhabdomyolysis Plan The patient is currently off pressors and the patient is currently on KVO IV fluids Patient is tolerating diet Coreg was restarted Anticoagulation is being continued with warfarin and the PT/INR is subtherapeutic Continue IV Rocephin for another 24 hours Pro-calcitonin level came back at 0.88 September transfer this patient out of the intensive care unit Establish a CODE STATUS. She is a assisted resident with advanced comorbidities.
[2021-12-12] MEDS: SODIUM CHLORIDE 0.9% 1,000 ML IV SCH (14:17)
--- NOTE | 2021-12-12 17:12 | PN ---
PROGRESS NOTE FOLLOW-UP NOTE: Arlene is an 81-year-old lady who was brought in from the retirement with altered mental status. She was hypotensive and has had recent infection. The patient appears somewhat better today. Hypotension is improving. She continues to be on antibiotics. She is on Levophed. Coumadin had been resumed. Her INR is 1.1. It was more than 10 on presentation. On exam, there is no jugular venous distention. Chest exam reveals good air entry bilaterally without any crackles or rhonchi. Heart exam reveals first and second heart sounds, systolic murmur at the apex. Abdomen is soft. Examination of extremities reveals mild edema. An EKG showed paced rhythm. Labs show that the BUN is 36, creatinine is 0.8. It was 68 on initial presentation. ASSESSMENT: 1. Hypotension secondary to intravascular volume depletion. 2. Elevated troponin, probably related to intravascular volume depletion and renal insufficiency. PLAN: Patient will continue current medications. She looks better today. MMODL / IJN: [id number] /
[2021-12-12] MEDS ORDERED: WARFARIN 2.5 MG TAB PO ONE (18:00)
[2021-12-13] MEDS: SODIUM CHLORIDE 0.9% 1,000 ML IV SCH ×2 (04:46→20:19)
[2021-12-13] MEDS: HYDROcodone/APAP 7.5-325MG 1 EACH TAB PO SCH ×2 (05:26→14:02)
[2021-12-13 06:37] LABS: INR 1.4 (<1.2); Prothrombin Time 14.3 sec (9.0-12.0)
[2021-12-13] MEDS: allopurinoL 100 MG TAB PO SCH ×2 (08:14→10:55)
[2021-12-13] MEDS: carvediloL 12.5 MG TAB PO SCH ×2 (08:14→08:15)
--- NOTE | 2021-12-13 10:34 | P.PN ---
Subjective Progress Note Date: 12/13/21 HISTORY OF PRESENT ILLNESS: This is an 81-year-old female who was brought to the hospital from a snf secondary to altered mental status. Patient used to follow in the office with Dr. Venegas. Patient was found to be hypotensive and required vasopressors. Patient was also found to have super therapeutic INR with INR of greater than 10. She was taking Coumadin on an outpatient basis for atrial fibrillation. Patient examined this morning at the bedside. Patient is pleasant and confused. Vital signs are stable. Echocardiogram completed in October 2021 revealed ejection fraction 10-15%. PHYSICAL EXAM: VITAL SIGNS: Reviewed. GENERAL: Well-developed in no acute distress. NECK: Supple. No JVD or thyromegaly LUNGS: Respirations even and unlabored. Lungs essentially clear to auscultation bilaterally. HEART: Regular rate and rhythm. S1 and S2 heard. EXTREMITIES: Normal range of motion. No clubbing or cyanosis. Peripheral pulses intact. No lower extremity edema ASSESSMENT: Hypotension requiring vasopressor support Abnormal troponin, acute coronary syndrome ruled out, likely secondary to hypotension and acute kidney injury Altered mental status History of dementia Supratherapeutic INR, resolved Paroxysmal atrial fibrillation Nonischemic cardiomyopathy, with dual-chamber AICD implantation in 2011 Minimal nonobstructive coronary artery disease, per cardiac catheterization in 2005 History of permanent pacemaker/AICD History of hypertension History of complete heart block PLAN: Patient previously on Coumadin with INR greater than 10 on admission. Recommend switching to Eliquis 2.5mg BID. Spoke with primary medicine team who is in agreement. Continue additional cardiac medications No further inpatient recommendations from a cardiac standpoint We will sign off. Please reconsult if needed. Nurse practitioner note has been reviewed by physician. Signing provider agrees with the documented findings, assessment, and plan of care. Objective - Vital Signs Vital signs: Vital Signs Temp 98.4 F 12/13/21 08:04 Pulse 60 12/13/21 08:15 Resp 17 12/13/21 08:15 BP 88/60 12/13/21 08:04 Pulse Ox 99 12/13/21 08:04 FiO2 Intake & Output 12/12/21 12/13/21 12/13/21 18:59 06:59 18:59 Intake Total 490 Output Total 1050 300 Balance -560 -300 Weight 80 kg Intake: IV 140 Sodium Chloride 0.9% 1, 40 000 ml @ 20 mls/hr IV . Q24H [facility] Rx#:[id number] cefTRIAXone 1 gm In 100 Sodium Chloride 0.9% 50 ml @ 100 mls/hr IVPB Q24HR [facility] Rx#:[id number] Oral 350 Output: Urine 1050 300 Other: Voiding Method Indwelling Catheter Indwelling Catheter Indwelling Catheter - Labs CBC & Chem 7: 12/12/21 05:52 12/12/21 05:52 Labs: Abnormal Lab Results - Last 24 Hours (Table) 12/13/21 Range/Units 05:52 PT 14.3 H (9.0-12.0) sec INR 1.4 H (<1.2) Microbiology - Last 24 Hours (Table) 12/10/21 03:56 Blood Culture Gram Stain - Final Blood Blood Culture - Final Staphylococcus epidermidis Coagulase Negative Staph Coagulase Negative Staph#2 12/10/21 10:16 Urine Culture - Final Urine,Catheterized Kay sp,not albicans/galbr
[2021-12-13] MEDS: ACETAMINOPHEN TAB 325 MG TAB PO PRN (10:55)
[2021-12-13] MEDS: APIXABAN 2.5 MG TABLET PO SCH ×2 (10:55→20:18)
[2021-12-13 11:17] LABS: ALT 41 U/L (4-34); AST 58 U/L (14-36); African American GFR (CKD) 86 (>60 ml/min/1.73 sqM); Albumin 2.4 g/dL (3.5-5.0); Albumin/Globulin Ratio 0.8; Alkaline Phosphatase 73 U/L (38-126); Anion Gap 5 mmol/L; Blood Urea Nitrogen 30 mg/dL (7-17); Calcium 8.8 mg/dL (8.4-10.2); Carbon Dioxide 25 mmol/L (22-30); Chloride 105 mmol/L (98-107); Globulin 2.9 g/dL; Glucose 102 mg/dL (74-99); Non-African American GFR(CKD) 75 (>60 ml/min/1.73 sqM); Sodium 135 mmol/L (137-145); Total Bilirubin 0.9 mg/dL (0.2-1.3); Total Protein 5.3 g/dL (6.3-8.2)
--- NOTE | 2021-12-13 13:16 | P.PN ---
Subjective Progress Note Date: 12/13/21 Principal diagnosis: Hypotension I was asked to transfer this patient to the intensive care unit. She is a skilled nursing resident with advanced dementia and medical debility and the patient is unable to provide any history. She was sent over from the skilled nursing because of increased lethargy and altered mentation. The patient was also found to be hypotensive. Sepsis was suspected. The patient was given a triple- lumen catheter in the emergency department and she was started on norepinephrine infusion which is currently running at 0.08 mcg/kg per minute. She was also g iven a liter of normal saline bolus. She was given IV Rocephin and she was admitted to the hospital. Chest x-ray showing cardiomegaly and the patient is a pacemaker/defibrillator in place. There is no evidence of any acute pulmonary infiltrate. No evidence of any aspiration pneumonia. No evidence of any surgical wounds or ulceration. Urinalysis has not been done yet and this needs to be done to rule out the possibility of underlying UTI/sepsis. The patient's blood work shows a white cell count of 10.6 with a hemoglobin of 11.9 and a platelet count of 166. The patient's sodium level of 128 with a potassium level of 4.7, BUN is at 68 with a creatinine of 1.98. The troponin is at 0.124. The liver function tests are essentially within normal limits. Note that the patient was recently discharged from the hospital. She was released from the hospital on 11/29/2021. She was treated for acute pain in lower extremities measuring the right knee and ankle and she was given diagnosis of gout. She will also was found to have a component of rhabdomyolysis which improved. She did have some right ankle swelling secondary to gout. Note that the patient has severe cardiomyopathy and the patient is an ejection fraction of around 10-15%. The patient also has chronic atrial fibrillation and the patient has been maintained on warfarin. She has hypertension and the patient has a pace maker/AICD in place. She does have underlying dementia. During her last admission, no septic event or infection was identified. The patient was discharged to skilled nursing. She went to [facility]. 12/11/2021, the patient is being seen for a follow-up. She has dementia. No agitation. She is a very poor historian as mentioned. Note that the patient was given IV fluids as I thought that the patient was intravascularly depleted. She was given a liter bolus and she was maintained on 75 mL an hour and earlier this morning the norepinephrine was discontinued. Furthermore, the blood work from today shows a BUN of 47 and a creatinine of 1.3 and the creatinine is improved. The patient had troponins of 0.14 and 0.13 respectively. The patient meanwhile responded nicely to IV fluids. The patient is currently off pressors. We'll for significant been negative. The patient has a white cell count of 9 with a hemoglobin of 10.7. Platelet count is at 114. The INR was toxic at the time of admission and the patient received a total of 10 mg of vitamin K and 2 units of fresh frozen plasma and INR from this morning is down to 1.2. Respiratory electrodes are all stable. Serum bicarbs of 80 with a sodium level of 136. Liver function test shows a bilirubin of 1.7, AST of 71, ALT of 26, alkaline phosphatase of 23. The patient remains on empiric antibiotic coverage with IV Zosyn. Cultures are negative for now. 12/12/2021, the patient is doing well. The patient is currently off pressors. IV fluids are currently at KVO. The patient was restarted back on warfarin and INR is subtherapeutic at 1.1 and the patient is receiving 2.5 mg of warfarin daily basis. The patient is currently on room air oxygen. Sodium level is 134. Potassium level is at 3.2 with a BUN of 36 and a creatinine of 0.88. The white cell count 6.3 with hemoglobin of 10.3. She has dementia. No agitation. No swallowing difficulties. No other complaints otherwise for now. Coreg was restarted. On 12/13/2021 patient seen in follow-up on medical surgical floor. She is resting in bed, does not appear to be in any acute distress. Breathing comfortably, room air pulse ox is 99%, blood pressure is 88/60 with a mean of 69, patient has been afebrile. Patient is awake and alert, able to answer simple questions. She currently remains on Rocephin for a possibility of a urinary tract infection. Urine culture showed Kay species, not albicans or laboratory data. Blood cultures showed staph epidermidis and coagulase-negative staph likely contaminated culture. Today's labs have been reviewed, INR is 1.4, sodium is 135, the respiratory electrolytes and renal profile are unremarkable, renal function has significantly improved since admission, her creatinine is 0.76 on today's labs. Patient is not requiring any vasopressors. Patient has received vitamin K for supratherapeutic INR which is currently down to 1.4. She's had no acute events overnight. Objective - Vital Signs Vital signs: Vital Signs Temp 98.4 F 12/13/21 08:04 Pulse 60 12/13/21 08:15 Resp 17 12/13/21 08:15 BP 88/60 12/13/21 08:04 Pulse Ox 99 12/13/21 08:04 FiO2 Intake & Output 12/12/21 12/13/21 12/13/21 18:59 06:59 18:59 Intake Total 490 Output Total 1050 300 Balance -560 -300 Weight 80 kg Intake: IV 140 Sodium Chloride 0.9% 1, 40 000 ml @ 20 mls/hr IV . Q24H [facility] Rx#:[id number] cefTRIAXone 1 gm In 100 Sodium Chloride 0.9% 50 ml @ 100 mls/hr IVPB Q24HR [facility] Rx#:[id number] Oral 350 Output: Urine 1050 300 Other: Voiding Method Indwelling Catheter Indwelling Catheter Indwelling Catheter - Exam GENERAL EXAM: Alert, 81-year-old -[place] female on room air with pulse ox of 99% resting in bed comfortable in no apparent distress. HEAD: Normocephalic/atraumatic. EYES: Normal reaction of pupils, equal size. Conjunctiva pink, sclera white. NOSE: Clear with pink turbinates. THROAT: No erythema or exudates. NECK: No masses, no JVD, no thyroid enlargement, no adenopathy. CHEST: No chest wall deformity. Symmetrical expansion. LUNGS: Equal air entry with no crackles, wheeze, rhonchi or dullness. CVS: Regular rate and rhythm, normal S1 and S2, no gallops, no murmurs, no rubs ABDOMEN: Soft, nontender. No hepatosplenomegaly, normal bowel sounds, no guarding or rigidity. EXTREMITIES: No clubbing, no edema, no cyanosis, 2+ pulses and upper and lower extremities. MUSCULOSKELETAL: Muscle strength and tone normal. SPINE: No scoliosis or deformity SKIN: No rashes CENTRAL NERVOUS SYSTEM: Alert and oriented -3. No focal deficits, tone is normal in all 4 extremities. PSYCHIATRIC: Alert and oriented -3. Appropriate affect. Intact judgment and insight. - Labs CBC & Chem 7: 12/12/21 05:52 12/13/21 05:52 Labs: Abnormal Lab Results - Last 24 Hours (Table) 12/13/21 12/13/21 Range/Units 05:52 05:52 PT 14.3 H (9.0-12.0) sec INR 1.4 H (<1.2) Sodium 135 L (137-145) mmol/L BUN 30 H (7-17) mg/dL Glucose 102 H (74-99) mg/dL AST 58 H (14-36) U/L ALT 41 H (4-34) U/L Total Protein 5.3 L (6.3-8.2) g/dL Albumin 2.4 L (3.5-5.0) g/dL Microbiology - Last 24 Hours (Table) 12/10/21 03:56 Blood Culture Gram Stain - Final Blood Blood Culture - Final Staphylococcus epidermidis Coagulase Negative Staph Coagulase Negative Staph#2 12/10/21 10:16 Urine Culture - Final Urine,Catheterized Kay sp,not albicans/galbr Assessment and Plan Plan: Hypotension, likely secondary to intravascular volume depletion. The patient is also known to have severe cardiomyopathy with an ejection fraction of 10-15%. No clear indication of an underlying infection or sepsis. The patient was given a liter of fluid in the emergency and she was started on pressors. The patient was given IV fluids and the patient responded nicely. This is most likely hypovolemic from a septic event. The patient was covered empirically with IV Rocephin. The patient is currently normotensive and the patient is on no pressors. IV fluids are currently at [facility] Severe systolic heart failure, with an ejection fraction of around 10-15% Hyponatremia secondary to above, sodium level is at 128 and the patient has hypochloremic hyponatremia, sodium level is currently normal Acute kidney injury likely secondary to intravascular volume depletion, improving Nonspecific troponin leak at 0.124 Altered mentation acute on chronic with a baseline dementia, likely secondary to hypotension, improved and the patient's mental status is impaired at baseline Chronic atrial fibrillation maintained on long-term and to coagulation with warfarin. History of pacemaker/AICD History of bilateral breast cancer with previous lumpectomies History of gout History of knee pain History of rhabdomyolysis Plan: Hemodynamic patient has been stable She has not required any vasopressor support She has been gently rehydrated and currently her IV fluids are at KVO Tolerating oral intake No nausea or vomiting or diarrhea She continues on antibiotics Stable from pulmonary perspective Maintaining aspiration precautions Increase activity as tolerated I have personally seen and examined the patient, performed the documentation and the assessment and plan as written. Number of minutes spent on the visit: [10] Time with Patient: Less than 30
--- NOTE | 2021-12-13 16:37 | P.PN ---
Subjective Progress Note Date: 12/13/21 81-year-old woman sent from half-way to have evaluation reportedly due to mental status change. When I interview the patient, she is not able to give much history. When I ask if she is having pain and she states no. Patient not able to give any additional history. In the ED patient was found to be hypotensive and was placed on IV Levaquin along with 1 L of normal saline bolus; She was given IV Rocephin and she was admitted to the hospital. Chest x-ray showing cardiomegaly and the patient is a pacemaker/defibrillator in place. There is no evidence of any acute pulmonary infiltrate. No evidence of any aspiration pneumonia. No evidence of any surgical wounds or ulceration. Urinalysis has not been done yet and this needs to be done to rule out the possibility of underlying UTI/sepsis. The patient's blood work shows a white cell count of 10.6 with a hemoglobin of 11.9 and a platelet count of 166. The patient's sodium level of 128 with a potassium level of 4.7, BUN is at 68 with a creatinine of 1.98. The troponin is at 0.124. The liver function tests are essentially within normal limits. Note that the patient was recently discharged from the hospital. She was released from the hospital on 11/29/2021. She was treated for acute pain in lower extremities measuring the right knee and ankle and she was given diagnosis of gout. She will also was found to have a component of rhabdomyolysis which improved. She did have some right ankle swelling secondary to gout. Note that the patient has severe cardiomyopathy and the patient is an ejection fraction of around 10-15%. The patient also has chronic atrial fibrillation and the patient has been maintained on warfarin. At the time of my evaluation patient does open eyes to verbal stimulation but not following any verbal commands 12/13/2021 Patient evaluated today sitting up in bed. Her main complaint today is that she feels weak. She was unable to reposition herself in bed. Plan once medically stable is for return to [facility]. She is being followed by cardiology and pulmonary services. Transitioned to [facility] today by cardiology. INR today 1.4. Blood pressure is on the lower side we did discontinue carvedilol and begin metoprolol. She continues on IV rocephin empirically although urine culture showing luis angel species. Blood culture showing staph which is likely a contaminent. Sodium today 135, potassium 4.0, BUN 20, creatinine, 0.76. AST/ALT elevated will check an ammonia level and repeat labs tomorrow. Review of Systems Constitutional: Denied any fatigue denied any fever. Cardio vascular: denied any chest pain, palpitations Gastrointestinal: denied any nausea, vomiting, diarrhea Pulmonary: Denied any shortness of breath cough Neurologic denied any new focal deficits All inpatient medications were reviewed and appropriate changes in these medications as dictated in the interval history and assessment and plan. Physical Examination Gen. appearance the patient is calm and comfortable, not in acute respiratory distress and the patient is currently on room air oxygen The patient's breathing is nonlabored Head exam was generally normal. There was no scleral icterus or corneal arcus. Mucous membranes were moist. Neck was supple and without jugular venous distension, thyromegaly, or carotid bruits. Carotids were easily palpable bilaterally. There was no adenopathy. Lungs were clear to auscultation and percussion, and with normal diaphragmatic excursion. No wheezes or rales were noted. Cardiac exam revealed the PMI to be normally situated and sized. The rhythm was regular and no extrasystoles were noted during several minutes of auscultation. The first and second heart sounds were normal and physiologic splitting of the second heart sound was noted. There were no murmurs, rubs, clicks, or gallops. Abdominal exam revealed normal bowel sounds. The abdomen was soft, non-tender, and without masses, organomegaly, or appreciable enlargement of the abdominal aorta. Extremities revealed some limited range of motion due to pain associated ankles bilaterally there are also swollen. The patient has no edema. No cyanosis or clubbing. No open wounds or ulcers or evidence of a cellulitis. Neurologic exam is nonfocal and the patient is no patient asymmetry. No focal neurological deficits. Assessment and Plan 1. Hypotension; likely severe dehydration - Patient received 1 L of IV normal saline in ED; has been placed on IV Levophed for persistent hypotension; she was initially monitored in intensive care unit and received IV fluids and is now monitored off of pressor support on the medical floor. Currently in 90s systolic. Component of sepsis as procalcitonin elevatated at 0.88, possible UTI although culture showing luis angel. She is on empiric antibiotic coverage with IVPB rocephin. Continue to monitor blood pressure closely. 2. Severe cardiomyopathy/severe systolic CHF; last echocardiogram reveals severe cardiomyopathy with an ejection fraction of 10-15%; patient is status post pacemaker/AICD 3. Hyponatremia; Sodium level 128 on admission likely hypovolemic. Improved with hydration currently sodium level 135. 4. Elevated troponin; likely nonspecific related to hypotension and hypovolemia; patient does have severe cardiomyopathy cardiology has signed off. 5. Acute renal injury; likely related to intravascular volume depletion; creatinine improved to 0.76 with IV hydration 6. Altered mental status; Patient has underlying dementia with likely acute exacerbation related to hypotension and possible underlying infection. 7. Chronic atrial fibrillation; remains rate controlled; patient has been transitioned today to eliquis. DVT prophylaxis; systemic anticoagulation GI prophylaixs: Pepcid CODE STATUS; remains full code Plan Continue IV fluids at KVO, repeat labs in AM. Monitor blood pressure. Possible discharge in the next 24 to 48 hours back to [facility]. The impression and plan of care has been dictated by Chanel Badillo, Nurse Practitioner as directed. Dr. Andrea MD I have performed a history and physical examination and medical decision making of this patient, discussed the same with the dictator, and agree with the dictators assessment and plan as written, documented as a scribe. Based on total visit time, I have performed more than 50% of this visit. Objective - Vital Signs Vital signs: Vital Signs Temp 98.4 F 12/13/21 08:04 Pulse 60 12/13/21 08:15 Resp 17 12/13/21 08:15 BP 88/60 12/13/21 08:04 Pulse Ox 99 12/13/21 08:04 FiO2 Intake & Output 12/12/21 12/13/21 12/13/21 18:59 06:59 18:59 Intake Total 490 Output Total 1050 300 Balance -560 -300 Weight 80 kg Intake: IV 140 Sodium Chloride 0.9% 1, 40 000 ml @ 20 mls/hr IV . Q24H KEVYN Rx#:[id number] cefTRIAXone 1 gm In 100 Sodium Chloride 0.9% 50 ml @ 100 mls/hr IVPB Q24HR KEVYN Rx#:[id number] Oral 350 Output: Urine 1050 300 Other: Voiding Method Indwelling Catheter Indwelling Catheter Indwelling Catheter - Labs CBC & Chem 7: 12/12/21 05:52 12/13/21 05:52 Labs: Abnormal Lab Results - Last 24 Hours (Table) 12/13/21 Range/Units 05:52 PT 14.3 H (9.0-12.0) sec INR 1.4 H (<1.2) Microbiology - Last 24 Hours (Table) 12/10/21 03:56 Blood Culture Gram Stain - Final Blood Blood Culture - Final Staphylococcus epidermidis Coagulase Negative Staph Coagulase Negative Staph#2 12/10/21 10:16 Urine Culture - Final Urine,Catheterized Luis Angel sp,not albicans/galbr Assessment and Plan Time with Patient: Less than 30
[2021-12-13] MEDS ORDERED: WARFARIN 2.5 MG TAB PO ONE (18:00)
[2021-12-13] MEDS: METOPROLOL TARTRATE 50 MG TAB PO SCH (20:15)
[2021-12-13] MEDS: FAMOTIDINE 20 MG TAB PO SCH (20:18)
[2021-12-14] MEDS: ACETAMINOPHEN TAB 325 MG TAB PO PRN (03:55)
[2021-12-14 07:26] LABS: INR 1.8 (<1.2); Prothrombin Time 18.1 sec (9.0-12.0)
[2021-12-14] MEDS: APIXABAN 2.5 MG TABLET PO SCH (08:10)
[2021-12-14] MEDS: METOPROLOL TARTRATE 50 MG TAB PO SCH (08:10)
[2021-12-14] MEDS: allopurinoL 100 MG TAB PO SCH (08:10)
[2021-12-14] MEDS: FAMOTIDINE 20 MG TAB PO SCH (08:10)
[2021-12-14 08:13] VITALS: PULSE 60
[2021-12-14 09:01] LABS: Basophils # (A) 0.03 X 10*3/uL (0.00-0.10); Basophils % (A) 0.5 %; Eosinophils # (A) 0.04 X 10*3/uL (0.04-0.35); Eosinophils % (A) 0.7 %; HCT 31.9 % (37.2-46.3); HGB 10.1 g/dL (12.0-15.0); Immature Grans, Automated 3.9 %; Lymphocytes # (A) 1.33 X 10*3/uL (0.90-5.00); Lymphocytes % (A) 22.4 %; MCHC 31.7 g/dL (32.0-37.0); MCV 85.3 fL (80.0-97.0); Mean Platelet Volume 12.2 fL (9.5-12.2); Monocytes # (A) 0.74 X 10*3/uL (0.20-1.00); Monocytes % (A) 12.5 %; NRBC Per 100 WBC 0 /100 WBCS (0.0-0.0); Neutrophils # (A) 3.57 X 10*3/uL (1.80-7.70); Platelet Count 105 X 10*3/uL (140-440); RBC 3.74 X 10*6/uL (4.10-5.20); RDW 17.2 % (11.5-14.5); WBC 5.94 X 10*3/uL (4.50-10.00)
[2021-12-14 09:31] LABS: African American GFR (CKD) 72.4 (60.0-200.0); Albumin 2.4 g/dL (3.8-4.9); Albumin/Globulin Ratio 0.91 (1.60-3.17); Anion Gap 10.9 mmol/L (10.00-18.00); BUN/Creat Ratio 30.86 Ratio (12.00-20.00); Calcium 9.1 mg/dL (8.7-10.3); Carbon Dioxide 24.3 mmol/L (20.0-27.5); Globulin 2.7 g/dL (1.6-3.3); Non-African American GFR(CKD) 62.5 (60.0-200.0); Potassium 4.5 mmol/L (3.5-5.5); Total Bilirubin 0.6 mg/dL (0.30-1.20); Total Protein 5.1 g/dL (6.2-8.2)
[2021-12-14 14:07] VITALS: BP 100/67; RESP 17; TEMP 97.4
--- NOTE | 2021-12-14 14:54 | P.DS ---
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 Course: Diagnosis [id number] likely related to severe dehydration requiring vasopressor support NonIschemic cardiomyopathy with dual chamber AICD implantation in 2011 Hyponatremia, hypovolemic Troponin leak likely nonspecifically to hypotension and hypovolemia she does have severe cardiomyopathy Acute renal injury likely related to intravascular volume depletion Supratherapeutic INR which is resolved Altered mental status patient's underlying dementia with acute exacerbation secondary to hypertension and possible underlying infection Paroxysmal atrial fibrillation rate controlled patient has been transitioned from Coumadin to eliquis History of hypertension History of complete heart block Full Code Discharge disposition Patient is stable for discharge back to ECF today she does have guarded prognosis. She will follow up with PCP Dr Jonathan Monreal in 1-2 days outpatient. Patient is also recommended to follow up with cardiology outpatient. She will complete 3 more days of oral antibiotics. She has been discharged on eliquis 2.5 mg twice a day. Coumadin is discontinued. Lasix has been decreased to 20 mg daily. Carvedilol has been discontinued and patient is now metoprolol 50 mg twice a day. Isosorbide mononitrate discontinued. Recommend to repeat BMP and CBC in 2-3 days. Hospital course This is an 81-year-old female with medical history significant for nonischemic cardiomyopathy with dual chamber AICD implantation in 2011, most recent echocardiogram in October 2021 shows an EF of 10-15%. Patient also has history of paroxysmal atrial fibrillation and has been maintained on Coumadin outpatient, history of hypertension, history of complete heart block, history of dementia. Patient resides in an ECF facility. She presents from the retirement for mental status change. She does deny pain on admission but is unable to give any additional history. Patient was found to be hypotensive in the EC was placed on vasopressor support and was given a 1 L fluid bolus. She was also started on IV ceftriaxone empirically and was admitted to the intensive care unit. Chest x- ray shows cardiomegaly and the patient does have a pacemaker in place. There was no evidence of any acute pulmonary infiltrate with no evidence of any aspiration pneumonia. Patient was admitted with a white count of 10.6, hemoglobin 11.9, platelet count of 166. Sodium level of 128, potassium 4.7, BUN 60, creatinine 1.98. She does have troponin elevation at 0.124, 0.145, 0.131. INR was found to be greater than 10 on admission patient did receive vitamin K. AST was elevated at 67. Creatinine kinase was also found to be elevated at 625. Imaging CT was completed showing mild atrophy with no acute intracranial abnormality. Patient had workup for underlying sepsis which shows negative blood cultures, urinalysis showing cloudy urine with moderate blood, moderate leukocyte e sterase, 33 RBC, 15 white blood cell, rare bacteria, 11 hyaline casts and rare urine mucus. Negative for nitrates. Urine culture did show luis angel species. She received 4 days of IV Rocephin empirically. Continue on 3 more days of by mouth antibiotics for a total 7 days. Blood culture did show Staphylococcus epidermidis, coagulase-negative staph however this is felt to be a contaminant species as a blood culture taken at the same time as negative. Blood pressure stabilized and patient was downgraded out of the ICU and monitored on the medical floor. 12/14/2021 Patient evaluated today resting in bed. Her mentation is improved she is able to communicate needs and is answering questions appropriately. She does have underlying dementia which could be exacerbated by hospital stay. Today she denies pain, she denies nausea vomiting, she is needing to have a bowel movement today. She has indwelling catheter which can be removed prior to discharge. Chest pain. Denies shortness of breath. Lungs are clear, S1-S2 auscultated. Abdomen is soft and nontender. No focal neurological deficits noted. She is confused alert x 1-2. Station white count 5.94, hemoglobin 10.1, platelet count 105, INR today was 1.8. Sodium 138, potassium 4.5, BUN 27, creatinine 0.9, blood glucose in the 120s, calcium 9.1, total bili 0.60, AST 46, ALT 43, alk phos 68, total protein 5.1, albumin 2.4. She is afebrile, heart rate 60s, blood pressure 100/67, 98% room air. Patient will be discharge to [facility] today. Please see medication reconciliation for list of current medications. Thank you for allowing us participate in the care of this patient. Total time taken in discharge planning greater than 35 minutes The impression and plan of care has been dictated by Chanel Badillo, Nurse Practitioner as directed. Dr. Andrea MD I have performed a history and physical examination and medical decision making of this patient, discussed the same with the dictator, and agree with the dictators assessment and plan as written, documented as a scribe. Based on total visit time, I have performed more than 50% of this visit. Patient Condition at Discharge: Fair Plan - Discharge Summary Discharge Rx Participant: No New Discharge Prescriptions: New Cefuroxime [Ceftin] 250 mg PO BID 3 Days #6 tab Apixaban [Eliquis] 2.5 mg PO BID tab Furosemide [Lasix] 20 mg PO DAILY #30 tab Metoprolol Tartrate [Lopressor] 50 mg PO BID tab Continue Nitroglycerin Sl Tabs [Nitrostat] 0.4 mg SUBLINGUAL Q5M PRN tab PRN Reason: Chest Pain allopurinoL [Zyloprim] 100 mg PO DAILY tab Zinc Oxide 40% Ointment 1 applic TOPICAL BID Miconazole Nitrate [Lotrimin AF Powder] 1 applic TOPICAL BID Famotidine [Pepcid] 20 mg PO DAILY tab Acetaminophen Tab [Tylenol] 325 mg PO Q6HR PRN tab PRN Reason: Fever and/ or MILD Pain Healthshake 1 dose PO TID@1000,1400,2000 Capsaicin Cream [Trixaicin Cream] 1 applic TOPICAL QID INSULIN ASPART (NovoLOG) [NovoLOG (formulary)] See Protocol SQ ACHS Discontinued Furosemide [Lasix] 40 mg PO DAILY carvediloL [Coreg] 12.5 mg PO BID Warfarin [Coumadin] 2.5 mg PO SUMOTUTHFR Warfarin [Coumadin] 3.75 mg PO WESA Isosorbide Mononitrate ER [Imdur] 30 mg PO DAILY 30 Days #30 tab HYDROcodone/APAP 7.5-325MG [[place] 7.5-325] 1 tab PO QID@05,11,17,23 predniSONE [Deltasone] 20 mg PO DAILY tab Discharge Medication List Acetaminophen Tab [Tylenol] 325 mg PO Q6HR PRN tab 11/29/21 [Rx] Famotidine [Pepcid] 20 mg PO DAILY tab 11/29/21 [Rx] Nitroglycerin Sl Tabs [Nitrostat] 0.4 mg SUBLINGUAL Q5M PRN tab 11/29/21 [Rx] allopurinoL [Zyloprim] 100 mg PO DAILY tab 11/29/21 [Rx] Capsaicin Cream [Trixaicin Cream] 1 applic TOPICAL QID 12/10/21 [History] Healthshake 1 dose PO TID@1000,1400,2000 12/10/21 [History] INSULIN ASPART (NovoLOG) [NovoLOG (formulary)] See Protocol SQ ACHS 12/10/21 [History] Miconazole Nitrate [Lotrimin AF Powder] 1 applic TOPICAL BID 12/10/21 [History] Zinc Oxide 40% Ointment 1 applic TOPICAL BID 12/10/21 [History] Apixaban [Eliquis] 2.5 mg PO BID tab 12/14/21 [Rx] Cefuroxime [Ceftin] 250 mg PO BID 3 Days #6 tab 12/14/21 [Rx] Furosemide [Lasix] 20 mg PO DAILY #30 tab 12/14/21 [Rx] Metoprolol Tartrate [Lopressor] 50 mg PO BID tab 12/14/21 [Rx] Follow up Appointment(s)/Referral(s): Jonathan Monreal DO [Primary Care Provider] - 1-2 days Jemal Venegas MD [STAFF PHYSICIAN] - 1 Week Ambulatory/Diagnostic Orders: Basic Metabolic Panel [LAB.AMB] Time Frame: 3 Days, Location: None Selected Complete Blood Count w/diff [LAB.AMB] Time Frame: 3 Days, Location: None Selected Patient Instructions/Handouts: Acute Kidney Injury (DC) Discharge Disposition: TRANSFER TO SNF/ECF
[2021-12-14] MEDS ORDERED: NYSTATIN 100,000 UNIT/ML SUSP 500,000 UNIT/5 ML CUP PO SCH (18:00)
[2021-12-15] MEDS ORDERED: FAMOTIDINE 20 MG TAB PO SCH (09:00)
== END 2021-12-14 18:22 | DRG 315 ==
LOC: EC 02:33 → 3SCARD 07:18 → 2SICU 07:53 → 4SSUR 12-12 16:14
PROVIDERS: ADMIT Hospitalist; ATTEND Hospitalist
PROC: 06HY33Z Insertion of Infusion Device into Lower Vein, Percutaneous Approach (ICD-10-PCS; principal; 2021-12-10)
PROC: 3E043XZ Introduction of Vasopressor into Central Vein, Percutaneous Approach (ICD-10-PCS; principal; 2021-12-10)
DX: I95.9 Hypotension, unspecified (principal); B37.49 Other urogenital candidiasis; D68.9 Coagulation defect, unspecified; E87.1 Hypo-osmolality and hyponatremia; I42.8 Other cardiomyopathies; I50.20 Unspecified systolic (congestive) heart failure; M62.82 Rhabdomyolysis; N17.9 Acute kidney failure, unspecified; I44.2 Atrioventricular block, complete; E86.0 Dehydration; E86.1 Hypovolemia; F03.90 Unspecified dementia, unspecified severity, without behavioral disturbance, psychotic disturbance, mood disturbance, and anxiety; I11.0 Hypertensive heart disease with heart failure; I48.0 Paroxysmal atrial fibrillation; M10.9 Gout, unspecified; R77.8 Other specified abnormalities of plasma proteins; T45.515A Adverse effect of anticoagulants, initial encounter; Z79.01 Long term (current) use of anticoagulants; Z79.899 Other long term (current) drug therapy; Z82.49 Family history of ischemic heart disease and other diseases of the circulatory system; Z85.3 Personal history of malignant neoplasm of breast; Z95.810 Presence of automatic (implantable) cardiac defibrillator; Z79.4 Long term (current) use of insulin; Z88.5 Allergy status to narcotic agent
CPT/HCPCS: 36415; 70450; 71045; 80048; 80053; 81001; 82140; 82550; 83605; 83735; 84145; 84484; 85025; 85027; 85610; 86850; 86900; 86901; 87040; 87086; 87324; 93005; 96361; 96365; 96367; 96372; 99285

== ENCOUNTER → 2021-12-24 | Outpatient (CLI) | payer MEDICARE, OTHER ==
[2021-12-24 22:24] LABS: HCT 33.7 % (37.2-46.3); HGB 10.9 g/dL (12.0-15.0); MCH 27.3 pg (27.0-32.0); MCHC 32.3 g/dL (32.0-37.0); MCV 84.5 fL (80.0-97.0); Mean Platelet Volume 11.3 fL (9.5-12.2); NRBC Per 100 WBC 0 /100 WBCS (0.0-0.0); Platelet Count 455 X 10*3/uL (140-440); RBC 3.99 X 10*6/uL (4.10-5.20); RDW 19.8 % (11.5-14.5); WBC 5.53 X 10*3/uL (4.50-10.00)
[2021-12-25 00:40] LABS: Basophils # (A) 0.03 X 10*3/uL (0.00-0.10); Basophils % (A) 0.5 %; Eosinophils # (A) 0.03 X 10*3/uL (0.04-0.35); Eosinophils % (A) 0.5 %; Immature Grans, Automated 1.3 %; Lymphocytes # (A) 1.63 X 10*3/uL (0.90-5.00); Lymphocytes % (A) 29.5 %; Monocytes # (A) 0.35 X 10*3/uL (0.20-1.00); Monocytes % (A) 6.3 %; Neutrophils # (A) 3.42 X 10*3/uL (1.80-7.70); Neutrophils % (A) 61.9 %
== END | disposition home or self-care (01) ==
LOC: LABMEDISNF 18:24 → LABPRL 18:24 → EDSTATUS 18:43
PROVIDERS: ATTEND Family Medicine
DX: E86.0 Dehydration (principal); R41.82 Altered mental status, unspecified; R79.89 Other specified abnormal findings of blood chemistry
CPT/HCPCS: 80053; 85025